=== PATIENT | female | born 1940 | race Caucasian/White ===

== ENCOUNTER 2020-02-26 12:44 | Outpatient (REF) | payer MEDICARE, SELFPAY ==
--- NOTE | 2020-02-26 12:56 | XR_ITS ---
EXAMINATION: XR KNEE, RIGHT CLINICAL INFORMATION: Right knee pain. COMPARISON: None TECHNIQUE: Four views of the right knee. FINDINGS: Mild patellofemoral degenerative joint changes are seen. Mild degenerative spurring is seen along the superior margin. There is no acute fracture or dislocation. The soft tissues are unremarkable. XR/XR knee RT 2V IMPRESSION: Mild patellofemoral degenerative joint changes. No acute fracture.
== END 2020-02-26 12:45 | disposition home or self-care (01) ==
LOC: HO.HMGCX 12:44
PROVIDERS: PCP Family Medicine; Visit Provider Family Medicine
DX: M25.561 Pain in right knee (principal)
CPT/HCPCS: 73560

== ENCOUNTER 2020-04-22 10:45 | Outpatient (REF) | payer MEDICARE, SELFPAY ==
[2020-04-22 11:52] LABS: MANUAL DIFF FLAG NO
[2020-04-22 12:06] LABS: Basophils Absolute Auto 0.1 X10*3/uL (0.0-0.2); Basophils Percent Auto 0.9 % (0-2); Eosinophils Absolute Auto 0.2 X10*3/uL (0.0-0.4); Eosinophils Percent Auto 2.2 % (0-4); Hematocrit 37.8 % (37-47); Hemoglobin 12.1 g/dl (12.0-16.0); Imm Gran Abs Auto 0.02 X10*3/uL (0.00-0.03); Imm Gran Pct Auto 0.3 % (0.0-0.4); Lymphocytes Absolute Auto 3.6 X10*3/uL (1.2-4.9); Lymphocytes Percent Auto 51.6 % (20-40); Mean Corpuscular Hemoglobin 31.6 pg (27.0-33.0); Mean Corpuscular Volume 98.7 fL (80-98); Mean Platelet Volume 11.4 fL (9.4-12.3); Monocytes Absolute Auto 0.6 X10*3/uL (0.1-1.2); Monocytes Percent Auto 7.9 % (2-11); Neutrophils Absolute Auto 2.6 X10*3/uL (2.0-8.3); Neutrophils Percent Auto 37.1 % (45-73); Platelet Count 285 X10*3/uL (160-400); Red Blood Count 3.83 X10*6/uL (4.20-5.50); Red Cell Distribution Width 14.5 % (11.0-16.0)
[2020-04-22 12:20] LABS: Glucose Urine UA NEG (NEG); Leukocyte Esterase Urine 1+ (NEG); Nitrite Urine NEG (NEG); PH 5.5 (5.0-8.0); Specific Gravity - Urine 1.025 (1.005-1.025); Urine Blood NEG (NEG); Urine Ketones NEG (NEG); Urine Protein NEG (NEG-TRACE)
[2020-04-22 12:23] LABS: Appearance Urine HAZY; Color Urine YELLOW
[2020-04-22 12:39] LABS: Mucus Urine 1+ /LPF; RBC Urine 0 /HPF (0); Squamous Epithelial Cell Urine 1+ /LPF
[2020-04-22 12:47] LABS: Creatinine Urine 127.85 mg/dL; Microalbum/Creatinine Ratio Ur 23.4 ug/mg cr
[2020-04-22 12:54] LABS: Alanine Aminotransferase 31 U/L (0-31); Alkaline Phosphatase 84 U/L (39-117); Anion Gap 15 (12-20); Aspartate Amino Transferase 30 U/L (5-31); Bilirubin Total 0.5 mg/dL (0.0-1.0); Blood Urea Nitrogen 32 mg/dL (9-16); Carbon Dioxide 27 mmol/L (22-29); Chloride 107 mmol/L (96-108); Cholesterol 172 mg/dL; Estimated Glomerular Filt Rate 52; Glucose Fasting 108 mg/dL (60-99); HDL Cholesterol 58 mg/dL; LDL Cholesterol Calculated 90 mg/dl; Potassium 4.3 mmol/L (3.3-5.1); Sodium 145 mmol/L (135-145); Total Protein 6.8 g/dL (6.5-8.0); Triglycerides 122 mg/dL
[2020-04-22 13:24] LABS: Estimated Average Glucose 108 mg/dL; Hemoglobin A1c % 5.4 %
[2020-04-22 15:06] LABS: Reflex LDLD? No
[2020-04-24 16:31] LABS: Vitamin B12 951 pg/mL (200-900)
== END 2020-04-22 10:46 | disposition home or self-care (01) ==
LOC: HO.LNP 10:45
PROVIDERS: Visit Provider Internal Medicine
DX: Z00.00 Encounter for general adult medical examination without abnormal findings (principal); E11.9 Type 2 diabetes mellitus without complications; I10 Essential (primary) hypertension; E78.00 Pure hypercholesterolemia, unspecified; D72.820 Lymphocytosis (symptomatic)
CPT/HCPCS: 80053; 80061; 81001; 81003; 82043; 82607; 83036; 85025

== ENCOUNTER 2020-05-01 15:11 | Outpatient (REF) | payer MEDICARE, SELFPAY | END 2020-05-01 15:12 | disposition home or self-care (01) | LOC: HO.LNP 15:11 | PROVIDERS: Visit Provider Internal Medicine | DX: N39.0 Urinary tract infection, site not specified (principal) | CPT/HCPCS: 87086 ==

== ENCOUNTER 2020-05-20 10:21 | Outpatient (REF) | payer MEDICARE, SELFPAY ==
[2020-05-20 12:19] LABS: Blood Urea Nitrogen 29 mg/dL (9-16); Estimated Glomerular Filt Rate 56
== END 2020-05-20 10:22 | disposition home or self-care (01) ==
LOC: HO.LNP 10:21
PROVIDERS: PCP Internal Medicine; Visit Provider Internal Medicine
DX: R79.9 Abnormal finding of blood chemistry, unspecified (principal)
CPT/HCPCS: 82565; 84520

== ENCOUNTER 2020-07-17 09:31 | Outpatient (REF) | payer MEDICARE, SELFPAY ==
[2020-07-17 11:20] LABS: Blood Urea Nitrogen 28 mg/dL (9-16)
== END 2020-07-17 09:32 | disposition home or self-care (01) ==
LOC: HO.LNP 09:31
PROVIDERS: PCP Internal Medicine; Visit Provider Internal Medicine
DX: R79.89 Other specified abnormal findings of blood chemistry (principal)
CPT/HCPCS: 84520

== ENCOUNTER 2020-09-18 10:40 | Outpatient (REF) | payer MEDICARE, SELFPAY ==
[2020-09-18 10:56] LABS: Blood Urea Nitrogen 32 mg/dL (9-16); Estimated Glomerular Filt Rate 47
== END 2020-09-18 10:41 | disposition home or self-care (01) ==
LOC: HO.LNP 10:40
PROVIDERS: Visit Provider Internal Medicine
DX: R79.9 Abnormal finding of blood chemistry, unspecified (principal)
CPT/HCPCS: 82565; 84520

== ENCOUNTER 2020-10-31 10:40 | Outpatient (REF) | payer MEDICARE, SELFPAY ==
[2020-10-31 12:01] LABS: Alanine Aminotransferase 20 U/L (0-31); Albumin Level 3.9 g/dL (3.5-5.0); Alkaline Phosphatase 90 U/L (39-117); Aspartate Amino Transferase 26 U/L (5-31); Bilirubin Direct 0.2 mg/dL (0.0-0.5); Bilirubin Total 0.4 mg/dL (0.0-1.0); Cholesterol 162 mg/dL; Glucose Fasting 96 mg/dL (60-99); HDL Cholesterol 61 mg/dL; LDL Cholesterol Calculated 70 mg/dl; Total Protein 6.6 g/dL (6.5-8.0); Triglycerides 159 mg/dL
[2020-10-31 12:03] LABS: Estimated Average Glucose 114 mg/dL; Hemoglobin A1c % 5.6 %
[2020-10-31 13:29] LABS: Reflex LDLD? No
== END 2020-10-31 10:41 | disposition home or self-care (01) ==
LOC: HO.LNP 10:40
PROVIDERS: Visit Provider Internal Medicine
DX: E11.9 Type 2 diabetes mellitus without complications (principal); E78.00 Pure hypercholesterolemia, unspecified
CPT/HCPCS: 80061; 80076; 82947; 83036

== ENCOUNTER 2021-02-10 07:32 | Outpatient (REF) | payer MEDICARE, SELFPAY ==
[2021-02-10 10:31] LABS: Hematocrit 36.7 % (37.0-47.0); Hemoglobin 11.7 g/dl (12.0-16.0); Mean Corpuscular HGB Conc 31.9 g/dl (31.0-35.0); Mean Corpuscular Hemoglobin 31.1 pg (27.0-33.0); Mean Corpuscular Volume 97.6 fL (80.0-98.0); Mean Platelet Volume 10.9 fL (9.4-12.3); Platelet Count 295 X10*3/uL (160-400); Red Blood Count 3.76 X10*6/uL (4.20-5.50); Red Cell Distribution Width 13.2 % (11.0-16.0); White Blood Count 6.8 X10*3/uL (4.8-10.8)
[2021-02-10 10:36] LABS: Anion Gap 15 (12-20); Blood Urea Nitrogen 43 mg/dL (9-16); Carbon Dioxide 26 mmol/L (22-29); Chloride 106 mmol/L (96-108); Estimated Glomerular Filt Rate 42; Iron 100 mcg/dL (30-160); Magnesium 1.9 mg/dL (1.6-2.6); Percent Iron Saturation 29 % (15-50); Potassium 4.6 mmol/L (3.3-5.1); Sodium 142 mmol/L (135-145); Total Iron Binding Capacity 339 mcg/dL (228-428); Unsaturated Iron Binding 239 ug/dL; Uric Acid 9.2 mg/dL (2.4-5.7)
[2021-02-10 10:58] LABS: Ferritin 240 ng/mL (10-250); Vitamin D 25-OH Total 39.2 ng/mL (>30)
[2021-02-10 11:06] LABS: Appearance Urine HAZY; Color Urine YELLOW; Glucose Urine UA NEG (NEG); Leukocyte Esterase Urine 2+ (NEG); Nitrite Urine NEG (NEG); PH 5.5 (5.0-8.0); Urine Blood NEG (NEG); Urine Ketones NEG (NEG); Urine Protein NEG (NEG-TRACE)
[2021-02-10 11:14] LABS: Creatinine Urine 40.72 mg/dL; Microalbumin Urine < 5.0 mg/L
[2021-02-10 11:17] LABS: Bacteria Urine 1+ /LPF; Squamous Epithelial Cell Urine 1+ /LPF
[2021-02-10 11:20] LABS: RBC Urine 0 /HPF (0)
[2021-02-11 20:51] LABS: Calcium (PTHI) 9.8 mg/dL (8.6-10.4); PTHI 42 pg/mL (14-64)
== END 2021-02-10 07:33 | disposition home or self-care (01) ==
LOC: HO.10HDL 07:32
PROVIDERS: Visit Provider Internal Medicine Nephrology
DX: I12.9 Hypertensive chronic kidney disease with stage 1 through stage 4 chronic kidney disease, or unspecified chronic kidney disease (principal); N18.1 Chronic kidney disease, stage 1
CPT/HCPCS: 36415; 80051; 81001; 82043; 82306; 82310; 82565; 82728; 83540; 83735; 83970; 84520; 84550; 85027

== ENCOUNTER 2021-04-27 10:11 | Outpatient (REF) | payer MEDICARE, SELFPAY ==
[2021-04-27 10:14] LABS: MANUAL DIFF FLAG NO
[2021-04-27 10:55] LABS: Basophils Percent Auto 0.5 % (0-2); Eosinophils Absolute Auto 0.1 X10*3/uL (0.0-0.4); Eosinophils Percent Auto 1.7 % (0-4); Hematocrit 39.6 % (37.0-47.0); Hemoglobin 12.4 g/dl (12.0-16.0); Imm Gran Abs Auto 0.02 X10*3/uL (0.00-0.03); Imm Gran Pct Auto 0.3 % (0.0-0.4); Lymphocytes Absolute Auto 3.4 X10*3/uL (1.2-4.9); Lymphocytes Percent Auto 44.4 % (20-40); Mean Corpuscular HGB Conc 31.3 g/dl (31.0-35.0); Mean Corpuscular Hemoglobin 31.1 pg (27.0-33.0); Mean Corpuscular Volume 99.2 fL (80.0-98.0); Mean Platelet Volume 11.9 fL (9.4-12.3); Monocytes Absolute Auto 0.5 X10*3/uL (0.1-1.2); Monocytes Percent Auto 6.9 % (2-11); Neutrophils Absolute Auto 3.6 x10*3/uL (2.0-8.3); Neutrophils Percent Auto 46.2 % (45-73); Platelet Count 255 X10*3/uL (160-400); Red Blood Count 3.99 X10*6/uL (4.20-5.50); White Blood Count 7.7 X10*3/uL (4.8-10.8)
[2021-04-27 10:59] LABS: Appearance Urine HAZY; Color Urine YELLOW; Glucose Urine UA NEG (NEG); Leukocyte Esterase Urine 1+ (NEG); Nitrite Urine NEG (NEG); PH 5.5 (5.0-8.0); Specific Gravity - Urine 1.025 (1.005-1.025); Urine Blood NEG (NEG); Urine Ketones NEG (NEG); Urine Protein NEG (NEG-TRACE)
[2021-04-27 11:11] LABS: Alanine Aminotransferase 25 U/L (0-31); Albumin Level 3.9 g/dL (3.5-5.0); Alkaline Phosphatase 90 U/L (39-117); Anion Gap 12 (12-20); Aspartate Amino Transferase 29 U/L (5-31); Bilirubin Total 0.5 mg/dL (0.0-1.0); Blood Urea Nitrogen 34 mg/dL (9-16); Calcium 9.7 mg/dL (8.4-10.2); Carbon Dioxide 29 mmol/L (22-29); Chloride 106 mmol/L (96-108); Cholesterol 163 mg/dL; Estimated Glomerular Filt Rate 45; Glucose Fasting 123 mg/dL (60-99); HDL Cholesterol 58 mg/dL; LDL Cholesterol Calculated 76 mg/dl; Potassium 4.4 mmol/L (3.3-5.1); Sodium 143 mmol/L (135-145); Total Protein 6.6 g/dL (6.5-8.0); Triglycerides 148 mg/dL
[2021-04-27 11:46] LABS: Bacteria Urine 2+ /LPF; RBC Urine 0-2 /HPF (0); Squamous Epithelial Cell Urine 2+ /LPF
== END 2021-04-27 10:12 | disposition home or self-care (01) ==
LOC: HO.LNP 10:11
PROVIDERS: Visit Provider Internal Medicine
DX: Z00.00 Encounter for general adult medical examination without abnormal findings (principal)
CPT/HCPCS: 80053; 80061; 81001; 81003; 85025

== ENCOUNTER 2021-08-27 15:53 | Outpatient (REF) | payer MEDICARE, SELFPAY ==
[2021-08-27 16:02] LABS: Appearance Urine CLEAR; Color Urine YELLOW; Glucose Urine UA NEG (NEG); Leukocyte Esterase Urine 1+ (NEG); Nitrite Urine NEG (NEG); PH 5.5 (5.0-8.0); Specific Gravity - Urine 1.025 (1.005-1.025); Urine Blood NEG (NEG); Urine Ketones NEG (NEG); Urine Protein NEG (NEG-TRACE)
[2021-08-27 16:08] LABS: Bacteria Urine 2+ /LPF; RBC Urine 0 /HPF (0); Squamous Epithelial Cell Urine 2+ /LPF
== END 2021-08-27 15:54 | disposition home or self-care (01) ==
LOC: HO.LNP 15:53
PROVIDERS: Visit Provider Internal Medicine
DX: N30.00 Acute cystitis without hematuria (principal)
CPT/HCPCS: 81001; 87086

== ENCOUNTER 2021-09-10 11:15 | Outpatient (REF) | payer MEDICARE, SELFPAY ==
[2021-09-10 11:51] LABS: Appearance Urine CLEAR; Color Urine YELLOW; Glucose Urine UA NEG (NEG); Leukocyte Esterase Urine 1+ (NEG); Nitrite Urine NEG (NEG); PH 5.5 (5.0-8.0); Specific Gravity - Urine 1.025 (1.005-1.025); Urine Blood 1+ (NEG); Urine Ketones NEG (NEG); Urine Protein NEG (NEG-TRACE)
[2021-09-10 12:58] LABS: Squamous Epithelial Cell Urine 2+ /LPF
[2021-09-10 12:59] LABS: Bacteria Urine TRACE /LPF
== END 2021-09-10 11:16 | disposition home or self-care (01) ==
LOC: HO.LNP 11:15
PROVIDERS: Visit Provider Internal Medicine
DX: N39.0 Urinary tract infection, site not specified (principal); Z51.89 Encounter for other specified aftercare
CPT/HCPCS: 81001; 87086

== ENCOUNTER 2021-10-30 11:21 | Outpatient (REF) | payer MEDICARE, SELFPAY ==
[2021-10-30 11:48] LABS: Estimated Average Glucose 111 mg/dL; Hemoglobin A1c % 5.5 %
[2021-10-30 11:49] LABS: Alanine Aminotransferase 21 U/L (0-31); Alkaline Phosphatase 89 U/L (39-117); Aspartate Amino Transferase 27 U/L (5-31); Bilirubin Direct < 0.2 mg/dL (0.0-0.5); Bilirubin Total 0.3 mg/dL (0.0-1.0); Cholesterol 159 mg/dL; Glucose Fasting 102 mg/dL (60-99); HDL Cholesterol 53 mg/dL; LDL Cholesterol Calculated 72 mg/dl; Total Protein 6.9 g/dL (6.5-8.0); Triglycerides 173 mg/dL
[2021-10-30 12:34] LABS: Reflex LDLD? No
== END 2021-10-30 11:22 | disposition home or self-care (01) ==
LOC: HO.LNP 11:21
PROVIDERS: Visit Provider Internal Medicine
DX: E11.9 Type 2 diabetes mellitus without complications (principal); E78.00 Pure hypercholesterolemia, unspecified
CPT/HCPCS: 80061; 80076; 82947; 83036

== ENCOUNTER 2022-02-15 11:22 | Outpatient (REF) | payer MEDICARE, SELFPAY ==
[2022-02-15 11:48] LABS: Appearance Urine Cloudy; Color Urine Yellow; Glucose Urine UA Negative (Negative); Leukocyte Esterase Urine Moderate (2+) (Negative); Nitrite Urine Negative (Negative); PH 5.5 (5.0-9.0); Specific Gravity - Urine 1.015 (1.005-1.025); UMIC TRIGGER UA YES; Urine Blood Trace (Negative); Urine Ketones Negative (Negative); Urine Protein Negative (Neg-Trace)
[2022-02-15 12:25] LABS: Bacteria Urine 1+ (None Seen); Hyaline Casts Urine 0-2 /LPF (0-2); WBC Urine 21-50 /HPF (0-5)
== END 2022-02-15 11:23 | disposition home or self-care (01) ==
LOC: HO.LNP 11:22
PROVIDERS: Visit Provider Internal Medicine
DX: R31.9 Hematuria, unspecified (principal)
CPT/HCPCS: 81001; 87086; 87088; 87186

== ENCOUNTER 2022-03-02 10:23 | Outpatient (REF) | payer MEDICARE, SELFPAY ==
--- NOTE | ~2022-03-02 | XR_ITS ---
EXAMINATION: XR SHOULDER, RIGHT CLINICAL INFORMATION: Right shoulder injury. COMPARISON: None TECHNIQUE: Three views of the right shoulder. FINDINGS: No acute fractures or subluxation. Equivocal widening of the acromioclavicular joint with mild bony productive changes suggesting a background of mild osteoarthritis. The visualized right-sided ribs and right lung are within normal limits. No abnormal soft tissue calcifications. XR/XR shoulder RT min 2V IMPRESSION: Equivocal widening of the right acromioclavicular joint that could be seen with a ligamentous injury. Recommend correlation with weightbearing bilateral views of the AC joints if clinically deemed appropriate.
== END 2022-03-02 10:24 | disposition home or self-care (01) ==
LOC: HO.XRAY 10:23
PROVIDERS: PCP Internal Medicine; Visit Provider Internal Medicine
DX: S49.91XA Unspecified injury of right shoulder and upper arm, initial encounter (principal); X58.XXXA Exposure to other specified factors, initial encounter; Y93.9 Activity, unspecified; Y92.9 Unspecified place or not applicable; Y99.9 Unspecified external cause status
CPT/HCPCS: 73030

== ENCOUNTER → 2022-04-28 07:47 | Outpatient (BNVA) | payer MEDICARE, SELFPAY | PROVIDERS: PCP Internal Medicine; Visit Provider Physician Assistant | DX: M75.80 Other shoulder lesions, unspecified shoulder (principal) | CPT/HCPCS: 99202 ==

== ENCOUNTER 2022-05-03 11:01 | Outpatient (REF) | payer MEDICARE, SELFPAY ==
[2022-05-03 11:11] LABS: MANUAL DIFF FLAG NO
[2022-05-03 11:21] LABS: Basophils Absolute Auto 0.1 X10*3/uL (0.0-0.2); Basophils Percent Auto 0.6 % (0-2); Eosinophils Absolute Auto 0.1 X10*3/uL (0.0-0.4); Eosinophils Percent Auto 1.2 % (0-4); Hematocrit 36.3 % (37.0-47.0); Hemoglobin 11.7 g/dl (12.0-16.0); Imm Gran Abs Auto 0.01 X10*3/uL (0.00-0.03); Imm Gran Pct Auto 0.1 % (0.0-0.4); Lymphocytes Absolute Auto 3.4 X10*3/uL (1.2-4.9); Lymphocytes Percent Auto 38.2 % (20-40); Mean Corpuscular HGB Conc 32.2 g/dl (31.0-35.0); Mean Corpuscular Hemoglobin 30.6 pg (27.0-33.0); Mean Platelet Volume 10.8 fL (9.4-12.3); Monocytes Absolute Auto 0.7 X10*3/uL (0.1-1.2); Monocytes Percent Auto 7.9 % (2-11); Neutrophils Absolute Auto 4.6 x10*3/uL (2.0-8.3); Platelet Count 323 X10*3/uL (160-400); Red Blood Count 3.82 X10*6/uL (4.20-5.50); Red Cell Distribution Width 13.6 % (11.0-16.0); White Blood Count 8.9 X10*3/uL (4.8-10.8)
[2022-05-03 11:22] LABS: Appearance Urine Cloudy; Color Urine Yellow; Glucose Urine UA Negative (Negative); Leukocyte Esterase Urine Large (3+) (Negative); Nitrite Urine Positive (Negative); UMIC TRIGGER UACC YES; Urine Blood Moderate (2+) (Negative); Urine Ketones Negative (Negative); Urine Protein Negative (Neg-Trace)
[2022-05-03 12:11] LABS: Estimated Average Glucose 120 mg/dL; Hemoglobin A1c % 5.8 %
[2022-05-03 12:19] LABS: Alanine Aminotransferase 16 U/L (0-31); Albumin Level 3.8 g/dL (3.5-5.0); Alkaline Phosphatase 91 U/L (39-117); Anion Gap 14 (12-20); Aspartate Amino Transferase 21 U/L (5-31); Bilirubin Total 0.5 mg/dL (0.0-1.0); Blood Urea Nitrogen 30 mg/dL (9-16); Calcium 9.4 mg/dL (8.4-10.2); Carbon Dioxide 29 mmol/L (22-29); Chloride 105 mmol/L (96-108); Cholesterol 143 mg/dL; Estimated Glomerular Filt Rate 47; Glucose Fasting 106 mg/dL (60-99); HDL Cholesterol 52 mg/dL; LDL Cholesterol Calculated 68 mg/dl; Potassium 4.5 mmol/L (3.3-5.1); Sodium 143 mmol/L (135-145); Total Protein 6.5 g/dL (6.5-8.0); Triglycerides 115 mg/dL
[2022-05-03 12:26] LABS: Bacteria Urine 4+ (None Seen); Hyaline Casts Urine 0-2 /LPF (0-2); UACC Culture Trigger YES; WBC Urine 21-50 /HPF (0-5)
[2022-05-03 12:36] LABS: Creatinine Urine 135.07 mg/dL
== END 2022-05-03 11:02 | disposition home or self-care (01) ==
LOC: HO.LNP 11:01
PROVIDERS: Visit Provider Internal Medicine
DX: Z00.00 Encounter for general adult medical examination without abnormal findings (principal); E11.9 Type 2 diabetes mellitus without complications; E78.00 Pure hypercholesterolemia, unspecified; I10 Essential (primary) hypertension; D72.820 Lymphocytosis (symptomatic); R82.90 Unspecified abnormal findings in urine
CPT/HCPCS: 80053; 80061; 81001; 82043; 83036; 85025; 87086

== ENCOUNTER 2022-06-03 12:42 | Outpatient (REF) | payer MEDICARE, SELFPAY ==
[2022-06-03 13:04] LABS: Appearance Urine Cloudy; Color Urine Yellow; Glucose Urine UA Negative (Negative); Leukocyte Esterase Urine Moderate (2+) (Negative); Nitrite Urine Positive (Negative); PH 5.5 (5.0-9.0); UMIC TRIGGER UACC YES; Urine Blood Moderate (2+) (Negative); Urine Ketones Negative (Negative); Urine Protein Negative (Neg-Trace)
[2022-06-03 13:26] LABS: Bacteria Urine 4+ (None Seen); RBC Urine 0-2 /HPF (0-2); UACC Culture Trigger YES; WBC Urine 21-50 /HPF (0-5)
== END 2022-06-03 12:43 | disposition home or self-care (01) ==
LOC: HO.LNP 12:42
PROVIDERS: Visit Provider Internal Medicine
DX: R31.9 Hematuria, unspecified (principal)
CPT/HCPCS: 81001; 87086; 87088; 87186

== ENCOUNTER 2022-06-24 11:37 | Outpatient (REF) | payer MEDICARE, SELFPAY ==
[2022-06-24 11:53] LABS: Appearance Urine Clear; Color Urine Yellow; Glucose Urine UA Negative (Negative); Leukocyte Esterase Urine Large (3+) (Negative); Nitrite Urine Negative (Negative); Specific Gravity - Urine 1.015 (1.005-1.025); UMIC TRIGGER UA YES; Urine Blood Negative (Negative); Urine Ketones Negative (Negative); Urine Protein Negative (Neg-Trace)
[2022-06-24 11:58] LABS: Bacteria Urine None Seen (None Seen); Hyaline Casts Urine 0-2 /LPF (0-2); RBC Urine 0-2 /HPF (0-2); WBC Urine 21-50 /HPF (0-5)
== END 2022-06-24 11:38 | disposition home or self-care (01) ==
LOC: HO.LNP 11:37
PROVIDERS: Visit Provider Internal Medicine
DX: R31.9 Hematuria, unspecified (principal)
CPT/HCPCS: 81001; 87086

== ENCOUNTER 2022-11-05 12:20 | Outpatient (REF) | payer MEDICARE, SELFPAY ==
[2022-11-05 12:47] LABS: Alanine Aminotransferase 20 U/L (0-31); Alkaline Phosphatase 83 U/L (39-117); Aspartate Amino Transferase 31 U/L (5-31); Bilirubin Direct 0.2 mg/dL (0.0-0.5); Bilirubin Total 0.5 mg/dL (0.0-1.0); Cholesterol 154 mg/dL (<200); Glucose Fasting 90 mg/dL (60-99); HDL Cholesterol 58 mg/dL (>40); LDL Cholesterol Calculated 78 mg/dL (<100); Total Protein 7.1 g/dL (6.5-8.0); Triglycerides 92 mg/dL (<150)
[2022-11-05 13:10] LABS: Reflex LDLD? No
[2022-11-05 13:16] LABS: Estimated Average Glucose 108 mg/dL; Hemoglobin A1c % 5.4 % (<6.0)
== END 2022-11-05 12:21 | disposition home or self-care (01) ==
LOC: HO.LNP 12:20
PROVIDERS: Visit Provider Internal Medicine
DX: E11.9 Type 2 diabetes mellitus without complications (principal); E78.00 Pure hypercholesterolemia, unspecified
CPT/HCPCS: 80061; 80076; 82947; 83036

== ENCOUNTER 2022-11-23 11:54 | Outpatient (REF) | payer MEDICARE, SELFPAY ==
[2022-11-23 12:23] LABS: Appearance Urine Cloudy; Color Urine Dark Yellow; Glucose Urine UA Negative (Negative); Leukocyte Esterase Urine Moderate (2+) (Negative); Nitrite Urine Negative (Negative); UMIC TRIGGER UACC YES; Urine Blood Large (3+) (Negative); Urine Ketones Negative (Negative); Urine Protein 100 (2+) mg/dL (Neg-Trace)
[2022-11-23 12:26] LABS: Bacteria Urine 4+ (None Seen); Hyaline Casts Urine 0-2 /LPF (0-2); RBC Urine >20 /HPF (0-2); UACC Culture Trigger YES; WBC Urine >50 /HPF (0-5)
== END 2022-11-23 11:55 | disposition home or self-care (01) ==
LOC: HO.LNP 11:54
PROVIDERS: Visit Provider Internal Medicine
DX: N39.0 Urinary tract infection, site not specified (principal)
CPT/HCPCS: 81001; 87086

== ENCOUNTER 2022-12-14 11:11 | Outpatient (REF) | payer MEDICARE, SELFPAY ==
[2022-12-14 12:36] LABS: Appearance Urine Cloudy; Color Urine Yellow; Glucose Urine UA Negative (Negative); Leukocyte Esterase Urine Large (3+) (Negative); Nitrite Urine Negative (Negative); PH 5.5 (5.0-9.0); UMIC TRIGGER UACC YES; Urine Blood Large (3+) (Negative); Urine Ketones Negative (Negative); Urine Protein Negative (Neg-Trace)
[2022-12-14 12:43] LABS: Bacteria Urine Trace (None Seen); RBC Urine >20 /HPF (0-2); UACC Culture Trigger YES; WBC Urine >50 /HPF (0-5)
== END 2022-12-14 11:12 | disposition home or self-care (01) ==
LOC: HO.LNP 11:11
PROVIDERS: Visit Provider Internal Medicine
DX: R31.9 Hematuria, unspecified (principal)
CPT/HCPCS: 81001; 87086

== ENCOUNTER 2023-02-15 12:41 | Outpatient (REF) | payer MEDICARE, SELFPAY | END 2023-02-15 12:42 | disposition home or self-care (01) | LOC: HO.LAB 12:41 | PROVIDERS: PCP Internal Medicine; Visit Provider Nurse Practitioner Family | DX: N39.0 Urinary tract infection, site not specified (principal); R31.9 Hematuria, unspecified; Z79.899 Other long term (current) drug therapy | CPT/HCPCS: 81003; 87086; 99202 ==

== ENCOUNTER 2023-02-15 12:41 | Outpatient (AMB) | payer MEDICARE, SELFPAY ==
--- NOTE | 2023-02-15 12:51 | A.OFFVIS_ITS ---
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 Orona. She has a past medical history of coronary artery disease, hypertension, hyperlipidemia, and chronic kidney disease following with Dr. Morrison. 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 She presents to the office today as a new patient for microscopic hematuria and recurrent urinary tract infections. In discussion with the patient today she reports having follow-up with her PCP a few months ago for UTI like symptoms at which time recommendations were made for Urology follow-up due to patient's recurrent urinary tract infections. She currently denies any UTI like symptoms. In office urinalysis with 2+ leukocytes otherwise negative nitrates and negative for microscopic hematuria today. When asked she does report episodes of urinary urgency, urinary frequency, and episodes of incontinence if not near a bathroom however these episodes are infrequent and she does not find them bothersome. Discussed at length potential causes for recurrent urinary tract infections as well as microscopic hematuria. She otherwise denies dysuria, foul smelling urine, changes to urinary stream, flank pain, fever, and or chills. She is happy with her current voiding parameters. She discusses how she continues to work and enjoys working. She also discusses her 29year old grandson who lives with her and how great of a cook he is. [facility] Surgical History (Updated 04/28/22 @ 07:59 by Susan Dunn CMA) History of heart bypass surgery Social History (Updated 02/15/23 @ 13:11 by KACIE Gomez) Alcohol intake: current Alcohol intake frequency: does not drink Patient Tobacco Use Status: Former Tobacco user Quit Date: 1983 Review of Systems Eyes Reports no additional complaints ENT Reports no additional complaints Card Reports as per HPI Resp Reports no additional complaints GI Reports no additional complaints Reports as per HPI Musc Reports no additional complaints Neuro Reports no additional complaints Psych Reports no additional complaints Endo Reports no additional complaints Eleno/Lymph Reports no additional complaints Aller/Immun Reports no additional complaints Physical Exam Const General: cooperative, healthy appearing, comfortable, no acute distress, well developed, alert and awake Nutritional Appearance: overweight Orientation/consciousness: patient oriented x3 Limitations: no limitations HEENT Head: Yes normal to inspection, Yes normocephalic and Yes atraumatic Ears: hearing grossly normal bilaterally Eyes General: appearance normal, both eyes and all related structures Neck Neck: Yes normal visual inspection and Yes trachea midline Chest Chest palpation & inspection: normal inspection of the chest Resp Effort & Inspection: normal respiratory effort and able to speak in complete sentences Cardio Rate: regular rate GI Inspection: Yes normal to inspection General: Yes no CVA tenderness Back/Spine/Pelvis Back: no CVA tenderness Skin General skin exam: no rashes or lesions noted Neuro General: patient oriented x3 Extrem General: Yes normal to inspection Psych Appearance: grossly normal and well kempt Mental Status: mental status grossly normal Speech and movement: Normal speech and movement present and Clear speech present Affect: normal affect Attitude: cooperative Thought process: Normal thought process present Thought content: Normal thought content present Insight: Fair insight present (Psych) Judgement: Fair judgement present (Psych) Results AMB Urinalysis, Automated UA Leukoctes 125 Martell/uL Last Edit by KACIE Gomez on 02/15/23 13:15 2+ Dionicio Espinal 02/15/23 13:15 UA Nitrite Negative Last Edit by KACIE Gomez on 02/15/23 13:15 UA Urobilinogen 0.2 mg/dL Last Edit by Dionicio Espinal A on 02/15/23 13:1 5 UA Protein 0 mg/dL Last Edit by Dionicio Espinal A on 02/15/23 13:15 UA pH 5.5 Last Edit by Dionicio Espinal, A on 02/15/23 13:15 UA Blood 0 Massimo/uL Last Edit by Dionicio Espinal A on 02/15/23 13:15 UA Specific [place] 1.025 Last Edit by Dionicio Espinal, A on 02/15/23 13: 15 UA Ketone Negative Last Edit by Dionicio Espinal, A on 02/15/23 13:15 UA Bilirubin 0 mg/dL Last Edit by Dionicio Espinal A on 02/15/23 13:15 UA Glucose 0 mg/dL Last Edit by Dionicio Espinal A on 02/15/23 13:15 Results Reviewed Results Reviewed: Laboratory Last Values Urine pH (Auto) 5.5 02/15/23 13:11 Specific [place] (Auto) 1.025 02/15/23 13:11 Urine Protein (Auto) 0 mg/dL 02/15/23 13:11 Glucose (UA)(Auto) 0 mg/dL 02/15/23 13:11 Urine Ketones (Auto) Negative 02/15/23 13:11 Urine Blood (Auto) 0 Massimo/uL 02/15/23 13:11 Urine Nitrite (Auto) Negative 02/15/23 13:11 Urine Bilirubin (Auto) 0 mg/dL 02/15/23 13:11 Urine Urobilinogen (Auto) 0.2 mg/dL 02/15/23 13:11 Leukocyte Esterase (Auto) 125 Martell/uL 02/15/23 13:11 Assessment & Plan Assessment & Plan (1) Recurrent urinary tract infection: Code(s): N39.0 - Urinary tract infection, site not specified Plan In office urinalysis results reviewed with the patient today; as noted above; will send for urine culture Discussed at length potential causes for recurrent urinary tract infections as well as microscopic hematuria No microscopic hematuria noted on urinalysis today Discussed UTI prevention with D mannose supplement, vitamin-C, increasing fluid intake, behavioral therapy with timed voiding, perineal hygiene and postcoital voiding, and management of constipation with stool softeners and increased fiber intake. Start Estrace cream as discussed and prescribed Discussed, educated, and stressed the importance of drinking plenty of water daily. Patient does report episodes of urinary urgency and frequency however does not f ind this bothersome at this time Discussed possible near future imaging and or in office cystoscopy if symptoms persist and/or worsen Follow-up in 3 months with PVR; or sooner with any issues, concerns, and or questions. Orders: Orders AMB Urinalysis Automated Today Z13.9 - Encounter for screening, unspecified Urine Culture Today N39.0 - Urinary tract infection, site not specified Medications: New estradiol 0.01%(0.1mg/gram) (Estrace) pea sized to the urethera 3 times per week 1 g vaginal 3XW 30 days 42.5 grams 0RF Patient Instructions: The patient had an opportunity to ask questions regarding the treatment plan. All questions were answered. Physical exam, labs, and imaging were discussed and reviewed in detail. As well as risks, benefits, and discussion of treatment choices. No major barriers to understanding were identified. The patient expressed understanding and agreement with the above treatment plan. The patient was made aware they should contact our office by phone for worsening of their current condition, the appearance of new symptoms, or with any questions or concerns. Compliance is encouraged with any medications and follow up testing that is ordered. It is a privilege to be allowed the opportunity to participate in? your urological care.? Again, if you have any questions or concerns If you have any questions or concerns please do not hesitate to contact me. The office is [phone]. This note is constructed using voice recognition software. While every effort has been made to ensure accuracy change advisor errors may have been included. Yours sincerely, NNEKA Plaza Coding Level of Care Code New Pt Level 4 (23375) Diagnoses Recurrent urinary tract infection N39.0
== END 2023-02-15 14:29 | disposition home or self-care (01) ==
PROVIDERS: PCP Internal Medicine; Visit Provider Nurse Practitioner Family
DX: N39.0 Urinary tract infection, site not specified (principal); Z13.9 Encounter for screening, unspecified
CPT/HCPCS: 99204

== ENCOUNTER 2023-04-20 07:30 | Outpatient (REF) | payer MEDICARE, SELFPAY ==
[2023-04-20 10:50] LABS: Appearance Urine Turbid; Color Urine Yellow; Glucose Urine UA Negative (Negative); Leukocyte Esterase Urine Moderate (2+) (Negative); Nitrite Urine Positive (Negative); UMIC TRIGGER UA YES; Urine Blood Moderate (2+) (Negative); Urine Ketones Negative (Negative); Urine Protein Trace mg/dL (Neg-Trace)
[2023-04-20 11:16] LABS: Bacteria Urine 4+ (None Seen); Renal Epithelial Cells Urine Present; Transitional Epi Cells Urine Present; WBC Urine >50 /HPF (0-5)
== END 2023-04-20 07:31 | disposition home or self-care (01) ==
LOC: HO.10HDLNP 07:30
PROVIDERS: Visit Provider Nurse Practitioner Family
DX: N39.0 Urinary tract infection, site not specified (principal)
CPT/HCPCS: 81001; 87086; 87088

== ENCOUNTER 2023-05-05 11:17 | Outpatient (REF) | payer MEDICARE, SELFPAY ==
[2023-05-05 12:14] LABS: Estimated Average Glucose 111 mg/dL; Hemoglobin A1c % 5.5 % (<6.0)
[2023-05-05 12:28] LABS: Alanine Aminotransferase 24 U/L (0-31); Albumin Level 3.8 g/dL (3.5-5.0); Alkaline Phosphatase 82 U/L (39-117); Aspartate Amino Transferase 27 U/L (5-31); Bilirubin Direct 0.2 mg/dL (0.0-0.5); Bilirubin Total 0.5 mg/dL (0.0-1.0); Cholesterol 144 mg/dL (<200); Glucose Fasting 92 mg/dL (60-99); HDL Cholesterol 52 mg/dL (>40); LDL Cholesterol Calculated 69 mg/dL (<100); Total Protein 6.8 g/dL (6.5-8.0); Triglycerides 119 mg/dL (<150)
[2023-05-05 13:36] LABS: Reflex LDLD? No
== END 2023-05-05 11:18 | disposition home or self-care (01) ==
LOC: HO.LNP 11:17
PROVIDERS: Visit Provider Internal Medicine
DX: E11.9 Type 2 diabetes mellitus without complications (principal); E78.00 Pure hypercholesterolemia, unspecified
CPT/HCPCS: 80061; 80076; 82947; 83036

== ENCOUNTER 2023-05-17 12:48 | Outpatient (REF) | payer MEDICARE, SELFPAY ==
[2023-05-17 17:46] LABS: Urine Cytology See Pathology rpt
== END 2023-05-17 12:49 | disposition home or self-care (01) ==
LOC: HO.LAB 12:48
PROVIDERS: PCP Internal Medicine; Visit Provider Nurse Practitioner Family
DX: R31.29 Other microscopic hematuria (principal); N39.0 Urinary tract infection, site not specified
CPT/HCPCS: 51798; 81003; 88112; 99212

== ENCOUNTER 2023-05-17 12:48 | Outpatient (AMB) | payer MEDICARE, SELFPAY ==
--- NOTE | 2023-05-17 12:51 | A.OFFVIS_ITS ---
Intake Intake Visit Reasons: 3m/PVR Intake Note: Patient presents today for a follow-up on PVR Meds- Estrace, Pyridium Allergies to Antibiotic- No Known Allergies Blood Thinner- Aspirin Post Void Residual: Webbing Seamer Pound Net Required: No Accompanied by: Self / Same As Patient Allergies No Known Allergies [No Known Allergies*] Allergy (Verified 05/17/23 20:36) Medication List - Last Reconciled 05/17/23 by TORSTEN Plaza- aspirin 81 mg PO DAILY estradiol 0.01%(0.1mg/gram) (Estrace) 1 g vaginal 3XW 30 days furosemide 20 mg PO DAILY metoprolol succinate ER 50 mg PO DAILY simvastatin 40 mg PO BEDTIME valsartan-hydrochlorothiazide 320-25 mg 1 tab PO DAILY HPI HPI Comments History of Present Illness Details Rekha is a very pleasant 83-year-old female patient of Dr. Orona. She has a past medical history of coronary artery disease, hypertension, hyperlipidemia, and chronic kidney disease following with Dr. Morrison. 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 She presents to the office today for a follow up of her microscopic hematuria and recurrent urinary tract infections. Of note, patient was recently treated for urinary tract infection 04/23 Aerococcus urinae with macrobid. In discussion with the patient today she reports having since completed antibiotic therapy. She currently denies any UTI like symptoms or bothersome urinary issues. She does report to be following up with infectious waste technician for her ongoing vaginits. She does report noting vaginal itching improves at times. She also reports puritis ani at times as well. In office urinalysis results reviewed with the patient today. Microscopic hematuria noted. PVR 0ml's. She does have a previous smoking history however quit approximately 40 years ago. Discussed at length potential causes of microscopic hematuria as well as recurrent urinary tract infections. When asked she does report compliance with Estrace cream as prescribed. When asked she does report episodes of urinary urgency, urinary frequency, and episodes of incontinence if not near a bathroom however these episodes are infrequent and she does not find them bothersome. She otherwise denies dysuria, foul smelling urine, changes to urinary stream, flank pain, fever, and or chills. She is happy with her current voiding parameters. She discusses how she continues to work and enjoys working. Discussed further microscopic hematuria workup versus surveillance monitoring. She otherwise offers no other issues or concerns at this time. [facility] Surgical History (Updated 04/28/22 @ 07:59 by Susan Dunn CMA) History of heart bypass surgery Social History (Updated 02/15/23 @ 13:11 by KACIE Gomez) Alcohol intake: current Alcohol intake frequency: does not drink Patient Tobacco Use Status: Former Tobacco user Quit Date: 1983 Review of Systems Eyes Reports no additional complaints ENT Reports no additional complaints Card Reports as per HPI Resp Reports no additional complaints GI Reports no additional complaints Reports as per HPI Musc Reports no additional complaints Neuro Reports no additional complaints Psych Reports no additional complaints Endo Reports no additional complaints Eleno/Lymph Reports no additional complaints Aller/Immun Reports no additional complaints Physical Exam Const General: cooperative, healthy appearing, comfortable, no acute distress, well developed, alert and awake Nutritional Appearance: overweight Orientation/consciousness: patient oriented x3 Limitations: no limitations HEENT Head: Yes normal to inspection, Yes normocephalic and Yes atraumatic Ears: hearing grossly normal bilaterally Eyes General: appearance normal, both eyes and all related structures Neck Neck: Yes normal visual inspection and Yes trachea midline Chest Chest palpation & inspection: normal inspection of the chest Resp Effort & Inspection: normal respiratory effort and able to speak in complete sentences Cardio Rate: regular rate GI Inspection: Yes normal to inspection General: Yes no CVA tenderness Back/Spine/Pelvis Back: no CVA tenderness Skin General skin exam: no rashes or lesions noted Neuro General: patient oriented x3 Extrem General: Yes normal to inspection Psych Appearance: grossly normal and well kempt Mental Status: mental status grossly normal Speech and movement: Normal speech and movement present and Clear speech present Affect: normal affect Attitude: cooperative Thought process: Normal thought process present Thought content: Normal thought content present Insight: Fair insight present (Psych) Judgement: Fair judgement present (Psych) Office Procedures Post Void Residual Post Residual Void Post Void Residual (PVR): 0 [id number]-Avhb Void Residual by ultrasound Results AMB Urinalysis, Automated UA Leukoctes 15 Martell/uL Last Edit by Katalina Gentile [facility] on 05/17/23 13:11 UA Nitrite Negative Last Edit by Katalina Gentilevikram Gentile [facility] on 05/17/23 13: 11 UA Urobilinogen 0.2 mg/dL Last Edit by Katalina Gentile [facility] on 4 13:11 UA Protein 0 mg/dL Last Edit by Katalina Gentilevikram Gentile [facility] on 05/17/23 13:11 UA pH 5.5 Last Edit by Katalina Gentilevikram Gentile, [facility] on 05/17/23 13:11 UA Blood 200 Massimo/uL Last Edit by Katalina Gentile [facility] on 05/17/23 13:1 1 UA Specific [place] 1.020 Last Edit by Katalina Gentlie [facility] on 13:11 UA Ketone Negative Last Edit by Katalina Gentile [facility] on 05/17/23 13:1 1 UA Bilirubin 0 mg/dL Last Edit by Katalina Gentile [facility] on 05/17/23 13: 11 UA Glucose 0 mg/dL Last Edit by Katalina Gentilevikram Gentile [facility] on 05/17/23 13:11 Results Reviewed Results Reviewed: Laboratory Last Values Urine pH (Auto) 5.5 05/17/23 12:52 Specific [place] (Auto) 1.020 05/17/23 12:52 Urine Protein (Auto) 0 mg/dL 05/17/23 12:52 Glucose (UA)(Auto) 0 mg/dL 05/17/23 12:52 Urine Ketones (Auto) Negative 05/17/23 12:52 Urine Blood (Auto) 200 Massimo/uL 05/17/23 12:52 Urine Nitrite (Auto) Negative 05/17/23 12:52 Urine Bilirubin (Auto) 0 mg/dL 05/17/23 12:52 Urine Urobilinogen (Auto) 0.2 mg/dL 05/17/23 12:52 Leukocyte Esterase (Auto) 15 Martell/uL 05/17/23 12:52 Assessment & Plan Assessment & Plan (1) Recurrent urinary tract infection: Code(s): N39.0 - Urinary tract infection, site not specified (2) Microscopic hematuria: Code(s): R31.29 - Other microscopic hematuria Plan In office urinalysis results reviewed with the patient today; as noted above; will send for urine cytology. PVR 0ml's. Discussed at length potential causes for microscopic hematuria as well as recurrent urinary tract infections. Discussed further microscopic hematuria workup with urine cytology, imaging, and in office cystoscopy versus surveillance monitoring; risks and benefits of these interventions were discussed at length. Discussed UTI prevention with D mannose supplement, vitamin-C, increasing fluid intake, behavioral therapy with timed voiding, perineal hygiene and postcoital voiding, and management of constipation with stool softeners and increased fiber intake. She currently denies any bothersome urinary issues or concerns. She is happy with her current voiding parameters. Continue Estrace cream as prescribed. Follow-up in 6 months; if not sooner with any issues, concerns, and or questions. Orders: Orders AMB Urinalysis Automated Today R33.9 - Retention of urine, unspecified Urine Cytology Today R31.29 - Other microscopic hematuria AMB Post Void Residual by ultrasound Today R33.9 - Retention of urine, unspecified Medications: Refilled estradiol 0.01%(0.1mg/gram) (Estrace) pea sized to the urethera 3 times per week 1 g vaginal 3XW 30 days 42.5 grams 0RF Discontinued phenazopyridine (Pyridium) Discontinued Reason: Patient Completed Course 100 mg PO TID 3 days PRN 15 tabs 0RF pain Patient Instructions: The patient had an opportunity to ask questions regarding the treatment plan. All questions were answered. Physical exam, labs, and imaging were discussed and reviewed in detail. As well as risks, benefits, and discussion of treatment choices. No major barriers to understanding were identified. The patient expressed understanding and agreement with the above treatment plan. The patient was made aware they should contact our office by phone for worsening of their current condition, the appearance of new symptoms, or with any questions or concerns. Compliance is encouraged with any medications and follow up testing that is ordered. It is a privilege to be allowed the opportunity to participate in? your urological care.? Again, if you have any questions or concerns If you have any questions or concerns please do not hesitate to contact me. The office is [phone]. This note is constructed using voice recognition software. While every effort has been made to ensure accuracy test tech errors may have been included. Yours sincerely, TORSTEN Plaza-BC Coding Level of Care Code Est Pt Level 3 (80286) Diagnoses Recurrent urinary tract infection N39.0 Microscopic hematuria R31.29 CPT Codes Post Residual Void - PVR CPT Code: 15309-Bjpx Void Residual by ultrasound ([id number])
== END 2023-05-17 13:40 | disposition home or self-care (01) ==
LOC: HO.HUSH 12:48
PROVIDERS: PCP Internal Medicine; Visit Provider Nurse Practitioner Family
DX: N39.0 Urinary tract infection, site not specified (principal); R31.29 Other microscopic hematuria; R33.9 Retention of urine, unspecified
CPT/HCPCS: 99213

== ENCOUNTER 2023-11-08 12:15 | Outpatient (REF) | payer MEDICARE, SELFPAY ==
[2023-11-08 12:20] LABS: MANUAL DIFF FLAG NO
[2023-11-08 12:25] LABS: Basophils Absolute Auto 0.1 X10*3/uL (0.0-0.2); Basophils Percent Auto 0.8 % (0-2); Eosinophils Absolute Auto 0.1 X10*3/uL (0.0-0.4); Eosinophils Percent Auto 1.5 % (0-4); Hematocrit 38.4 % (37.0-47.0); Hemoglobin 12.6 g/dl (12.0-16.0); Imm Gran Abs Auto 0.03 X10*3/uL (0.00-0.03); Imm Gran Pct Auto 0.3 % (0.0-0.4); Lymphocytes Absolute Auto 3.4 X10*3/uL (1.2-4.9); Lymphocytes Percent Auto 37.3 % (20-40); Mean Corpuscular HGB Conc 32.8 g/dl (31.0-35.0); Mean Corpuscular Hemoglobin 31.7 pg (27.0-33.0); Mean Corpuscular Volume 96.5 fL (80.0-98.0); Mean Platelet Volume 11.3 fL (9.4-12.3); Monocytes Absolute Auto 0.7 X10*3/uL (0.1-1.2); Monocytes Percent Auto 7.6 % (2-11); Neutrophils Absolute Auto 4.8 x10*3/uL (2.0-8.3); Neutrophils Percent Auto 52.5 % (45-73); Platelet Count 257 X10*3/uL (160-400); Red Blood Count 3.98 X10*6/uL (4.20-5.50); Red Cell Distribution Width 13.9 % (11.0-16.0); White Blood Count 9.1 X10*3/uL (4.8-10.8)
[2023-11-08 12:26] LABS: Appearance Urine Cloudy; Color Urine Yellow; Glucose Urine UA Negative (Negative); Leukocyte Esterase Urine Negative (Negative); Nitrite Urine Negative (Negative); Specific Gravity - Urine 1.015 (1.005-1.025); UMIC TRIGGER UACC YES; Urine Blood Trace (Negative); Urine Ketones Negative (Negative); Urine Protein Negative (Neg-Trace)
[2023-11-08 12:30] LABS: Bacteria Urine 4+ (None Seen); Hyaline Casts Urine 0-2 /LPF (0-2); Squamous Epithelial Cell Urine 0-2 /HPF (0-2); WBC Urine 0-5 /HPF (0-5)
[2023-11-08 12:38] LABS: Estimated Average Glucose 111 mg/dL; Hemoglobin A1c % 5.5 % (<6.0)
[2023-11-08 12:49] LABS: Alanine Aminotransferase 23 U/L (0-31); Albumin Level 4.3 g/dL (3.5-5.0); Alkaline Phosphatase 104 U/L (39-117); Anion Gap 14 (12-20); Aspartate Amino Transferase 32 U/L (5-31); Bilirubin Total 0.4 mg/dL (0.0-1.0); Blood Urea Nitrogen 32 mg/dL (9-16); Calcium 10.1 mg/dL (8.4-10.2); Carbon Dioxide 25 mmol/L (22-29); Chloride 109 mmol/L (96-108); Cholesterol 151 mg/dL (<200); Estimated Glomerular Filt Rate 54; Glucose Fasting 98 mg/dL (60-99); HDL Cholesterol 66 mg/dL (>40); LDL Cholesterol Calculated 67 mg/dL (<100); Potassium 3.9 mmol/L (3.3-5.1); Sodium 144 mmol/L (135-145); Total Protein 7.7 g/dL (6.5-8.0); Triglycerides 90 mg/dL (<150)
[2023-11-08 13:10] LABS: Creatinine Urine 57.47 mg/dL; Microalbum/Creatinine Ratio Ur 13.9 ug/mg cr (<30)
== END 2023-11-08 12:16 | disposition home or self-care (01) ==
LOC: HO.LNP 12:15
PROVIDERS: Visit Provider Internal Medicine
DX: Z00.00 Encounter for general adult medical examination without abnormal findings (principal); I10 Essential (primary) hypertension; E11.42 Type 2 diabetes mellitus with diabetic polyneuropathy; E03.9 Hypothyroidism, unspecified
CPT/HCPCS: 80053; 80061; 81001; 82043; 82570; 83036; 85025

== ENCOUNTER 2023-12-21 07:24 | Outpatient (AMB) | payer MEDICARE, SELFPAY ==
--- NOTE | 2023-12-21 07:33 | A.OFFVIS_ITS ---
Intake Visit Reasons: 6 mo f/u, UTI/Hematuria Intake Note: Patient presents today for a follow-up on: uti and micro hematuria Meds: Estrace Cream Allergies to Antibiotic: No Known Allergies Blood Thinner: Aspirin Post Void Residual: 0ml's Jig Inspector Required: No Accompanied by: Self / Same As Patient Allergies No Known Allergies [No Known Allergies*] Allergy (Verified 12/21/23 08:37) Medication List - Last Reconciled 12/21/23 by TORSTEN Plaza- aspirin 81 mg PO DAILY clotrimazole 1% 1 appl topical BID 4 weeks estradiol 0.01%(0.1mg/gram) (Estrace) 1 g vaginal 3XW 90 days furosemide 20 mg PO DAILY metoprolol succinate ER 50 mg PO DAILY simvastatin 40 mg PO BEDTIME valsartan-hydrochlorothiazide 320-25 mg 1 tab PO DAILY HPI Comments Details: Rekha is a very pleasant 83-year-old female patient of Dr. Orona. She has a past medical history of coronary artery disease, hypertension, hyper lipidemia, and chronic kidney disease following with Dr. Morrison. 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 She presents to the office today for a follow up of her microscopic hematuria and recurrent urinary tract infections. In discussion with the patient today she reports having had no UTIs and or UTI like symptoms since her last office visit here approximately 6 months ago. She reports compliance with Estrace cream as prescribed. In office urinalysis results reviewed with the patient today 2+ leukocytes negative nitrates 2+ microscopic blood. PVR 0 mL. She discusses her upcoming appointment with a weight management clinic and is looking forward to it as she knows she needs to lose weight to better her health. She does have a previous smoking history however quit approximately 40 years ago. Discussed at length potential causes of microscopic hematuria as well as recurrent urinary tract infections. When asked she does report episodes of urinary urgency, urinary frequency, and episodes of incontinence if not near a bathroom however these episodes are infrequent and she does not find them bothersome. She otherwise denies dysuria, foul smelling urine, changes to urinary stream, flank pain, fever, and or chills. She is happy with her current voiding parameters. She discusses how she continues to work and enjoys working. Discussed further microscopic hematuria workup versus surveillance monitoring. Discussed risks and benefits of these interventions. She otherwise offers no other issues or concerns at this time. Urine cytology 05/21 Negative for high-grade urothelial carcinoma. Urine culture 06/20 E coli and 04/23 aerococcus urinae. [facility] Surgical History History of heart bypass surgery Social History Alcohol intake: current Alcohol intake frequency: does not drink Patient Tobacco Use Status: Former Tobacco user Review of Systems Eyes Reports no additional complaints ENT Reports no additional complaints Card Reports as per HPI Resp Reports no additional complaints GI Reports no additional complaints Reports as per HPI Musc Reports no additional complaints Neuro Reports no additional complaints Psych Reports no additional complaints Endo Reports no additional complaints Eleno/Lymph Reports no additional complaints Aller/Immun Reports no additional complaints Physical Exam Const General: cooperative, healthy appearing, comfortable, no acute distress, well developed, alert and awake Nutritional Appearance: overweight Orientation/consciousness: patient oriented x3 Limitations: no limitations HEENT Head: Yes normal to inspection, Yes normocephalic and Yes atraumatic Ears: hearing grossly normal bilaterally Eyes General: appearance normal, both eyes and all related structures Neck Neck: Yes normal visual inspection and Yes trachea midline Chest Chest palpation & inspection: normal inspection of the chest Resp Effort & Inspection: normal respiratory effort and able to speak in complete sentences Cardio Rate: regular rate GI Inspection: Yes normal to inspection General: Yes no CVA tenderness Back/Spine/Pelvis Back: no CVA tenderness Skin General skin exam: no rashes or lesions noted Neuro General: patient oriented x3 Extrem General: Yes normal to inspection Psych Appearance: grossly normal and well kempt Mental Status: mental status grossly normal Speech and movement: Normal speech and movement present and Clear speech present Affect: normal affect Attitude: cooperative Thought process: Normal thought process present Thought content: Normal thought content present Insight: Fair insight present (Psych) Judgement: Fair judgement present (Psych) Office Procedures Post Void Residual Post Residual Void Post Void Residual (PVR): 0 [id number] Void Residual by ultrasound Results AMB Urinalysis, Automated UA Leukoctes 125 Martell/uL Last Edit by Chikis Quintero on 12/21/23 07:57 UA Nitrite Negative Last Edit by Chikis Quintero on 12/21/23 07:57 UA Urobilinogen 0.2 mg/dL Last Edit by Chikis Quintero on 12/21/23 07:57 UA Protein 15 mg/dL Last Edit by Waste Remediesjuan jose Quintero on 12/21/23 07:57 UA pH 5.5 Last Edit by Weroomviolette on 12/21/23 07:57 UA Blood 80 Massimo/uL Last Edit by Doximitymalik AMResortsviolette on 12/21/23 07:57 UA Specific Kenai 1.025 Last Edit by Waste Remediesjuan jose AMResortsviolette on 12/21/23 07:57 UA Ketone Last Edit by Doximitymalik Quintero on 12/21/23 07:57 UA Bilirubin 0 mg/dL Last Edit by Waste Remediesjuan jose Quintero on 12/21/23 07:57 UA Glucose 0 mg/dL Last Edit by Doximitymalik AMResortsviolette on 12/21/23 07:57 Results Reviewed Results Reviewed: Laboratory Last Values Urine pH (Auto) 5.5 12/21/23 07:37 Specific Ken[place] (Auto) 1.025 12/21/23 07:37 Urine Protein (Auto) 15 mg/dL 12/21/23 07:37 Glucose (UA)(Auto) 0 mg/dL 12/21/23 07:37 Urine Blood (Auto) 80 Massimo/uL 12/21/23 07:37 Urine Nitrite (Auto) Negative 12/21/23 07:37 Urine Bilirubin (Auto) 0 mg/dL 12/21/23 07:37 Urine Urobilinogen (Auto) 0.2 mg/dL 12/21/23 07:37 Leukocyte Esterase (Auto) 125 Martell/uL 12/21/23 07:37 Assessment & Plan Assessment & Plan (1) Microscopic hematuria: Code(s): R31.29 - Other microscopic hematuria Category: Medical (2) Recurrent urinary tract infection: Code(s): N39.0 - Urinary tract infection, site not specified Category: Medical Plan In office urinalysis results reviewed with the patient today; as noted above; will send for urine cytology. Reviewed urine cytology results from previous office visit. PVR 0ml's. Discussed at length potential causes for microscopic hematuria as well as recurrent urinary tract infections. Discussed further microscopic hematuria workup with urine cytology, imaging, and in office cystoscopy versus surveillance monitoring; risks and benefits of these interventions were discussed at length. Discussed UTI prevention with D mannose supplement, vitamin-C, increasing fluid intake, behavioral therapy with timed voiding, perineal hygiene and postcoital voiding, and management of constipation with stool softeners and increased fiber intake. She currently denies any bothersome urinary issues or concerns. She is happy with her current voiding parameters. Continue Estrace cream as prescribed; refill provided Follow-up in 6 months; if not sooner with any issues, concerns, and or questions. Orders: Orders AMB Post Void Residual by ultrasound Today N39.0 - Urinary tract infection, site not specified AMB Urinalysis Automated Today Z13.9 - Encounter for screening, unspecified Medications: New clotrimazole 1% 1 appl topical BID 4 weeks 28 grams 0RF N48.29 - Other inflammatory disorders of penis Changed From estradiol 0.01%(0.1mg/gram) (Estrace) pea sized to the urethera 3 times per week 1 g vaginal 3XW 30 days 42.5 grams 0RF To estradiol 0.01%(0.1mg/gram) (Estrace) pea sized to the urethera 3 times per week 1 g vaginal 3XW 90 days 42.5 grams 3RF Patient Instructions: The patient had an opportunity to ask questions regarding the treatment plan. All questions were answered. Physical exam, labs, and imaging were discussed and reviewed in detail. As well as risks, benefits, and discussion of treatment choices. No major barriers to understanding were identified. The patient expressed understanding and agreement with the above treatment plan. The patient was made aware they should contact our office by phone for worsening of their current condition, the appearance of new symptoms, or with any questions or concerns. Compliance is encouraged with any medications and follow up testing that is ordered. It is a privilege to be allowed the opportunity to participate in? your urological care.? Again, if you have any questions or concerns If you have any questions or concerns please do not hesitate to contact me. The office is [phone]. This note is constructed using voice recognition software. While every effort has been made to ensure accuracy claim clerk errors may have been included. Yours sincerely, TORSTEN Plaza-BC Coding Level of Care Code Est Pt Level 3 (20966) Complex EM visit Add On G2211 Diagnoses Microscopic hematuria R31.29 Recurrent urinary tract infection N39.0 CPT Codes Post Residual Void - PVR CPT Code: 90723-Qwnm Void Residual by ultrasound ([id number])
== END 2023-12-21 08:36 | disposition home or self-care (01) ==
PROVIDERS: PCP Internal Medicine; Visit Provider Nurse Practitioner Family
DX: R31.29 Other microscopic hematuria (principal); N39.0 Urinary tract infection, site not specified; Z13.9 Encounter for screening, unspecified
CPT/HCPCS: 99213; G2211

== ENCOUNTER 2023-12-21 07:24 | Outpatient (REF) | payer MEDICARE, SELFPAY ==
[2023-12-21 16:38] LABS: Urine Cytology See Pathology rpt
== END 2023-12-21 07:25 | disposition home or self-care (01) ==
LOC: HO.LNP 07:24
PROVIDERS: PCP Internal Medicine; Visit Provider Nurse Practitioner Family
DX: R31.29 Other microscopic hematuria (principal); N39.0 Urinary tract infection, site not specified
CPT/HCPCS: 51798; 81003; 88112; 99212

== ENCOUNTER 2024-01-16 10:44 | Outpatient (REF) | payer MEDICARE, SELFPAY ==
[2024-01-16 10:46] LABS: MANUAL DIFF FLAG NO
[2024-01-16 10:49] LABS: Basophils Percent Auto 0.5 % (0-2); Eosinophils Absolute Auto 0.2 X10*3/uL (0.0-0.4); Eosinophils Percent Auto 2.2 % (0-4); Hematocrit 37.8 % (37.0-47.0); Hemoglobin 12.2 g/dl (12.0-16.0); Imm Gran Abs Auto 0.01 X10*3/uL (0.00-0.03); Imm Gran Pct Auto 0.1 % (0.0-0.4); Lymphocytes Percent Auto 51.5 % (20-40); Mean Corpuscular HGB Conc 32.3 g/dl (31.0-35.0); Mean Corpuscular Hemoglobin 31.7 pg (27.0-33.0); Mean Corpuscular Volume 98.2 fL (80.0-98.0); Monocytes Absolute Auto 0.6 X10*3/uL (0.1-1.2); Monocytes Percent Auto 7.7 % (2-11); Neutrophils Absolute Auto 2.9 x10*3/uL (2.0-8.3); Platelet Count 254 X10*3/uL (160-400); Red Blood Count 3.85 X10*6/uL (4.20-5.50); Red Cell Distribution Width 13.5 % (11.0-16.0); White Blood Count 7.7 X10*3/uL (4.8-10.8)
[2024-01-16 11:02] LABS: Blood Urea Nitrogen 28 mg/dL (9-16)
== END 2024-01-16 10:45 | disposition home or self-care (01) ==
LOC: HO.LNP 10:44
PROVIDERS: Visit Provider Internal Medicine
DX: R79.9 Abnormal finding of blood chemistry, unspecified (principal)
CPT/HCPCS: 84520; 85025

== ENCOUNTER 2024-05-08 10:15 | Outpatient (REF) | payer MEDICARE, SELFPAY ==
[2024-05-08 11:05] LABS: Alanine Aminotransferase 29 U/L (0-31); Albumin Level 3.9 g/dL (3.5-5.0); Alkaline Phosphatase 89 U/L (39-117); Aspartate Amino Transferase 41 U/L (5-31); Bilirubin Direct 0.2 mg/dL (0.0-0.5); Bilirubin Total 0.5 mg/dL (0.0-1.0); Cholesterol 146 mg/dL (<200); Glucose Fasting 99 mg/dL (60-99); HDL Cholesterol 56 mg/dL (>40); LDL Cholesterol Calculated 63 mg/dL (<100); Total Protein 7.4 g/dL (6.5-8.0); Triglycerides 138 mg/dL (<150)
[2024-05-08 11:11] LABS: Estimated Average Glucose 120 mg/dL; Hemoglobin A1c % 5.8 % (<6.0)
[2024-05-08 11:18] LABS: Reflex LDLD? No
--- OUTSIDE RECORDS SUMMARY | 2024-05-08 12:05 | XMS_ITS | Clinical Summary ---
Author Organization [facility] Address [address] [place] [id number] Care Team Providers Care Steel Heater Name Role Phone Albaro Orona MD Primary Care Provider [phone] Allergies No known active allergies Medications metoprolol succinate XL (TOPROL XL) 50 MG 24 hr tablet 09/01/2020 Act lexie simvastatin (ZOCOR) 40 MG tablet 08/30/2020 Active clotrimazole-bet amethasone (LOTRISONE) cream 01/18/2021 Active dexamethasone (DECADRON) 4 MG tablet 12/29/2020 Active diclofenac (CATAFLAM) 50 MG tablet 02/03/2021 Active furosemide (LASIX) 20 MG tablet 01/29/2021 Active valsartan-hydroC HLOROthiazide (DIOVAN-HCT) 320-25 MG per tablet TAKE 1 TABLET DAILY 90 tablet 3 04/21/2022 Active Active Problems Problem Noted Date Diagnosed Date Hypertension 11/18/2020 Decreased renal function 11/18/2020 Stage 1 chronic kidney disease 11/18/2020 Social History Tobacco Use Types Packs/Day Years Used Date Smoking Tobacco: Never Smokeless Tobacco: Never Alcohol Use Standard Drinks/Week Comments Not Currently 0 (1 standard drink = 0.6 oz pur e alcohol) Comments Unknown Sex and Gender Information Value Date Recorded Sex Assigned at Not on file Legal Sex Female 4:43 PM EST Gender Identity Not on file Sexual Orientation Not on file Plan of Treatment Health Maintenance Due Date Last Done Comments Pneumococcal Vaccine: 65+ Ye ars (1 of 2 - PCV) 1946 Influenza Vaccine (#1) 2023 Hepatitis B Vaccine Aged Out No longe r eligible based on patient's age to complete this topic Insurance [employer] MEDICARE [facility] MEDICARE Care Teams Steel Heater Relationship Specialty Start Date End Date Albaro Orona MD [id number] [place] PCP - General 03/10/20
--- OUTSIDE RECORDS SUMMARY | 2024-05-08 12:05 | XMS_ITS | Encounter Summary ---
Author Organization [facility] Address [address] [place] [address] Phone Care Team Providers Care Cardiopulmonary Technologist Name Role Phone Albaro Orona MD Primary Care Provider [phone] Reason for Visit * Reason Comments Med Refill Encounter Details Date Type Department Care Team (Late st Contact Info) Description 04/14/2023 Refill [facility] [address] [place] [id number] Adis Morrison MD [address] [place] [address], [address] [id number] Social History Tobacco Use Types Packs/Day Years Used Date Smoking Tobacco: Never Smokeless Tobacco: Never Alcohol Use Standard Drinks/Week Comments Not Currently 0 (1 standard drink = 0.6 oz pur e alcohol) Comments Unknown Sex and Gender Information Value Date Recorded Sex Assigned at Not on file Legal Sex Female 4:43 PM EST Gender Identity Not on file Sexual Orientation Not on file documented as of this encounter Plan of Treatment Not on file documented as of this encounter Visit Diagnoses Not on filedocumented in this encounter Care Teams Cardiopulmonary Technologist Relationship Specialty Start Date End Date Albaro Orona MD [address] [place] PCP - General 03/10/20 documented as of this encounter
--- OUTSIDE RECORDS SUMMARY | 2024-05-08 12:05 | XMS_ITS ---
Author Organization Albaro Orona MD Address [address] [place] [id number] Care Team Providers Care Pension Adviser Name Role Phone Albaro Orona Primary Care Provider Allergies No Known Allergies REASON FOR VISIT annual visit, c/o sciatica, Will be getting flu vaccine at work Medications Medication SIG (Take, Route, Frequency, Duration) Notes Start Date End Date Status Symbicort 160-4.5 MCG/ACT 2 puffs Inhala tion Twice a day 07/04/2018 Not-Taking Furosemide 20 MG 1 tablet Orally Once a day for 10 days 01/29/2021 Not-Taking ProAir HFA 108 (90 Base) MCG/ACT 2 puffs as needed Inhalation every 4 hrs for 30 days 12/22/2012 Not-Taking Vitamin B12 1000 mg 1 tablet Orally Once a day Not-Taking Sulfamethoxazole-Trimethop rim 800-160 MG 1 tablet Orally Twice a day for 7 days 08/27/2021 Not-Taking Ventolin HFA 108 (90 Base) MCG/ACT 2 puffs as needed Inhalation every 4 hrs for 30 days 04/18/2018 Not-Taking Cephalexin 500 MG 1 capsule Orally 2 times a day for 5 days 02/19/2022 Not-Takin g Metoprolol Succinate ER 50 mg TAKE 1 TABLET DAILY Active Nitrofurantoin Monohyd Macro 100 MG 1 capsule with food Orally every 12 hrs for 5 day(s) Not-Taking Simvastatin 40 mg TAKE 1 TABLET DAILY Active Vitamin C 500 MG as directed Orally Active Valsartan-hydroCHLOROthiaz lc 320-25 MG 1 tablet Orally Once a day for 90 days 04/22/2020 Active Aspirin Adult Low Strength 81 MG 1 tablet Orally Once a day for 30 day(s) Active [place] 3 1000 MG 1 capsule Orally Onc e a day Active Social History Tobacco Use: Social History Observation Description Date Details (start date - stop date) Former Smoker NA - NA Tobacco Use/Smoking Question Answer Notes Patient is a former smoker How long has it been since y ou last smoked? > 10 years Additional Findings: Tobacco Non-User Fo rmer smoker, currently using no form of tobacco Alcohol Screen Question Answer Notes Did you have a drink contain ing alcohol in the past year? Yes How often did you have a dri nk containing alcohol in the past year? Monthly or less (1 point) How many drinks did you have on a typical day when you were drinking in the past year? 1 or 2 drinks (0 point) How often did you have 6 or more drinks on one occasion in the past year? Never (0 point) Points 1 Interpretation Negative Vital Signs Blood pressure systolic 162 mm Hg 11/15/19 24 Blood pressure diastolic 70 mm Hg 024 Height 60.5 in 11/15/2023 Weight 222 lbs 11/15/2023 BMI 42.64 kg/m2 11/15/2023 Encounters Encounter Location Date Provider Diagnosis Albaro Orona MD [address] [place] [address] Drive [address] [place], [place] [id number] 11/15/2023 Albaro Orona Type 2 diabetes mellitus without complication E11.9 ; Annual physical exam Z00.00 ; Coronary artery disease I25.10 ; Elevated BUN R79.9 ; Essential hypertension I10 ; Lymphocytosis D72.820 ; Pure hypercholesterolemia E78.00 ; Sciatica, unspecified laterality M54.30 and Depression screening Z13.31 Assessments Encounter Date Diagnosis (ICD Code) Assessment Notes Treatment Notes Treatment Clinical Notes Section Notes 11/15/2023 Type 2 diabetes mellitus without complication (ICD-10 - E11.9) has good a1c, at goal, will continue current regiment 11/15/2023 Annual physical exam (ICD-10 - Z00.00) labs reviewed and discussed with patient 11/15/2023 Coronary artery dise ase (ICD-10 - I25.10) not having any chest pain, will continue to monitor 11/15/2023 Elevated BUN (ICD-10 - R79.9) is probably from the [place], will continue to monitor 11/15/2023 Essential hypertensi on (ICD-10 - I10) stable, at goal, will continue current regiment 11/15/2023 Lymphocytosis (ICD-1 0 - D72.820) has resolved, will continue to monitor 11/15/2023 Pure hypercholesterolemia (ICD-10 - E78.00) stable, at goal, will continue current regiment 11/15/2023 Sciatica, unspecifie d laterality (ICD-10 - M54.30) seeing chiropractor with good relief, will continue to monitor 11/15/2023 Depression screening (ICD-10 - Z13.31) negative screen Plan Of Treatment Treatment Notes Assessment Notes Type 2 diabetes mellitus without complic ation has good a1c, at goal, will continue current regiment Annual physical exam labs reviewed and d iscussed with patient Coronary artery disease not having any c hest pain, will continue to monitor Elevated BUN is probably from the [place], will continue to monitor Essential hypertension stable, at goal, will continue current regiment Lymphocytosis has resolved, will c ontinue to monitor Pure hypercholesterolemia stable, at goa l, will continue current regiment Sciatica, unspecified laterality seeing chiropractor with good relief, will continue to monitor Depression screening negative screen Next Appt Details Follow Up: 6 Months, Reason: Provider Name:Albaro cedeño, 05/15/2024 01:30:00 PM, [address] [place] [address], [address], [place], [id number], Provider Name:Albaro cedeño, 11/09/2024 07:30:00 AM, [address] [place] [address], [address], [place], [phone], Provider Name:Albaro cedeño, 11/16/2024 01:00:00 PM, [address], [address], [place], [phone], Progress Notes * Rekha SHARMA PDOB:1940 (83 yo F)Acc No.[id number]:11/15/2023 Progress Notes Patient:?Rekha Sharma Provider:?Albrao Orona MD :1940???Age:83 Y???Sex:Female D ate:11/15/2023 Address:[id number] Subjective: * Chief Complaints: * ???Annual visitC/o sciaticaW ill be getting flu vaccine at work * HPI: ???Depression Screening:?PHQ-9?Little interest or pleasure in doing things?Not at all,?Feeling down, depressed, or hopeless?Not at all,?Trouble falling or staying asleep, or sleeping too much?Not at all,?Feeling tired or having little energy?Not at all,?Poor appetite or overeating?Not at all,?Feeling bad about yourself or that you are a failure, or have let yourself or your family down?Not at all,?Trouble concentrating on things, such as reading the newspaper or watching television?Not at all,?Moving or speaking so slowly that other people could have noticed; or the opposite, being so fidgety or restless that you have been moving around a lot more than usual?Not at all,?Thoughts that you would be better off or of hurting yourself in some way?Not at all,?Total Score?0.?Interpretation and Intervention?Depression Screening Findings?Negative,?Follow-Up for Depression?: review of PHQ-9 found negative result, no follow-up needed.?Communication Needs:?Communication Needs?Does the patient have a hearing impairment?No,?Does the patient have a vision impairment??Yes,?If yes, what is the vision impairment??Glasses,?Does the patient have a cognition impairment??No.?Fall Risk:?History?Have you had any falls with injury in the past year??No,?Have you had two or more falls in the past year??No.?SDOH Questions:?SDOH Questions?In the past year have you been worried about losing housing??No,?In the past year have you or any family members you live with been unable to get any of the following when it was really needed? Check all that apply:?None.?Symptom(s):? patient is a 83 yo female here or annual visit with review of recent labs and follow up of chronic issues, having pains in knees and hips and can.t walk without stopping. has sciatica and is going to chiropracter and is getting better. * ROS:?General/Constitutional:?Patient denies?fatigue , headache.?Change in appetite?denies.?Chills?denies.?Fever?denies.?Ophthalmologic:?Blurred vision?denies.?Discharge?denies.?Pain?denies.?ENT:?Patient denies?decreased sense of smell , any loss of taste , sore throat.?Decreased hearing?denies.?Sore throat?denies.?Swollen glands?denies.?Endocrine:?Cold intolerance?denies.?Excessive thirst?denies.?Heat intolerance?denies.?Weight loss?denies.?Respiratory:?Cough?denies.?Shortness of breath at rest?denies.?Shortness of breath with exertion?denies.?Wheezing?denies.?Cardiovascular:?Chest pain at rest?denies.?Chest pain with exertion?denies.?Irregular heartbeat?denies.?Shortness of breath?denies.?Gastrointestinal:?Abdominal pain?denies.?Change in bowel habits?denies.?Diarrhea?denies.?Nausea?denies.?Rectal bleeding?denies.?Vomiting?denies .?Genitourinary:?Blood in urine?denies.?Difficulty urinating?denies.?Frequent urination?denies.?Urinary incontinence?Denies.?Musculoskeletal:?Patient denies?muscle aches.?Painful joints?denies.?Weakness?denies.?Peripheral Vascular:?Patient denies?red and blue toes.?Skin:?Dry skin?denies.?Itching?denies.?Denies?Mole(s),? changes in moles, new moles or any lesions of concern.?Denies?Photosensitivity.?Rash?denies.?Neurologic:?Dizziness?denies.?Fainting?denies.?Headache?denies.? * Medical History:? * Surgical History:? * Hospitalization/Major Diagno stic Procedure:? * Family History:?Father: dece ased 51 yrs, diagnosed with Cancer.?Mother: 68 yrs.?1 son(s) , 2 daughter(s) - healthy. .? Mother-[place] 2 brothers - Katia had stroke and Victor M had lung cancer, Denies mental health/substance abuse family history, Denies mental health/substance abuse family history, Denies mental health/substance abuse family history, No pertinent family medical history. * Social History:?Tobacco Use:?Tobacco Use/Smoking?Patient is a?former smoker,?How long has it been since you last smoked??> 10 years,?Additional Findings: Tobacco Non-User?Former smoker, currently using no form of tobacco.?Drugs/Alcohol:?Alcohol Screen?Did you have a drink containing alcohol in the past year??Yes,?How often did you have a drink containing alcohol in the past year??Monthly or less (1 point),?How many drinks did you have on a typical day when you were drinking in the past year??1 or 2 drinks (0 point),?How often did you have 6 or more drinks on one occasion in the past year??Never (0 point),?Points?1,?Interpretation?Negative.?Miscellaneous:?no Caffeine. Children: yes. 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 Exercise: yes, rides at home 15 minutes. no Home smoke detector use. Housing: owning. Legal problems: none. Living with: grandson lives with patient but travels a lot and is in school. Marital status: . Occupation: works part-time. Pets: one dog. no Travel outside of the [place]. * Medications:?TakingVitamin C 500 MG Capsule as directed Orally Aspirin Adult Low Strength 81 MG Tablet Delayed Release 1 tablet Orally Once a dayOmega 3 1000 MG Capsule 1 capsule Orally Once a dayValsartan-hydroCHLOROthiazide 320-25 MG Tablet 1 tablet Orally Once a daySimvastatin 40 mg Tablet TAKE 1 TABLET DAILY Metoprolol Succinate ER 50 mg Tablet Extended Release 24 Hour TAKE 1 TABLET DAILY Taking Vitamin C 500 MG Capsule as directed Orally Taking Aspirin Adult Low Strength 81 MG Tablet Delayed Release 1 tablet Orally Once a dayTaking [place] 3 1000 MG Capsule 1 capsule Orally Once a dayTaking Valsartan-hydroCHLOROthiazide 320-25 MG Tablet 1 tablet Orally Once a dayTaking Simvastatin 40 mg Tablet TAKE 1 TABLET DAILY Taking Metoprolol Succinate ER 50 mg Tablet Extended Release 24 Hour TAKE 1 TABLET DAILY Not-Taking/PRNNitrofurantoin Monohyd Macro 100 MG Capsule 1 capsule with food Orally every 12 hrsVentolin HFA 108 (90 Base) MCG/ACT Aerosol Solution 2 puffs as needed Inhalation every 4 hrsCephalexin 500 MG Capsule 1 capsule Orally 2 times a dayVitamin B12 1000 mg Tablet 1 tablet Orally Once a daySulfamethoxazole-Trimethoprim 800- 160 MG Tablet 1 tablet Orally Twice a dayFurosemide 20 MG Tablet 1 tablet Orally Once a dayProAir HFA 108 (90 Base) MCG/ACT Aerosol Solution 2 puffs as needed Inhalation every 4 hrsSymbicort 160-4.5 MCG/ACT Aerosol 2 puffs Inhalation Twice a dayMedication List reviewed and reconciled with the patientNot-Taking/PRN Nitrofurantoin Monohyd Macro 100 MG Capsule 1 capsule with food Orally every 12 hrsNot-Taking/PRN Ventolin HFA 108 (90 Base) MCG/ACT Aerosol Solution 2 puffs as needed Inhalation every 4 hrsNot-Taking/PRN Cephalexin 500 MG Capsule 1 capsule Orally 2 times a dayNot-Taking/PRN Vitamin B12 1000 mg Tablet 1 tablet Orally Once a dayNot- Taking/PRN Sulfamethoxazole-Trimethoprim 800-160 MG Tablet 1 tablet Orally Twice a dayNot-Taking/PRN Furosemide 20 MG Tablet 1 tablet Orally Once a dayNot- Taking/PRN ProAir HFA 108 (90 Base) MCG/ACT Aerosol Solution 2 puffs as needed Inhalation every 4 hrsNot-Taking/PRN Symbicort 160-4.5 MCG/ACT Aerosol 2 puffs Inhalation Twice a dayMedication List reviewed and reconciled with the patient * Allergies:?N.K.D.A.yes[Aller gies Verified] Objective: * Vitals:?Ht: 60.5, Wt:222, BM I:42.64, BP:162/70, Repeat BP:142/70. * ???Past Orders: ???Lab:UA ClnCatch+Micro w/r flx Cult (Order Date - 11/08/2023) (Collection Date - 11/08/2023) ? Value Reference Range ?Color Urine Yellow - ?Appearance Urine Cloudy - ?PH 7.0 5.0-9.0 - ?Glucose Urine UA Negative Neg ative - mg/dL ?Urine Blood Trace A Negative - ?Specific [place] - Urine 1.015 1.005-1.025 - ?Urine Protein Negative Neg-Tr steven - mg/dL ?Urine Ketones Negative Negati ve - mg/dL ?Nitrite Urine Negative Negati ve - ?Leukocyte Esterase Urine Negative Negative - ?RBC Urine 6-10 A 0-2 - /HPF ?WBC Urine 0-5 0-5 - /HPF ?Squamous Epithelial Cell Urine 0-2 0-2 - /HPF ?Bacteria Urine 4+ None Seen - ?Hyaline Casts Urine 0-2 0-2 - /LPF ???Lab:Complete Blood Count Auto Diff (Order Date - 11/08/2023) (Collection Date - 11/08/2023) ? Value Reference Range ?White Blood Count 9.1 4. 8-10.8 - X10*3/uL ?Red Blood Count 3.98 L 4.20 -5.50 - X10*6/uL ?Hemoglobin 12.6 12.0-16.0 - g/dl ?Hematocrit 38.4 37.0-47.0 - % ?Mean Corpuscular Volume 96.5 80.0-98.0 - fL ?Mean Corpuscular Hemoglobin 31.7 27.0-33.0 - pg ?Mean Corpuscular HGB Conc 32.8 31.0-35.0 - g/dl ?Red Cell Distribution Width 13.9 11.0-16.0 - % ?Platelet Count 257 160-4 00 - X10*3/uL ?Mean Platelet Volume 11.3 9.4-12.3 - fL ?Neutrophils Percent Auto 52.5 45-73 - % ?Imm Gran Pct Auto 0.3 0. 0-0.4 - % ?Lymphocytes Percent Auto 37.3 20-40 - % ?Monocytes Percent Auto 7.6 2-11 - % ?Eosinophils Percent Auto 1.5 0-4 - % ?Basophils Percent Auto 0.8 0-2 - % ?NRBC Pct Auto 0.0 0.0-0. 2 - /100WBC ?Neutrophils Absolute Auto 4.8 2.0-8.3 - x10*3/uL ?Imm Gran Abs Auto 0.03 0. 00-0.03 - X10*3/uL ?Lymphocytes Absolute Auto 3.4 1.2-4.9 - X10*3/uL ?Monocytes Absolute Auto 0.7 0.1-1.2 - X10*3/uL ?Eosinophils Absolute Auto 0.1 0.0-0.4 - X10*3/uL ?Basophils Absolute Auto 0.1 0.0-0.2 - X10*3/uL ?NRBC Abs Auto 0.000 0.0-0. 012 - X10*3/uL ???Lab:Comprehensive [place]. P feliz Fast (Order Date - 11/08/2023) (Collection Date - 11/08/2023) ? Value Reference Range ?Sodium 144 135-145 - mmo l/L ?Bilirubin Total 0.4 0.0- 1.0 - mg/dL ?Aspartate Amino Transferase 32 H 5-31 - U/L ?Alanine Aminotransferase 23 0-31 - U/L ?Total Protein 7.7 6.5-8. 0 - g/dL ?Albumin Level 4.3 3.5-5. 0 - g/dL ?Alkaline Phosphatase 104 39-117 - U/L ?Potassium 3.9 3.3-5.1 - mmol/L ?Chloride 109 H 96-108 - mm ol/L ?Carbon Dioxide 25 22-29 - mmol/L ?Anion Gap 14 12-20 - ?Blood Urea Nitrogen 32 H 9-16 - mg/dL ?Creatinine 0.99 0.5-1.4 - mg/dL ?Estimated Glomerular Filt Rate 54 - ?Glucose Fasting 98 60-9 9 - mg/dL ?Calcium 10.1 8.4-10.2 - m g/dL ???Lab:Lipid Panel (Order Da te 11/08/2023) (Collection Date - 11/08/2023) ? Value Reference Range ?Triglycerides 90 <150 - mg/dL ?Cholesterol 151 <200 - m g/dL ?LDL Cholesterol Calculated 67 <100 - mg/dL ?HDL Cholesterol 66 >40 - mg/dL ???Lab:Microalbumin, Random (Order - 11/08/2023) (Collection Date - 11/08/2023) ? Value Reference Range ?Creatinine Urine 57.47 - m g/dL ?Microalbumin Urine 8.0 - mg/L ?Microalbum Creatinine Ratio Ur 13.9 <30 - ug/mg cr ???Lab:Hemoglobin A1c (Order - 11/08/2023) (Collection Date - 11/08/2023) ? Value Reference Range ?Hemoglobin A1c % 5.5 <6. 0 - % ?Estimated Average Glucose 111 - mg/dL * Examination: ???General Examination: ?GENERAL APPEARANCE:?well developed, well nourished, in no acute distress.?HEAD:?normocephalic, atraumatic.?EYES:?pupils equal, round, reactive to light and accommodation, sclera non-icteric.?EARS:?normal.?ORAL CAVITY:?mucosa moist.?THROAT:?clear.?NECK/THYROID:?neck supple, full range of motion, no cervical lymphadenopathy, no bruits.?SKIN:?warm and dry, no suspicious lesions.?HEART:?regular rate and rhythm, S1, S2 normal, no murmurs.?LUNGS:?clear to auscultation bilaterally.?BREASTS:?done by club car attendant.?ABDOMEN:?soft, nontender, nondistended, bowel sounds present, normal, no organomegaly , no masses palpable.?RECTAL EXAM:?done by club car attendant.?FEMALE GENITOURINARY:?done by club car attendant.?EXTREMITIES:?no clubbing, cyanosis, or edema.?NEUROLOGIC:?nonfocal, motor strength normal upper and lower extremities, sensory exam intact.? Assessment: * Assessment: 1.?Annual physical exam - Z0 0.00 (Primary)?2.?Type 2 diabetes mellitus without complication - E11.9?3.?Coronary artery disease - I25.10?4.?Elevated BUN - R79.9?5.?Essential hypertension - I10?6.?Lymphocytosis - D72.820?7.?Pure hypercholesterolemia - E78.00?8.?Sciatica, unspecified laterality - M54.30?9.?Depression screening - Z13.31? Plan: * Treatment: 2.?Type 2 diabetes mellitus without complication? Notes: has good a1c, at goal, will continue current regiment?? 3.?Coronary artery disease? Notes: not having any chest pain, will continue to monitor?? 4.?Elevated BUN?LAB: Complete Blood Count Auto Diff (Ordered for 02/14/2024) ?LAB: Blood Urea Nitrogen (Ordered for 02/14/2024) Notes: is probably from [facility], will continue to monitor?? 5.?Essential hypertension? Notes: stable, at goal, will continue current regiment?? 6.?Lymphocytosis? Notes: has resolved, will continue to monitor?? 7.?Pure hypercholesterolemia ? Notes: stable, at goal, will continue current regiment?? 8.?Sciatica, unspecified lat erality? Notes: seeing chiropractor with good relief, will continue to monitor?? 9.?Depression screening? Notes: negative screen?? * Procedure Codes:? * Preventive Medicine:? ??Counseling:?Care goal follow-up plan:?Counseling for abnormal BMI provided?Yes,?Above Normal BMI Follow-up?Giving encouragement to exercise.? ??Diabetes Care Plan:?Patient Lifestyle Goals?Needs to maintain diet control.?Treatment Goals?A1C< 7.?Barriers ?No specific barriers, doing well.?Self-Managment Plan?Work on weight loss, with a goal of losing 1 lb per week.? * Follow Up:?6 Months * * Sign off status: Completed true * Provider:?Albaro Orona MD Date:?0 11/15/2023 Generated for Adelina shane/Rylie/Olamideitting on:?05/08/2024 12:05 PM EDT History and Physical Notes * HPI (History of Present Illness) Category Sub-Category Detail Notes Category Not es Symptom(s) patient is a 83 yo female here or annual visit with review of recent labs and follow up of chronic issues, having pains in knees and hips and can.t walk without stopping. has sciatica and is going to chiropracter and is getting better Depression Screening PHQ-9 Little interest or pleasure in doing things: Not at all Feeling down, depressed, or hopeless: No t at all Trouble falling or staying asleep, or sl eeping too much: Not at all Feeling tired or having little energy: N ot at all Poor appetite or overeating: Not at all Feeling bad about yourself o r that you are a failure, or have let yourself or your family down: Not at all Trouble concentrating on thi ngs, such as reading the newspaper or watching television: Not at all Moving or speaking so slowly that other people could have noticed; or the opposite, being so fidgety or restless that you have been moving around a lot more than usual: Not at all Thoughts that you would be b justin off or of hurting yourself in some way: Not at all Total Score: 0 Interpretation and Intervention Depression Dalton pastrana Findings: Negative Follow-Up for Depression: : review of PH Q-9 found negative result, no follow-up needed SDOH Questions SDOH Questions In the past year have you been worried about losing housing?: No In the past year have you or any family members you live with been unable to get any of the following when it was really needed? Check all that apply:: None Fall Risk History Have you had any falls with injury i n the past year?: No Have you had two or more falls in the year?: No Communication Needs Communication Needs Does the patient have a hearing impairment: No Does the patient have a vision impairmen t?: Yes ?If yes, what is the vision impairment?: Glasses Does the patient have a cognition impair ment?: No Examination Category Sub-Category Detail Notes Category Not es General Examination GENERAL APPEARANCE: well dev eloped, well nourished, in no acute distress HEAD: normocephalic, atrau matic EYES: pupils equal, round, reactive to light and accommodation, sclera non- icteric EARS: normal THROAT: clear NECK/THYROID: neck supple, full ra nge of motion, no cervical lymphadenopathy, no bruits HEART: regular rate and rhy thm, S1, S2 normal, no murmurs LUNGS: clear to auscultatio n bilaterally ABDOMEN: soft, nontender, non distended, bowel sounds present, normal, no organomegaly , no masses palpable NEUROLOGIC: nonfocal, motor stre ngth normal upper and lower extremities, sensory exam intact SKIN: warm and dry, no hugh picious lesions EXTREMITIES: no clubbing, cyanosi s, or edema BREASTS: done by club car attendant RECTAL EXAM: done by club car attendant FEMALE GENITOURINARY: done by club car attendant ORAL CAVITY: mucosa moist
--- OUTSIDE RECORDS SUMMARY | 2024-05-08 12:05 | XMS_ITS ---
Author Organization Albaro Orona MD Address [address] [place], [place] [phone] Care Team Providers Care Management Trainee Marketing Name Role Phone UrvashiVandana mederosn Primary Care Provider Results Component Value Reference Range Notes Liver Panel (Not yet reviewe d by provider) Interpretation: Performing Lab:[facility], [address] [place] [phone] Notes/Report: Bilirubin Total 0.5 0.0-1.0 mg/dL Bilirubin Direct 0.2 0.0-0.5 mg/dL Aspartate Amino Transferase 41 5-31 U/L Alanine Aminotransferase 29 0-31 U/L Total Protein 7.4 6.5-8.0 g/dL Albumin Level 3.9 3.5-5.0 g/dL Alkaline Phosphatase 89 39-117 U/L Glucose Fasting (Not yet rev iewed by provider) Interpretation: Performing Lab:[facility], [address] [place] [phone] Notes/Report: Glucose Fasting 99 60-99 mg/dL Lipid Panel with Reflex (Not yet reviewed by provider) Interpretation: Performing Lab:[facility], [address] [place] [phone] Notes/Report: Triglycerides 138 <150 mg/dL Desirable Triglyceride: less than 150 mg/dL Borderline High Triglyceride 150-199 mg/dL High Triglyceride: 200-499 mg/dL Very High Triglyceride: greater than or equal to 5OO mg/dL Cholesterol 146 <200 mg/dL Desirable Cholesterol: less than 200 mg/dL Borderline High Cholesterol: 200-239 mg/dL High Cholesterol: greater than 239 mg/dL LDL Cholesterol Calculated 63 <100 mg/dL Desirable LDL: less than 100 mg/dL Near Optimal/Above Optimal LDL: 110-129 mg/dL Borderline High LDL: 130-159 mg/dL High LDL: 160-189 mg/dL Very High LDL: greater than or equal to 190 mg/dL HDL Cholesterol 56 >40 mg/dL Desirable HDL: greater than 40 mg/dL Note: This HDL assay may give artificially low results in patients with liver disease. Hemoglobin A1c (Not yet revi ewed by provider) Interpretation: Performing Lab:[facility], [address] [place] [phone] Notes/Report: Hemoglobin A1c % 5.8 <6.0 % Hemoglobin A1C Reference Range Adults: 4.8 - 6.0 % Non diabetic: < 6.0 % Goal: < 7.0 % Additional Action Suggested: > 8.0 % Note: Hemoglobin A1c results are invalid for patients with abnormal amounts of HbF. Blood transfusions may impact the HbA1c concentration in the patient sample. Estimated Average Glucose 120 eAG = Estimated average glucose which is %A1C expressed as average glucose, using the formula of the M2E-Phkatnm Average Glucose study (ADAG), Diabetes Care, Vol.31,#8, Sep. 2007 REASON FOR VISIT fasting lipids Encounters Encounter Location Date Provider Diagnosis Albaro Orona MD [address] [place] [address] Drive [address] [place], [place] [phone] 05/08/2024 Albaro Orona Type 2 diabetes azra itus without complication E11.9 and Pure hypercholesterolemia E78.00 Assessments Encounter Date Diagnosis (ICD Code) Assessment Notes Treatment Notes Treatment Clinical Notes Section Notes 05/08/2024 Type 2 diabetes azra itus without complication (ICD-10 - E11.9) 05/08/2024 Pure hypercholesterolemia (ICD-10 - E78.00) Plan Of Treatment Pending Test Test Name Order Date Liver Panel 05/08/2024 Glucose Fasting 05/08/2024 Lipid Panel with Reflex 05/08/2024 Hemoglobin A1c 05/08/2024 Next Appt Details Provider Name:Albaro Martin ier, 05/15/2024 01:30:00 PM, [address] [facility], [address], [place], [phone], Provider Name:Albaro Martin ier, 11/09/2024 07:30:00 AM, [address] [place] [address], Suite [facility], [place], [phone], Provider Name:Albaro Martin ier, 11/16/2024 01:00:00 PM, [address] [place] [address], Suite [facility], [place], [phone], Progress Notes * Rekha SHARMA PDOB:1940 (84 yo F)Acc No.[id number]:05/08/2024 Progress Note Patient:?Rekha SHARMA Dino Provider:?Albaro Orona MD :1940???Age:84 Y???Sex:Female D ate:05/08/2024 Address: [address] [place], [id number] Subjective: * Chief Complaints: * ???1. Fasting lipids. * Medical History:? Objective: * Vitals:? Assessment: * Assessment: 1.?Type 2 diabetes mellitus without complication - E11.9 (Primary)???2.?Pure hypercholesterolemia - E78.00??? Plan: * Treatment: 2.?Pure hypercholesterolemia ?LAB: Liver Panel (Collection Date & Time - 05/08/2024 07:30 AM) ?LAB: Glucose Fasting (Collection Date & Time - 05/08/2024 07:30 AM) ?LAB: Lipid Panel with Reflex (Collection Date & Time - 05/08/2024 07:30 AM) ?LAB: Hemoglobin A1c (Collection Date & Time - 05/08/2024 07:30 AM) * Procedure Codes:?92991 VENIP UNCT, ROUTINE* * * The named appointment provid er may or may not be the originator of this progress note, and it is not deemed complete until electronically signed by the appointment provider. Sign off status: Pending * Provider:?Albaro Orona MD Date:?0 05/08/2024 Generated for Adelina shane/Rylie/Olamideitting on:?05/08/2024 12:05 PM EDT
--- OUTSIDE RECORDS SUMMARY | 2024-05-08 12:05 | XMS_ITS | Encounter Summary ---
Author Organization [facility] Address [address] [place] [address] Care Team Providers Care Motor Vehicle Parts Interpreter Name Role Phone Albaro Orona MD Primary Care Provider [phone] Reason for Visit * Reason Onset Date Comments Med Refill 05/02/2024 Wegovy w/titrati on Encounter Details Date Type Department Care Team (Late st Contact Info) Description 05/02/2024 Telephone Bariatric Surgery - [place] [address] [facility] [address] [place] [phone] Lore Pascal PA [address] [facility] [address] [place], [place] [phone] Med Refill (Wegovy w/titration) Social History Tobacco Use Types Packs/Day Years Used Date Smoking Tobacco: Former Smokeless Tobacco: Never Alcohol Use Standard Drinks/Week Comments Yes 0 (1 standard drink = 0.6 oz pur e alcohol) Comments No Sex and Gender Information Value Date Recorded Sex Assigned at Not on file Legal Sex Female 1:21 AM EST Gender Identity Not on file Sexual Orientation Not on file documented as of this encounter Progress Notes * Jacqueline Elizondo - 05/02/2024 2:14 PM EST Patient did well on Wegovy 0.25 mgs and would like a refill with titration. If appropriate, please send script for Wegovy 0.5 mgs to [facility] pharmacy in [place]. The patient does have a follow up in 06/27/2024 documented in this encounter Plan of Treatment Upcoming Encounters Date Type Department Care Team (Late st Contact Info) Description 06/27/2024 8:30 AM EDT Office Visit Bariatric Surgery - [place] [address] [facility] [address] [place] [phone] Lore Pascal PA [address] [facility] [address] [place] [address] documented as of this encounter Visit Diagnoses Not on filedocumented in this encounter Care Teams Motor Vehicle Parts Interpreter Relationship Specialty Start Date End Date Albaro Orona MD PCP - General Internal Medicine 12/14/11 documented as of this encounter
--- OUTSIDE RECORDS SUMMARY | 2024-05-08 12:05 | XMS_ITS ---
Author Organization Albaro Orona MD Address [address] [place] [phone] Care Team Providers Care Rattlesnake Farmer Name Role Phone Albaro Orona Primary Care Provider Results Component Value Reference Range Notes Complete Blood Count Auto Di ff Reviewed date:01/16/2024 12:31:19 PM Interpretation: Performing Lab:[facility], [address] [place] [phone] Notes/Report: White Blood Count 7.7 4.8-10.8 X10*3/uL Red Blood Count 3.85 4.20-5.50 X10*6/uL Hemoglobin 12.2 12.0-16.0 g/dl Hematocrit 37.8 37.0-47.0 % Mean Corpuscular Volume 98.2 80.0-98.0 fL Mean Corpuscular Hemoglobin 31.7 27.0-33.0 pg Mean Corpuscular HGB Conc 32.3 31.0-35.0 g/dl Red Cell Distribution Width 13.5 11.0-16.0 % Platelet Count 254 160-400 X10*3/uL Mean Platelet Volume 11.0 9.4-12.3 fL Neutrophils Percent Auto 38.0 45-73 % Imm Gran Pct Auto 0.1 0.0-0.4 % Lymphocytes Percent Auto 51.5 20-40 % Monocytes Percent Auto 7.7 2-11 % Eosinophils Percent Auto 2.2 0-4 % Basophils Percent Auto 0.5 0-2 % NRBC Pct Auto 0.0 0.0-0.2 /100WBC Neutrophils Absolute Auto 2.9 2.0-8.3 x10*3/u L Imm Gran Abs Auto 0.01 0.00-0.03 X10*3/uL Lymphocytes Absolute Auto 4.0 1.2-4.9 X10*3/u L Monocytes Absolute Auto 0.6 0.1-1.2 X10*3/uL Eosinophils Absolute Auto 0.2 0.0-0.4 X10*3/u L Basophils Absolute Auto 0.0 0.0-0.2 X10*3/uL NRBC Abs Auto 0.000 0.0-0.012 X10*3/uL Blood Urea Nitrogen Reviewed date:01/16/2024 12:33:27 PM Interpretation: Performing Lab:[facility], [address] [place] [phone] Notes/Report: Blood Urea Nitrogen 28 9-16 mg/dL REASON FOR VISIT CBC with Diff, BUN Encounters Encounter Location Date Provider Diagnosis Albaro Orona MD [address] [place] [address] [place] [phone] 01/16/2024 Albaro Orona Elevated BUN R79.9 Assessments Encounter Date Diagnosis (ICD Code) Assessment Notes Treatment Notes Treatment Clinical Notes Section Notes 01/16/2024 Elevated BUN (ICD-10 - R79.9) Plan Of Treatment Next Appt Details Provider Name:Albaro cedeño, 05/15/2024 01:30:00 PM, [address] [place] [address], [address], [phone], Provider Name:Albaro cedeño, 11/09/2024 07:30:00 AM, [address] [place] [address], [address], [phone], Provider Name:Albaro cedeño, 11/16/2024 01:00:00 PM, [address] [facility], [address], [place], [phone], Progress Notes * Rekah SHARMA PDOB:1940 (84 yo F)Acc No.[id number]:01/16/2024 Progress Note Patient:Rekha CURRAN Provider:?Albaro Orona MD :1940???Age:83 Y???Sex:Female D ate:01/16/2024 Address:[address] [place] [address] [id number] Subjective: * Chief Complaints: * ???1. CBC with Diff, BUN. * Medical History:? Objective: * Vitals:? Assessment: * Assessment: 1.?Elevated BUN - R79.9 (Simi tariq)??? Plan: * Treatment: * Procedure Codes:?03816 VENIP UNCT, ROUTINE* * * The named appointment provid er may or may not be the originator of this progress note, and it is not deemed complete until electronically signed by the appointment provider. Sign off status: Pending * Provider:?Albaro Orona MD Date:?03/17/2023 Generated for Adelina shane/Rylie/eTиванsmitting on:?05/08/2024 12:05 PM EDT
--- OUTSIDE RECORDS SUMMARY | 2024-05-08 12:06 | XMS_ITS | Clinical Summary ---
Author Organization [facility] Address [address] [place] [address] Phone Care Team Providers Care Beverage Manager Name Role Phone Albaro Cano MD Primary Care Provider Allergies No known active allergies Medications Vitamin C tablet Take 100 mg by mouth daily. Active aspirin 81 mg EC tablet Take 81 mg by mouth daily. Active metoprolol succinate (TOPROL-XL) 50 mg 24 hr tablet Take 50 mg by mouth daily. Active omega-3 acid ethyl esters (LOVAZA) 1 gram capsule Take 1 capsule by mouth daily. Active valsartan-hydr oCHLOROthiazid e (DIOVAN-HCT) 320-25 mg per tablet TAKE 1 TABLET DAILY 3 Active multivitamin (MULTIPLE VITAMINS ORAL) Take 1 tablet by mouth daily. - Oral Active simvastatin (ZOCOR) 40 mg tablet Take 40 mg by mouth at bedtime. - Oral Active semaglutide (Wegovy) 0.5 mg/0.5 mL injection pen Inject 0.5 mg under the skin every 7 (seven) days. 2 mL 5 06/03/19 25 Active semaglutide (Wegovy) 0.25 mg/0.5 mL injection pen Inject 0.25 mg under the skin every 7 (seven) days. 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 Blood pressure is well-controlled on current antihypertensive regimen; we will reevaluate her cholesterol as above. Orders: Vascular US duplex carotid bilateral; Future Peripheral edema 03/22/2024 Assessment & Plan (03/22/2024 9:40 AM EST): As above. Status post coronary artery bypass graft 024 Assessment & Plan (03/22/2024 8:28 AM EST): Ischemic cardiomyopathy 03/08/2023 Assessment & Plan (03/22/2024 9:40 AM EST): The patient is a history of ischemic cardiomyopathy with an EF as low as 30 to 40% as well as grade 1-2 diastolic dysfunction in 2014; her most recent echocardiogram completed 04/26/2023 revealed that her EF had normalized at 60 to 65% and she had normal diastolic function. She presents today offering no concerns for overt heart failure and appears relatively euvolemic on exam; NYHA class I symptoms. She does have slight peripheral edema but also has varicose veins and slight venous stasis dermatitis lending suspicion to underlying venous insufficiency as causative. We discussed conservative measures to improve lower extremity edema including daily use of compression stockings, elevation of lower extremities as able, and low-sodium diet; if her swelling does not improve or continues to worsen despite these measures she will notify our office at which time we will investigate this further. We discussed risk reduction through lifestyle modifications including healthy diet, routine exercise and weight management. We reviewed heart failure management including low-sodium diet, symptom surveillance, daily weights and medication compliance. I've asked the patient to call if they develop worsening symptoms of heart failure such as increased shortness of breath, new or worsening cough, increased swelling in the legs or ankles, or weight gain of more than 2 pounds in one day or 4 pounds in one week. Orders: ECG 12 lead Left bundle branch block 03/08/2023 Coronary artery disease 01/01/2021 Overview (01/24/2024): Last Assessment & Plan: No ischemic symptoms, feeling well. Continue current regimen Assessment & Plan (03/22/2024 8:28 AM EST): The patient offers no symptoms concerning for underlying ischemia and remains active on a regular basis. We will not make any changes to her cardioprotective medical therapy; continue metoprolol, simvastatin, and daily ASA. The patient was advised to seek emergent medical attention by calling 911 if they were to develop severe dyspnea, chest pain that did not resolve with rest, or if they were to faint. Orders: Vascular US duplex carotid bilateral; Future Hyperlipidemia LDL goal <55 01/01/2021 Overview (01/24/2024): Last Assessment & Plan: Do not have access to recent labs, made her aware her goal LDL is less than 70. She tells me she has the results at home, her PCP follows this. Assessment & Plan (03/22/2024 9:40 AM EST): LDL goal for this patient was a history of coronary artery disease as well as diabetes is less than 55. The patient's most recent lipid panel on file is from 2022; we will attempt to obtain this from the PCPs office for review. Continue simvastatin. Orders: Vascular US duplex carotid bilateral; Future Hypertension 11/18/2020 Overview (01/24/2024): Last Assessment & Plan: Controlled, continue current regimen. Following with Dr. Bacon, she has an appointment within the next month she tells me. Assessment & Plan (03/22/2024 8:28 AM EST): Blood pressure is well-controlled on current medical therapy; continue metoprolol and valsartan-hydrochlorothiazide. We will attempt to obtain labs from the PCP office for our review. Orders: Vascular US duplex carotid bilateral; Future Encounters Date Type Department Care Team Description 05/02/2024 Telephone Bariatric Surgery - [address] [place] [address] Lore Pascal PA Med Refill (Wegovy w/titration) 03/30/2024 Telephone General Surgery - [place] [address] [place] [address] [place] 03/28/2024 1:30 PM EST Consult Bariatric Surgery [facility] [address] [place] [address] Lore Pascal PA Class 3 severe obesity due to excess calories with serious comorbidity and body mass index (BMI) of 40.0 to 44.9 in adult (CMS/HCC) (Primary Dx); Coronary artery disease involving [place] coronary artery of [place] heart without angina pectoris; Primary hypertension; Ischemic cardiomyopathy; Heart failure with improved ejection fraction (HFimpEF) ([facility]/HCC); Left bundle branch block; Hyperlipidemia LDL goal <55 03/26/2024 7:30 AM EST Ancillary Procedure [facility] - [address] [place] [phone] Coronary artery disease involving [place] coronary artery of [place] heart without angina pectoris; Primary hypertension; Hyperlipidemia LDL goal <55; Bilateral carotid bruits 03/22/2024 7:40 AM EST Office Visit [facility] - [address] [place] [phone] Aiyana Church NP Ischemic cardiomyopathy (Primary Dx); Heart failure with improved ejection fraction (HFimpEF) ([facility]); Coronary artery disease involving [place] coronary artery of [place] heart without angina pectoris; Status post coronary artery bypass graft; Primary hypertension; Hyperlipidemia LDL goal <55; Bilateral carotid bruits; Peripheral edema from Last 3 Months Social History Tobacco Use Types Packs/Day Years Used Date Smoking Tobacco: Former Smokeless Tobacco: Never Tobacco Cessation:Counseling Given: Not Answered Alcohol Use Standard Drinks/Week Comments Yes 0 (1 standard drink = 0.6 oz pur e alcohol) Comments No Sex and Gender Information Value Date Recorded Sex Assigned at Not on file Legal Sex Female 1:21 AM EST Gender Identity Not on file Sexual Orientation Not on file Obstetrics History Para Term AB IAB SAB Ectopic Multiple Livin g Live Births 3 Last Filed Vital Signs Vital Sign Reading Time Taken Comments Blood Pressure 145/76 03/28/2024 1:36 PM EST Pulse 89 03/28/2024 1:36 PM EST Temperature - - Respiratory Rate - - Oxygen Saturation 96% 03/22/2024 7:44 AM EST Inhaled Oxygen Concentration - - Weight 99.8 kg (220 lb) 03/28/2024 1:36 PM EST Height 152.4 cm (5') 03/28/2024 1:36 PM EST Body Mass Index 42.97 03/28/2024 1:36 PM EST Plan of Treatment Upcoming Encounters Date Type Department Care Team (Late st Contact Info) Description 06/27/2024 8:30 AM EDT Office Visit Bariatric Surgery - [place] [address] [place] [phone] Lore Pascal PA [address] [place] [address] Health Maintenance Due Date Last Done Comments Cholesterol Screening (Lipid Panel) 01/31/2022 Depression Screening 01/31/2022 Falls Risk Assessment 01/31/2022 Medicare Annual Wellness Visit 01/31/2022 Social Influencers of Health Screening 01/31/2022 Hypertension/CHF/CAD Annual BMP Blood Test 02/13/2022 DTaP,Tdap,and Td Vaccines (2 - Td or Tdap) 12/27/2026 12/27/2016 Osteoporosis Screening (Bone Density Screening) 01/01/2029 01/01/2019 Zoster Vaccines Completed 06/26/2018, 04/05/2018 RSV Immunization Patients 60+ Years Old Completed 11/13/2022 COVID-19 Vaccine Completed 11/18/2023, 06/2022, 12/13/2021, Additional history exists Influenza Vaccine Completed 12/01/2023, , 11/09/2020, Additional history exists Pneumococcal Vaccine: 50+ Years Completed 12/21/2023, 10/03/2017 HIB Vaccines Aged Out No longer eligi ble based on patient's age to complete this topic HPV Vaccines Aged Out No longer eligi ble based on patient's age to complete this topic Hepatitis A Vaccines Aged Out No long er eligible based on patient's age to complete this topic Hepatitis B Vaccines Aged Out No long er eligible based on patient's age to complete this topic IPV Vaccines Aged Out No longer eligi ble based on patient's age to complete this topic MMR Vaccines Aged Out No longer eligi ble based on patient's age to complete this topic Meningococcal ACWY Vaccine Aged Out N o longer eligible based on patient's age to complete this topic Meningococcal B Vacine Aged Out No lo nger eligible based on patient's age to complete this topic RSV Immunization Patients Under 20 months Aged Out No longer eligible based on patient's age to complete this topic Varicella Vaccines Aged Out No longer eligible based on patient's age to complete this topic Procedures Procedure Name Priority Date/Time Associated Diagnosis Comments VAS US DUPLEX CAROTID BILATERAL Routine 03/26/2024 7:40 AM EST Coronary artery disease involving [place] coronary artery of [place] heart without angina pectoris Primary hypertension Hyperlipidemia LDL goal <55 Bilateral carotid bruits ECG 12-LEAD Routine 03/22/2024 9:40 AM EST Ischemic cardiomyopathy PRINCESS DEXA AXIAL SKELETON Routine 01/01/2019 4:52 PM EST Asymptomatic menopausal state from Last 3 Months or Most Recently Relevant to Health Maintenance Results * Vascular US duplex carotid bilateral (03/26/2024 7:40 AM EST) Left CCA dist sys 76 cm/s CV VAS LAB Left CCA dist lazaro 19 cm/s CV VAS LAB LEFT COMMON CAROTID ARTERY MID S 88 cm/s CV VAS LAB LEFT COMMON CAROTID ARTERY MID D 23 cm/s CV VAS LAB Left CCA prox sys 85 cm/s CV VAS LAB Left CCA prox lazaro 18 cm/s CV VAS LAB Left ICA dist sys 85 cm/s CV VAS LAB Left ICA dist lazaro 30 cm/s CV VAS LAB Left ICA mid sys 82 cm/s CV VAS LAB Left ICA mid lazaro 28 cm/s CV VAS LAB Left ICA prox sys 47 cm/s CV VAS LAB Left ICA prox lazaro 21 cm/s CV VAS LAB Left ECA sys 105 cm/s CV VAS LAB LEFT EXTERNAL CAROTID ARTERY D 20 cm/s CV VAS LAB Left Prox Subclavian PSV 170 cm/s CV VAS LAB Left vertebral sys 49 cm/s CV VAS LAB Right cca dist sys 70 cm/s CV VAS LAB Right CCA dist lazaro 18 cm/s CV VAS LAB RIGHT COMMON CAROTID ARTERY MID S 86 cm/s CV VAS LAB RIGHT COMMON CAROTID ARTERY MID D 23 cm/s CV VAS LAB Right CCA prox sys 82 cm/s CV VAS LAB Right CCA prox lazaro 22 cm/s CV VAS LAB Right ICA dist sys 72 cm/s CV VAS LAB Right ICA dist lazaro 23 cm/s CV VAS LAB Right ICA mid sys 67 cm/s CV VAS LAB Right ICA mid lazaro 17 cm/s CV VAS LAB Right ICA prox sys 63 cm/s CV VAS LAB Right ICA prox lazaro 16 cm/s CV VAS LAB Right eca sys 166 cm/s CV VAS LAB RIGHT EXTERNAL CAROTID ARTERY D 30 cm/s CV VAS LAB Right Prox Subclavian PSV 146 cm/s CV VAS LAB Right vertebral sys 62 cm/s CV VAS LAB Anatomical Region Laterality Modality Vascular, Abdomen Ultrasound Narrative 03/27/2024 3:52 PM EST ?Right ICA: There is mild heterogeneous plaque. ?Left ICA: There is mild heterogeneous plaque. RIGHT. 1. ??There is atherosclerotic plaque in the carotid system as noted above. 2. ??There is less than 50% stenosis in the internal carotid artery based on Doppler velocity. 3. ??The subclavian artery has normal Doppler flow pattern. 4. ??Vertebral artery has normal antegrade flow. LEFT. 1. ??There is atherosclerotic plaque in the carotid system as noted above. 2. ??There is less than 50% stenosis in the internal carotid artery based on Doppler velocity. 3. ??The subclavian artery has normal Doppler flow pattern. 4. ??Vertebral artery has normal antegrade flow. Right Carotid The CCA has mild heterogeneous plaque. The ICA has mild heterogeneous plaque. The ECA has mild heterogeneous plaque. RT= 130/78 Lt= 132/80 Vertebral flow is antegrade. Left Carotid The CCA has mild heterogeneous plaque. The ICA has mild heterogeneous plaque. The ECA has mild heterogeneous plaque. Vertebral flow is antegrade. Slot Editor Details A cervantes scale, color and doppler analysis ultrasound was performed. During the study longitudinal and transverse views were obtained. Pulsed wave doppler was performed. Overall the study quality was adequate. Aiyana Church NP CV VASCULAR PROCEDURE S Final Result * ECG 12 lead (03/22/2024 9:40 AM EST) Ventricular Rate ECG 86 BPM GEMUSE Atrial Rate 86 BPM GEMUSE P-R Interval 158 ms GEMUSE QRS Duration 130 ms GEMUSE Q-T Interval 404 ms GEMUSE QTc 483 ms GEMUSE P Wave [place] 75 degrees GEMUSE R [place] -33 degrees GEMUSE T [place] 99 degrees GEMUSE ECG Interpretation Normal sinus rhythm Possible Left atrial enlargement Left axis deviation Non-specific intra-ventricul ar conduction block Cannot rule out Septal infarct , age undetermined Abnormal ECG no prior Confirmed by Leila AMAYA, DELIA ([id number]) on 03/22/2024 11:25:32 AM GEMUSE 03/22/2024 7:52 AM EST 03/22/2024 11:25 AM EST Aiyana Church NP ECG ORDERABLES Edite d Result - Final GEMUSE * PRINCESS DEXA AXIAL SKELETON (01/01/2019 4:52 PM EST) Anatomical Region Laterality Modality Mammography 01/01/2019 7:10 AM EST Narrative 01/01/2019 4:52 PM EST [facility] Diagnostic Imaging Department [address] [place], [place] [id number] Patient: ??ANJEL SHARMA ?/Age/Sex: 1940 - 78 - F Unit#: ??[id number] ? Location/Status: ??SPDIMAM/REG CLI ? Mnemonic/Ordering Site: ??MAMDEXAAX/SPMAM Ordering Physician: ??ALBARO CANO MD [facility] Dexa Axial Skeleton - 01/01/19 - 0754 History: Low estrogen state due to menopause. Comparison: 01/01/13 Findings: Bone densitometry is performed utilizing dual energy x-ray absorptiometry (DXA) in the AutoSpot unit. The lumbar spine and proximal femora are evaluated in the AP projection. The FRAX questionaire was completed. The results indicate low bone mass (osteopenia), with a right femoral neck T- score of -1.2. There has been a statistically significant decrease in bone mineral density in the bilateral total femurs since the previous exam. ??The detailed DEXA report will be mailed to the referring physician's office. DualFemur FRAX: 10-year Probability of Fracture: Major Osteoporotic 9.6% ??Hip 1.7%. IMPRESSION: Osteopenia. [id number] Dictating Physician: ??NELLIE TRIANA MD Electronically Signed by: ??NELLIE TRIANA MD Dic Date/Time: ??01/01/191649 Sign date/Time: ??01/01/191651 Procedure Note Nellie Triana - 02/16/2022 [facility] Diagnostic Imaging Department [address] [place] [address] Patient: ANJEL SHARMA D.O.B./Age/Sex: 1940 - - F Unit#: [id number] Location/Status: SPDIMAM/REG CLI Mnemonic/Ordering Site: MAMDEXAAX/SPMAM Ordering Physician: ALBARO CANO MD [facility] Dexa Axial Skeleton - 01/01/19 - 0754 History: Low estrogen state due to menopause. Comparison: 01/01/13 Findings: Bone densitometry is performed utilizing dual energy x-ray absorptiometry(DXA) in the AutoSpot unit. The lumbar spine and proximal femora areevaluated in the AP projection. The FRAX questionaire was completed. The results indicate low bone mass (osteopenia), with a right femoral neckT- score of -1.2. There has been a statistically significant decrease inbone mineral density in the bilateral total femurs since the previous exam.The detailed DEXA report will be mailed to the referring physician's office. DualFemur FRAX: 10-year Probability of Fracture: Major Osteoporotic 9.6%Hip 1.7%. IMPRESSION: Osteopenia. [id number] Dictating Physician: NELLIE TRIANA MD Electronically Signed by: NELLIE TRIANA MD Dic Date/Time: 01/01/191649 Sign date/Time: 01/01/191651 Albaro Cano MD IMG BI PROCEDURES Final Res ult from Last 3 Months or Most Recently Relevant to Health Maintenance Insurance [employer] MEDICARE Care Teams Beverage Manager Relationship Specialty Start Date End Date Albaro Cano MD PCP - General Internal Medicine 12/14/11
== END 2024-05-08 10:16 | disposition home or self-care (01) ==
LOC: HO.LNP 10:15
PROVIDERS: Visit Provider Internal Medicine
DX: E11.9 Type 2 diabetes mellitus without complications (principal); E78.00 Pure hypercholesterolemia, unspecified
CPT/HCPCS: 80061; 80076; 82947; 83036

== ENCOUNTER 2024-06-20 07:31 | Outpatient (REF) | payer MEDICARE, SELFPAY ==
--- OUTSIDE RECORDS SUMMARY | 2024-06-20 08:26 | XMS_ITS | Encounter Summary ---
Author Organization [facility] Address [address] [place] [address] Phone Care Team Providers Care Firer Kiln Name Role Phone Albaro Orona MD Primary Care Provider [phone]- [phone] Reason for Visit * Reason Comments Med Refill Encounter Details Date Type Department Care Team (Late st Contact Info) Description 04/14/2023 Refill [facility] [address] [place] [phone] Adis Morrison MD [address] [place] [address], [address] [phone] Social History Tobacco Use Types Packs/Day Years [...] on filedocumented in this encounter Care Teams Firer Kiln Relationship Specialty Start Date End Date Albaro Orona MD [address] [place] PCP - General 03/10/20 documented as of this encounter
--- OUTSIDE RECORDS SUMMARY | 2024-06-20 08:26 | XMS_ITS | Clinical Summary ---
Author Organization [facility] Facility Address [address] [place] [address] Care Team Providers Care Post Closer Name Role Phone Albaro Orona MD Primary Care Provider +1- [phone] Allergies No known active allergies Medications metoprolol [...] to complete this topic Insurance UHC Medicare [facility] Medicare Care Teams Post Closer Relationship Specialty Start Date End Date Albaro Orona MD [address] [place] PCP - General 03/10/20
--- OUTSIDE RECORDS SUMMARY | 2024-06-20 08:27 | XMS_ITS | Encounter Summary ---
Author Organization [facility] Address [address] [place] [address] Care Team Providers Care Information Technology Associate Name Role Phone Albaro Orona MD Primary Care Provider [phone] Reason for Visit * Reason Onset Date Comments Med Refill 06/07/2024 Wegovy w/titrati on Encounter Details Date Type Department Care Team (Late st Contact Info) Description 06/07/2024 Telephone Bariatric Surgery - [place] [address] [facility] [address] [place] [phone] Diana Moise MD [address] [facility] [address] [place] [address] Med Refill (Wegovy w/titration) Social History Tobacco [...] AM EDT Office Visit Bariatric Surgery - [place] [address] [facility] [address] [place] [address] Lore Pascal, BRIDGER [address] [facility] [address] [place] [address] documented as of this encounter Visit Diagnoses Not on filedocumented in this encounter Care Teams Information Technology Associate Relationship Specialty Start Date End Date Albaro Orona MD PCP - General Internal Medicine 12/14/11 documented as of this encounter
--- OUTSIDE RECORDS SUMMARY | 2024-06-20 08:27 | XMS_ITS | Clinical Summary ---
Author Organization [facility] Address [address] [place] [address] Phone Care Team Providers Care Group Leader Semiconductor Processing Name Role Phone Albaro Cano MD Primary [...] with improved ejection fraction (HFimpEF) (CMS/HCC V24, CMS/[facility] V28) 03/22/2024 Assessment & Plan (03/22/2024 9:40 [...] Team Description 06/07/2024 Telephone Bariatric Surgery - [address] [place] [address] Diana Moise MD Med Refill (Wegovy w/titration) 05/02/2024 Telephone Bariatric Surgery [facility] [address] [facility] [address] [place] [address] Lore Pascal PA Med Refill (Wegovy w/titration) 03/30/2024 Telephone General Surgery [address] [place] [address] [place] 03/28/2024 1:30 PM EST Consult Bariatric Surgery [address] [place] [address] Lore Pascal PA Class 3 severe obesity due to excess calories with serious comorbidity and body mass index (BMI) of 40.0 to 44.9 in adult (CMS/HCC V24, CMS/HCC V28) (Primary Dx); Coronary artery disease involving [place] coronary artery of [place] heart without angina pectoris; Primary hypertension; Ischemic cardiomyopathy; Heart failure with improved ejection fraction (HFimpEF) (CMS/HCC V24, CMS/HCC V28); Left bundle branch block; Hyperlipidemia LDL goal <55 03/26/2024 7:30 AM EST Ancillary Procedure [facility] Cardiology [facility] [address] [place] [phone] Coronary artery disease involving [place] coronary artery of [place] heart without angina pectoris; Primary hypertension; Hyperlipidemia LDL goal <55; Bilateral carotid bruits 03/22/2024 7:40 AM EST Office Visit [facility] Cardiology [facility] [address] [place] [phone] Aiyana Church NP Ischemic cardiomyopathy (Primary Dx); Heart failure with improved ejection fraction (HFimpEF) (CMS/HCC V24, CMS/HCC V28); Coronary artery disease involving [place] coronary artery of [place] heart without angina pectoris; Status post coronary [...] AM EDT Office Visit Bariatric Surgery - [place] [address] [facility] [address] [place] [phone] Lore Pascal PA [address] [facility] [address] [place] [address] Health Maintenance Due Date Last Done Comments [...] 7:40 AM EST Coronary artery disease involving [place] coronary artery of [place] heart without angina pectoris Primary hypertension Hyperlipidemia [...] mild heterogeneous plaque. Vertebral flow is antegrade. Air Crew Member Details A cervantes scale, color and doppler [...] GEMUSE QTc 483 ms GEMUSE P Wave [place] 75 degrees GEMUSE R [place] -33 degrees GEMUSE T [place] 99 degrees GEMUSE ECG Interpretation Normal sinus rhythm Possible Left atrial enlargement Left axis deviation Non-specific intra-ventricul ar conduction block Cannot rule out Septal infarct , age undetermined Abnormal ECG no prior Confirmed by Leila AMAYA, DELIA ([id number]) on 03/22/2024 11:25:32 AM GEMUSE 03/22/2024 7:52 AM EST 03/22/2024 11:25 AM EST Aiyana Church TALENT ADVISOR ECG ORDERABLES Edite d Result - Final GEMUSE * PRINCESS DEXA AXIAL SKELETON (01/01/2019 4:52 PM EST) Anatomical Region Laterality Modality Mammography 01/01/2019 7:10 AM EST Narrative 01/01/2019 4:52 PM EST [facility] Diagnostic Imaging Department [address] [place] [address] Patient: ??ANJEL SHARMA ?/Age/Sex: 1940 - 78 - F Unit#: ??[id number] ? Location/Status: ??SPDIMAM/REG CLI ? Mnemonic/Ordering Site: ??MAMDEXAAX/SPMAM Ordering Physician: ??ALBARO CANO MD Princess Dexa Axial Skeleton - 01/01/19 - 1077 History: Low estrogen state due to menopause. Comparison: 01/01/13 Findings: Bone densitometry is performed utilizing dual energy x-ray absorptiometry (DXA) in the [employer] unit. The lumbar spine and proximal femora [...] Major Osteoporotic 9.6% ??Hip 1.7%. IMPRESSION: Osteopenia. [address]193 Dictating Physician: ??NELLIE TRIANA MD Electronically Signed by: ??NELLIE TRIANA MD Dic Date/Time: ??01/01/191649 Sign date/Time: ??01/01/191651 Procedure Note Nellie Triana - 02/16/2022 [facility] Diagnostic Imaging Department [address] [place], [place] [phone] Patient: SAVANNAANJEL Sun /Age/Sex: 1940 78 - F Unit#: [id number] Location/Status: SPDIMAM/REG CLI Mnemonic/Ordering Site: MAMDEXAAX/SPMAM Ordering Physician: ALBARO CANO MD Princess Dexa Axial Skeleton - 01/01/19 491 History: Low estrogen state due to menopause. Comparison: 01/01/13 Findings: Bone densitometry is performed utilizing dual energy x-ray absorptiometry(DXA) in the [employer] unit. The lumbar spine and proximal femora [...] Fracture: Major Osteoporotic 9.6%Hip 1.7%. IMPRESSION: Osteopenia. 18998 Dictating Physician: NELLIE TRIANA MD Electronically Signed by: NELLIE TRIANA MD Dic Date/Time: 01/01/191649 Sign date/Time: 01/01/191651 Albaro Cano MD IMG BI PROCEDURES Final Res ult from Last 3 Months or Most Recently Relevant to Health Maintenance Insurance [employer] MEDICARE Care Teams Group Leader Semiconductor Processing Relationship Specialty Start Date End Date Albaro Cano MD PCP - General Internal Medicine 12/14/11
[2024-06-20 16:45] LABS: Urine Cytology See Pathology rpt
== END 2024-06-20 07:32 | disposition home or self-care (01) ==
LOC: HO.LNP 07:31
PROVIDERS: PCP Internal Medicine; Visit Provider Nurse Practitioner Family
DX: R31.29 Other microscopic hematuria (principal); N39.0 Urinary tract infection, site not specified
CPT/HCPCS: 51798; 81003; 87086; 87088; 87147; 87186; 88112; 99212

== ENCOUNTER 2024-06-20 07:31 | Outpatient (AMB) | payer MEDICARE, SELFPAY ==
--- OUTSIDE RECORDS SUMMARY | 2024-06-20 07:34 | XMS_ITS ---
Author Organization Albaro Orona MD Address [address] [place] [phone] Care Team Providers Care Road Repairer Name Role Phone Albaro Orona Primary Care Provider [phone] Results Component Value Reference Range Notes Complete Blood Count Auto Di ff Reviewed date:01/16/2024 12:31:19 PM Interpretation: Performing Lab:[facility], [address] [place] [phone] Notes/Report: White Blood Count 7.7 4.8-10.8 X10*3/uL [...] Nitrogen Reviewed date:01/16/2024 12:33:27 PM Interpretation: Performing Lab:[facility], [address] [place] [phone] Notes/Report: Blood Urea Nitrogen 28 9-16 mg/dL REASON FOR VISIT CBC with Diff, BUN Encounters Encounter Location Date Provider Diagnosis Albaro Orona MD [address] [place] [address] [place] [phone] 01/16/2024 Albaro Orona Elevated BUN R79.9 Assessments Encounter Date Diagnosis (ICD Code) Assessment Notes Treatment Notes Treatment Clinical Notes Section Notes 01/16/2024 Elevated BUN (ICD-10 - R79.9) Plan Of Treatment Next Appt Details Provider Name:Albaro cedeño, 11/09/2024 07:30:00 AM, [address] [place] [address], [address], [phone], Provider Name:Albaro cedeño, 11/16/2024 01:00:00 PM, [address] [place] [address], [address], [phone], Progress Notes * Rekha SHARMA PDOB:1940 (84 yo F)Acc No.[id number]:01/16/2024 Progress Note Patient:?Rekha SHARMA Provider:?Albaro Orona MD :1940???Age:83 Y???Sex:Female D ate:01/16/2024 Address:[address] [place], [place] [address] [id number] Subjective: * Chief Complaints: * ???1. CBC with Diff, BUN. * Medical History:? Objective: * Vitals:? Assessment: * Assessment: 1.?Elevated BUN - R79.9 (Simi tariq)??? Plan: * Treatment: * Procedure Codes:?47508 VENIP UNCT, ROUTINE* * * The named appointment provid er may or may not be the originator of this progress note, and it is not deemed complete until electronically signed by the appointment provider. Sign off status: Pending * Provider:?Albaro Orona MD Date:?1 03/17/2023 Generated for Adelina shane/Rylie/eTransmitting on:?06/20/2024 07:34 AM EDT
--- OUTSIDE RECORDS SUMMARY | 2024-06-20 07:34 | XMS_ITS | Encounter Summary ---
Author Organization [facility] Address [address] [place] [address] Phone Care Team Providers Care Residential Mortgage Underwriter Name Role Phone Albaro Orona MD Primary Care Provider [phone] Reason for Visit * Reason Comments Med Refill Encounter Details Date Type Department Care Team (Late st Contact Info) Description 04/14/2023 Refill [facility] [address] [place] [phone] Adis Morrison MD [address] [place] [address], [address] [phone] Social History Tobacco Use Types Packs/Day Years [...] on filedocumented in this encounter Care Teams Residential Mortgage Underwriter Relationship Specialty Start Date End Date Albaro Orona MD [id number] [place] PCP - General 03/10/20 documented as of this encounter
--- OUTSIDE RECORDS SUMMARY | 2024-06-20 07:34 | XMS_ITS ---
Author Organization Albaro Orona MD Address [address] [place], [place] [phone] Care Team Providers Care Mexican Food Cook Name Role Phone Yeyo Albaro Primary Care Provider Allergies No Known Allergies Reason For Referral Reason Sciatica please ev al and treat for physical therapy Diagnosis 1 Sciatica, unspecifie d laterality (M54.30) Referral Organization Albaro Orona MD Referring Provider First Name Albaro Referring Provider Last Name Yeyo Referring Provider Speciality Internal M edicine Ref[facility] Referred Provider Specialty Physical The rapist [...] 1 tablet Orally Once a day Not-Taking Aurora 3 1000 MG 1 capsule Orally Onc [...] kg/m2 05/15/2024 weight is down 7 pounds [facility] e 11-15-23 Encounters Encounter Location Date Provider Diagnosis Albaro Orona MD [address] [place] [address] [place] [phone] 05/15/2024 Albaro Orona Essential hypertension I10 ; [...] unspecified laterality referra l to physical therapy. [facility] Type 2 diabetes mellitus wit hout complication doing well Referrals Referral Date Details 05/15/2024 05/15/2024, Sciatica please eval and treat for physical therapy, [facility] Next Appt Details Provider Name:Albaro Martin iesusan, 11/09/2024 07:30:00 AM, [address] [place] [address], [address], [place], [phone], Provider Name:Albaro cedeño, 11/16/2024 01:00:00 PM, [address] [place] [address], [place] [address], [place], [phone], Progress Notes * Rekha SHARMA PDOB:1940 (84 yo F)Acc No.[id number]:05/15/2024 Progress Notes Patient:?Rekha SHARMA Provider:?Albaro Orona MD :1940???Age:84 Y???Sex:Female D ate:05/15/2024 Address:[address] [place], [place] [id number] Subjective: * Chief Complaints: * ???6 month * HPI: ???Symptom(s):?patient is a 84 yo female here for 6 month follow up visit./ doing well except for sciatica. /? doesn't want any injection. using ice and heat. and using advil cream. * ROS:?General/Constitutional:?Denies?Chills.?Denies?Fatigue.?Denies?Fever.?Denies?Headache.?ENT:?Denies?Sore throat.?Respiratory:?Denies?Cough.?Denies?Shortness of breath at rest.?Denies?Shortness of breath with exertion.?Cardiovascular:?Patient denies?chest pain with exertion, chest pain at rest.?Gastrointestinal:?Denies?Diarrhea.?Denies?Nausea.? * Medical History:? * Surgical History:? * Hospitalization/Major Diagno stic Procedure:? * Medications:?TakingWegovy 0. 5 MG/0.5ML Solution Auto-injector 0.5 mL Subcutaneous Vitamin C 500 MG Capsule as directed Orally Aspirin Adult Low Strength 81 MG Tablet Delayed Release 1 tablet Orally Once a day Aurora 3 1000 MG Capsule 1 capsule Orally Once a day Valsartan-hydroCHLOROthiazide 320-25 MG Tablet 1 tablet Orally Once a day Simvastatin 40 mg Tablet TAKE 1 TABLET DAILY Metoprolol Succinate ER 50 mg Tablet Extended Release 24 Hour TAKE 1 TABLET DAILY Taking Wegovy 0.5 MG/0.5ML Solution Auto-injector 0.5 mL Subcutaneous Taking Vitamin C 500 MG Capsule as directed Orally Taking Aspirin Adult Low Strength 81 MG Tablet Delayed Release 1 tablet Orally Once a day Taking Aurora 3 1000 MG Capsule 1 capsule Orally [...] Allergies:?N.K.D.A.yes[Aller gies Verified] Objective: * Vitals:?Ht: 60.5, Wt: 215, B MN:41.29, BP:128/78, Wt-k.52. weight is down 7 pounds since 11-15-23. * ???Past Orders: ???Lab:Glucose Fasting (Orde r Date - 05/08/2024) (Collection Date & Time - 05/08/2024 07:30 AM) ? Value Reference Range ?Glucose Fasting 99 60-9 9 - mg/dL ???Lab:Lipid Panel with Refl ex (Order Date - 05/08/2024) (Collection Date & Time - 05/08/2024 07:30 AM) ? Value Reference Range ?Triglycerides 138 <150 - mg/dL ?Cholesterol 146 <200 - m g/dL ?LDL Cholesterol Calculated 63 <100 - mg/dL ?HDL Cholesterol 56 >40 - mg/dL ???Lab:Hemoglobin A1c (Order Date - 05/08/2024) (Collection Date & Time - 05/08/2024 07:30 AM) ? Value Reference Range ?Hemoglobin A1c % 5.8 <6. 0 - % ?Estimated Average Glucose 120 - mg/dL ???Lab:Liver Panel (Order Da te - 05/08/2024) (Collection Date & Time - 05/08/2024 07:30 AM) ? Value Reference Range ?Bilirubin Total 0.5 0.0- 1.0 - mg/dL ?Bilirubin Direct 0.2 0.0 -0.5 - mg/dL ?Aspartate Amino Transferase 41 H 5-31 - U/L ?Alanine Aminotransferase 29 0-31 - U/L ?Total Protein 7.4 6.5-8. 0 - g/dL ?Albumin Level 3.9 3.5-5. 0 - g/dL ?Alkaline Phosphatase 89 39-117 - U/L * Examination: ???General Examination: ?GENERAL APPEARANCE:?alert, well hydrated, in no distress, female.?HEAD:?normocephalic.?SKIN:?good turgor.?HEART:?no murmurs, rubs, gallops, regular rate and rhythm.?LUNGS:?no wheezes, rales, rhonchi, good air movement, clear to auscultation bilaterally.? Assessment: * Assessment: 1.?Essential hypertension - I10 (Primary)???2.?Sciatica, unspecified laterality - M54.30???3.?Type 2 diabetes mellitus without complication - E11.9??? Plan: * Treatment: 2.?Sciatica, unspecified lat erality? Notes: referral to physical therapy. [facility]? [facility] ?Reason:Sciatica please eval and treat for physical therapy 3.?Type 2 diabetes mellitus without complication? Notes: doing well?? 4.?Others? Refill Simvastatin Tablet, 40 mg, TAKE 1 TABLET DAILY, orally, daily, 90 days, 90, Refills 3;?Refill Metoprolol Succinate ER Tablet Extended Release 24 Hour, 50 mg, TAKE 1 TABLET DAILY, y mouth, daily, 90 days, 90, Refills 3.?? * Procedure Codes:?G2211 Compl ex e/m visit add on * * Sign off status: Completed true * Provider:?Albaro Orona MD Date:?0 05/15/2024 Generated for JaronRiskclick acosta/Rylie/eTransmitting on:?06/20/2024 07:34 AM EDT History and Physical Notes * HPI [...] es 05/15/2024 Albaro Orona [facility], [facility] Sciatica please eval and treat for physical therapy
--- OUTSIDE RECORDS SUMMARY | 2024-06-20 07:34 | XMS_ITS ---
Author Organization Albaro Orona MD Address [address] [place], [place] [phone] Care Team Providers Care Reed Polisher Name Role Phone Albaro Orona Primary Care Provider Results Component Value Reference Range Notes Liver Panel Reviewed date:05/08/2024 12:12:25 PM Interpretation: Performing Lab:[facility], [address] [place] [phone] Notes/Report: Bilirubin Total 0.5 0.0-1.0 mg/dL Bilirubin Direct 0.2 0.0-0.5 mg/dL Aspartate Amino Transferase 41 5-31 U/L Alanine Aminotransferase 29 0-31 U/L Total Protein 7.4 6.5-8.0 g/dL Albumin Level 3.9 3.5-5.0 g/dL Alkaline Phosphatase 89 39-117 U/L Glucose Fasting Reviewed date:05/08/2024 12:27:13 PM Interpretation: Performing Lab:[facility], [address] [place] [phone] Notes/Report: Glucose Fasting 99 60-99 mg/dL Lipid Panel with Reflex Reviewed date:05/08/2024 12:14:36 PM Interpretation: Performing Lab:[facility], [address] [place] [phone] Notes/Report: Triglycerides 138 <150 mg/dL Desirable Triglyceride: [...] in patients with liver disease. Hemoglobin A1c Reviewed date:05/08/2024 12:10:43 PM Interpretation: Performing Lab:[facility], [address] [place] [phone] Notes/Report: Hemoglobin A1c % 5.8 <6.0 % [...] average glucose, using the formula of the M5T-Wlbacik Average Glucose study (ADAG), Diabetes Care, Vol.31,#8, 2007 REASON FOR VISIT fasting lipids Encounters Encounter Location Date Provider Diagnosis Albaro Orona MD [address] [place] [address] [address] [place], [place] [phone] 05/08/2024 Albaro Orona Type 2 diabetes azra itus without complication E11.9 and Pure hypercholesterolemia E78.00 Assessments Encounter Date Diagnosis (ICD Code) Assessment Notes Treatment Notes Treatment Clinical Notes Section Notes 05/08/2024 Type 2 diabetes azra itus without complication (ICD-10 - E11.9) 05/08/2024 Pure hypercholesterolemia (ICD-10 - E78.00) Plan Of Treatment Next Appt Details Provider Name:Albaro Dino Mario cedeño, 11/09/2024 07:30:00 AM, [address] [facility], [address] [facility], [place], [place], [phone], Provider Name:Albaro Martin gala, 11/16/2024 01:00:00 PM, [address] [facility], [address], [place], [place], [phone], Progress Notes * Rekha SHARMA PDOB:1940 (84 yo F)Acc No.[id number]:05/08/2024 Progress Note Patient:Rekha CURRAN Provider:?Albaro Orona MD :1940???Age:84 Y???Sex:Female D ate:05/08/2024 Address:[address] [place] [address] [place], [id number] Subjective: * Chief Complaints: * ???1. Fasting [...] Time - 05/08/2024 07:30 AM) * Procedure Codes:?30574 VENIP UNCT, ROUTINE* * * The named appointment provid er may or may not be the originator of this progress note, and it is not deemed complete until electronically signed by the appointment provider. Sign off status: Pending * Provider:?Albaro Orona MD Date:?0 05/08/2024 Generated for Adelina shane/Rylie/Olamideitting on:?06/20/2024 07:34 AM EDT
--- OUTSIDE RECORDS SUMMARY | 2024-06-20 07:34 | XMS_ITS | Clinical Summary ---
Author Organization [facility] Address [address] [place] [address] Care Team Providers Care Gambling Monitor Name Role Phone Albaro Orona MD Primary Care Provider [phone] Allergies No known active allergies Medications metoprolol [...] Due Date Last Done Comments Pneumococcal Vaccine: 50+ Ye ars (1 of 2 - PCV) 1960 Influenza Vaccine (Season Ended) 2024 Hepatitis B Vaccine Aged Out No longe r eligible based on patient's age to complete this topic Insurance [employer] Medicare [facility] Medicare Care Teams Gambling Monitor Relationship Specialty Start Date End Date Albaro Orona MD [address] [place] PCP - General 03/10/20
--- OUTSIDE RECORDS SUMMARY | 2024-06-20 07:34 | XMS_ITS | Clinical Summary ---
Author Organization [facility] Address [address] [place] [address] Phone Care Team Providers Care Patents Examiner Name Role Phone Albaro Cano MD Primary [...] at bedtime. - Oral Active semaglutide (Wegovy) 1 mg/0.5 mL injection pen Inject 1 mg under the skin every 7 (seven) days for 28 days. 2 mL 5 07/10/19 25 Active semaglutide (Wegovy) 0.5 mg/0.5 mL injection pen Inject 0.5 mg under the skin every 7 (seven) days for 28 days. 2 mL 5 06/08/19 25 Discontinued Active Problems Problem Noted Date Diagnosed Date Heart failure with improved ejection fraction (HFimpEF) (CMS/HCC V24, CMS/[facility] V28) 03/22/2024 Assessment & Plan (03/22/2024 9:40 AM [...] Encounters Date Type Department Care Team Description 06/07/2024 Telephone Bariatric Surgery - [address] [place] [address] Diana Moise MD Med Refill (Wegovy w/titration) 05/02/2024 Telephone Bariatric Surgery [facility] [address] [facility] [address] [place] [address] Lore Pascal PA Med Refill (Wegovy w/titration) 03/30/2024 Telephone General Surgery [address] [place] [address] JonatanSimpson, [place] 03/28/2024 1:30 PM EST Consult Bariatric Surgery [address] [place] [address] Lore Pascal PA Class 3 severe obesity due to excess calories with serious comorbidity and body mass index (BMI) of 40.0 to 44.9 in adult (CMS/HCC V24, CMS/HCC V28) (Primary Dx); Coronary artery disease involving saint regis coronary artery of [place] reg[place] heart without angina pectoris; Primary hypertension; Ischemic cardiomyopathy; Heart failure with improved ejection fraction (HFimpEF) (CMS/HCC V24, CMS/HCC V28); Left bundle branch block; Hyperlipidemia LDL goal <55 03/26/2024 7:30 AM EST Ancillary Procedure [facility] [address] [place] [phone] Coronary artery disease involving saint regis coronary artery of saint reg[place] heart without angina pectoris; Primary hypertension; Hyperlipidemia LDL goal <55; Bilateral carotid bruits 03/22/2024 7:40 AM EST Office Visit [facility] [address] [place] [phone] Aiyana Church NP Ischemic cardiomyopathy (Primary Dx); Heart failure with improved ejection fraction (HFimpEF) (CMS/HCC V24, CMS/HCC V28); Coronary artery disease involving saint regis coronary artery of [place] heart without angina pectoris; Status post coronary [...] AM EDT Office Visit Bariatric Surgery - [place] [address] [facility] [address] [place] [phone] Lore Pascal PA [address] [facility] [address] [place] [address] Health Maintenance Due Date Last Done Comments Cholesterol Screening (Lipid Panel) 01/31/2022 Depression Screening 01/31/2022 Falls Risk Assessment 01/31/2022 Medicare Annual Wellness Visit 01/31/2022 Social Influencers of Health Screening 01/31/2022 Hypertension/CHF/CAD Annual BMP Blood Test 02/13/2022 COVID-19 Vaccine ( season) 2024 11/18/2023, 12/02/2022, 12/13/2021, Additional history exists DTaP,Tdap,and Td Vaccines (2 - Td or Tdap) 12/27/2026 12/27/2016 Osteoporosis Screening (Bone Density Screening) 01/01/2029 01/01/2019 Zoster Vaccines Completed 06/26/2018, 04/05/2018 RSV Immunization Adult Patients Completed 11/13/2022 Influenza Vaccine Completed 12/01/2023, , 11/09/2020, Additional [...] age to complete this topic Meningococcal B Vaccine Aged Out No l onger eligible based on patient's age to complete [...] 7:40 AM EST Coronary artery disease involving saint [place] coronary artery of [place] heart without angina pectoris Primary hypertension Hyperlipidemia [...] mild heterogeneous plaque. Vertebral flow is antegrade. 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 Location/Status: ??SPDIMAM/REG CLI ? Mnemonic/Ordering Site: ??MAMDEXAAX/SPMAM Ordering Physician: ??ALBARO CANO MD Princess Dexa Axial Skeleton - 01/01/19 - 6554 History: Low estrogen state due to menopause. Comparison: 01/01/13 Findings: Bone densitometry is performed utilizing dual energy x-ray absorptiometry (DXA) in the docplannerigSafaricross unit. The lumbar spine and proximal femora [...] Major Osteoporotic 9.6% ??Hip 1.7%. IMPRESSION: Osteopenia. [id number] Dictating Physician: ??NELLIE TRIANA MD Electronically Signed by: ??NELLIE TRIANA MD Dic Date/Time: ??01/01/191649 Sign date/Time: ??01/01/191651 Procedure Note Nellie Triana - 02/16/2022 [facility] Diagnostic Imaging Department [address] [place], [place] [id number] Patient: SAVANNAANJEL Sun /Age/Sex: 1940 78 - F Unit#: [id number] Location/Status: SPDIMAM/REG CLI Mnemonic/Ordering Site: MAMDEXAAX/SPMAM Ordering Physician: ALBARO CANO MD Princess Dexa Axial Skeleton - 01/01/19 455 History: Low estrogen state due to menopause. Comparison: 01/01/13 Findings: Bone densitometry is performed utilizing dual energy x-ray absorptiometry(DXA) in the docplannerigSafaricross unit. The lumbar spine and proximal femora [...] Fracture: Major Osteoporotic 9.6%Hip 1.7%. IMPRESSION: Osteopenia. [id number] Dictating Physician: NELLIE TRIANA MD Electronically Signed by: NELLIE TRIANA MD Dic Date/Time: 01/01/191649 Sign date/Time: 01/01/191651 Albaro Cano MD IMG BI PROCEDURES Final Res ult from Last 3 Months or Most Recently Relevant to Health Maintenance Insurance [employer] MEDICARE Care Teams Patents Examiner Relationship Specialty Start Date End Date Albaro Cano MD PCP - General Internal Medicine 12/14/11
--- OUTSIDE RECORDS SUMMARY | 2024-06-20 07:35 | XMS_ITS | Patient Health Record ---
Author Organization Albaro Orona MD Address [address] [place], [place] [phone] Care Team Providers Care Behavioral Health Associate Name Role Phone Yeyo Albaro Primary Care Provider Allergies No Known Allergies Results Component Value Reference Range Notes Complete Blood Count Auto Di ff Reviewed date:11/08/2023 06:03:05 PM Interpretation: Performing Lab:[facility], [address] [place] [phone] Notes/Report: White Blood Count 9.1 4.8-10.8 X10*3/uL Red Blood Count 3.98 4.20-5.50 X10*6/uL Hemoglobin 12.6 12.0-16.0 g/dl Hematocrit 38.4 37.0-47.0 % Mean Corpuscular Volume 96.5 80.0-98.0 fL Mean Corpuscular Hemoglobin 31.7 27.0-33.0 pg Mean Corpuscular HGB Conc 32.8 31.0-35.0 g/dl Red Cell Distribution Width 13.9 11.0-16.0 % Platelet Count 257 160-400 X10*3/uL Mean Platelet Volume 11.3 9.4-12.3 fL Neutrophils Percent Auto 52.5 45-73 % Imm Gran Pct Auto 0.3 0.0-0.4 % Lymphocytes Percent Auto 37.3 20-40 % Monocytes Percent Auto 7.6 2-11 % Eosinophils Percent Auto 1.5 0-4 % Basophils Percent Auto 0.8 0-2 % NRBC Pct Auto 0.0 0.0-0.2 /100WBC Neutrophils Absolute Auto 4.8 2.0-8.3 x10*3/u L Imm Gran Abs Auto 0.03 0.00-0.03 X10*3/uL Lymphocytes Absolute Auto 3.4 1.2-4.9 X10*3/u L Monocytes Absolute Auto 0.7 0.1-1.2 X10*3/uL Eosinophils Absolute Auto 0.1 0.0-0.4 X10*3/u L Basophils Absolute Auto 0.1 0.0-0.2 X10*3/uL NRBC Abs Auto 0.000 0.0-0.012 X10*3/uL Comprehensive Long Bottom. Panel Fa st Reviewed date:11/08/2023 06:02:39 PM Interpretation: Performing Lab:[facility], [address] [place] [phone] Notes/Report: Sodium 144 135-145 mmol/L Potassium 3.9 3.3-5.1 mmol/L Chloride 109 96-108 mmol/L Carbon Dioxide 25 22-29 mmol/L Anion Gap 14 12-20 Blood Urea Nitrogen 32 9-16 mg/dL Creatinine 0.99 0.5-1.4 mg/dL Estimated Glomerular Filt Rate 54 NOTE: For -Cymro individuals, multiply the result by 1.210. Chronic Kidney Disease: Estimated GFR < 60 mL/min/1.73m2 Severe Kidney Disease: Estimated GFR < 15 mL/min/1.73m2 Glucose Fasting 98 60-99 mg/dL Calcium 10.1 8.4-10.2 mg/dL Bilirubin Total 0.4 0.0-1.0 mg/dL Aspartate Amino Transferase 32 5-31 U/L Alanine Aminotransferase 23 0-31 U/L Total Protein 7.7 6.5-8.0 g/dL Albumin Level 4.3 3.5-5.0 g/dL Alkaline Phosphatase 104 39-117 U/L Lipid Panel Reviewed date:11/08/2023 05:59:28 PM Interpretation: Performing Lab:[facility], [address] [place] [phone] Notes/Report: Triglycerides 90 <150 mg/dL Desirable Triglyceride: less than 150 mg/dL Borderline High Triglyceride 150-199 mg/dL High Triglyceride: 200-499 mg/dL Very High Triglyceride: greater than or equal to 5OO mg/dL Cholesterol 151 <200 mg/dL Desirable Cholesterol: less than 200 mg/dL Borderline High Cholesterol: 200-239 mg/dL High Cholesterol: greater than 239 mg/dL LDL Cholesterol Calculated 67 <100 mg/dL Desirable LDL: less than 100 mg/dL Near Optimal/Above Optimal LDL: 110-129 mg/dL Borderline High LDL: 130-159 mg/dL High LDL: 160-189 mg/dL Very High LDL: greater than or equal to 190 mg/dL HDL Cholesterol 66 >40 mg/dL Desirable HDL: greater than 40 mg/dL Note: This HDL assay may give artificially low results in patients with liver disease. Microalbumin, Random Reviewed date:11/08/2023 05:56:08 PM Interpretation: Performing Lab:[facility], [address] [place] [phone] Notes/Report: Creatinine Urine 57.47 Microalbumin Urine 8.0 Microalbum/Creatinine Ratio Ur 13.9 <30 ug/mg cr Albumin/Creatinine Ratio Reference Ranges: Normal: < 30 ug/mg creatinine Microalbuminuria: 30 - 300 ug/mg creatinine Clinical Albuminuria: > 300 ug/mg creatinine Hemoglobin A1c Reviewed date:11/08/2023 05:55:28 PM Interpretation: Performing Lab:[facility], [address] [place] [phone] Notes/Report: Hemoglobin A1c % 5.5 <6.0 % Hemoglobin A1C Reference Range Adults: 4.8 - 6.0 % Non diabetic: < 6.0 % Goal: < 7.0 % Additional Action Suggested: > 8.0 % Note: Hemoglobin A1c results are invalid for patients with abnormal amounts of HbF. Blood transfusions may impact the HbA1c concentration in the patient sample. Estimated Average Glucose 111 eAG = Estimated average glucose which is %A1C expressed as average glucose, using the formula of the D2S-Xvdqpua Average Glucose study (ADAG), Diabetes Care, Vol.31,#8, 2007 UA ClnCatch+Micro w/rflx Cul t Reviewed date:11/09/2023 08:43:44 AM Interpretation: Performing Lab:[facility], [address] [place] [phone] Notes/Report: Urine, Clean Catch Color Urine Yellow Appearance Urine Cloudy PH 7.0 5.0-9.0 Glucose Urine UA Negative Negative mg/dL Urine Blood Trace Negative Specific [place] - Urine 1.015 1.005-1.025 Urine Protein Negative Neg-Trace mg/dL Urine Ketones Negative Negative mg/dL Nitrite Urine Negative Negative Leukocyte Esterase Urine Negative Negative RBC Urine 6-10 0-2 /HPF WBC Urine 0-5 0-5 /HPF Squamous Epithelial Cell Urine 0-2 0-2 /HPF Bacteria Urine 4+ None Seen Hyaline Casts Urine 0-2 0-2 /LPF Complete Blood Count Auto Di ff Reviewed date:01/16/2024 12:31:19 PM Interpretation: Performing Lab:[facility], [address] [place] [phone] Notes/Report: White Blood Count 7.7 4.8-10.8 X10*3/uL [...] Nitrogen Reviewed date:01/16/2024 12:33:27 PM Interpretation: Performing Lab:[address] [phone] Notes/Report: Blood Urea Nitrogen 28 9-16 mg/dL Liver Panel Reviewed date:05/08/2024 12:12:25 PM Interpretation: Performing Lab:[address] [phone] Notes/Report: Bilirubin Total 0.5 0.0-1.0 mg/dL Bilirubin Direct 0.2 0.0-0.5 mg/dL Aspartate Amino Transferase 41 5-31 U/L Alanine Aminotransferase 29 0-31 U/L Total Protein 7.4 6.5-8.0 g/dL Albumin Level 3.9 3.5-5.0 g/dL Alkaline Phosphatase 89 39-117 U/L Glucose Fasting Reviewed date:05/08/2024 12:27:13 PM Interpretation: Performing Lab:[address] [phone] Notes/Report: Glucose Fasting 99 60-99 mg/dL Lipid Panel with Reflex Reviewed date:05/08/2024 12:14:36 PM Interpretation: Performing Lab:[address] [phone] Notes/Report: Triglycerides 138 <150 mg/dL Desirable Triglyceride: [...] A1c Reviewed date:05/08/2024 12:10:43 PM Interpretation: Performing Lab:[facility], [address] [place] [phone] Notes/Report: Hemoglobin A1c % 5.8 <6.0 % [...] average glucose, using the formula of the S3J-Eqiudvk Average Glucose study (ADAG), Diabetes Care, Vol.31,#8, Sep. 2007 Neha Larry Reviewed date:11/08/2023 05:55:59 PM Interpretation: Performing Lab:[facility], [address] [place] [phone] Notes/Report: Neha Larry See Note Specimen held untested for 24 hours; Call to request Chemistry testing. Pathology Reviewed date:12/26/2023 12:38:05 PM Interpretation: Performing Lab:[facility], [address] [place] [phone] Notes/Report: - -------- Name: Rekha Sharma Age/Sex: 83/F : 1940 Unit#: [id number] Attend Dr: Gloria Gonzalez [facility] Re12/21/23 Status : [facility] REF Location: HO.LNP Disch: - -------- SPEC : [id number] RECD : 12/22/23 STATUS: DASHA VALDOVINOSMariana NUM: [id number] ERIC: 12/21/[address] [facility] [address]: Gloria Gonzalez [facility] ENTERED: 12/22/23-141 SP TYPE: Cytology OTHR DR: Albaro Orona MD ORDERED: Cyto-enhanced Diagnosis Urine: Negative for high-grade urothelial carcinoma. See comment. COMMENT: Cellular specimen consisting of few single urothelial cells with degenerative changes, squamous cells, red blood cells and acute inflammatory cells. Clinical History Other microscopic hematuria Material Received Urine Gross Description Received is 28 cc of clear yellow fluid from which a ThinPrep slide is prepared. Copies To: Albaro Orona MD [facility] [address] [place] [address] [address] [place] [address] Gloria Gonzalez [facility] [address] [place] [address] Dr. Avril gan [address] [place], [place] [phone] [email or web address] - -------- Signed (signature on file) Ernie Devi MD 12/26/23 1130 - -------- END OF REPORT MAMMOGRAM DIGITAL BILATERAL SCREEN Reviewed date:01/17/2024 12:47:57 PM Interpretation:Negative Performing Lab: Notes/Report: Negative Hold Gold Reviewed date:05/08/2024 12:10:26 PM Interpretation: Performing Lab:[facility], [address] [place] [phone] Notes/Report: Hold Gold See Note Specimen held untested for 24 hours; Call to request Chemistry testing. Reason For Referral Reason Sciatica please ev al and treat for physical therapy Diagnosis 1 Sciatica, unspecifie d laterality (M54.30) Referral Organization Albaro Orona MD Referring Provider First Name Albaro Referring Provider Last Name Yeyo Referring Provider Speciality Internal M edicine Referred Provider Odilon Chiropratic Odilon Rodriguez Chiropratic Referred Provider Specialty Physical The rapist General Notes Deepthi Luna 0 05/15/2024 01:49:42 PM >patient will be making her own appt Referral Priority Routine Medications Medication SIG (Take, Route, Frequency, Duration) Notes Start Date End Date Status Sparks 3 1000 MG 1 capsule Orally Onc e a day Active Symbicort 160-4.5 MCG/ACT 2 puffs Inhala tion Twice a day 07/04/2018 Not-Taking ProAir HFA 108 (90 Base) MCG/ACT 2 puffs as needed Inhalation every 4 hrs for 30 days 12/22/2012 Not-Taking Wegovy 0.5 MG/0.5ML 0.5 mL Subcutaneous Active Sulfamethoxazole-Trimetho prim 800-160 MG 1 tablet Orally Twice a day for 7 days 08/27/2021 Not-Taking Vitamin C 500 MG as directed Orally Active Furosemide 20 MG 1 tablet Orally Once a day for 10 days 01/29/2021 Not-Taking Aspirin Adult Low Strength 81 MG 1 tablet Orally Once a day for 30 day(s) Active Valsartan-hydroCHLOROthia zide 320-25 MG 1 tablet Orally Once a day for 90 days 04/22/2020 Active Nitrofurantoin Monohyd Macro 100 MG 1 capsule with food Orally every 12 hrs for 5 day(s) Not-Taking Simvastatin 40 mg TAKE 1 TABLET DAILY orally daily for 90 days Active Ventolin HFA 108 (90 Base) MCG/ACT 2 puffs as needed Inhalation every 4 hrs for 30 days 04/18/2018 Not-Taking Metoprolol Succinate ER 50 mg TAKE 1 TABLET DAILY y mouth daily for 90 days Active Cephalexin 500 MG 1 capsule Orally 2 times a day for 5 days 02/19/2022 Not-Takin g Vitamin B12 1000 mg 1 tablet Orally Once a day Not-Taking Immunizations Vaccine Route Administration Date Status Comme nts PPSV23 (Pnemovax) Unknown 10/23/2005 Administered Flu Vaccine Unknown 12/02/2011 Administered Prevnar 13 IM Intramuscular 02/01/2012 Administered TDaP IM Intramuscular 08/28/2012 Administered Flu Vaccine Unknown 11/07/2012 Administered flu vac at work Shingles IM Intramuscular 02/08/2013 Administered Flu Vaccine Unknown 12/12/2013 Administered Work Flu Vaccine Unknown 11/25/2014 Administered pt got it a t work. Fluarix Quadrivalent IM Intramuscular 12/25/2015 Administered Fluarix Quadrivalent Unknown 12/22/2016 Administered At work PPSV23 (Pnemovax) IM Intramuscular 10/03/2017 Administered TDaP Unknown 12/27/2016 Administered Given [facility] Shingrix IM Intramuscular 04/05/2018 Administered pt was given the vaccine at [facility] Shingrix Unknown 06/26/2018 Administered [facility] Fluarix Quadrivalent Unknown 01/27/2019 Administered [employer] Influenza High Dose Unknown 12/10/2019 Administered at work Covid Vaccine Unknown 04/12/2020 Administered Pfizer Influenza High Dose Unknown 11/05/2020 Administered At work through [employer] SARS-COV-2 Pfizer Unknown 05/03/2020 Administered SARS-COV-2 Pfizer Unknown 11/30/2020 Administered SARS-COV-2 Pfizer Unknown 12/13/2021 Administered [facility] Influenza High Dose Unknown 11/29/2021 Administered SARS-COV-2 Pfizer Unknown 12/02/2022 Administered [facility] zzz Unknown 10/23/2005 Pending PPSV23 (Pnemovax) Unknown 02/01/2012 Pending Prevnar 13 Unknown 02/16/2016 Pending Social History Tobacco Use: Social History Observation [...] Never (0 point) Points 1 Interpretation Negative Problems Problem Type SNOMED Code ICD Code Onset Dates Problem Status W/U Status Risk Notes Problem 39878865 Lymphocytosis (D72.820) Active confirm ed Problem 099225677 Tubular adenoma (D36.9) Active confir med Problem 50577750 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) Active confirmed Problem 60993413 Coronary artery disease (I25.10) Active confirmed Problem 04341266 Essential hypert ension (I10) Active confirmed Problem 48233499 Type 2 diabetes mellitus without complication (E11.9) Active confirmed Problem 643342756 Morbid obesity d ue to excess calories (E66.01) Active confirmed Problem 36050060 Sciatica, unspec ified laterality (M54.30) Active confirmed Problem 70134022 Sciatica of left side (M54.32) Active confirmed Problem 861297923 Pure hypercholesterolemia (E78.00) Active confirmed Problem 779643180 PVD (peripheral vascular disease) (I73.9) Active confirmed Problem 234623076 Osteopenia deter mined by x-ray (M85.80) Active confirmed Problem 200609633 Mild intermitten t asthmatic bronchitis with acute exacerbation (J45.21) Active confirmed Vital Signs Blood pressure diastolic 78 mm Hg 05/15/2024 constantino ght is down 7 pounds since 11-15-23 Height 60.5 in 05/15/2024 weight is down 7 pounds since 11-15-23 Blood pressure systolic 128 mm Hg 05/15/2024 weig ht is down 7 pounds since 11-15-23 Weight 215 lbs 05/15/2024 weight is down 7 pounds since 11-15-23 BMI 41.29 kg/m2 05/15/2024 weight is down 7 pounds since 11-15-23 Encounters Encounter Location Date Provider Diagnosis Albaro Orona MD [address] [place] [id number] 11/08/2023 Albaro Orona Annual physical exam Z00.00 ; Essential hypertension I10 ; Type 2 diabetes mellitus without complication E11.9 ; Lymphocytosis D72.820 and Pure hypercholesterolemia E78.00 Albaro Orona MD [address] [id number] 01/16/2024 Albaro Orona Elevated BUN R79.9 Albaro Orona MD [address] [id number] 05/08/2024 Albaro Orona Type 2 diabetes azra itus without complication E11.9 and Pure hypercholesterolemia E78.00 Albaro Orona MD [address] [id number] 11/15/2023 Albaro Orona Type 2 diabetes azra itus without complication E11.9 ; Annual physical exam Z00.00 ; Coronary artery disease I25.10 ; Elevated BUN R79.9 ; Essential hypertension I10 ; Lymphocytosis D72.820 ; Pure hypercholesterolemia E78.00 ; Sciatica, unspecified laterality M54.30 and Depression screening Z13.31 Albaro Orona MD [address] [id number] 05/15/2024 Albaro Orona Essential hypertensi on I10 ; Sciatica, unspecified laterality M54.30 and Type 2 diabetes mellitus without complication E11.9 Albaro Orona MD [address] [id number] 08/30/2023 Albaro Orona Essential hypertensi on I10 Assessments Encounter Date Diagnosis (ICD Code) Assessment Notes Treatment Notes Treatment Clinical Notes Section Notes 11/08/2023 Annual physical exam (ICD-10 - Z00.00) 11/08/2023 Essential hypertensi on (ICD-10 - I10) 01/16/2024 Elevated BUN (ICD-10 - R79.9) 05/08/2024 Type 2 diabetes mellitus without complication (ICD-10 - E11.9) 11/15/2023 Type 2 diabetes mellitus without complication (ICD-10 - E11.9) has good a1c, at goal, will continue current regiment 11/15/2023 Annual physical exam (ICD-10 - Z00.00) labs reviewed and discussed with patient 05/15/2024 Essential hypertensi on (ICD-10 - I10) doing well 05/15/2024 Sciatica, unspecifie d laterality (ICD-10 - M54.30) referral to physical therapy. [facility] 08/30/2023 Essential hypertensi on (ICD-10 - I10) 11/08/2023 Type 2 diabetes mellitus without complication (ICD-10 - E11.9) 05/08/2024 Pure hypercholesterolemia (ICD-10 - E78.00) 11/15/2023 Coronary artery dise ase (ICD-10 - I25.10) not having any chest pain, will continue to monitor 05/15/2024 Type 2 diabetes mellitus without complication (ICD-10 - E11.9) doing well 11/08/2023 Lymphocytosis (ICD-1 0 - D72.820) 11/15/2023 Elevated BUN (ICD-10 - R79.9) is probably from the valsatan, will continue to monitor 11/08/2023 Pure hypercholesterolemia (ICD-10 - E78.00) 11/15/2023 Essential hypertensi on (ICD-10 - I10) [...] - Z13.31) negative screen Plan Of Treatment Pending Test Test Name Order Date Electrocardiogram (EKG) 04/26/2019 Electrocardiogram (EKG) 11/25/2011 Electrocardiogram (EKG) 12/22/2012 Electrocardiogram (EKG) 04/07/2017 Electrocardiogram (EKG) 04/13/2018 Next Appt Details Provider Name:Albaro Martin rishabhr, 11/09/2024 07:30:00 AM, [address] [place] [address], [address] [facility], [place], [place], [phone], Provider Name:Albaro Martin ier, 11/16/2024 01:00:00 PM, [address] [place] [address], [address], [place], [place], [phone], Insurance Providers Payer Name Payer Address Payer Phone Subscriber Number Group Number Insured Name Patient Relationship to Insured Coverage Start Date Coverage End Date [facility] are [employer] [address] [address] [place] [address] [id number] Zachary Rekha Self - patient is the insured MEDICARE NHIC Y[address] [place] [address] [id number] Rekha Sharma Self - patient is the insured Medical (General) History Medical History History ICD Code has not had colonoscopy - 20 12 discussed again 2012; refused 2013; colonoscopy - done 11/13/14 w/Dr. 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 Gary Moreno , 2013
--- OUTSIDE RECORDS SUMMARY | 2024-06-20 07:35 | XMS_ITS | Encounter Summary ---
Author Organization [facility] Address [address] [place] [address] Care Team Providers Care Cnc Manufacturing Engineer Name Role Phone Albaro Orona MD Primary Care Provider [phone] Reason for Visit * Reason Onset Date Comments Med Refill 06/07/2024 Wegovy w/titrati on Encounter Details Date Type Department Care Team (Late st Contact Info) Description 06/07/2024 Telephone Bariatric Surgery - [place] [address] [facility] [address] [place] [phone] Diana Moise MD [address] [facility] [address] [place] [address] Med Refill (Wegovy w/titration) Social History Tobacco [...] encounter Progress Notes * Jacqueline Elizondo - 06/07/2024 10:44 AM EDT Patient did well on Wegovy 0.5 mgs and would like a refill with titration. If appropriate, please send script for Wegovy 1 mgs to [facility]. The patient does have a follow up in 06/27/2024 documented in this encounter Plan of Treatment Upcoming Encounters Date Type Department Care Team (Late st Contact Info) Description 06/27/2024 8:30 AM EDT Office Visit Bariatric Surgery - [place] [address] [facility] [address] [place] [address] Lore Pascal, BRIDGER [address] [facility] [address] [place] [address] documented as of this encounter Visit Diagnoses Not on filedocumented in this encounter Care Teams Cnc Manufacturing Engineer Relationship Specialty Start Date End Date Albaro Orona MD PCP - General Internal Medicine 12/14/11 documented as of this encounter
--- NOTE | 2024-06-20 07:42 | MHC.OFFVIS ---
Intake Visit Reasons: 6m/PVR Intake Note: Patient presents today for a follow-up on: uti and micro hematuria Meds: Estrace Cream Allergies to Antibiotic: No Known Allergies Blood Thinner: Aspirin Post Void Residual: 12ml's Teacher Early Childhood Development Required: No Accompanied by: Self / Same As Patient Allergies No Known Allergies [No Known Allergies*] Allergy (Verified 06/20/24 07:56) HPI Comments Details: Rekha is a very pleasant 84-year-old female patient of Dr. Orona. She has a past medical history of coronary artery disease, hypertension, hyperlipidemia, and chronic kidney disease following with Dr. Morrison. She underwent a CABG in [address] 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 She presents to the office today for a follow up of her microscopic hematuria and recurrent urinary tract infections. In discussion with the patient today she reports noting dark-colored urine and abdominal cramping that started yesterday. In office urinalysis results reviewed with the patient today 3+ leukocytes. She reports typically UTI like symptoms are urinary frequency therefore she did not believes she had a urinary tract infection however has recently started Wegovy and has been experiencing unique/random symptoms and believed that this was related to her Wegovy. She does discuss having intentionally lost approximately 10-15 lb. She discusses her frustration in availability of the medication. We discussed sending urine for urine culture. She otherwise denies urinary urgency, urinary frequency, incontinence, nocturia, dysuria, foul smelling urine, changes to urinary stream, flank pain, fever, and or chills. She does report to be utilizing Estrace cream intermittently. We discussed importance of compliance and taking medications as prescribed. We also discussed correlation of bowel issues in relation to recurrent urinary tract infections. Previous workup has included urine cytology 05/21 & 12/21 Negative for high-grade urothelial carcinoma. Urine culture 06/20 E coli and 04/23 aerococcus urinae. She discusses being very active and continues to work daily. She does have a previous smoking history however quit approximately 40 years ago. Discussed at length potential causes of microscopic hematuria as well as recurrent urinary tract infections. We discussed further workup to include imaging and cystoscopy. However patient states she will think about this. All questions were answered. [facility] Surgical History History of heart bypass surgery Social History Alcohol intake: current Alcohol intake frequency: does not drink Patient Tobacco Use Status: Former Tobacco user Review of Systems Eyes Reports no additional complaints ENT Reports no additional complaints Card Reports as per HPI Resp Reports no additional complaints GI Reports no additional complaints Reports as per HPI Musc Reports no additional complaints Neuro Reports no additional complaints Psych Reports no additional complaints Endo Reports no additional complaints Eleno/Lymph Reports no additional complaints Aller/Immun Reports no additional complaints Physical Exam Const General: cooperative, healthy appearing, comfortable, no acute distress, well developed, alert and awake Nutritional Appearance: overweight Orientation/consciousness: patient oriented x3 Limitations: ambulation with cane HEENT Head: Yes normal to inspection, Yes normocephalic and Yes atraumatic Ears: hearing grossly normal bilaterally Eyes General: appearance normal, both eyes and all related structures Neck Neck: Yes normal visual inspection and Yes trachea midline Chest Chest palpation & inspection: normal inspection of the chest Resp Effort & Inspection: normal respiratory effort and able to speak in complete sentences Cardio Rate: regular rate GI Inspection: Yes normal to inspection General: Yes no CVA tenderness Back/Spine/Pelvis Back: no CVA tenderness Skin General skin exam: no rashes or lesions noted Neuro General: patient oriented x3 Extrem General: Yes normal to inspection Psych Appearance: grossly normal and well kempt Mental Status: mental status grossly normal Speech and movement: Normal speech and movement present and Clear speech present Affect: normal affect Attitude: cooperative Thought process: Normal thought process present Thought content: Normal thought content present Insight: Fair insight present (Psych) Judgement: Fair judgement present (Psych) Office Procedures Post Void Residual Post Residual Void Post Void Residual (PVR): 12 08595-Fash Void Residual by ultrasound Results AMB Urinalysis, Automated UA Leukoctes 500 Martell/uL Last Edit by Chikis Quintero on 06/20/24 07:58 UA Nitrite Last Edit by Chikis Quintero on 06/20/24 07:58 UA Urobilinogen 0.2 mg/dL Last Edit by Chikis Quintero on 06/20/24 07:58 UA Protein 30 mg/dL Last Edit by Chikis Quintero on 06/20/24 07:58 UA pH 6.0 Last Edit by Chikis Quintero on 06/20/24 07:58 UA Blood 200 Massimo/uL Last Edit by Abelardocarolemalik Keyesviolette on 06/20/24 07:58 UA Specific [place] 1.020 Last Edit by Abelardocarolemalik Keyesviolette on 06/20/24 07:58 UA Ketone Last Edit by Abelardocarolemalik Keyesviolette on 06/20/24 07:58 UA Bilirubin 0 mg/dL Last Edit by Abelardojuan jose Stephyviolette on 06/20/24 07:58 UA Glucose 0 mg/dL Last Edit by Abelardojuan jose Stephyviolette on 06/20/24 07:58 Results Reviewed Results Reviewed: Laboratory Last Values Urine pH (Auto) 6.0 06/20/24 07:57 Specific [place] (Auto) 1.020 06/20/24 07:57 Urine Protein (Auto) 30 mg/dL 06/20/24 07:57 Glucose (UA)(Auto) 0 mg/dL 06/20/24 07:57 Urine Blood (Auto) 200 Massimo/uL 06/20/24 07:57 Urine Bilirubin (Auto) 0 mg/dL 06/20/24 07:57 Urine Urobilinogen (Auto) 0.2 mg/dL 06/20/24 07:57 Leukocyte Esterase (Auto) 500 Martell/uL 06/20/24 07:57 Assessment & Plan Assessment & Plan (1) Microscopic hematuria: Code(s): R31.29 - Other microscopic hematuria Category: Medical (2) Recurrent urinary tract infection: Code(s): N39.0 - Urinary tract infection, site not specified Category: Medical Plan In office urinalysis results reviewed with the patient today; will send for urine culture as well as urine cytology. PVR 12 mL Start Macrobid as discussed and prescribed. We discussed obtaining imaging and performing cystoscopy given patient with persistent microscopic hematuria; patient will think about this. We discussed correlation of bowel issues in relation to urinary tract infections. Discussed, educated, and stressed the importance of adequate hydration Discussed importance of compliance with Estrace cream as prescribed. Follow-up in 1-3 months with PVR; or sooner with any issues, concerns, and or questions. Orders: Orders AMB Urinalysis Automated Today Z13.9 - Encounter for screening, unspecified Urine Cytology Today R31.29 - Other microscopic hematuria AMB Post Void Residual by ultrasound Today N39.0 - Urinary tract infection, site not specified Urine Culture Today N39.0 - Urinary tract infection, site not specified Medications: Refilled nitrofurantoin monohyd/m-cryst 100 mg (Macrobid) must administer with a meal/food 100 mg PO BID 10 days 20 caps 0RF UTI N39.0 - Urinary tract infection, site not specified Patient Instructions: The patient had an opportunity to ask questions regarding the treatment plan. All questions were answered. Physical exam, labs, and imaging were discussed and reviewed in detail. As well as risks, benefits, and discussion of treatment choices. No major barriers to understanding were identified. The patient expressed understanding and agreement with the above treatment plan. The patient was made aware they should contact our office by phone for worsening of their current condition, the appearance of new symptoms, or with any questions or concerns. Compliance is encouraged with any medications and follow up testing that is ordered. It is a privilege to be allowed the opportunity to participate in? your urological care.? Again, if you have any questions or concerns If you have any questions or concerns please do not hesitate to contact me. The office is [phone]. This note is constructed using voice recognition software. While every effort has been made to ensure accuracy service worker errors may have been included. Yours sincerely, TORSTEN Plaza-MICHA Coding Level of Care Code Est Pt Level 4 (26815) Complex EM visit Add On G2211 Diagnoses Microscopic hematuria R31.29 Recurrent urinary tract infection N39.0 CPT Codes Post Residual Void - PVR CPT Code: 06321-Yogo Void Residual by ultrasound ([id number])
== END 2024-06-20 08:17 | disposition home or self-care (01) ==
LOC: HO.HUSH 07:32
PROVIDERS: PCP Internal Medicine; Visit Provider Nurse Practitioner Family
DX: R31.29 Other microscopic hematuria (principal); N39.0 Urinary tract infection, site not specified; Z13.9 Encounter for screening, unspecified
CPT/HCPCS: 99214; G2211

== ENCOUNTER 2024-08-30 07:33 | Outpatient (AMB) | payer MEDICARE, SELFPAY ==
--- OUTSIDE RECORDS SUMMARY | 2024-06-28 04:33 | XMS_ITS ---
Author Organization Albaro Orona MD Address [address] [place] [phone] Care Team Providers Care Crossband Layer Name Role Phone UrvashiAlbaro mederos Primary Care Provider REASON FOR VISIT ER Visit rec'd Encounters Encounter Location Date Provider Diagnosis Albaro Orona MD [address] [facility] [address] [place] [phone] 06/28/2024 Albaro Orona Plan Of Treatment Next Appt Details Provider Name:Albaro cedeño, 09/11/2024 11:30:00 AM, [address] [place] [address], [address] [place] [address], [phone], Provider Name:Albaro cedeño, 11/09/2024 07:30:00 AM, [address] [place] [address], [address], [phone], Provider Name:Albaro cedeño, 11/16/2024 01:00:00 PM, [address] [place] [address], [address], [phone], Progress Notes * Rekha SHARMA PDOB:1940 (84 yo F)Acc No.[id number]:06/28/2024 Patient: Rekha MEAD :1940 A ge:84 Y S ex:Female Address:[address] [place] [phone] * true * Date: Generated for Adelina shane/Rylie/Galileosmitting on: 0 08/30/2024 07:35 AM EDT
--- OUTSIDE RECORDS SUMMARY | 2024-08-30 07:35 | XMS_ITS | Clinical Summary ---
Author Organization [facility] Facility Address [address] [place] [address] Care Team Providers Care Fitter Armament Name Role Phone Albaro Orona MD Primary Care Provider +1- [phone] Allergies No known active allergies Medications metoprolol [...] to complete this topic Insurance UHC Medicare [facility] Medicare Care Teams Fitter Armament Relationship Specialty Start Date End Date Albaro Orona MD [address] [place] PCP - General 03/10/20
--- OUTSIDE RECORDS SUMMARY | 2024-08-30 07:35 | XMS_ITS | Clinical Summary ---
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 Active aspirin 81 mg EC tablet Take 81 mg by mouth daily. Active metoprolol succinate (TOPROL-XL) 50 mg 24 hr tablet Take 50 mg by mouth daily. Active omega-3 acid ethyl esters (LOVAZA) 1 gram capsule Take 1 capsule by mouth daily. Active valsartan-hydro CHLOROthiazide (DIOVAN-HCT) 320-25 mg per tablet TAKE 1 TABLET DAILY 04/21/2022 Active multivitamin (MULTIPLE VITAMINS ORAL) Take 1 tablet by mouth daily. - Oral Active simvastatin (ZOCOR) 40 mg tablet Take 40 mg by mouth at bedtime. - Oral Active Active Problems Problem Noted Date Diagnosed Date Impaired glucose tolerance 07/12/2024 Severe obesity (CMS/HCC V24, CMS/HCC V28) 2024 Assessment & Plan (07/12/2024 8:39 PM EDT): The patient is obese but is losing weight with use of Wegovy; she will continue to follow with bariatric medicine regarding this and suspected recent side effects. She was congratulated on her current efforts. Approaches towards weight loss are discussed, including burning more calories than one takes in by portion control and regular exercise with an emphasis on duration rather than intensity. Chest pain 07/10/2024 Heart failure with improved ejection fraction (HFimpEF) ([facility] V24, [facility] V28) 03/22/2024 Assessment & Plan (07/12/2024 8:39 PM EDT): Assessment & Plan (03/22/2024 9:40 AM EST): Bilateral carotid bruits 03/22/2024 Assessment & Plan (07/12/2024 8:39 PM EDT): Bilateral carotid duplex completed in February 2024 shows less than 50% stenosis bilaterally; we will continue to work on adequate pressure and lipid control. Assessment & Plan (03/22/2024 8:28 AM EST): [...] artery bypass graft 024 Assessment & Plan (07/12/2024 8:39 PM EDT): Assessment & Plan (03/22/2024 8:28 AM EST): Ischemic cardiomyopathy 03/08/2023 Assessment & Plan (07/12/2024 8:39 PM EDT): CHARLY/AHA stage C heart failure with NYHA class I symptoms. The patient is a history of ischemic cardiomyopathy with an EF as low as 30 to 40% as well as grade 1-2 diastolic dysfunction in 2014; her most recent echocardiogram completed 04/26/2023 revealed that her EF had normalized at 60 to 65% and she had normal diastolic function. She presents today offering no concerns for overt heart failure and appears euvolemic on exam. She has very mild ankle edema but also has varicose veins and slight venous stasis dermatitis lending suspicion to underlying venous insufficiency as causative. We discussed conservative measures to improve lower extremity edema including daily use of compression stockings, elevation of lower extremities as able, and low- sodium diet. We discussed risk reduction through lifestyle modifications [...] day or 4 pounds in one week. Assessment & Plan (07/12/2024 8:25 PM EDT): CHARLY/AHA stage C heart failure with NYHA class I symptoms. The patient is a history of ischemic cardiomyopathy with an EF as low as 30 to 40% as well as grade 1-2 diastolic dysfunction in 2014; her most recent echocardiogram completed 04/26/2023 revealed that her EF had normalized at 60 to 65% and she had normal diastolic function. She presents today offering no concerns for overt heart failure and appears euvolemic on exam. She has very mild ankle edema but also has varicose veins and slight venous stasis dermatitis lending suspicion to underlying venous insufficiency as causative. We discussed conservative measures to improve lower extremity edema including daily use of compression stockings, elevation of lower extremities as able, and low- sodium diet. We discussed risk reduction through lifestyle modifications [...] day or 4 pounds in one week. Assessment & Plan (03/22/2024 9:40 AM EST): [...] branch block 03/08/2023 Coronary artery disease 01/01/2021 Assessment & Plan (07/12/2024 8:39 PM EDT): The patient feels as though the symptoms that brought her to the ER were related to underlying GI issues secondary to her Wegovy; she has since stopped her Wegovy and has not had any recurrence of symptoms. She remains active in her current functional capacity and denies any symptoms concerning for underlying ischemia which is reassuring; as such, we will not pursue any further testing. We will not make any changes to her cardioprotective medical therapy; continue metoprolol, simvastatin, and daily ASA. The patient was advised to seek emergent medical attention by calling 911 if they were to develop severe dyspnea, chest pain that did not resolve with rest, or if they were to faint. Assessment & Plan (03/22/2024 8:28 AM EST): [...] bilateral; Future Hyperlipidemia LDL goal <55 01/01/2021 Assessment & Plan (07/12/2024 8:39 PM EDT): LDL goal for this patient was a history of coronary artery disease as well as diabetes is less than 55. The patient's most recent lipid panel on file is from 11/08/2023 showing total cholesterol of 151, triglycerides 90, HDL 66, and LDL 67. She continues to work on diet and weight loss to meet this goal. Continue simvastatin. Assessment & Plan (03/22/2024 9:40 AM EST): [...] month she tells me. Assessment & Plan (07/12/2024 8:39 PM EDT): Blood pressure is well controlled on current antihypertensive regimen; continue metoprolol and valsartan-hydrochlorothiazide. Most recent metabolic panel improved from previous but not yet back to baseline. We will repeat a BMP in about 1 more week and continue to readdress this. Orders: Basic metabolic panel; Future Assessment & Plan (03/22/2024 8:28 AM EST): Blood pressure is well-controlled on current medical therapy; continue metoprolol and valsartan-hydrochlorothiazide. We will attempt to obtain labs from the PCP office for our review. Orders: Vascular US duplex carotid bilateral; Future Encounters Date Type Department Care Team Description 08/08/2024 Telephone Bariatric Surgery - [address] [place] [address] Lore Pascal PA Med Refill (Wegovy) 07/17/2024 Telephone [facility] [address] [facility] [address] [place] [address] Jane Emanuel MA 07/12/2024 1:40 PM EDT Office Visit [facility] - [facility] [address] [place] [phone] Aiyana Church NP Ischemic cardiomyopathy (Primary Dx); Heart failure with improved ejection fraction (HFimpEF) ([facility] V24, [facility] V28); Coronary artery disease involving [place] coronary artery of [place] heart without angina pectoris; Status post coronary artery bypass graft; Primary hypertension; Hyperlipidemia LDL goal <55; Bilateral carotid bruits; Palpitations; Severe obesity ([facility] V24, [facility] V28); Hospital discharge follow-up; Stage 3b chronic kidney disease ([facility] V24, [facility] V28) 06/26/2024 Telephone [facility] [address] [facility] [address] [place] [phone] Julius Ag MD Chest Pain 06/07/2024 Telephone Bariatric Surgery - [place] [address] [facility] [address] [place] [address] Diana Moise MD Med Refill (Wegovy w/titration) from Last 3 Months Medical History Medical History Date Comments Hypertension Hyperlipidemia Social History Tobacco Use Types Packs/Day Years [...] Sign Reading Time Taken Comments Blood Pressure 125/68 07/12/2024 1:39 PM EDT Pulse 84 07/12/2024 1:39 PM EDT Temperature - - Respiratory Rate - - Oxygen Saturation 98% 07/12/2024 1:39 PM EDT Inhaled Oxygen Concentration - - Weight 91.6 kg (202 lb) 07/12/2024 1:39 PM EDT Height 152.4 cm (5') 07/12/2024 1:39 PM EDT Body Mass Index 39.45 07/12/2024 1:39 PM EDT Plan of Treatment Upcoming Encounters Date Type Department Care Team (Late st Contact Info) Description 09/27/2024 8:45 AM EDT Office Visit Bariatric Surgery - [place] [address] [facility] [address] [place] [address] Lore Pascal PA [address] [place] [address] Health Maintenance Due Date Last Done Comments Cholesterol Screening (Lipid Panel) 01/31/2022 Depression Screening 01/31/2022 Falls Risk Assessment 01/31/2022 Medicare Annual Wellness Visit 01/31/2022 Social Influencers of Health Screening 01/31/2022 COVID-19 Vaccine (8 - Pfizer risk season) 2024 11/18/2023, 12/02/2022, 12/13/2021, Additional history exists Influenza Vaccine (#1) 2024 , 11/29/2021, 11/09/2020, Additional history exists Hypertension/CHF/CAD Annual BMP Blood Test 08/28/2025 08/28/2024, 07/17/2024, 07/04/2024 DTaP,Tdap,and Td Vaccines (2 - Td or Tdap) 12/27/2026 12/27/2016 Osteoporosis Screening (Bone Density Screening) 01/01/2029 01/01/2019 Zoster Vaccines Completed 06/26/2018, 04/05/2018 RSV Immunization Adult Patients Completed 11/13/2022 Pneumococcal Vaccine: 50+ Years Completed 12/21/2023, 10/03/2017 [...] Procedure Name Priority Date/Time Associated Diagnosis Comments BASIC METABOLIC PANEL Routine 08/28/2024 7:52 AM EDT Primary hypertension Stage 3b chronic kidney disease ([facility] V24, [facility] V28) BASIC METABOLIC PANEL Routine 07/17/2024 7:53 AM EDT Primary hypertension BASIC METABOLIC PANEL Routine 07/04/2024 7:54 AM EDT GARCIA (acute kidney injury) ([facility] V24) [facility] DEXA AXIAL SKELETON Routine 01/01/2019 4:52 PM EST Asymptomatic menopausal state from Last 3 Months or Most Recently Relevant to Health Maintenance Results * (ABNORMAL) Basic metabolic panel (08/28/2024 7:52 AM EDT) Only the most recent of3 resultswithin the time period is included. Sodium 139 133 - 145 mmol/L LAB CHEMISTRY METHOD 08/28/2024 10:13 AM [facility] Potassium 3.9 3.5 - 5.5 mmol/L LAB CHEMISTRY METHOD 08/28/2024 10:13 AM [facility] Chloride 109 96 - 110 mmol/L LAB CHEMISTRY METHOD 08/28/2024 10:13 AM [facility] CO2 24 21 - 32 mmol/L LAB CHEMISTRY METHOD 08/28/2024 10:13 AM [facility] Anion Gap 6 3 - 11 LAB CHEMISTRY METHOD 08/28/2024 10:13 AM T [facility] Glucose 92 70 - 100 mg/dL LAB CHEMISTRY METHOD 08/28/2024 10:13 AM [facility] BUN 35(H) 5 - 25 mg/dL LAB CHEMISTRY METHOD 08/28/2024 10:13 AM [facility] Creatinine 1.24(H) 0.50 - 1.10 mg/dL LAB CHEMISTRY METHOD 08/28/2024 10:13 AM [facility] eGFR 43(L) >=60 mL/min/1. 73m2 LAB CHEMISTRY METHOD 08/28/2024 10:13 AM [facility] Comment:Calculation based on the Chronic Kidney Disease Epidemiology Collaboration (CKD-EPI) equation refit without adjustment for race. BUN/Creatinine Ratio 28.2 LAB CHEMISTRY METHOD 08/28/2024 10:13 AM [facility] Calcium 9.3 8.5 - 10.5 mg/dL LAB CHEMISTRY METHOD 08/28/2024 10:13 AM [facility] Blood Venous blood specimen / Unknown Venipuncture / Unknown 08/28/2024 7:52 AM EDT 08/28/2024 9:18 AM EDT Aiyana Church INJECTION WAX MOLDER LAB BLOOD ORDERABLES Final Result [facility] [address] [place] [address], * PRINCESS DEXA AXIAL SKELETON (01/01/2019 4:52 PM EST) Anatomical Region Laterality Modality Mammography 01/01/2019 7:10 AM EST Narrative 01/01/2019 4:52 PM EST [facility] Diagnostic Imaging Department [address] [place] [address] Patient: REKHA SHARMA /Age/Sex: 1940 - 78 - F Unit#: [id number] Location/Status: SPDIMAM/REG CLI Mnemonic/Ordering Site: MAMDEXAAX/SPMAM Ordering Physician: CAROL CANO MD Princess Dexa Axial Skeleton - 01/01/19 - 4125 History: Low estrogen state due to menopause. Comparison: 01/01/13 Findings: Bone densitometry is performed utilizing dual energy x-ray absorptiometry (DXA) in the [employer] unit. The lumbar spine and proximal femora are evaluated in the AP projection. The FRAX questionaire was completed. The results indicate low bone mass (osteopenia), with a right femoral neck T- score of -1.2. There has been a statistically significant decrease in bone mineral density in the bilateral total femurs since the previous exam. The detailed DEXA report will be mailed to the referring physician's office. DualFemur FRAX: 10-year Probability of Fracture: Major Osteoporotic 9.6% Hip 1.7%. IMPRESSION: Osteopenia. [id number] Dictating Physician: NELLIE TRIANA MD Electronically Signed by: NELLIE TRIANA MD Dic Date/Time: 01/01/191649 Sign date/Time: 01/01/191651 Procedure Note Nellie Triana - 02/16/2022 [facility] Diagnostic Imaging Department [address] [place], [place] [id number] Patient: REKHA SHARMA /Age/Sex: 1940 - 78 - F Unit#: [id number] Location/Status: SPDIMAM/REG CLI Mnemonic/Ordering Site: MAMDEXAAX/SPMAM Ordering Physician: CAROL CANO MD Princess Dexa Axial Skeleton - 01/01/19 4146 History: Low estrogen state due to menopause. Comparison: 01/01/13 Findings: Bone densitometry is performed utilizing dual energy x-ray absorptiometry(DXA) in the [employer] unit. The lumbar spine and proximal femora [...] Fracture: Major Osteoporotic 9.6%Hip 1.7%. IMPRESSION: Osteopenia. [id number] Dictating Physician: NELLIE TRIANA MD Electronically Signed by: NELLIE TRIANA MD Dic Date/Time: 01/01/191649 Sign date/Time: 01/01/191651 us Carol Cano MD IMG BI PROCEDURES Final Res ult from Last 3 Months or Most Recently Relevant to Health Maintenance Insurance [employer] MEDICARE Care Teams Egg Processing Supervisor Relationship Specialty Start Date End Date Carol Cano MD [address] [place] [address] PCP - General Internal Medicine 06/27/24
--- OUTSIDE RECORDS SUMMARY | 2024-08-30 07:36 | XMS_ITS | Patient Health Record ---
Author Organization [facility] Address [address] [place] [address] Care Team Providers Care Pocket Marker Name Role Phone Albaro Orona MD Primary Care Provider Sloan Yarbrough Unavailable [phone] Reason For Referral No Information Medications Medication SIG (Take, Route, Frequency, Duration) Notes Start Date End Date Status Simvastatin 40 MG 1 tablet in the even ing Orally Once a day Active Colyte w Flavor Packs 240 GM as directed Orally as directed for 1 day(s) 08/07/2014 Active Irbesartan 150 MG 1 tablet Orally Once a day Active Aspir-81 81 MG 1 tablet Orally Once a day Active Multi Vitamin/Minerals 1 1 Orally QD Active Problems Problem Type SNOMED Code ICD Code Onset Dates Problem Status W/U Status Risk Notes Problem Colon cancer screening (443939581) Colon cancer screening (V76.51) Active confirmed Problem Long-term use of aspirin therapy (V58.66) Active confirmed Plan Of Treatment Future Test Test Name Order Date COLONOSCOPY 08/06/2014 Insurance Providers Payer Name Payer Address Payer Phone Subscriber Number Group Number Insured Name Patient Relationship to Insured Coverage Start Date Coverage End Date MEDICARE OF [place] [address] [place] [address] [id number] ANJEL CORRALES Self - patient is the insured [facility] [address] [place], [place] [id number] [phone] [id number] ANJEL CORRALES Self - patient is the insured Medical (General) History Medical History History ICD Code HTN Denies ND,CVA,Lung disease,renal disease Hyperlipidemia Surgical History Surgery Date(Month/Year) appendectomy tonsillectomy
--- NOTE | 2024-08-30 07:43 | A.OFFVIS_ITS ---
Intake Visit Reasons: 3m/PVR Intake Note: Patient presents today for a follow-up on: uti and micro hematuria Meds: Estrace Cream Allergies to Antibiotic: No Known Allergies Blood Thinner: Aspirin Post Void Residual: 44ml's Core Driller Helper Required: No Accompanied by: Self / Same As Patient Allergies No Known Allergies (No Known Allergies*) Allergy (Verified 08/30/24 08:27) Medication List - Last Reconciled 08/30/24 by TORSTEN Plaza- aspirin 81 mg PO DAILY clotrimazole 1% 1 appl topical BID 4 weeks estradiol 0.01%(0.1mg/gram) (Estrace) 1 g vaginal 3XW 90 days metoprolol succinate ER 50 mg PO DAILY semaglutide (weight loss) (Wegovy) mg subcut simvastatin 40 mg PO BEDTIME valsartan-hydrochlorothiazide 320-25 mg 1 tab PO DAILY HPI Comments Details: Rekha is a very pleasant 84-year-old female patient of Dr. Orona. She has a past medical history of coronary artery disease, hypertension, hyp erlipidemia, and chronic kidney disease following with Dr. Morrison. She underwent a CABG in [address] Ag as her box strapper. She presents to the office today for a follow up of her microscopic hematuria and recurrent urinary tract infections. In discussion with the patient today she reports new onset of gross hematuria over the last 2 weeks. During last office visit patient had been experiencing abdominal cramping and in office urinalysis had noted positive leukocytes and therefore patient was treated with 5 days of Bactrim for a urinary tract infection. Urine cultures are as follows: 06/22 Proteus mirabilis & Coag negative Staphylococcus, 06/20 E coli and 04/23 aerococcus urinae Urine cytology: 06/22 Atypical urothelial cells, 05/21 & 12/21 Negative for high- grade urothelial carcinoma. In office urinalysis results reviewed with the patient today 3+ leukocytes and positive nitrates.. We did discussed potential causes of gross hematuria as well as further workup in risks and benefits of these interventions. She denies urinary urgency, urinary frequency, incontinence, nocturia, dysuria, foul smelling urine, changes to urinary stream, flank pain, fever, and or chills. She does report compliance with Estrace cream as prescribed. She discusses being very active and continues to work daily. She does have a previous smoking history however quit approximately 40 years ago. We discussed further workup to include imaging and cystoscopy. However patient states she will think about this. All questions were answered. I discussed reasons for blood in the urine may include but are not limited to kidney stones, cancer in the urinary tract, kidney stone disease or inflammatory conditions of the urinary tract. [facility] Surgical History History of heart bypass surgery Social History Alcohol intake: current Alcohol intake frequency: does not drink Patient Tobacco Use Status: Former Tobacco user Review of Systems Eyes Reports no additional complaints ENT Reports no additional complaints Card Reports as per HPI Resp Reports no additional complaints GI Reports no additional complaints Reports as per HPI Musc Reports no additional complaints Neuro Reports no additional complaints Psych Reports no additional complaints Endo Reports no additional complaints Eleno/Lymph Reports no additional complaints Aller/Immun Reports no additional complaints Physical Exam Const General: cooperative, healthy appearing, comfortable, no acute distress, well developed, alert and awake Nutritional Appearance: overweight Orientation/consciousness: patient oriented x3 Limitations: ambulation with cane HEENT Head: Yes normal to inspection, Yes normocephalic and Yes atraumatic Ears: hearing grossly normal bilaterally Eyes General: appearance normal, both eyes and all related structures Neck Neck: Yes normal visual inspection and Yes trachea midline Chest Chest palpation & inspection: normal inspection of the chest Resp Effort & Inspection: normal respiratory effort and able to speak in complete sentences Cardio Rate: regular rate GI Inspection: Yes normal to inspection General: Yes no CVA tenderness Back/Spine/Pelvis Back: no CVA tenderness Skin General skin exam: no rashes or lesions noted Neuro General: patient oriented x3 Extrem General: Yes normal to inspection Psych Appearance: grossly normal and well kempt Mental Status: mental status grossly normal Speech and movement: Normal speech and movement present and Clear speech present Affect: normal affect Attitude: cooperative Thought process: Normal thought process present Thought content: Normal thought content present Insight: Fair insight present (Psych) Judgement: Fair judgement present (Psych) Office Procedures Post Void Residual Post Residual Void Post Void Residual (PVR): 44 [id number] Void Residual by ultrasound Results AMB Urinalysis, Automated UA Leukoctes 500 Martell/uL Last Edit by [facility], [facility] on 08/30/24 08:14 UA Nitrite Last Edit by [facility], [facility] on 08/30/24 08:14 UA Urobilinogen 1 mg/dL Last Edit by [facility], [facility] on 08/30/24 08:14 UA Protein 300 mg/dL Last Edit by [facility], [facility] on 08/30/24 08:14 UA pH 5.5 Last Edit by [facility], [facility] on 08/30/24 08:14 UA Blood 200 Massimo/uL Last Edit by [facility], [facility] on 08/30/24 08:14 UA Specific [place] 1.025 Last Edit by [facility], [facility] on 08/30/24 08: 14 UA Ketone Last Edit by [facility], [facility] on 08/30/24 08:14 UA Bilirubin 1 mg/dL Last Edit by [facility], [facility] on 08/30/24 08:14 UA Glucose 0 mg/dL Last Edit by [facility], [facility] on 08/30/24 08:14 Results Reviewed Results Reviewed: Laboratory Last Values Urine pH (Auto) 5.5 08/30/24 07:53 Specific [place] (Auto) 1.025 08/30/24 07:53 Urine Protein (Auto) 300 mg/dL 08/30/24 07:53 Glucose (UA)(Auto) 0 mg/dL 08/30/24 07:53 Urine Blood (Auto) 200 Massimo/uL 08/30/24 07:53 Urine Bilirubin (Auto) 1 mg/dL 08/30/24 07:53 Urine Urobilinogen (Auto) 1 mg/dL 08/30/24 07:53 Leukocyte Esterase (Auto) 500 Martell/uL 08/30/24 07:53 Assessment & Plan Assessment & Plan (1) Gross hematuria: Code(s): R31.0 - Gross hematuria Category: Medical (2) Recurrent urinary tract infection: Code(s): N39.0 - Urinary tract infection, site not specified Category: Medical (3) Abnormal cytology: Code(s): R89.6 - Abnormal cytological findings in specimens from other organs, systems and tissues Category: Medical Plan In office urinalysis results with the patient today; as noted above; will send for urine cytology as well as urine culture. PVR [address] urogram for further assessment evaluation. BUN and creatinine ordered for imaging. Start Bactrim as discussed and prescribed. We did discussed at length potential causes of gross hematuria as well as recurrent urinary tract infections; we discussed further treatment options and risks and benefits of these treatment options We did discuss cystoscopy All questions were answered Continue Estrace cream as discussed and prescribed. Follow-up in 4-8 weeks with imaging and PVR; or sooner with any issues, concerns, and or questions. Orders: Orders AMB Urinalysis Automated Today Z13.9 - Encounter for screening, unspecified Urine Culture Today N39.0 - Urinary tract infection, site not specified Urine Cytology Today R31.29 - Other microscopic hematuria AMB Post Void Residual by ultrasound Today N39.0 - Urinary tract infection, site not specified CT urogram Today R31.0 - Gross hematuria Blood Urea Nitrogen Today R31.0 - Gross hematuria Creatinine Today R31.0 - Gross hematuria Medications: New sulfamethoxazole-trimethoprim 800-160 mg (Bactrim DS) 1 tab PO BID 20 tabs 0RF 10 days N39.0 - Urinary tract infection, site not specified Patient Instructions: The patient had an opportunity to ask questions regarding the treatment plan. All questions were answered. Physical exam, labs, and imaging were discussed and reviewed in detail. As well as risks, benefits, and discussion of treatment choices. No major barriers to understanding were identified. The patient expressed understanding and agreement with the above treatment plan. The patient was made aware they should contact our office by phone for worsening of their current condition, the appearance of new symptoms, or with any questions or concerns. Compliance is encouraged with any medications and follow up testing that is ordered. It is a privilege to be allowed the opportunity to participate in? your urological care.? Again, if you have any questions or concerns If you have any questions or concerns please do not hesitate to contact me. The office is [phone]. This note is constructed using voice recognition software. While every effort has been made to ensure accuracy merchandising specialist errors may have been included. Yours sincerely, TORSTEN Plaza-MICHA Coding Level of Care Code Est Pt Level 4 (96593) Complex EM visit Add On G2211 Diagnoses Gross hematuria R31.0 Recurrent urinary tract infection N39.0 Abnormal cytology R89.6 CPT Codes Post Residual Void - PVR CPT Code: 80192-Phdf Void Residual by ultrasound ([id number])
== END 2024-08-30 08:38 | disposition home or self-care (01) ==
LOC: HO.HUSH 07:34
PROVIDERS: PCP Internal Medicine; Visit Provider Nurse Practitioner Family
DX: R31.0 Gross hematuria (principal); N39.0 Urinary tract infection, site not specified; R89.6 Abnormal cytological findings in specimens from other organs, systems and tissues; Z13.9 Encounter for screening, unspecified
CPT/HCPCS: 99214; G2211

== ENCOUNTER 2024-08-30 07:33 | Outpatient (REF) | payer MEDICARE, SELFPAY | END 2024-08-30 07:34 | disposition home or self-care (01) | LOC: HO.LNP 07:33 | PROVIDERS: PCP Internal Medicine; Visit Provider Nurse Practitioner Family | DX: N39.0 Urinary tract infection, site not specified (principal); R31.0 Gross hematuria; R89.6 Abnormal cytological findings in specimens from other organs, systems and tissues; Z79.899 Other long term (current) drug therapy; Z13.9 Encounter for screening, unspecified | CPT/HCPCS: 51798; 81003; 87086; 88112; 99212 ==

== ENCOUNTER → 2024-10-10 09:48 | Outpatient (BNVA) | payer MEDICARE, SELFPAY | PROVIDERS: PCP Internal Medicine; Visit Provider Nurse Practitioner Family | DX: Z46.6 Encounter for fitting and adjustment of urinary device (principal); R31.0 Gross hematuria | CPT/HCPCS: 51700; 51702 ==

== ENCOUNTER 2024-10-16 09:39 | Outpatient (AMB) | payer MEDICARE, SELFPAY ==
--- OUTSIDE RECORDS SUMMARY | 2024-10-04 05:30 | XMS_ITS ---
Author Organization Albaro Orona MD Address [address] [place] [address] [phone] Care Team Providers Care Senior Programmer Name Role Phone UrvashiVandana mederosn Primary Care Provider REASON FOR VISIT ER Visit from [facility] rec'd Encounters Encounter Location Date Provider Diagnosis Albaro Orona MD 10 [facility] [address] [place] [address] [phone] 10/04/2024 Albaro Orona Plan Of Treatment Next Appt Details Provider Name:Albaro cedeño, 10/18/2024 08:30:00 AM, [address] [place] [address], [address] [place] [address], [phone], Provider Name:Albaro cedeño, 11/09/2024 07:30:00 AM, [address] [place] [address], [address] [place] [address], [phone], Provider Name:Albaro cedeño, 11/20/2024 01:00:00 PM, [address] [place] [address], [address], [phone], Progress Notes * Rekha SHARMA PDOB:1940 (84 yo F)Acc No.[id number]:10/04/2024 Patient: Rekha MEAD :1940 A ge:84 Y S ex:Female Address:[address] [place] [address] [place] [address] * true * Date: Generated for Adelina shane/Rylie/eTransmitting on: 0 10/16/2024 10:43 AM EDT
--- NOTE | 2024-10-16 09:57 | A.OFFVIS_ITS ---
Intake Visit Reasons: cysto/VT Intake Note: Patient presents today for a Cystoscopy / Voiding trial Meds: Estrace Cream Allergies to Antibiotic: No Known Allergies Blood Thinner: [facility] Administrator Required: No Accompanied by: Self / Same As Patient Allergies No Known Allergies (No Known Allergies*) Allergy (Verified 10/16/24 09:59) HPI Comments Details: Rekha is a pleasant female. She is a patient of Dr. Orona. She is seen for the following urologic conditions - recurrent UTI - gross hematuria Has been followed for a number of years for recurrent UTI Recently reported gross hematuria Is a CT urogram was ordered but not complete Cystoscopy performed today Flat bladder lesion left side consistent with urothelial carcinoma Recurrent urinary tract infection Multiple prior infections Placed on Estrace cream Cytology - 12/21 NAD Recommend TURBT [facility], [facility] Surgical History History of heart bypass surgery Social History Alcohol intake: current Alcohol intake frequency: does not drink Patient Tobacco Use Status: Former Tobacco user Review of Systems Const Denies chills and Denies fever(s) Card Reports no additional complaints and Denies syncope Resp Denies cough GI Denies abdominal pain and Denies heartburn Reports as per HPI and Denies change in libido Neuro Denies syncope Psych Denies change in libido Endo Denies change in libido Physical Exam Const General: cooperative, healthy appearing, comfortable and no acute distress Orientation/consciousness: patient oriented x3 HEENT Face and sinus: Yes normal facial exam Mouth: moist mucous membranes Neck Neck: Yes normal visual inspection, Yes full ROM and Yes trachea midline Chest Chest palpation & inspection: normal inspection of the chest Resp Effort & Inspection: normal respiratory effort, able to speak in complete sentences and no respiratory distress GI Inspection: Yes normal to inspection Back/Spine/Pelvis Cervical Spine: normal cervical lordosis Thoracic/Lumbar Spine: thoracic and lumbar spine normal to inspection Skin General skin exam: no rashes or lesions noted Neuro General: patient oriented x3, gait normal, tone normal and moves all extremities Extrem General: Yes normal to inspection and Yes capillary refill normal Office Procedures Cystoscopy Consent Discussed risk and benefit or proposed procedure with the patient. Information consent for procedure given to the patient. Discussed technical aspects, risks, benefits and alternatives in full. Addressed all of the patient's questions and concerns regarding the procedure. The patient demonstrated knowledge and understanding. They wish to proceed with this procedure. Preparation The patient was prepped in the usual manner. A engineering assistant was present and in the room. Genitalia was prepped with betadine solution in a sterile manner. Lidocaine Jelly 2% was placed into the urethra and 16Fr flexible Olympus cystoscope was inserted into the meatus after adequate lubrication. Procedure Meatus caruncle Urethra normal Bladder examination with retroflexion of cystoscope Bladder Orifices normal shape and position Trigone metaplasia Bladder Capacity Normal Trabeculations Grade 0 Cellule Formation None Diverticulum Formation None Mucosal Erythema None Bladder Tumor left floor bladder flat [id number] DISPOSABLE SCOPE URO-G FLEXIBLE SCOPE Procedure code (CPT) selection complete Office Meds lidocaine HCl 2 % mucosal jelly in applicator Performing Provider: Alberto Silva MD Performing Location: [facility] Administered by: Vane Buenrostro RN on 10/16/24 10:23 Dose Route Admin Location Dispensed Lot Number Expiration Date NDC Park Guard 10 mL intra-urethral 10 mL nitrofurantoin monohydrate/macrocrystals 100 mg capsule Performing Provider: Alberto Silva MD Performing Location: [facility] Administered by: Vane Buenrostro RN on 10/16/24 10:23 Dose Route Admin Location Dispensed Lot Number Expiration Date NDC Park Guard 100 mg PO 1 cap Assessment & Plan Assessment & Plan (1) Bladder cancer: Code(s): C67.9 - Malignant neoplasm of bladder, unspecified Category: Medical (2) Recurrent urinary tract infection: Code(s): N39.0 - Urinary tract infection, site not specified Category: Medical Plan Risks, benefits and alternatives to therapy were discussed. These include but are not limited to infection, bleeding, damage to local organs and tissues, need for further interventions. Anesthetic risks regarding cardiac arrhythmia, blood clots, and potential mortality were discussed. The patient understands the typical recovery time and the outpatient nature of the procedure. After consideration of these risks the patient gives full informed consent and they wish to move ahead with the procedure. - TURBT Orders: Orders AMB Cystoscopy Today N39.0 - Urinary tract infection, site not specified, R31.0 - Gross hematuria, R31.29 - Other microscopic hematuria Medications: Discontinued sulfamethoxazole-trimethoprim 800-160 mg (Bactrim DS) Discontinued Reason: Patient Completed Course 1 tab PO BID 10 days 20 tabs 0RF N39.0 - Urinary tract infection, site not specified Patient Instructions: This note is constructed using voice recognition software. While every effort has been made to ensure accuracy manager money errors may have been included. Imaging studies, laboratory and physical exam results were discussed and reviewed in detail. No major barriers to patient understanding were identified. An opportunity to ask questions regarding the treatment plan was provided. All questions were answered. The patient expressed understanding and agreement with the above treatment plan. The patient is aware they should contact our office by phone for worsening of their current condition or the appearance of new urologic symptoms. Compliance is encouraged with any medications and followup testing that is ordered. It is a privilege to participate in the urologic care of your patient. If you have any questions or concerns regarding treatment for the above conditions, or other urologic issues, please do not hesitate to contact me. The office telephone contact is [phone]. Sincerely, Dr Alberto Silva MD, [facility] - Urology Compassionate Specialist Care for the Genitourinary System Coding Level of Care Code Est Pt Level 4 (89685) Complex EM visit Add On G2211 Diagnoses Bladder cancer C67.9 Recurrent urinary tract infection N39.0 CPT Codes Cystoscopy - CPT: 02894-[id number] ([id number])
--- OUTSIDE RECORDS SUMMARY | 2024-10-16 10:43 | XMS_ITS | Patient Health Record ---
Author Organization [facility] Address [address] [place] [address] Care Team Providers Care Email Production Specialist Name Role Phone Albaro Orona MD Primary Care Provider Sloan Yarbrough Unavailable [phone] Reason For Referral No Information Medications Medication [...] Status Risk Notes Problem Colon cancer screening (385879664) Colon cancer screening (V76.51) Active confirmed Problem Long-term use of aspirin therapy (V58.66) Active confirmed Plan Of Treatment Future Test Test Name Order Date COLONOSCOPY 08/06/2014 Insurance Providers Payer Name Payer Address Payer Phone Subscriber Number Group Number Insured Name Patient Relationship to Insured Coverage Start Date Coverage End Date MEDICARE OF [place] [address] [facility] [place] [address] [id number] ANJEL CORRALES Self - patient is the insured [facility] [address] [place], [place] [id number] ANJEL CORRALES Self - patient is the insured Medical (General) History Medical History History ICD Code HTN Denies AK,CVA,Lung disease,renal disease Hyperlipidemia Surgical History Surgery Date(Month/Year) appendectomy tonsillectomy
--- OUTSIDE RECORDS SUMMARY | 2024-10-16 10:44 | XMS_ITS | Clinical Summary ---
Author Organization [facility] Facility Address [address] [place] [id number] Care Team Providers Care Mill Roll Operator Name Role Phone Albaro Orona MD Primary Care Provider [phone] Allergies No known active allergies Medications metoprolol [...] of 2 - PCV) 1959 Influenza Vaccine (#1) 2024 Hepatitis B Vaccine Aged Out No longe r eligible based on patient's age to complete this topic Insurance UHC Medicare [facility] Medicare Care Teams Mill Roll Operator Relationship Specialty Start Date End Date Albaro Orona MD [address] [place] PCP - General 03/10/20
--- OUTSIDE RECORDS SUMMARY | 2024-10-16 10:44 | XMS_ITS | Clinical Summary ---
Author Organization [facility] Address [address] [place] [address] Phone Care Team Providers Care Data Recovery Planner Name Role Phone Albaro Cano MD Primary [...] Take 1 capsule by mouth daily. Active valsartan-hydroC HLOROthiazide (DIOVAN-HCT) 320-25 mg per tablet TAKE 1 TABLET DAILY 3 Active multivitamin (MULTIPLE VITAMINS ORAL) Take 1 tablet by mouth daily. - Oral Active simvastatin (ZOCOR) 40 mg tablet Take 40 mg by mouth at bedtime. - Oral Active Lactobacillus acidophilus 100 mg (1 billion cell) capsule Take 1 capsule by mouth 2 (two) times a day. 60 each 5 10/17/19 25 Active phenazopyridine (PYRIDIUM) 100 mg tablet Take 1 tablet (100 mg total) by mouth 3 (three) times a day if needed for bladder spasms for up to 3 days. 10 tablet 5 09/20/19 25 cephalexin (KEFLEX) 500 mg capsule Take 1 capsule (500 mg total) by mouth 4 (four) times a day for 10 days. 40 each 5 09/27/19 25 doxycycline (VIBRAMYCIN) 100 mg capsule Take 1 capsule (100 mg total) by mouth 2 (two) times a day for 7 days. Take with at least 8 ounces (large glass) of water, do not lie down for 30 minutes after. Administer 2 hours before or after multivitamins, antacids, or other products containing polyvalent cations (i.e., calcium, iron, magnesium, selenium, zinc). 14 each 10/06/19 25 Active Problems Problem Noted Date Diagnosed Date Impaired glucose tolerance 07/12/2024 Severe obesity ([facility] V24, [facility] V28) 2024 Assessment & Plan (07/12/2024 8:39 [...] Heart failure with improved ejection fraction (HFimpEF) ([facility] V24, [facility] V28) 03/22/2024 Assessment & Plan (07/12/2024 8:39 [...] Encounters Date Type Department Care Team Description 10/05/2024 Telephone [facility] Cardiology [facility] [address] [facility] [address] [place] [phone] Julius Ag MD Leg Swelling 09/28/2024 12:17 PM EDT - 09/28/2024 1:48 PM EDT Emergency [facility] Emergency [address] [place] [phone] Tae Arreola MD Complicated UTI (urinary tract infection) (Primary Dx) Discharge Disposition: Home or Self Care 09/16/2024 1:19 PM EDT - 09/16/2024 3:32 PM EDT Emergency [facility] Emergency [address] [place] [address] Vitor Babin MD Acute hemorrhagic cystitis (Primary Dx); Frequency of urination Discharge Disposition: Home or Self Care 08/08/2024 Telephone [facility] - [place] 175 [facility] [address] [place] [phone] Lore Pascal PA Med Refill ([place]) 07/17/2024 Telephone [facility] Cardiology [facility] [address] [facility] [address] [place] [phone] Jane Emanuel MA from Last 3 Months Medical History Medical [...] Sign Reading Time Taken Comments Blood Pressure 133/55 09/28/2024 11:39 AM EDT Pulse 80 09/28/2024 11:39 AM EDT Temperature 36.9 C (98.4 F) 09/28/2024 11:39 AM EDT Respiratory Rate 18 09/28/2024 11:3 9 AM EDT Oxygen Saturation 99% 09/28/2024 11: 39 AM EDT Inhaled Oxygen Concentration - - Weight 92.4 kg (203 lb 12.8 oz) 025 11:39 AM EDT Height 160 cm (5' 3 ) 09/28/2024 11:39 AM EDT Body Mass Index 36.1 09/28/2024 11:39 AM EDT Plan of Treatment Upcoming Encounters Date Type Department Care Team (Late st Contact Info) Description 01/18/2025 7:15 AM EST Appointment [facility] [address] [place] [phone] 02/07/2025 8:15 AM EST Office Visit Bariatric Surgery - [place] 175 [facility] [address] [place] [phone] Lore Pascal PA [address] [address] Health Maintenance Due Date Last Done Comments Cholesterol Screening (Lipid Panel) 01/31/2022 Falls Risk Assessment 01/31/2022 Medicare Annual Wellness Visit 01/31/2022 Social Influencers of Health Screening 01/31/2022 Depression Screening 02/29/2024 COVID-19 Vaccine (8 - Pfizer risk season) 2024 11/18/2023, 12/02/2022, 12/13/2021, Additional history exists Influenza Vaccine (#1) 2024 , 11/29/2021, 11/09/2020, Additional history exists Hypertension/CHF/CAD Annual BMP Blood Test 09/28/2025 09/28/2024, 09/16/2024, 08/28/2024, Additional history exists DTaP,Tdap,and Td Vaccines (2 [...] Procedure Name Priority Date/Time Associated Diagnosis Comments SANCHEZ URINE CULTURE TUBE STAT 09/28/2024 12:34 PM EDT URINALYSIS WITH REFLEX MICROSCOPIC AND CULTURE STAT 09/28/2024 12:34 PM EDT URINALYSIS WITH REFLEX MICROSCOPIC AND CULTURE STAT 09/28/2024 12:34 PM EDT CULTURE URINE STAT 09/28/2024 12:34 PM EDT CBC WITH AUTO DIFFERENTIAL STAT 09/28/2024 12:14 PM EDT BASIC METABOLIC PANEL STAT 09/28/2024 12:14 PM EDT CBC AND DIFFERENTIAL STAT 09/28/2024 12:14 PM EDT CULTURE BLOOD STAT 09/16/2024 3:08 PM EDT LACTATE, WITH REFLEX STAT 09/16/2024 2:19 PM EDT CULTURE BLOOD STAT 09/16/2024 2:19 PM EDT CBC WITH AUTO DIFFERENTIAL STAT 09/16/2024 1:16 PM EDT BASIC METABOLIC PANEL STAT 09/16/2024 1:16 PM EDT CBC AND DIFFERENTIAL STAT 09/16/2024 1:16 PM EDT SANCHEZ URINE CULTURE TUBE STAT 09/16/2024 1:11 PM EDT URINALYSIS WITH REFLEX MICROSCOPIC AND CULTURE STAT 09/16/2024 1:11 PM EDT URINALYSIS WITH REFLEX MICROSCOPIC AND CULTURE STAT 09/16/2024 1:11 PM EDT CULTURE URINE STAT 09/16/2024 1:11 PM EDT URINALYSIS WITH REFLEX MICROSCOPIC Routine 09/14/2024 7:39 AM EDT Microscopic hematuria URINALYSIS WITH REFLEX MICROSCOPIC Routine 09/14/2024 7:39 AM EDT Microscopic hematuria CULTURE URINE Routine 09/14/2024 7:39 AM EDT Microscopic hematuria BASIC METABOLIC PANEL Routine 08/28/2024 7:52 AM EDT Primary hypertension Stage 3b chronic kidney disease ([facility] V24, [facility] V28) BASIC METABOLIC PANEL Routine 07/17/2024 7:53 AM EDT Primary hypertension JULISSA DEXA AXIAL SKELETON Routine 01/01/2019 4:52 PM EST Asymptomatic menopausal state from Last 3 Months or Most Recently Relevant to Health Maintenance Results * (ABNORMAL) Urinalysis with reflex microscopic and culture (09/28/2024 12:34 PM EDT) Only the most recent of2 resultswithin the time period is included. Specific [place] Urine 09/28/2024 1:[address] [facility] Comment:Unable to interpret due to color interference. pH, Urine 09/28/2024 1:[address] [facility] Comment:Unable to interpret due to color interference. Leukocytes, Urine 09/28/2024 1:[address] [facility] Comment:Unable to interpret due to color interference. Nitrite, Urine 09/28/2024 1:[address] [facility] Comment:Unable to interpret due to color interference. Protein, Urine 09/28/2024 1:[address] [facility] Comment:Unable to interpret due to color interference. Glucose, Urine 09/28/2024 1:[address] [facility] Comment:Unable to interpret due to color interference. Ketones, Urine 09/28/2024 1:[address] [facility] Comment:Unable to interpret due to color interference. Urobilinogen , Urine 09/28/2024 1:[address] [facility] Comment:Unable to interpret due to color interference. Bilirubin, Urine 09/28/2024 1:[address] [facility] Comment:Unable to interpret due to color interference. Blood, Urine 09/28/2024 1:17 PM EDT [facility] Comment:Unable to interpret due to color interference. RBC, Urine >4,000(H) 0 - 4 /HPF LAB URINALYSIS - AUTOMATED METHOD 09/28/2024 1:17 PM EDT [facility] WBC, Urine 23.2(H) 0 - 4 /HPF LAB URINALYSIS - AUTOMATED METHOD 09/28/2024 1:17 PM EDT [facility] Squamous Epithelial, Urine 30 0 - 60 /LPF LAB URINALYSIS - AUTOMATED METHOD 09/28/2024 1:17 PM EDT [facility] Bacteria, Urine Negative Negative /HPF LAB URINALYSIS - AUTOMATED METHOD 09/28/2024 1:17 PM EDT [facility] Hyaline Casts, Urine 0.0 0 - 3 /LPF LAB URINALYSIS - AUTOMATED METHOD 09/28/2024 1:17 PM EDT [facility] Urine Urine specimen obtained by clean catch procedure / Unknown Non-blood Collection / Unknown 09/28/2024 12:34 PM EDT 09/28/2024 12:42 PM EDT us Tae Arreola MD LAB URINE ORDERABLES Final Resul t [facility] [address] [place] [address], * Sanchez urine culture tube (09/28/2024 12:34 PM EDT) Only the most recent of2 resultswithin the time period is included. Extra Tube Hold for add-ons. 09/28/2024 2:01 PM EDT [facility] Comment:Auto resulted. Urine Urine specimen obtained by clean catch procedure / Unknown Non-blood Collection / Unknown 09/28/2024 12:34 PM EDT 09/28/2024 12:42 PM EDT us Tae Arreola MD LAB URINE ORDERABLES Final Resul t Performing Organization Address City/[facility]/ZIP Co de Phone Number [facility] [address] [place] [address], [place] [phone] * Culture urine (09/28/2024 12:34 PM EDT) Only the most recent of3 resultswithin the time period is included. Culture, Urine <10,000 CFU/mL gram positive cocci, insignificant count, no further workup 09/29/2024 9:47 AM EDT [facility] Urine Urine specimen obtained by clean catch procedure / Unknown Non-blood Collection / Unknown 09/28/2024 12:34 PM EDT 09/28/2024 1:17 PM EDT us Tae Arreola MD LAB MICROBIOLOGY - GENERAL ORDER JUVENTINO Final Result Performing Organization Address City/[facility]/ZIP Co de Phone Number [facility] [address] [place] [address], [place] [phone] * (ABNORMAL) CBC auto differential (09/28/2024 12:14 PM EDT) Only the most recent of2 resultswithin the time period is included. WBC 7.5 4.8 - 10.8 K/mcL LAB HEMETOLOGY METHOD 09/28/2024 12:46 PM EDT [facility] RBC 2.80(L) 3.80 - 4.80 M/mcL LAB HEMETOLOGY METHOD 09/28/2024 12:46 PM EDT [facility] Hemoglobin 8.6(L) 11.5 - 16.0 g/dL LAB HEMETOLOGY METHOD 09/28/2024 12:46 PM EDT [facility] Hematocrit 27.7(L) 35.0 - 47.0 % LAB HEMETOLOGY METHOD 09/28/2024 12:46 PM EDT [facility] MCV 99.3(H) 79.0 - 98.0 FL LAB HEMETOLOGY METHOD 09/28/2024 12:[address] [facility] MCH 30.8 27.0 - 32.0 pcg LAB HEMETOLOGY METHOD 09/28/2024 12:[address] [facility] MCHC 31.0(L) 32.0 - 37.0 g/dL LAB HEMETOLOGY METHOD 09/28/2024 12:[address] [facility] RDW 13.7 11.0 - 15.0 % LAB HEMETOLOGY METHOD 09/28/2024 12:[address] [facility] Platelets 299 130 - 400 K/mcL LAB HEMETOLOGY METHOD 09/28/2024 12:[address] [facility] MPV 9.9 7.0 - 11.0 FL LAB HEMETOLOGY METHOD 09/28/2024 12:[address] [facility] NRBC 0.0 <1.0 % LAB HEMETOLOGY METHOD 09/28/2024 12:[address] [facility] NRBC Absolute 0.00 <0.10 K/mcL LAB HEMETOLOGY METHOD 09/28/2024 12:[address] [facility] Neutrophils Relative 63.5 % LAB HEMETOLOGY METHOD 09/28/2024 12:[address] [facility] Lymphocytes Relative 25.6 % LAB HEMETOLOGY METHOD 09/28/2024 12:[address] [facility] Monocytes Relative 7.7 % LAB HEMETOLOGY METHOD 09/28/2024 12:[address] [facility] Eosinophils Relative 2.3 % LAB HEMETOLOGY METHOD 09/28/2024 12:[address] [facility] Basophils Relative 0.5 % LAB HEMETOLOGY METHOD 09/28/2024 12:46 PM EDT [facility] Immature Granulocytes Relative 0.4 % LAB HEMETOLOGY METHOD 09/28/2024 12:46 PM EDT [facility] Neutrophils Absolute 4.79 1.50 - 7.00 K/mcL LAB HEMETOLOGY METHOD 09/28/2024 12:46 PM EDT [facility] Lymphocytes Absolute 1.93 1.00 - 5.00 K/mcL LAB HEMETOLOGY METHOD 09/28/2024 12:46 PM EDT [facility] Monocytes Absolute 0.58 0.20 - 1.00 K/mcL LAB HEMETOLOGY METHOD 09/28/2024 12:46 PM EDT [facility] Eosinophils Absolute 0.17 0.00 - 0.50 K/mcL LAB HEMETOLOGY METHOD 09/28/2024 12:46 PM EDT [facility] Basophils Absolute 0.04 0.00 - 0.20 K/mcL LAB HEMETOLOGY METHOD 09/28/2024 12:46 PM EDT [facility] Immature Granulocytes Absolute 0.03 0.00 - 0.03 K/mcL LAB HEMETOLOGY METHOD 09/28/2024 12:46 PM T [facility] Blood Venous blood specimen / Unknown Venipuncture / Unknown 09/28/2024 12:14 PM EDT 09/28/2024 12:36 PM EDT us Tae Arreola MD LAB BLOOD ORDERABLES Final Resul t [facility] [address] [place] [address], * (ABNORMAL) Basic metabolic panel (09/28/2024 12:14 PM EDT) Only the most recent of4 resultswithin the time period is included. Sodium 142 133 - 145 mmol/L LAB CHEMISTRY METHOD 09/28/2024 1:[address] [facility] Potassium 4.8 3.5 - 5.5 mmol/L LAB CHEMISTRY METHOD 09/28/2024 1:[address] [facility] Chloride 111(H) 96 - 110 mmol/L LAB CHEMISTRY METHOD 09/28/2024 1:[address] [facility] CO2 27 21 - 32 mmol/L LAB CHEMISTRY METHOD 09/28/2024 1:[address] [facility] Anion Gap 4 3 - 11 LAB CHEMISTRY METHOD 09/28/2024 1:[address] [facility] Glucose 98 70 - 100 mg/dL LAB CHEMISTRY METHOD 09/28/2024 1:[address] [facility] BUN 33(H) 5 - 25 mg/dL LAB CHEMISTRY METHOD 09/28/2024 1:[address] [facility] Creatinine 1.57(H) 0.50 - 1.10 mg/dL LAB CHEMISTRY METHOD 09/28/2024 1:[address] [facility] eGFR 33(L) >=60 mL/min/1. 73m2 LAB CHEMISTRY METHOD 09/28/2024 1:[address] [facility] Comment:Calculation based on the Chronic Kidney Disease Epidemiology Collaboration (CKD-EPI) equation refit without adjustment for race. BUN/Creatinine Ratio 21.0 LAB CHEMISTRY METHOD 09/28/2024 1:[address] [facility] Calcium 9.4 8.5 - 10.5 mg/dL LAB CHEMISTRY METHOD 09/28/2024 1:[address] [facility] Blood Venous blood specimen / Unknown Venipuncture / Unknown 09/28/2024 12:14 PM EDT 09/28/2024 12:36 PM EDT us Tae Arreola MD LAB BLOOD ORDERABLES Final Resul t [facility] [address] [place] [address], [place] [phone] * Blood Culture, Peripheral #1 (09/16/2024 3:08 PM EDT) Only the most recent of2 resultswithin the time period is included. [facility] Culture, Blood No growth at 5 days 09/21/2024 4:01 PM EDT [facility] Blood Venous blood specimen / Unknown Venipuncture / Unknown 09/16/2024 3:08 PM EDT 09/16/2024 3:08 PM EDT us Vitor Babin MD LAB MICROBIOLOGY - GENERAL ORDER JUVENTINO Final Result Performing Organization Address [facility]/ZIP Co de Phone Number [facility] [address] [place] [address], [place] [phone] * Lactate, with Reflex (09/16/2024 2:19 PM EDT) [facility] LACTIC ACID 0.9 0.4 - 2.0 mmol/L LAB CHEMISTRY METHOD 09/16/2024 3:00 PM EDT [facility] Blood Venous blood specimen / Unknown Venipuncture / Unknown 09/16/2024 2:19 PM EDT 09/16/2024 2:26 PM EDT us Vitor Babin MD LAB BLOOD ORDERABLES Final Resul t Performing Organization Address City/[facility]/ZIP Co de Phone Number [facility] [address] [place] [address], [place] [phone] * (ABNORMAL) Urinalysis with reflex microscopic (09/14/2024 7:39 AM EDT) [facility] Specific [place] Urine 1.025 1.003 - 1.030 LAB URINALYSIS - AUTOMATED METHOD 09/14/2024 8:18 AM EDT [facility] pH, Urine 5.5 5.0 - 8.0 pH LAB URINALYSIS - AUTOMATED METHOD 09/14/2024 8:[address] [facility] Leukocytes, Urine Negative Negative LAB URINALYSIS - AUTOMATED METHOD 09/14/2024 8:[address] [facility] Nitrite, Urine Negative Negative LAB URINALYSIS - AUTOMATED METHOD 09/14/2024 8:[address] [facility] Protein, Urine >=300(A) <=Trace mg/dL LAB URINALYSIS - AUTOMATED METHOD 09/14/2024 8:[address] [facility] Glucose, Urine 100(A) Negative mg/dL LAB URINALYSIS - AUTOMATED METHOD 09/14/2024 8:[address] [facility] Ketones, Urine Trace(A) Negative mg/dL LAB URINALYSIS - AUTOMATED METHOD 09/14/2024 8:[address] [facility] Urobilinogen, Urine 1.0 0.2 - 1.0 mg/dL LAB URINALYSIS - AUTOMATED METHOD 09/14/2024 8:[address] [facility] Bilirubin, Urine Small(A) Negative LAB URINALYSIS - AUTOMATED METHOD 09/14/2024 8:[address] [facility] Blood, Urine Large(A) Negative LAB URINALYSIS - AUTOMATED METHOD 09/14/2024 8:[address] [facility] RBC, Urine >100(H) 0 - 4 /HPF 09/14/2024 8:[address] [facility] WBC, Urine 4 0 - 4 /HPF 09/14/2024 8:[address] [facility] Squamous Epithelial, Urine 3 0 - 60 /LPF 09/14/2024 8:[address] [facility] Bacteria, Urine Many(A) Negative /HPF 09/14/2024 8:[address] [facility] Urine Urine specimen obtained by clean catch procedure / Unknown Non-blood Collection / Unknown 09/14/2024 7:39 AM EDT 09/14/2024 7:59 AM EDT Gloria Gonzalez LIBRARY MANAGER LAB URINE ORDERABLES Final Result [facility] [address] [place] [address], * JULISSA DEXA AXIAL SKELETON (01/01/2019 4:52 PM EST) Anatomical Region Laterality Modality Mammography 01/01/2019 7:10 AM EST Narrative 01/01/2019 4:52 PM EST [facility] Diagnostic Imaging Department [address] [place] [address] Patient: SHARMAANJEL Dino /Age/Sex: 1940 78 - F Unit#: [id number] [facility] Ordering Physician: ALBARO CANO MD [facility] Dexa Axial Skeleton - 01/01/19 2384 History: Low estrogen state due to menopause. Comparison: 01/01/13 Findings: Bone densitometry is performed utilizing dual energy x-ray absorptiometry (DXA) in the [employer] unit. The lumbar spine and proximal femora [...] Major Osteoporotic 9.6% Hip 1.7%. IMPRESSION: Osteopenia. [id number] Dictating Physician: NELLIE TRIANA MD Electronically Signed by: NELLIE TRIANA MD Dic Date/Time: 01/01/191649 Sign date/Time: 01/01/191651 Procedure Note Nellie Triana - 02/16/2022 [facility] Diagnostic Imaging Department [address] [place] [address] Patient: ANJEL SHARMA Dino MárquezB./Age/Sex: 1940 - 78 - F Unit#: [id number] Location/Status: [facility] Mnemonic/Ordering Site: [facility] Ordering Physician: ALBARO CANO MD [facility] Dexa Axial Skeleton - 01/01/19 - 9334 History: Low estrogen state due to menopause. Comparison: 01/01/13 Findings: Bone densitometry is performed utilizing dual energy x-ray absorptiometry(DXA) in the [employer] unit. The lumbar spine and proximal femora [...] Fracture: Major Osteoporotic 9.6%Hip 1.7%. IMPRESSION: Osteopenia. [id number] Dictating Physician: NELLIE TRIANA MD Electronically Signed by: NELLIE TRIANA MD Dic Date/Time: 01/01/19 1650 Sign date/Time: 01/01/19 165 us Albaro Cano MD IMG BI PROCEDURES Final Res ult from Last 3 Months or Most Recently Relevant to Health Maintenance Insurance [employer] MEDICARE Care Teams Data Recovery Planner Relationship Specialty Start Date End Date Albaro Cano MD [address] [place] [address] PCP - General Internal Medicine 06/27/24
== END 2024-10-16 11:16 | disposition home or self-care (01) ==
LOC: HO.HUSH 09:39
PROVIDERS: PCP Internal Medicine; Visit Provider Urology
DX: R31.29 Other microscopic hematuria (principal); R31.0 Gross hematuria; N39.0 Urinary tract infection, site not specified; C67.9 Malignant neoplasm of bladder, unspecified
CPT/HCPCS: 52000; 99214

== ENCOUNTER → 2024-10-16 09:39 | Outpatient (BNVA) | payer MEDICARE, SELFPAY | PROVIDERS: PCP Internal Medicine; Visit Provider Urology | DX: C67.0 Malignant neoplasm of trigone of bladder (principal); N39.0 Urinary tract infection, site not specified | CPT/HCPCS: 51798; 52000; 99212 ==

== ENCOUNTER 2024-11-08 12:33 | Outpatient (REF) | payer MEDICARE, SELFPAY ==
--- OUTSIDE RECORDS SUMMARY | 2024-09-11 07:30 | XMS_ITS ---
Author Organization Albaro Orona MD Address [address] [place] [phone] Care Team Providers Care Plunger Machine Operator Name Role Phone Albaro Orona Primary Care Provider Allergies No Known Allergies REASON FOR VISIT pre-op Dr Welch 09-18-24 right eye EKG needed Medications Medication SIG (Take, Route, Frequency, Duration) Notes Start Date End Date Status Newfolden 3 1000 MG 1 capsule Orally Onc e a day Active Aspirin Adult Low Strength 81 MG 1 tablet Orally Once a day for 30 day(s) Active Metoprolol Succinate ER 50 mg TAKE 1 TABLET DAILY y mouth daily Active Vitamin C 500 MG as directed Orally Active Valsartan-hydroCHLOROthiaz lc 320-25 MG 1 tablet Orally Once a day 04/22/2020 Active Furosemide 20 MG 1 tablet Orally Once a day for 10 days 01/29/2021 Not-Taking Sulfamethoxazole-Trimethop rim 800-160 MG 1 tablet Orally Twice a day for 7 days 08/27/2021 Not-Taking Symbicort 160-4.5 MCG/ACT 2 puffs Inhala tion Twice a day 07/04/2018 Not-Taking ProAir HFA 108 (90 Base) MCG/ACT 2 puffs as needed Inhalation every 4 hrs for 30 days 12/22/2012 Not-Taking Ventolin HFA 108 (90 Base) MCG/ACT 2 puffs as needed Inhalation every 4 hrs for 30 days 04/18/2018 Not-Taking Nitrofurantoin Monohyd Macro 100 MG 1 capsule with food Orally every 12 hrs for 5 day(s) Not-Taking Vitamin B12 1000 mg 1 tablet Orally Once a day Not-Taking Cephalexin 500 MG 1 capsule Orally 2 times a day for 5 days 02/19/2022 Not-Takin g Simvastatin 40 mg TAKE 1 TABLET DAILY orally daily Active Vital Signs Blood pressure systolic 142 mm Hg 09/12/19 25 Blood pressure diastolic 58 mm Hg 025 Height 60.5 in 09/11/2024 Weight 203 lbs 09/11/2024 BMI 38.99 kg/m2 09/11/2024 weight is down 12 pounds [facility] [place] 05-15-24 Encounters Encounter Location Date Provider Diagnosis Albaro Orona MD [address] [place] [address] [place] [phone] 09/11/2024 Albaro Orona Type 2 diabetes mellitus without complication E11.9 ; Coronary atherosclerosis due to lipid rich plaque I25.83 ; Essential hypertension I10 and Preop examination Z01.818 Assessments Encounter Date Diagnosis (ICD Code) Assessment Notes Treatment Notes Treatment Clinical Notes Section Notes 09/11/2024 Type 2 diabetes mellitus without complication (ICD-10 - E11.9) is well controlled on diet 09/11/2024 Coronary atherosclerosis due to lipid rich plaque (ICD-10 - I25.83) ecg unchanged no acute changes, will continue current regiment 09/11/2024 Essential hypertension (ICD-10 - I10) stable, will continue current regiment 09/11/2024 Preop examination (ICD-10 - Z01.818) patient stable and cleared for upcoming cataract surgery Plan Of Treatment Medication Medication Name Sig Start Date Stop Date Notes Metoprolol Succinate ER 50 mg TAKE 1 TAB LET DAILY y mouth daily Valsartan-hydroCHLOROthiazid e 320-25 MG 1 tablet Orally Once a day 04/22/2020 Simvastatin 40 mg TAKE 1 TABLET DAILY orally daily Treatment Notes Assessment Notes Type 2 diabetes mellitus without complic ation is well controlled on diet Coronary atherosclerosis due to lipid rich plaque ecg unchanged no acute changes, will continue current regiment Essential hypertension stable, will cont inue current regiment Preop examination patient stable and c leared for upcoming cataract surgery Next Appt Details Provider Name:Albaro Martin ier, 11/20/2024 01:00:00 PM, [address] [facility], [address], [place], [phone], Progress Notes * Rekha SHARMA PDOB:1940 (84 yo F)Acc No.[id number]:09/11/2024 Patient: Rekha MEAD Provider: Suri Orona MD :1940 A ge:84 Y S ex:Female Date:09/11/2024 Address: [place] , [id number] Subjective: * Chief Complaints: * p re-op Dr Welch 09-18-24 right eye EKG needed * HPI: S ymptom(s): patient is 84 yo female here for pre op clearance visit for upcoming cataract surgery scheduled 09/18/24 with Yuri/ schuyler for preop. * ROS: G eneral/Constitutional: Denies C hills. [...] Hospitalization/Major Diagno stic Procedure: * Medications: T akingValsartan-hydroCHLOROthiazide 320-25 MG Tablet 1 tablet Orally Once a day Simvastatin 40 mg Tablet TAKE 1 TABLET DAILY orally daily Metoprolol Succinate ER 50 mg Tablet Extended Release 24 Hour TAKE 1 TABLET DAILY y mouth daily Vitamin C 500 MG Capsule as directed Orally Aspirin Adult Low Strength 81 MG Tablet Delayed Release 1 tablet Orally Once a day Newfolden 3 1000 MG Capsule 1 capsule Orally Once a day Taking Valsartan-hydroCHLOROthiazide 320-25 MG Tablet 1 tablet Orally Once a day Taking Simvastatin 40 mg Tablet TAKE 1 TABLET DAILY orally daily Taking Metoprolol Succinate ER 50 mg Tablet Extended Release 24 Hour TAKE 1 TABLET DAILY y mouth daily Taking Vitamin C 500 MG Capsule as directed Orally Taking Aspirin Adult Low Strength 81 MG Tablet Delayed Release 1 tablet Orally Once a day Taking Newfolden 3 1000 MG Capsule 1 capsule Orally Once a day Not-Taking/PRNNitrofurantoin Monohyd Macro 100 MG Capsule 1 [...] Aerosol 2 puffs Inhalation Twice a day Not-Taking/PRN Nitrofurantoin Monohyd Macro 100 MG Capsule 1 capsule with food Orally every 12 hrs Not-Taking/PRN Ventolin HFA 108 (90 Base) MCG/ACT Aerosol Solution 2 puffs as needed Inhalation every 4 hrs Not-Taking/PRN Cephalexin 500 MG Capsule 1 capsule Orally 2 times a day Not-Taking/PRN Vitamin B12 1000 mg Tablet 1 tablet Orally Once a day Not- Taking/PRN Sulfamethoxazole-Trimethoprim 800-160 MG Tablet 1 tablet Orally Twice a day Not-Taking/PRN Furosemide 20 MG Tablet 1 tablet Orally Once a day Not-Taking/PRN ProAir HFA 108 (90 Base) MCG/ACT Aerosol Solution 2 puffs as needed Inhalation every 4 hrs Not-Taking/PRN Symbicort 160-4.5 MCG/ACT Aerosol 2 puffs Inhalation Twice a day DiscontinuedWegovy 0.5 MG/0.5ML Solution Auto-injector 0.5 mL Subcutaneous Valsartan 320 MG Tablet 1 tablet Orally Once a day hydroCHLOROthiazide 25 MG Tablet 1 tablet in the morning Orally Once a day Medication List reviewed and reconciled with the patientDiscontinued Wegovy 0.5 MG/0.5ML Solution Auto-injector 0.5 mL Subcutaneous Discontinued Valsartan 320 MG Tablet 1 tablet Orally Once a day Discontinued hydroCHLOROthiazide 25 MG Tablet 1 tablet in the morning Orally Once a day Medication List reviewed and reconciled with the patient * Allergies: N .K.D.A.yes[Allergies Verified] Objective: * Vitals: H t: 60.5, Wt: 203, BMI:38.99, BP:142/58, Repeat BP:100/50, Wt-k.08. weight is down 12 pounds since 05-15-24. * Examination: G eneral Examination: GENERAL APPEARANCE: a lert, well hydrated, in no distress.? HEAD: n ormocephalic. EYES: B OTH EYES, normal. THROAT: n o erythema. SKIN: g ood turgor. HEART: r egular rate and rhythm, no murmurs, rubs, gallops.? LUNGS: n o wheezes, rales, rhonchi, good air movement, clear to auscultation bilaterally. ABDOMEN: s oft, nontender, nondistended, no rebound tenderness, no organomegaly. EXTREMITIES: n o edema. Assessment: * Assessment: 1. T ype 2 diabetes mellitus without complication - E11.9 (Primary) 2 . C oronary atherosclerosis due to lipid rich plaque - I25.83 3 . E ssential hypertension - I10 4 . P reop examination - Z01.818 Plan: * Treatment: 2. C oronary atherosclerosis due to lipid rich plaque Continue Simvastatin Tablet, 40 mg, TAKE 1 TABLET DAILY, orally, daily. Notes: ecg unchanged no acute changes, will continue current regiment 3. E ssential hypertension Continue Valsartan-hydroCHLOROthiazide Tablet, 320-25 MG, 1 tablet, Orally, Once a day; C ontinue Metoprolol Succinate ER Tablet Extended Release 24 Hour, 50 mg, TAKE 1 TABLET DAILY, y mouth, daily. Notes: stable, will continue current regiment 4. P reop examination Notes: patient stable and cleared for upcoming cataract surgery * Procedure Codes: * * Sign off status: Completed true * Provider: Suri Orona MD Date: 0 09/11/2024 Generated for Adelina shane/Rylie/Olamideitting on: 0 11/08/2024 04:45 PM EDT History and Physical Notes * HPI (History of Present Illness) Category Sub-Category Detail Notes Category Not es Symptom(s) patient is 84 y o female here for pre op clearance visit for upcoming cataract surgery scheduled 09/18/24 with Yuri/ schuyler for preop. Examination Category Sub-Category Detail Notes Category Not es General Examination GENERAL APPEARANCE: alert, w ell hydrated, in no distress HEAD: normocephalic EYES: BOTH EYES, normal THROAT: no erythema HEART: regular rate and rhy thm, no murmurs, rubs, gallops LUNGS: no wheezes, rales, r honchi, good air movement, clear to auscultation bilaterally ABDOMEN: soft, nontender, non distended, no rebound tenderness, no organomegaly SKIN: good turgor EXTREMITIES: no edema
--- OUTSIDE RECORDS SUMMARY | 2024-10-01 04:06 | XMS_ITS ---
Author Organization Albaro Orona MD Address [address] [place] [phone] Care Team Providers Care Light Technician Name Role Phone Albaro Orona Primary Care Provider [phone] REASON FOR VISIT ER visit rec'd Encounters Encounter Location Date Provider Diagnosis Albaro Orona MD [address] [place] [address] [phone] 10/01/2024 Albaro Orona Plan Of Treatment Next Appt Details Provider Name:Albaro Martin ier, 11/20/2024 01:00:00 PM, [address], [address], [place], [place], [phone], Progress Notes * Rekha SHARMA PDOB:1940 (84 yo F)Acc No.[id number]:10/01/2024 Patient: Yannick SOTO Rekha Sun :1940 A ge:84 Y S ex:Female Address:[address] [place] [address] * true * Date: Generated for Adelina shane/Rylie/Valeria on: 0 11/08/2024 04:46 PM EDT
--- OUTSIDE RECORDS SUMMARY | 2024-10-04 05:30 | XMS_ITS ---
Author Organization Albaro Orona MD Address [address] [place] [phone] Care Team Providers Care Secondary English Teacher Name Role Phone TomiAlbaro alexandre Primary Care Provider [phone] REASON FOR VISIT ER Visit from [facility] rec'd Encounters Encounter Location Date Provider Diagnosis Albaro Orona MD [address] [place] [address] [phone] 10/04/2024 Albaro Orona Plan Of Treatment Next Appt Details Provider Name:Albaro Martin ier, 11/20/2024 01:00:00 PM, [address], [address], [place], [place], [phone], Progress Notes * Rekha SHARMA PDOB:1940 (84 yo F)Acc No.[id number]:10/04/2024 Patient: Yannick HENAORekha DANG :1940 A ge:84 Y S ex:Female Address:[address] [place] [address] * true * Date: Generated for Adelina shane/Rylie/Valeria on: 0 11/08/2024 04:45 PM EDT
--- OUTSIDE RECORDS SUMMARY | 2024-10-18 04:30 | XMS_ITS ---
Author Organization Albaro Orona MD Address [address] [place] [phone] Care Team Providers Care Lining Finisher Name Role Phone Albaro Orona Primary Care [...] Once a day for 30 day(s) Active [place] 3 1000 MG 1 capsule Orally Onc e a day Active Vitamin C 500 MG as directed Orally Active Nitrofurantoin Monohyd Macro 100 MG 1 capsule with food Orally every 12 hrs for 5 day(s) Not-Taking Encounters Encounter Location Date Provider Diagnosis Albaro Orona MD [address] [place], [place] [phone] 10/18/2024 Albaro Orona UTI (urinary tract infection) N39.0 Assessments Encounter Date Diagnosis (ICD Code) Assessment Notes Treatment Notes Treatment Clinical Notes Section Notes 10/18/2024 UTI (urinary tract infection) (ICD-10 - N39.0) Plan Of Treatment Pending Test Test Name Order Date UA ClnCatch+Micro w/rflx Cult 10/18/2024 Next Appt Details Provider Name:Albaro Martin ier, 11/20/2024 01:00:00 PM, [address] [facility], [address], [place], [place], [phone], Progress Notes * Rekha SHARMA PDOB:1940 (84 yo F)Acc No.[id number]:10/18/2024 Progress Note Patient: Rekha MEAD Provider: Suri Orona MD :1940 A ge:84 Y S ex:Female Date:10/18/2024 Address:[address] [place] [address] [id number] Subjective: * Chief Complaints: * 1 . after Care u/a. * Medical History: * Medications: T aking Vitamin C 500 MG Capsule as directed Orally , Taking Aspirin Adult Low Strength 81 MG Tablet Delayed Release 1 tablet Orally Once a day , Taking [place] 3 1000 MG Capsule 1 capsule Orally [...] Orona MD Date: 0 10/18/2024 Generated for Adelina shane/Rylie/Valeria on: 0 11/08/2024 04:46 PM EDT
--- OUTSIDE RECORDS SUMMARY | 2024-11-08 03:30 | XMS_ITS ---
Author Organization Albaro Orona MD Address [address] [place], [place] [phone] Care Team Providers Care Chief Telephone Operator Name Role Phone Albaro Orona Primary Care Provider [phone] Results Component Value Reference Range Notes Complete Blood Count Auto Di ff (Not yet reviewed by provider) Interpretation: Performing Lab:[facility], [address] [place] [phone] Notes/Report: White Blood Count 6.3 4.8-10.8 X10*3/uL [...] NRBC Abs Auto 0.000 0.0-0.012 X10*3/uL Comprehensive [place]. Panel Fa st Reviewed date:11/08/2024 04:43:19 PM Interpretation: Performing Lab:[facility], [address] [place] [phone] Notes/Report: Sodium 145 135-145 mmol/L Potassium 4.0 [...] Panel Reviewed date:11/08/2024 04:35:56 PM Interpretation: Performing Lab:[facility], [address] [place] [phone] Notes/Report: Triglycerides 91 <150 mg/dL Desirable Triglyceride: [...] A1c Reviewed date:11/08/2024 04:35:48 PM Interpretation: Performing Lab:[facility], [address] [place] [phone] Notes/Report: Hemoglobin A1c % 5.0 <6.0 % [...] average glucose, using the formula of the M9I-Tljrvkq Average Glucose study (ADAG), Diabetes Care, Vol.31,#8, Sep. 2007 REASON FOR VISIT yearly fasting labs, Getting flu vac at work Encounters Encounter Location Date Provider Diagnosis Albaro Orona MD [address] [place] [address] Drive [address] [place], [place] [phone] 11/08/2024 Albaro Orona Blood tests for rout [...] Treatment Pending Test Test Name Order Date Complete Blood Count Auto Diff Microalbumin, Random 11/08/2024 UA ClnCatch+Micro w/rflx Cult 11/08/2024 Next Appt Details Provider Name:Albaro Martin ier, 11/20/2024 01:00:00 PM, [address] [place] [address], [address], [place], [place], [phone], Progress Notes * Rekha SHARMA PDOB:1940 (84 yo F)Acc No.[id number]:11/08/2024 Progress Note Patient: Rekha MEAD Provider: Suri Orona MD :1940 A ge:84 Y S ex:Female Date:11/08/2024 Address:[address] [place], [place] [phone] Subjective: * Chief Complaints: * 1 . [...] 2 diabetes mellitus without complication L AB: Complete Blood Count Auto Diff (Collection Date & Time - 11/08/2024 07:30 AM) L AB: Microalbumin, Random L AB: UA ClnCatch+Micro w/rflx Cult L AB: Comprehensive [place]. Panel Fast (Collection Date & Time - 11/08/2024 07:30 AM) L AB: Lipid Panel (Collection Date & Time - 11/08/2024 07:30 AM) L AB: Hemoglobin A1c (Collection Date & Time - 11/08/2024 07:30 AM) 3. E ssential hypertension L AB: Complete Blood Count Auto Diff (Collection Date & Time - 11/08/2024 07:30 AM) L AB: Microalbumin, Random L AB: UA ClnCatch+Micro w/rflx Cult L AB: Comprehensive [place]. Panel Fast (Collection Date & Time - 11/08/2024 07:30 AM) L AB: Lipid Panel (Collection Date & Time - 11/08/2024 07:30 AM) L AB: Hemoglobin A1c (Collection Date & Time - 11/08/2024 07:30 AM) 4. P ure hypercholesterolemia L AB: Complete Blood Count Auto Diff (Collection Date & Time - 11/08/2024 07:30 AM) L AB: Microalbumin, Random L AB: UA ClnCatch+Micro w/rflx Cult L AB: Comprehensive [place]. Panel Fast (Collection Date & Time - 11/08/2024 07:30 AM) L AB: Lipid Panel (Collection Date & Time - 11/08/2024 07:30 AM) L AB: Hemoglobin A1c (Collection Date & Time - 11/08/2024 07:30 AM) 5. L ymphocytosis L AB: Complete Blood Count Auto Diff (Collection Date & Time - 11/08/2024 07:30 AM) L AB: Microalbumin, Random L AB: UA ClnCatch+Micro w/rflx Cult L AB: Comprehensive [place]. Panel Fast (Collection Date & Time - [...] 0 11/08/2024 Generated for Adelina shane/Rylie/Olamideitting on: 0 11/08/2024 04:45 PM EDT
[2024-11-08 12:37] LABS: MANUAL DIFF FLAG NO
[2024-11-08 12:55] LABS: Hematocrit 25.5 % (37.0-47.0); Hemoglobin 7.8 g/dl (12.0-16.0); Imm Gran Abs Auto 0.01 X10*3/uL (0.00-0.03); Imm Gran Pct Auto 0.2 % (0.0-0.4); Lymphocytes Absolute Auto 2.7 X10*3/uL (1.2-4.9); Mean Corpuscular HGB Conc 30.6 g/dl (31.0-35.0); Mean Corpuscular Hemoglobin 31.5 pg (27.0-33.0); Mean Corpuscular Volume 102.8 fL (80.0-98.0); NRBC Abs Auto 0.000 X10*3/uL (0.0-0.012); NRBC Pct Auto 0.0 /100WBC (0.0-0.2); Platelet Count 254 X10*3/uL (160-400); Red Blood Count 2.48 X10*6/uL (4.20-5.50); White Blood Count 6.3 X10*3/uL (4.8-10.8)
[2024-11-08 13:10] LABS: Alanine Aminotransferase 20 U/L (0-31); Albumin Level 3.9 g/dL (3.5-5.0); Alkaline Phosphatase 83 U/L (39-117); Anion Gap 12 (12-20); Aspartate Amino Transferase 34 U/L (5-31); Blood Urea Nitrogen 33 mg/dL (9-16); Calcium 9.1 mg/dL (8.4-10.2); Carbon Dioxide 27 mmol/L (22-29); Chloride 110 mmol/L (96-108); Cholesterol 135 mg/dL (<200); Estimated Glomerular Filt Rate 37; HDL Cholesterol 58 mg/dL (>40); Potassium 4.0 mmol/L (3.3-5.1); Sodium 145 mmol/L (135-145); Total Protein 6.7 g/dL (6.5-8.0); Triglycerides 91 mg/dL (<150)
[2024-11-08 13:12] LABS: Hemoglobin A1C 64.9129 umol/L; Total Hemoglobin (HGBA1C) 2063.1942 umol/L
--- OUTSIDE RECORDS SUMMARY | 2024-11-08 16:45 | XMS_ITS | Patient Health Record ---
Author Organization [facility] Address [address] [place] [address] Care Team Providers Care Hunting Sales Leader Name Role Phone Albaro Orona MD Primary Care Provider Sloan Yarbrough Unavailable [phone] Reason For Referral No Information Medications Medication [...] Status Risk Notes Problem Colon cancer screening (262777895) Colon cancer screening (V76.51) Active confirmed Problem Long-term use of aspirin therapy (V58.66) Active confirmed Plan Of Treatment Future Test Test Name Order Date COLONOSCOPY 08/06/2014 Insurance Providers Payer Name Payer Address Payer Phone Subscriber Number Group Number Insured Name Patient Relationship to Insured Coverage Start Date Coverage End Date MEDICARE OF [place] [address] [facility] [address] [phone] [id number] ANJEL CORRALES Self - patient is the insured [facility] [address] [place], [place] [id number] ANJEL CORRALES Self - patient is the insured Medical (General) History Medical History History ICD Code HTN Denies AL,CVA,Lung disease,renal disease Hyperlipidemia Surgical History Surgery Date(Month/Year) appendectomy tonsillectomy
--- OUTSIDE RECORDS SUMMARY | 2024-11-08 16:46 | XMS_ITS | Clinical Summary ---
Author Organization [facility] Address [address] [place] [id number] Care Team Providers Care Linotype Operator Name Role Phone Albaro Orona MD Primary Care Provider [phone] Allergies No known active allergies Medications metoprolol [...] to complete this topic Insurance UHC Medicare [facility] Medicare Care Teams Linotype Operator Relationship Specialty Start Date End Date Albaro Orona MD [address] [place] PCP - General 03/10/20
--- OUTSIDE RECORDS SUMMARY | 2024-11-08 16:46 | XMS_ITS | Encounter Summary ---
Author Organization [facility] Address [address] [place] [address] Phone Care Team Providers Care Garment Sorter Name Role Phone Albaro Orona MD Primary Care Provider [phone]- [phone] Reason for Visit * Reason Comments Med Refill Encounter Details Date Type Department Care Team (Late st Contact Info) Description 04/14/2023 Refill [facility] [address] [place] [phone] Adis Morrison MD [address] [place] [address], [address] [phone] Social History Tobacco Use Types Packs/Day Years [...] on filedocumented in this encounter Care Teams Garment Sorter Relationship Specialty Start Date End Date Albaro Orona MD [address] [place] PCP - General 03/10/20 documented as of this encounter
--- OUTSIDE RECORDS SUMMARY | 2024-11-08 16:46 | XMS_ITS | Clinical Summary ---
Author Organization [facility] Address [address] [place] [address] Phone Care Team Providers Care Slip Cover Sewer Name Role Phone Albaro Cano MD Primary [...] day. 60 each 5 10/17/19 25 Active Problems Problem Noted Date Diagnosed [...] Heart failure with improved ejection fraction (HFimpEF) (CMS/[facility] V24, CMS/[facility] V28) 03/22/2024 Assessment & Plan (07/12/2024 8:39 [...] Type Department Care Team Description 10/05/2024 Telephone [facility] [address] [place] [phone] Julius Ag MD 09/28/2024 12:17 PM EDT - 09/28/2024 1:48 PM EDT Emergency [facility] [address] [place] [phone] Tae Arreola MD Complicated UTI (urinary tract infection) (Primary Dx) Discharge Disposition: Home or Self Care 09/16/2024 1:19 PM EDT - 09/16/2024 3:32 PM EDT Emergency [facility] [address] [place] [phone] Vitor Babin MD Acute hemorrhagic cystitis (Primary Dx); Frequency of urination Discharge Disposition: Home or Self Care 08/08/2024 Telephone [facility] [place] [address] [facility] [address] [place] [phone] Lore Pascal PA from Last 3 Months Medical History Medical [...] Care Team (Late st Contact Info) Description 11/09/2024 8:00 AM EDT Appointment [facility] Scan [address] [place] [address] 01/18/2025 7:15 AM EST Appointment [facility] [address] [place] [address] 02/07/2025 8:15 AM EST Office Visit Bariat[facility] Surgery - [place] [address] [facility] [address] [place] [phone] Lore Pascal PA [facility] [place] [address] Health Maintenance Due Date Last Done Comments Cholesterol Screening (Lipid Panel) 01/31/2022 Falls Risk Assessment 01/31/2022 Medicare Annual Wellness Visit 01/31/2022 Social Influencers of Health Screening 01/31/2022 Depression Screening 02/29/2024 COVID-19 Vaccine (8 - Pfizer risk 2023- season) 2024 11/18/2023, 12/02/2022, 12/13/2021, Additional history [...] Primary hypertension Stage 3b chronic kidney disease (CMS/HCC V24, CMS/HCC V28) PRINCESS DEXA AXIAL SKELETON Routine 01/01/2019 4:52 PM EST Asymptomatic menopausal state from Last 3 Months or Most Recently Relevant to Health Maintenance Results * (ABNORMAL) Urinalysis with reflex microscopic and culture (09/28/2024 12:34 PM EDT) Only the most recent of2 resultswithin the time period is included. Specific [place] Urine 09/28/2024 1:17 PM EDT [facility] Comment:Unable to interpret due to color interference. pH, Urine 09/28/2024 1:17 PM EDT [facility] Comment:Unable to interpret due to color interference. Leukocytes, Urine 09/28/2024 1:17 PM EDT [facility] Comment:Unable to interpret due to color interference. Nitrite, Urine 09/28/2024 1:17 PM [facility] Comment:Unable to interpret due to color interference. Protein, Urine 09/28/2024 1:17 PM [facility] Comment:Unable to interpret due to color interference. Glucose, Urine 09/28/2024 1:17 PM [facility] Comment:Unable to interpret due to color interference. Ketones, Urine 09/28/2024 1:17 PM [facility] Comment:Unable to interpret due to color interference. Urobilinogen , Urine 09/28/2024 1:17 PM [facility] Comment:Unable to interpret due to color interference. Bilirubin, Urine 09/28/2024 1:17 PM [facility] Comment:Unable to interpret due to color interference. Blood, Urine 09/28/2024 1:17 PM [facility] Comment:Unable to interpret due to color interference. RBC, Urine >4,000(H) 0 - 4 /HPF LAB URINALYSIS - AUTOMATED METHOD 09/28/2024 1:17 PM [facility] WBC, Urine 23.2(H) 0 - 4 /HPF LAB URINALYSIS - AUTOMATED METHOD 09/28/2024 1:17 PM [facility] Squamous Epithelial, Urine 30 0 - 60 /LPF LAB URINALYSIS - AUTOMATED METHOD 09/28/2024 1:17 PM [facility] Bacteria, Urine Negative Negative /HPF LAB URINALYSIS - AUTOMATED METHOD 09/28/2024 1:17 PM [facility] Hyaline Casts, Urine 0.0 0 - 3 /LPF LAB URINALYSIS - AUTOMATED METHOD 09/28/2024 1:17 PM [facility] Urine Urine specimen obtained by clean catch procedure / Unknown Non-blood Collection / Unknown 09/28/2024 12:34 PM EDT 09/28/2024 12:42 PM EDT us Tae Arreola MD LAB URINE ORDERABLES Final Resul t Performing Organization Address City/[facility]/ZIP Co de Phone Number [facility] [address] [place] [address], [place] [phone] * Sanchez urine culture tube (09/28/2024 12:34 PM EDT) Only the most recent of2 resultswithin the time period is included. Extra Tube Hold for add-ons. 09/28/2024 2:01 PM EDT [facility] Comment:Auto resulted. Urine Urine specimen obtained by clean catch procedure / Unknown Non-blood Collection / Unknown 09/28/2024 12:34 PM EDT 09/28/2024 12:42 PM EDT us Tae Arreola MD LAB URINE ORDERABLES Final Resul t Performing Organization Address [facility] de Phone Number [facility] [address] [place] [address], [place] [phone] * Culture urine (09/28/2024 12:34 PM EDT) Only the most recent of3 resultswithin the time period is included. Culture, Urine <10,000 CFU/mL gram positive cocci, insignificant count, no further workup 09/29/2024 9:47 AM EDT [facility] Urine Urine specimen obtained by clean catch procedure / Unknown Non-blood Collection / Unknown 09/28/2024 12:34 PM EDT 09/28/2024 1:17 PM EDT us Tae Arreola MD LAB MICROBIOLOGY - GENERAL ORDER JUVENTINO Final Result Performing Organization Address City/[facility]/ZIP Co de Phone Number [facility] [address] [place] [address], [place] [phone] * (ABNORMAL) CBC auto differential (09/28/2024 12:14 PM EDT) Only the most recent of2 resultswithin the time period is included. [facility] WBC 7.5 4.8 - 10.8 K/mcL LAB HEMETOLOGY [facility] RBC 2.80(L) 3.80 - 4.80 M/mcL LAB HEMETOLOGY METHOD 09/28[facility]2024 12:[facility] Hemoglobin 8.6(L) 11.5 - 16.0 g/dL LAB HEMETOLOGY METHOD 09/28/2024 12:46 PM [facility] Hematocrit 27.7(L) 35.0 - 47.0 % LAB HEMETOLOGY METHOD 09/28/2024 12:46 PM [facility] MCV 99.3(H) 79.0 - 98.0 FL LAB HEMETOLOGY METHOD 09/28/2024 12:46 [facility] MCH 30.8 27.0 - 32.0 pcg LAB HEMETOLOGY METHOD 09/28/2024 12:46 PM [facility] MCHC 31.0(L) 32.0 - 37.0 g/dL LAB HEMETOLOGY METHOD 09/28/2024 12:46 PM [facility] RDW 13.7 11.0 - 15.0 % LAB HEMETOLOGY METHOD 09/28/2024 12:46 PM [facility] Platelets 299 130 - 400 K/mcL LAB HEMETOLOGY METHOD 09/28/2024 12:46 PM [facility] MPV 9.9 7.0 - 11.0 FL LAB HEMETOLOGY METHOD 09/28/2024 12:46 [facility] NRBC 0.0 <1.0 % LAB HEMETOLOGY METHOD 09/28/2024 12:46 PM [facility] NRBC Absolute 0.00 <0.10 K/mcL LAB HEMETOLOGY METHOD 09/28/2024 12:46 PM [facility] Neutrophils Relative 63.5 % LAB HEMETOLOGY METHOD 09/28/2024 12:46 PM [facility] Lymphocytes Relative 25.6 % LAB HEMETOLOGY METHOD 09/28/2024 12:46 PM [facility] Monocytes Relative 7.7 % LAB HEMETOLOGY METHOD 09/28/2024 12:46 PM [facility] Eosinophils Relative 2.3 % LAB HEMETOLOGY METHOD 09/28/2024 12:46 PM [facility] Basophils Relative 0.5 % LAB HEMETOLOGY METHOD 09/28/2024 12:46 PM [facility] Immature Granulocytes Relative 0.4 % LAB HEMETOLOGY METHOD 09/28/2024 12:46 PM [facility] Neutrophils Absolute 4.79 1.50 - 7.00 K/mcL LAB HEMETOLOGY METHOD 09/28/2024 12:46 PM [facility] Lymphocytes Absolute 1.93 1.00 - 5.00 K/mcL LAB HEMETOLOGY METHOD 09/28/2024 12:46 PM [facility] Monocytes Absolute 0.58 0.20 - 1.00 K/mcL LAB HEMETOLOGY METHOD 09/28/2024 12:46 PM [facility] Eosinophils Absolute 0.17 0.00 - 0.50 K/mcL LAB HEMETOLOGY METHOD 09/28/2024 12:46 PM [facility] Basophils Absolute 0.04 0.00 - 0.20 K/mcL LAB HEMETOLOGY METHOD 09/28/2024 12:46 PM [facility] Immature Granulocytes Absolute 0.03 0.00 - 0.03 K/mcL LAB HEMETOLOGY METHOD 09/28/2024 12:46 PM EDT [facility] Blood Venous blood specimen / Unknown Venipuncture / Unknown 09/28/2024 12:14 PM EDT 09/28/2024 12:36 PM EDT Tae Arreola MD LAB BLOOD ORDERABLES Final Resul t [facility] [address] [place] [address], [place] [phone] * (ABNORMAL) Basic metabolic panel (09/28/2024 12:14 PM EDT) Only the most recent of3 resultswithin the time period is included. Sodium 142 133 - 145 mmol/L LAB CHEMISTRY METHOD 09/28/2024 1:05 PM [facility] Potassium 4.8 3.5 - 5.5 mmol/L LAB CHEMISTRY METHOD 09/28/2024 1:05 PM [facility] Chloride 111(H) 96 - 110 mmol/L LAB CHEMISTRY METHOD 09/28/2024 1:05 PM [facility] CO2 27 21 - 32 mmol/L LAB CHEMISTRY METHOD 09/28/2024 1:05 PM [facility] Anion Gap 4 3 - 11 LAB CHEMISTRY METHOD 09/28/2024 1:05 PM [facility] Glucose 98 70 - 100 mg/dL LAB CHEMISTRY METHOD 09/28/2024 1:05 PM [facility] BUN 33(H) 5 - 25 mg/dL LAB CHEMISTRY METHOD 09/28/2024 1:05 PM [facility] Creatinine 1.57(H) 0.50 - 1.10 mg/dL LAB CHEMISTRY METHOD 09/28/2024 1:05 PM [facility] eGFR 33(L) >=60 mL/min/1. 73m2 LAB CHEMISTRY METHOD 09/28/2024 1:05 PM EDT [facility] Comment:Calculation based on the Chronic Kidney Disease Epidemiology Collaboration (CKD-EPI) equation refit without adjustment for race. BUN/Creatinine Ratio 21.0 LAB CHEMISTRY METHOD 09/28/2024 1:05 PM EDT [facility] Calcium 9.4 8.5 - 10.5 mg/dL LAB CHEMISTRY METHOD 09/28/2024 1:05 PM EDT [facility] Blood Venous blood specimen / Unknown Venipuncture / Unknown 09/28/2024 12:14 PM EDT 09/28/2024 12:36 PM EDT Tae Arreola MD LAB BLOOD ORDERABLES Final Resul t Performing Organization Address City/[facility]/ZIP Co de Phone Number [facility] [address] [place] [address], [place] [phone] * Blood Culture, Peripheral #1 (09/16/2024 3:08 PM EDT) Only the most recent of2 resultswithin the time period is included. Culture, Blood No growth at 5 days 09/21/2024 4:01 PM EDT [facility] Blood Venous blood specimen / Unknown Venipuncture / Unknown 09/16/2024 3:08 PM EDT 09/16/2024 3:08 PM EDT Vitor Babin MD LAB MICROBIOLOGY - GENERAL ORDER JUVENTINO Final Result [facility] [address] [place] [address], [place] [phone] * Lactate, with Reflex (09/16/2024 2:19 PM EDT) LACTIC ACID 0.9 0.4 - 2.0 mmol/L LAB CHEMISTRY METHOD 09/16/2024 3:00 PM [facility] Blood Venous blood specimen / Unknown Venipuncture / Unknown 09/16/2024 2:19 PM EDT 09/16/2024 2:26 PM EDT us Vitor Babin MD LAB BLOOD ORDERABLES Final Resul t [facility] [address] [place] [address], [place] [phone] * (ABNORMAL) Urinalysis with reflex microscopic (09/14/2024 7:39 AM EDT) Specific [place] Urine 1.025 1.003 - 1.030 LAB URINALYSIS - AUTOMATED METHOD 09/14/2024 8:18 AM [facility] pH, Urine 5.5 5.0 - 8.0 pH LAB URINALYSIS - AUTOMATED METHOD 09/14/2024 8:18 AM [facility] Leukocytes, Urine Negative Negative LAB URINALYSIS - AUTOMATED METHOD 09/14/2024 8:18 AM [facility] Nitrite, Urine Negative Negative LAB URINALYSIS - AUTOMATED METHOD 09/14/2024 8:18 AM [facility] Protein, Urine >=300(A) <=Trace mg/dL LAB URINALYSIS - AUTOMATED METHOD 09/14/2024 8:18 AM [facility] Glucose, Urine 100(A) Negative mg/dL LAB URINALYSIS - AUTOMATED METHOD 09/14/2024 8:18 AM [facility] Ketones, Urine Trace(A) Negative mg/dL LAB URINALYSIS - AUTOMATED METHOD 09/14/2024 8:18 AM [facility] Urobilinogen, Urine 1.0 0.2 - 1.0 mg/dL LAB URINALYSIS - AUTOMATED METHOD 09/14/2024 8:18 AM [facility] Bilirubin, Urine Small(A) Negative LAB URINALYSIS - AUTOMATED METHOD 09/14/2024 8:18 AM EDT [facility] Blood, Urine Large(A) Negative LAB URINALYSIS - AUTOMATED METHOD 09/14/2024 8:18 AM EDT [facility] RBC, Urine >100(H) 0 - 4 /HPF 09/14/2024 8:18 AM EDT [facility] WBC, Urine 4 0 - 4 /HPF 09/14/2024 8:18 AM EDT [facility] Squamous Epithelial, Urine 3 0 - 60 /LPF 09/14/2024 8:18 AM EDT [facility] Bacteria, Urine Many(A) Negative /HPF 09/14/2024 8:18 AM EDT [facility] Urine Urine specimen obtained by clean catch procedure / Unknown Non-blood Collection / Unknown 09/14/2024 7:39 AM EDT 09/14/2024 7:59 AM EDT us Gloria Gonzalez [facility] URINE ORDERABLES Final Result [facility] [address] [place] [address], * PRINCESS DEXA AXIAL SKELETON (01/01/2019 4:52 PM EST) Anatomical Region Laterality Modality Mammography 01/01/2019 7:10 AM EST Narrative 01/01/2019 4:52 PM EST [facility] Diagnostic Imaging Department [address] [place] [address] Patient: ANJEL SHARMA/Age/Sex: 1940 - 78 - F Unit#: [id number] Location/Status: SPDIMAM/REG CLI Mnemonic/Ordering Site: MAMDEXAAX/SPMAM Ordering Physician: ALBARO CANO MD Princess Dexa Axial Skeleton - [birth year]/19753 History: Low estrogen state due to menopause. Comparison: 01/01/13 Findings: Bone densitometry is performed utilizing dual energy x-ray absorptiometry (DXA) in the 12Return unit. The lumbar spine and proximal femora [...] Major Osteoporotic 9.6% Hip 1.7%. IMPRESSION: Osteopenia. [id number] Dictating Physician: NELLIE TRIANA MD Electronically Signed by: NELLIE TRIANA MD Dic Date/Time: 01/01/191649 Sign date/Time: 01/01/191651 Procedure Note Nellie Triana - 02/16/2022 [facility] Diagnostic Imaging Department [address] [place], [place] [id number] Patient: ANJEL SHARMA/Age/Sex: 1940 - 78 - F Unit#: [id number] Location/Status: SPDIMAM/REG CLI Mnemonic/Ordering Site: MAMDEXAAX/SPMAM Ordering Physician: ALBARO CANO MD Princess Dexa Axial Skeleton - 01/01/19 - 0754 History: Low estrogen state due to menopause. Comparison: 01/01/13 Findings: Bone densitometry is performed utilizing dual energy x-ray absorptiometry(DXA) in the 12Return unit. The lumbar spine and proximal femora [...] Fracture: Major Osteoporotic 9.6%Hip 1.7%. IMPRESSION: Osteopenia. [id number] Dictating Physician: NELLIE TRIANA MD Electronically Signed by: NELLIE TRIANA MD Dic Date/Time: 01/01/191649 Sign date/Time: 01/01/19 165 Albaro Cano MD IMG BI PROCEDURES Final Res ult from Last 3 Months or Most Recently Relevant to Health Maintenance Insurance [employer] [place] [address] Care Teams Slip Cover Sewer Relationship Specialty Start Date End Date Albaro Cano MD [address] [place] [address] Drive [address] [place] [address] PCP - General Internal Medicine 06/27/24
--- OUTSIDE RECORDS SUMMARY | 2024-11-08 16:47 | XMS_ITS | Patient Health Record ---
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 Role Phone Yeyo Albaro Primary Care Provider [phone] Allergies Allergen (clinical drug ingredient) Drug/Non Drug Allergy documented on EMR Reaction Allergy Type Onset Date Status Keflex rash Drug Allergy Active Results Component Value Reference Range Notes Complete Blood Count Auto Di ff Reviewed date:01/16/2024 12:31:19 PM Interpretation: Performing Lab:[facility], [address] [place] [phone] Notes/Report: White Blood Count 7.7 4.8-10.8 X10*3/uL [...] 0.0-0.2 /100WBC Neutrophils Absolute Auto 2.9 2.0-8.3 x10*3/uL Imm Gran Abs Auto 0.01 0.00-0.03 X10*3/uL Lymphocytes Absolute Auto 4.0 1.2-4.9 X10*3/uL Monocytes Absolute Auto 0.6 0.1-1.2 X10*3/uL Eosinophils Absolute Auto 0.2 0.0-0.4 X10*3/uL Basophils Absolute Auto 0.0 0.0-0.2 X10*3/uL NRBC Abs Auto 0.000 0.0-0.012 X10*3/uL Blood Urea Nitrogen Reviewed date:01/16/2024 12:33:27 PM Interpretation: Performing Lab:[address] [phone] Notes/Report: Blood Urea Nitrogen 28 9-16 mg/dL Liver Panel Reviewed date:05/08/2024 12:12:25 PM Interpretation: Performing Lab:[address] [phone] Notes/Report: Bilirubin Total 0.5 0.0-1.0 mg/dL Bilirubin Direct 0.2 0.0-0.5 mg/dL Aspartate Amino Transferase 41 5-31 U/L Alanine Aminotransferase 29 0-31 U/L Total Protein 7.4 6.5-8.0 g/dL Albumin Level 3.9 3.5-5.0 g/dL Alkaline Phosphatase 89 39-117 U/L Glucose Fasting Reviewed date:05/08/2024 12:27:13 PM Interpretation: Performing Lab:[address] [phone] Notes/Report: Glucose Fasting 99 60-99 mg/dL Lipid Panel with Reflex Reviewed date:05/08/2024 12:14:36 PM Interpretation: Performing Lab:[facility], [address] [place] [phone] Notes/Report: Triglycerides 138 <150 mg/dL Desirable Triglyceride: [...] A1c Reviewed date:05/08/2024 12:10:43 PM Interpretation: Performing Lab:[facility], [address] [place] [phone] Notes/Report: Hemoglobin A1c % 5.8 <6.0 % [...] average glucose, using the formula of the D6L-Pddramh Average Glucose study (ADAG), Diabetes Care, Vol.31,#8, 2007 Complete Blood Count Auto Di ff (Not yet reviewed by provider) Interpretation: Performing Lab:[facility], [address] [place] [phone] Notes/Report: White Blood Count 6.3 4.8-10.8 X10*3/uL [...] 0.0-0.2 /100WBC Neutrophils Absolute Auto 3.0 2.0-8.3 x10*3/uL Imm Gran Abs Auto 0.01 0.00-0.03 X10*3/uL Lymphocytes Absolute Auto 2.7 1.2-4.9 X10*3/uL Monocytes Absolute Auto 0.4 0.1-1.2 X10*3/uL Eosinophils Absolute Auto 0.2 0.0-0.4 X10*3/uL Basophils Absolute Auto 0.0 0.0-0.2 X10*3/uL NRBC Abs Auto 0.000 0.0-0.012 X10*3/uL Comprehensive [place]. Panel Fa st Reviewed date:11/08/2024 04:43:19 PM Interpretation: Performing Lab:[facility], [address] [place] [phone] Notes/Report: Sodium 145 135-145 mmol/L Potassium 4.0 [...] Panel Reviewed date:11/08/2024 04:35:56 PM Interpretation: Performing Lab:[facility], [address] [place] [phone] Notes/Report: Triglycerides 91 <150 mg/dL Desirable Triglyceride: [...] A1c Reviewed date:11/08/2024 04:35:48 PM Interpretation: Performing Lab:[facility], [address] [place] [phone] Notes/Report: Hemoglobin A1c % 5.0 <6.0 % [...] average glucose, using the formula of the Y4P-Ayajndo Average Glucose study (ADAG), Diabetes Care, Vol.31,#8, 2007 Pathology Reviewed date:12/26/2023 12:38:05 PM Interpretation: Performing Lab:[facility], [address] [place] [address], [place] [address] Notes/Report: ------ Name: Rekha Sharma e/Sex: 83/F : 1940 Unit#: [id number] Attend Dr[facility] : [facility] Location: [facility] Disch: ------ SPEC : [id number] RECD : 12/22/23 STATUS: DASHA [facility] NUM: [id number] ERIC: 12/21/[address] [facility] [address]: Gloria GonzalezP- ENTERED: 12/22/23-14 19 SP TYPE: Cytology OTHR DR: Albaro Orona MD ORDERED: Cyto-enhanced Diagnosis Urine: Negative for high-grade urothelial carcinoma. See comment. COMMENT: Cellular sp ecimen consisting of few single urothelial cells with degenerative changes, squamous ce lls, red blood cells and acute inflammatory cells. Clinical History Other microscopic hematuria Material Received Urine Gross Description Received is 28 cc of clear yellow fluid from which a ThinPrep slide is prepared. Copies To: Albrao Orona MD [facility] [address] [address] Gloria GonzalezP-[facility] [address] [place] [address] [address] [place] [address] [email or web address] ------ Signed (signature on file) Ernie Devi MD 12/26/23 1130 ------ END OF REPORT MAMMOGRAM DIGITAL BILATERAL SCREEN Reviewed date:01/17/2024 12:47:57 PM Interpretation:Negative Performing Lab: Notes/Report: Negative Hold Gold Reviewed date:05/08/2024 12:10:26 PM Interpretation: Performing Lab:[facility], [address] [place] [phone] Notes/Report: Neha Larry See Note Specimen held untested for 24 hours; Call to request Chemistry testing. Pathology Reviewed date:06/22/2024 03:50:26 PM Interpretation: Performing Lab:[facility], [address] [place] [phone] Notes/Report: ------ Name: Rekha Sharma Age/Sex: 84/F : 1940 Unit#: [id number] Attend Dr: Gloria Gonzalez [facility] Re06/20/24 Status : DEP REF Location: [facility] Disch: ------ SPEC : [id number] RECD : 06/21/24 STATUS: DASHA INGRAM NUM: [id number] ERIC: 06/20/24-[address]: Gloria Gonzalez [facility] ENTERED: 06/21/24- 13 SP TYPE: Cytology OTHR DR: Albaro Orona MD ORDERED: Cyto-enhanced Diagnosis Urine: Atypical urot helial cells. See comment. COMMENT: Cellular sp ecimen consisting of few small groups of atypical urothelial cells, which are small in s ize, have increased nuclear:cytoplasmic ratio and variable dark chromatin. The backg round has few single urothelial cells, abundant lymphocytes, squamous cells and r ed blood cells. Clinical History Other microscopic hematuria Material Received Urine Gross Description Received is 7 cc of clear yellow fluid from which a ThinPrep slide is prepared. Copies To: Albaro Orona MD [facility] [address] [place] [address] [address] [place] [address] Gloria [facility] [address] [place], [place] [address] [address] [place], [place] [phone] [email or web address] ------ Signed (signature on file) Ernie Devi MD 06/22/24 0810 ------ END OF REPORT Urine Culture Reviewed date:06/24/2024 01:59:04 PM Interpretation: Performing Lab:[facility], [address] [place] [phone] Notes/Report: O:PROMIR Proteus mirabilis Urine Culture Quant Urine Culture > 100,000 cfu/mL O:STANEG Coag negative Staphylococcus Urine Culture CBLD STANEG comment Urine Culture Unlikely pathogen; c all Micro if full workup indicated. Urine Culture Quant Urine Culture 50,000 to 100,000 cfu/mL Ampicillin <=2 Cefazolin (Urine) 2 Cefepime <=0.12 Ceftriaxone <=0.25 Ciprofloxacin <=0.06 Gentamicin <=1 Nitrofurantoin 64 Trimethoprim/Sulfametho xazole <=20 Pathology Reviewed date:09/04/2024 12:48:15 PM Interpretation: Performing Lab:[facility], [address] [place] [phone] Notes/Report: ------ Name: Rekha Sharma e/Sex: 84/F : 1940 Unit#: [id number] Attend Dr: Gloria Gonzalez [facility] Re08/30/24 Status : DEP REF Location: [facility] Disch: ------ SPEC : [id number] RECD : 09/03/24 STATUS: DASHA INGRAM NUM: [id number] ERIC: 08/30/[address] [facility] [address]: Gloria Gonzalez [facility] ENTERED: 09/03/24 32 SP TYPE: Cytology OTHR DR: Albaro Orona MD ORDERED: Cyto-enhanced Diagnosis Urine: Negative for high-grade urothelial carcinoma. See comment. COMMENT: Examination of a monolayer preparation slide shows abundant red blood cells with occasional lakshmi gn urothelial cells, benign squamous cells, and inflammatory cells. Clinical History Microscopic hematuria Material Received Urine Gross Description Received is 8 cc of blood tinged fluid from which a ThinPrep slide is prepared. IHC S/NG Disclaimer NOTE: Unless otherwi se stated, all tissue is formalin-fixed and paraffin-embedded. Some or all of the immunohistochemical tests reported herein may have been developed and their performance characteristics determined by [facility]. They have not been cleared or appr yeni by the U.S. Food and Drug Administration (FDA). However, the FDA has determined that such clearance or approval is not necessary. This laboratory is certified under the Clinical Laboratory Improvement Amendments of 1988 (CLIA) as qualified to perform high comp lexity clinical laboratory testing. Copies To: Albaro Orona MD [facility] [address] [place] [address] [address] [place] [address] Gloria [facility] [address] [place] [address] Dr. [address] [place] [id number] [email or web address] CONTINUED ON NEXT PAGE ------ Name: Rekha Sharma e/Sex: 84/F : 1940 Unit#: [id number] Attend Dr: Gloria Gonzalez [facility] Re08/30/24 Status : DEP REF Location: [facility] Disch: ------ SPEC : [id number] RECD : 09/03/24 STATUS: DASHA INGRAM NUM: [id number] ERIC: 08/30/[address] [facility] [address]: Gloria Gonzalez [facility] ENTERED: 09/03/24- 32 SP TYPE: Cytology OTHR DR: Albaro Orona MD ORDERED: Cyto-enhanced ------ Signed (signature on file) Maeganailyn Deluca 09/03/24 1453 ------ END OF REPORT Urine Culture Reviewed date:09/03/2024 12:50:13 PM Interpretation: Performing Lab:[facility], [address] [place] [phone] Notes/Report: Urine Culture Report Result Urine Culture > 100,000 cfu/ml Urine Culture Mixed bacterial kaleigh a characteristic of Urine Culture urogenital contamination. Reason For Referral Reason Sciatica please ev al and treat for physical therapy Diagnosis 1 Sciatica, unspecifie d laterality (M54.30) Referral Organization Albaro Orona MD Referring Provider First Name Albaro Referring Provider Last Name Yeyo Referring Provider Speciality Internal M edicine Referred Provider [facility], [facility] Referred Provider Specialty Physical The rapist General Notes Deepthi Luna 0 05/15/2024 01:49:42 PM >patient will be making her own appt Referral Priority Routine Medications Medication SIG (Take, Route, Frequency, Duration) Notes Start Date End Date Status Aspirin Adult Low Strength 81 MG 1 tablet Orally Once a day for 30 day(s) Active Valsartan-hydroCHLOROthiaz lc 320-25 MG 1 tablet Orally Once a day 04/22/2020 Active [place] 3 1000 MG 1 capsule Orally Onc e a day Active Metoprolol Succinate ER 50 mg TAKE 1 TABLET DAILY y mouth daily Active Symbicort 160-4.5 MCG/ACT 2 puffs Inhala tion Twice a day 07/04/2018 Not-Taking Vitamin C 500 MG as directed Orally Active Simvastatin 40 mg TAKE 1 TABLET DAILY orally daily Active Furosemide 20 MG 1 tablet Orally [...] day for 5 days 02/19/2022 Not-Takin g Nitrofurantoin Monohyd Macro 100 MG 1 capsule with food Orally every 12 hrs for 5 day(s) Not-Taking Immunizations Vaccine Route Administration Date Status [...] Administered TDaP Unknown 12/27/2016 [facility] Sh[facility]rix IM Intramuscular 04/05/2018 Administered pt was given the vaccine at [facility] Shingrix Unknown 06/26/2018 Administered [facility] Fluarix Quadrivalent Unknown 01/27/2019 Administered [employer] Influenza High Dose Unknown 12/10/2019 Administered at work Covid Vaccine Unknown 04/12/2020 Administered Pfizer Influenza High Dose Unknown 11/05/2020 Administered At work through [employer] SARS-COV-2 Pfizer Unknown 05/03/2020 Administered SARS-COV-2 Pfizer [...] Problem Status W/U Status Risk Notes Problem 08569248 Lymphocytosis (D72.820) Active confirm ed Problem 664010070 Tubular adenoma (D36.9) Active confir med Problem 85330089 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) Active confirmed Problem 65082956 Coronary artery disease (I25.10) Active confirmed Problem 08976619 Essential hypert ension (I10) Active confirmed Problem 38475142 Type 2 diabetes mellitus without complication (E11.9) Active confirmed Problem 162698430 Morbid obesity d ue to excess calories (E66.01) Active confirmed Problem 70352269 Sciatica, unspec ified laterality (M54.30) Active confirmed Problem 11297345 Sciatica of left side (M54.32) Active confirmed Problem 792959707 Pure hypercholesterolemia (E78.00) Active confirmed Problem 036037326 PVD (peripheral vascular disease) (I73.9) Active confirmed Problem 557253014 Osteopenia deter mined by x-ray (M85.80) Active confirmed Problem 369780374 Mild intermitten t asthmatic bronchitis with acute exacerbation (J45.21) Active confirmed Vital Signs Blood pressure diastolic 58 mm Hg 09/11/2024 constantino ght is down 12 pounds since 05-15-24 Height 60.5 in 09/11/2024 weight is down 12 pounds since 05-15-24 Blood pressure systolic 142 mm Hg 09/11/2024 weig ht is down 12 pounds since 05-15-24 Weight 203 lbs 09/11/2024 weight is down 12 pounds since 05-15-24 BMI 38.99 kg/m2 09/11/2024 weight is down 12 pounds since 05-15-24 Encounters Encounter Location Date Provider Diagnosis Albaro Orona MD [address] [place] [id number] 01/16/2024 Albaro Orona Elevated BUN R79.9 Albaro Orona MD [address] [place] [id number] 05/08/2024 Albaro Orona Type 2 diabetes azra itus without complication E11.9 and Pure hypercholesterolemia E78.00 Albaro Orona MD [address] [place] [id number] 11/08/2024 Albaro Orona Blood tests for rout ine general physical examination Z00.00 ; Type 2 diabetes mellitus without complication E11.9 ; Essential hypertension I10 ; Pure hypercholesterolemia E78.00 and Lymphocytosis D72.820 Albaro Orona MD [address] [place] [id number] 11/15/2023 Albaro Orona Type 2 diabetes azra itus without complication E11.9 ; Annual physical exam Z00.00 ; Coronary artery disease I25.10 ; Elevated BUN R79.9 ; Essential hypertension I10 ; Lymphocytosis D72.820 ; Pure hypercholesterolemia E78.00 ; Sciatica, unspecified laterality M54.30 and Depression screening Z13.31 Albaro Orona MD [address] [place] [id number] 05/15/2024 Albaro Orona Essential hypertensi on I10 ; Sciatica, unspecified laterality M54.30 and Type 2 diabetes mellitus without complication E11.9 Albaro Orona MD [address] [place] [id number] 09/11/2024 Albaro Orona Type 2 diabetes azra itus without complication E11.9 ; Coronary atherosclerosis due to lipid rich plaque I25.83 ; Essential hypertension I10 and Preop examination Z01.818 Albaro Orona MD [address] [place] [id number] 06/28/2024 Albaro Orona MD [address] [place] [id number] 08/06/2024 Albaro Orona MD [address] [place] [id number] 10/01/2024 Albaro Orona MD [address] [place] [id number] 10/04/2024 Albaro Orona Assessments Encounter Date Diagnosis (ICD Code) Assessment Notes Treatment Notes Treatment Clinical Notes Section Notes 01/16/2024 Elevated BUN (ICD-10 - R79.9) 05/08/2024 Type 2 diabetes mellitus without complication (ICD-10 - E11.9) 11/08/[address] ine general physical examination (ICD-10 - Z00.00) 11/15/2023 Type 2 diabetes mellitus without complication (ICD-10 - E11.9) has good a1c, at goal, will continue current regiment 11/15/2023 Annual physical exam (ICD-10 - Z00.00) labs reviewed and discussed with patient 05/15/2024 Essential hypertensi on (ICD-10 - I10) doing well 05/15/2024 Sciatica, unspecifie d laterality (ICD-10 - M54.30) referral to physical therapy. [facility] 09/11/2024 Type 2 diabetes mellitus without complication (ICD-10 - E11.9) is well controlled on diet 09/11/2024 Coronary atherosclerosis due to lipid rich plaque (ICD-10 - I25.83) ecg unchanged no acute changes, will continue current regiment 05/08/2024 Pure hypercholesterolemia (ICD-10 - E78.00) 11/08/2024 Type 2 diabetes mellitus without complication (ICD-10 - E11.9) 11/15/2023 Coronary artery dise ase (ICD-10 - I25.10) not having any chest pain, will continue to monitor 05/15/2024 Type 2 diabetes mellitus without complication (ICD-10 - E11.9) doing well 09/11/2024 Essential hypertensi on (ICD-10 - I10) stable, will continue current regiment 11/08/2024 Essential hypertensi on (ICD-10 - I10) 11/15/2023 Elevated BUN (ICD-10 - R79.9) is probably from the valsatan, will continue to monitor 09/11/2024 Preop examination (ICD-10 - Z01.818) patient stable and cleared for upcoming cataract surgery 11/08/2024 Pure hypercholesterolemia (ICD-10 - E78.00) 11/15/2023 Essential hypertensi on (ICD-10 - I10) stable, at goal, will continue current regiment 11/08/2024 Lymphocytosis (ICD-1 0 - D72.820) 11/15/2023 Lymphocytosis (ICD-1 0 - D72.820) has [...] 12/22/2012 Electrocardiogram (EKG) 04/07/2017 Electrocardiogram (EKG) 04/13/2018 Complete Blood Count Auto Diff Microalbumin, Random 11/08/2024 UA ClnCatch+Micro w/rflx Cult 11/08/2024 Next Appt Details Provider Name:Albaro Martin ier, 11/20/2024 01:00:00 PM, [address] [place] [address], [address], [place], [place], [id number], Insurance Providers Payer Name Payer Address Payer Phone Subscriber Number Group Number Insured Name Patient Relationship to Insured Coverage Start Date Coverage End Date [facility] are [employer] [address] [address] [place] [address] [id number] Rekha Sharma Self - patient is the insured MEDICARE [employer] [address] [place] [address] [id number] ZacharyRekha Self - patient is the insured Medical (General) History Medical History History ICD Code has not had colonoscopy - 20 12 discussed again 2012; refused 2013; colonoscopy - done 11/13/14 w/Dr. 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 Gary Moreno , 2013
== END 2024-11-08 12:34 | disposition home or self-care (01) ==
LOC: HO.LNP 12:33
PROVIDERS: Visit Provider Internal Medicine
DX: Z00.00 Encounter for general adult medical examination without abnormal findings (principal); E11.9 Type 2 diabetes mellitus without complications; I10 Essential (primary) hypertension; E78.00 Pure hypercholesterolemia, unspecified; D72.820 Lymphocytosis (symptomatic)
CPT/HCPCS: 80053; 80061; 83036; 85025

== ENCOUNTER 2024-11-26 10:27 | Outpatient (REF) | payer MEDICARE, SELFPAY ==
--- OUTSIDE RECORDS SUMMARY | 2024-10-04 05:30 | XMS_ITS ---
Author Organization Albaro Orona MD Address [address] [place] [phone] Care Team Providers Care Produce Laborer Name Role Phone UrvashiVandana mederosn Primary Care Provider [phone] REASON FOR VISIT ER Visit from [facility] rec'd Encounters Encounter Location Date Provider Diagnosis Albaro Orona MD 10 [facility] [address] [place] [address] [phone] 10/04/2024 Albaro Orona Plan Of Treatment Next Appt Details Provider Name:Albaro cedeño, 01/22/2025 01:30:00 PM, [address] [place] [address], [address] [place] [address], [phone], Provider Name:Albaro cedeño, 05/23/2025 07:30:00 AM, [address] [place] [address], [address] [place] [address], [phone], Provider Name:Albaro cedeño, 05/30/2025 01:30:00 PM, [address] [place] [address], [address], [phone], Provider Name:Albaro Martin ier, 11/14/2025 06:45:00 AM, [address], [address], [place], [phone], Provider Name:Albaro Martin ier, 11/21/2025 01:00:00 PM, [address] [facility] [address], [address], [place], [phone], Progress Notes * Rekha SHARMA PDOB:1940 (84 yo F)Acc No.[id number]:10/04/2024 Patient: Rekha MEAD Dino :1940 A ge:84 Y S ex:Female Address:[address] [place] [address] * true * Date: Generated for Adelina shane/Rylie/Galileosmitting on: 0 11/26/2024 11:42 AM EDT
--- OUTSIDE RECORDS SUMMARY | 2024-10-18 04:30 | XMS_ITS ---
Author Organization Albaro Orona MD Address [address] [place] [phone] Care Team Providers Care Production Controller Name Role Phone Albaro Orona Primary Care Provider [phone] REASON FOR VISIT after Care u/a Medications Medication SIG (Take, Route, Frequency, Duration) Notes Start Date End Date Status Valsartan-hydroCHLOROthiaz lc 320-25 MG 1 tablet Orally Once a day 04/22/2020 Active Metoprolol Succinate ER 50 mg TAKE 1 TABLET DAILY y mouth daily Active Symbicort 160-4.5 MCG/ACT 2 puffs Inhala tion Twice a day 07/04/2018 Not-Taking Simvastatin 40 mg TAKE 1 TABLET DAILY orally daily Active ProAir HFA 108 (90 Base) MCG/ACT 2 puffs as needed Inhalation every 4 hrs for 30 days 12/22/2012 Not-Taking Furosemide 20 MG 1 tablet Orally Once a day for 10 days 01/29/2021 Not-Taking Vitamin B12 1000 mg 1 tablet Orally Once a day Not-Taking Sulfamethoxazole-Trimethop rim 800-160 MG 1 tablet Orally Twice a day for 7 days 08/27/2021 Not-Taking Ventolin HFA 108 (90 Base) MCG/ACT 2 puffs as needed Inhalation every 4 hrs for 30 days 04/18/2018 Not-Taking Cephalexin 500 MG 1 capsule Orally 2 times a day for 5 days 02/19/2022 Not-Takin g Aspirin Adult Low Strength 81 MG 1 tablet Orally Once a day for 30 day(s) Active Chester 3 1000 MG 1 capsule Orally Onc e a day Active Vitamin C 500 MG as directed Orally Active Nitrofurantoin Monohyd Macro 100 MG 1 capsule with food Orally every 12 hrs for 5 day(s) Not-Taking Encounters Encounter Location Date Provider Diagnosis Albaro Orona MD [address] [place] [phone] 10/18/2024 Albaro Orona UTI (urinary tract infection) N39.0 Assessments Encounter Date Diagnosis (ICD Code) Assessment Notes Treatment Notes Treatment Clinical Notes Section Notes 10/18/2024 UTI (urinary tract infection) (ICD-10 - N39.0) Plan Of Treatment Pending Test Test Name Order Date UA ClnCatch+Micro w/rflx Cult 10/18/2024 Next Appt Details Provider Name:Albaro cedeño, 01/22/2025 01:30:00 PM, [address] [place] [address], [phone], Provider Name:Albaro cedeño, 05/23/2025 07:30:00 AM, [address] [place] [address], [phone], Provider Name:Albaro cedeño, 05/30/2025 01:30:00 PM, [address] [place] [address], [phone], Provider Name:Albaro cedeño, 11/14/2025 06:45:00 AM, [address] [place] [address], [phone], Provider Name:Albaro cedeño, 11/21/2025 01:00:00 PM, [address] [place] [address], [phone], Progress Notes * Rekha SHARMA PDOB:1940 (84 yo F)Acc No.[id number]:10/18/2024 Progress Note Patient: Rekha MEAD Provider: Suri Oroan MD :1940 A ge:84 Y S ex:Female Date:10/18/2024 Address: [place] , [phone] Subjective: * Chief Complaints: * 1 . after Care u/a. * Medical History: * Medications: T aking Vitamin C 500 MG Capsule as directed Orally , Taking Aspirin Adult Low Strength 81 MG Tablet Delayed Release 1 tablet Orally Once a day , Taking Chester 3 1000 MG Capsule 1 capsule Orally Once a day , Taking Simvastatin 40 mg Tablet TAKE 1 TABLET DAILY orally daily , Taking Valsartan-hydroCHLOROthiazide 320-25 MG Tablet 1 tablet Orally Once a day , Taking Metoprolol Succinate ER 50 mg Tablet Extended Release 24 Hour TAKE 1 TABLET DAILY y mouth daily , Not-Taking/PRN Nitrofurantoin Monohyd Macro 100 MG Capsule 1 capsule with food Orally every 12 hrs , Not-Taking/PRN Ventolin HFA 108 (90 Base) MCG/ACT Aerosol Solution 2 puffs as needed Inhalation every 4 hrs , Not-Taking/PRN Cephalexin 500 MG Capsule 1 capsule Orally 2 times a day , Not-Taking/PRN Vitamin B12 1000 mg Tablet 1 tablet Orally Once a day , Not- Taking/PRN Sulfamethoxazole-Trimethoprim 800-160 MG Tablet 1 tablet Orally Twice a day , Not-Taking/PRN Furosemide 20 MG Tablet 1 tablet Orally Once a day , Not- Taking/PRN ProAir HFA 108 (90 Base) MCG/ACT Aerosol Solution 2 puffs as needed Inhalation every 4 hrs , Not-Taking/PRN Symbicort 160-4.5 MCG/ACT Aerosol 2 puffs Inhalation Twice a day Objective: * Vitals: Assessment: * Assessment: 1. U TI (urinary tract infection) - N39.0 (Primary) Plan: * Treatment: * * The named appointment provid er may or may not be the originator of this progress note, and it is not deemed complete until electronically signed by the appointment provider. Sign off status: Pending * Provider: Suri Orona MD Date: 0 10/18/2024 Generated for Printi ng/Rylie/Olamideitting on: 0 11/26/2024 11:43 AM EDT
--- OUTSIDE RECORDS SUMMARY | 2024-11-08 03:30 | XMS_ITS ---
Author Organization Albaro Orona MD Address [address] [place], [place] [id number] Care Team Providers Care After School Program Director Name Role Phone TomiAlbaro alexandre Primary Care Provider [phone] Results Component Value Reference Range Notes Complete Blood Count Auto Di ff Reviewed date:11/22/2024 09:25:13 AM Interpretation:11-20-2024 Performing Lab:[facility], [address] [place] [phone] Notes/Report: White Blood Count 6.3 4.8-10.8 X10*3/uL [...] NRBC Abs Auto 0.000 0.0-0.012 X10*3/uL Comprehensive [place]. Panel Fa st Reviewed date:11/08/2024 04:43:19 PM Interpretation: Performing Lab:[facility], [address] [place] [phone] Notes/Report: Sodium 145 135-145 mmol/L Potassium 4.0 [...] Panel Reviewed date:11/08/2024 04:35:56 PM Interpretation: Performing Lab:[facility], [address] [place] [phone] Notes/Report: Triglycerides 91 <150 mg/dL Desirable Triglyceride: [...] A1c Reviewed date:11/08/2024 04:35:48 PM Interpretation: Performing Lab:[facility], [address] [place] [phone] Notes/Report: Hemoglobin A1c % 5.0 <6.0 % [...] average glucose, using the formula of the Y8Y-Afvwuud Average Glucose study (ADAG), Diabetes Care, Vol.31,#8, Sep. 2007 REASON FOR VISIT yearly fasting labs, Getting flu vac at work Encounters Encounter Location Date Provider Diagnosis Albaro Orona MD [address] [place] [address] Drive [address] [place], [place] [phone] 11/08/2024 Albaro Orona Blood tests for rout [...] Details Provider Name:Albaro cedeño, 01/22/2025 01:30:00 PM, [address] [place] [address], [address], [id number], Provider Name:Albaro cedeño, 05/23/2025 07:30:00 AM, [address] [place] [address], [address], [phone], Provider Name:Albaro cedeño, 05/30/2025 01:30:00 PM, [address] [place] [address], [address], [id number], Provider Name:Albaro cedeño, 11/14/2025 06:45:00 AM, [address] [place] [address], [address], [phone], Provider Name:Albaro cedeño, 11/21/2025 01:00:00 PM, [address] [place] [address], [phone], Progress Notes * SAVANNARekha PDOB:1940 (84 yo F)Acc No.[id number]:11/08/2024 Progress Note Patient: Rekha MEAD Provider: Suri Orona MD :1940 A ge:84 Y S ex:Female Date:11/08/2024 Address:[id number] Subjective: * Chief Complaints: * 1 . [...] - 11/08/2024 07:30 AM) L AB: Comprehensive [place]. Panel Fast (Collection Date & Time - [...] - 11/08/2024 07:30 AM) L AB: Comprehensive [place]. Panel Fast (Collection Date & Time - [...] - 11/08/2024 07:30 AM) L AB: Comprehensive [place]. Panel Fast (Collection Date & Time - [...] - 11/08/2024 07:30 AM) L AB: Comprehensive [place]. Panel Fast (Collection Date & Time - [...] 11/08/2024 Generated for Adelina shane/Rylie/Olamideitting on: 0 11/26/2024 11:42 AM EDT
--- OUTSIDE RECORDS SUMMARY | 2024-11-20 09:00 | XMS_ITS ---
Author Organization Albaro Orona MD Address [address] [place] [phone] Care Team Providers Care Tank Insulator Rubber Name Role Phone Albaro Orona Primary Care [...] Location Date Provider Diagnosis Albaro Orona MD [address] [place] [address] Drive [address] [place], [place] [phone] 11/20/2024 Albaro Orona Annual physical exam Z00.00 [...] Reason: Provider Name:Albaro cedeño, 01/22/2025 01:30:00 PM, [address] [place] [address], [address], [place], [place], [phone], Provider Name:Albaro cedeño, 05/23/2025 07:30:00 AM, [address] [place] [address], [address], [place], [place], [phone], Provider Name:Albaro Martin ier, 05/30/2025 01:30:00 PM, [address], [address], [place], [phone], Provider Name:Albaro Martin ier, 11/14/2025 06:45:00 AM, [address], [address], [place], [phone], Provider Name:Albaro Martin ier, 11/21/2025 01:00:00 PM, [address], [address], [place], [phone], Progress Notes * Rekha SHARMA PDOB:1940 (84 yo F)Acc No.[id number]:11/20/2024 Progress Notes Patient: Rekha MEAD Provider: Suri Orona MD :1940 A ge:84 Y S ex:Female Date:11/20/2024 Address: [address] [place], [id number] Subjective: * Chief Complaints: * a nnual visit / must see CBCFlu vaccine was given at work * HPI: D epression Screening: PHQ-9 L [...] d enies. H eadache?denies. * Medical History: * Surgical History: * Hospitalization/Major Diagno stic Procedure: * Family History: F ather: 51 yrs, diagnosed with Cancer. M other: 68 yrs. 1 son(s) , 2 daughter(s) - healthy. . Mother-[place] 2 brothers - Kaita had stroke and Victor M had lung [...] part-time. Pets: one dog. * Medications: T akingAspirin Adult Low Strength 81 MG Tablet Delayed Release 1 tablet Orally Once a day Simvastatin 40 mg Tablet TAKE 1 TABLET DAILY orally daily Valsartan-hydroCHLOROthiazide 320-25 MG Tablet 1 tablet Orally Once a day Metoprolol Succinate ER 50 mg Tablet Extended Release 24 Hour TAKE 1 TABLET DAILY y mouth daily Taking Aspirin Adult Low Strength 81 MG Tablet Delayed Release 1 tablet Orally Once a day Taking Simvastatin 40 mg Tablet TAKE 1 TABLET DAILY orally daily Taking Valsartan-hydroCHLOROthiazide 320-25 MG Tablet 1 tablet Orally Once a day Taking Metoprolol Succinate ER 50 mg Tablet Extended Release 24 Hour TAKE 1 TABLET DAILY y mouth daily Not-Taking/PRNVitamin C 500 MG Capsule as directed Orally Nitrofurantoin Monohyd Macro 100 MG Capsule 1 [...] List reviewed and reconciled with the patientNot-Taking/PRN Vitamin C 500 MG Capsule as directed Orally Not-Taking/PRN Nitrofurantoin Monohyd Macro 100 MG Capsule [...] with the patient * Allergies: K eflex: estelita[Allergies Verified] Objective: * Vitals: H t: 60.5, Wt: 205, BMI:39.37, BP:132/60, Wt-k.99. weight is up 2 pounds since 09-11-24. * P ast Orders: L ab:Comprehensive [place]. Panel Fast (Order Date - 11/08/2024) (Collection [...] masses palpable. RECTAL EXAM: d one by director oracle. FEMALE GENITOURINARY: d one by director oracle. EXTREMITIES: n o clubbing, cyanosis, or edema. [...] Notes: waiting for her surgery 3. A nemia Notes: may need a transfusion before her [...] D epression screening Notes: negative screen * Procedure Codes: * Follow Up: 2 Months * * Sign off status: Completed true * Provider: Suri Orona MD Date: 11/20/2024 Generated for Adelina shane/Rylie/Galileosmitting on: 11/26/2024 11:42 AM EDT History and Physical Notes * [...] edema BREASTS: declined RECTAL EXAM: done by director oracle FEMALE GENITOURINARY: done by director oracle ORAL CAVITY: mucosa moist
--- OUTSIDE RECORDS SUMMARY | 2024-11-26 03:00 | XMS_ITS ---
Author Organization Albaro Orona MD Address [address] [place], [place] [phone] Care Team Providers Care Mail Clerks Supervisor Name Role Phone Albaro Orona Primary Care Provider Results Component Value Reference Range Notes Complete Blood Count Auto Di ff (Not yet reviewed by provider) Interpretation: Performing Lab:[facility], [address] [place] [phone] Notes/Report: White Blood Count 7.1 4.8-10.8 X10*3/uL [...] Location Date Provider Diagnosis Albaro Orona MD [address] [place] [phone] 11/26/2024 Albaro Orona Lymphocytosis D72.82 0 Assessments Encounter Date Diagnosis (ICD Code) Assessment Notes Treatment Notes Treatment Clinical Notes Section Notes 11/26/2024 Lymphocytosis (ICD-10 - D72.820) Plan Of Treatment Pending Test Test Name Order Date Complete Blood Count Auto Diff Next Appt Details Provider Name:Albaro cedeño, 01/22/2025 01:30:00 PM, [address] [place] [address], [phone], Provider Name:Albaro cedeño, 05/23/2025 07:30:00 AM, [address] [place] [address], [phone], Provider Name:Albaro cedeño, 05/30/2025 01:30:00 PM, [address] [place] [address], [phone], Provider Name:Albaro keatingr, 11/14/2025 06:45:00 AM, [address], [address], [place], [phone], Provider Name:Albaro Martin ier, 11/21/2025 01:00:00 PM, [address], [address], [place], [phone], Progress Notes * Rekha SHARMA PDOB:1940 (84 yo F)Acc No.[id number]:11/26/2024 Progress Note Patient: Rekha MEAD Provider: Suri Orona MD :1940 A ge:84 Y S ex:Female Date:11/26/2024 Address:[id number] Subjective: * Chief Complaints: * 1 . [...] MD Date: 0 11/26/2024 Generated for Adelina shane/Rylie/Olamideitting on: 0 11/26/2024 11:43 AM EDT
[2024-11-26 10:33] LABS: MANUAL DIFF FLAG NO
[2024-11-26 11:10] LABS: Hematocrit 29.6 % (37.0-47.0); Hemoglobin 9.0 g/dl (12.0-16.0); Imm Gran Abs Auto 0.01 X10*3/uL (0.00-0.03); Imm Gran Pct Auto 0.1 % (0.0-0.4); Lymphocytes Absolute Auto 3.6 X10*3/uL (1.2-4.9); Mean Corpuscular HGB Conc 30.4 g/dl (31.0-35.0); Mean Corpuscular Hemoglobin 30.6 pg (27.0-33.0); Mean Corpuscular Volume 100.7 fL (80.0-98.0); NRBC Abs Auto 0.000 X10*3/uL (0.0-0.012); NRBC Pct Auto 0.0 /100WBC (0.0-0.2); Platelet Count 279 X10*3/uL (160-400); Red Blood Count 2.94 X10*6/uL (4.20-5.50); White Blood Count 7.1 X10*3/uL (4.8-10.8)
--- OUTSIDE RECORDS SUMMARY | 2024-11-26 11:43 | XMS_ITS | Encounter Summary ---
Author Organization [facility] Address [address] [place] [address] Care Team Providers Care Marble Polisher Hand Name Role Phone Albaro Orona MD Primary Care Provider [phone] Reason for Visit * Reason Onset Date Comments Procedure 11/13/2024 Encounter Details Date Type Department Care Team (Late st Contact Info) Description 11/13/2024 Telephone [facility] - [facility] [address] [facility] [address] [place] [phone] Julius Ag MD [address] [place] [address] [place] [phone] Social History Tobacco Use Types Packs/Day Years [...] fax number below provided by Yovana from [facility] Urology. [facility] and made Yovana aware. * Dian Whiteside - 11/22/2024 11:43 AM EDT Spoke with yovana again, best fax number is [phone] * Bob Silva RN - 11/22/2024 11:14 [...] 10 days. Best call back number is [phone] opt 3. * Bob Silva RN - 11/13/2024 10:46 AM EDT MAY with Michael Church on 07/12/24. LVM with Yovana from Urology office to call back with the name of the procedure she is having. * Samantha Abebe - 11/13/2024 9:09 AM EDT Yovana from [facility] called and stated that the patient [...] visit note faxed over. Fax number is [phone]. She would also like a call back at [phone], option 3. documented in this encounter Plan of Treatment Upcoming Encounters Date Type Department Care Team (Late st Contact Info) Description 01/18/2025 7:15 AM EST Appointment [facility] [address] [place] [address] 02/07/2025 8:15 AM EST Office Visit Bariatric Surgery - [place] [address] [facility] [address] [place] [address] Lore Pascal PA [address] [place] [phone] documented as of this encounter Visit Diagnoses Not on filedocumented in this encounter Care Teams Marble Polisher Hand Relationship Specialty Start Date End Date Albaro Orona MD [address] [place] [address] [address] [place] [address] PCP - General Internal Medicine 06/27/24 documented as of this encounter
--- OUTSIDE RECORDS SUMMARY | 2024-11-26 11:43 | XMS_ITS | Clinical Summary ---
Author Organization [facility] Address [address] [place] [address] Care Team Providers Care Color Repairer Name Role Phone Albaro Orona MD Primary Care Provider [phone] Allergies No known active allergies Medications metoprolol [...] to complete this topic Insurance UHC Medicare [facility] Medicare Care Teams Color Repairer Relationship Specialty Start Date End Date Albaro Orona MD [address] [place] PCP - General 03/10/20
--- OUTSIDE RECORDS SUMMARY | 2024-11-26 11:43 | XMS_ITS | Patient Health Record ---
Author Organization [facility] Address [address] [place] [address] Care Team Providers Care Casting Wheel Operator Name Role Phone Albaro Orona MD Primary Care Provider Sloan Yarbrough Unavailable [phone] Reason For Referral No Information Medications Medication [...] Status Risk Notes Problem Colon cancer screening (674662321) Colon cancer screening (V76.51) Active confirmed Problem Long-term use of aspirin therapy (V58.66) Active confirmed Plan Of Treatment Future Test Test Name Order Date COLONOSCOPY 08/06/2014 Insurance Providers Payer Name Payer Address Payer Phone Subscriber Number Group Number Insured Name Patient Relationship to Insured Coverage Start Date Coverage End Date MEDICARE OF [place] [address] [place] [facility] [address] [phone] [id number] ANJEL CORRALES Self - patient is the insured [facility] [address] [place], [place] [id number] [phone] [id number] ANJEL CORRALES Self - patient is the insured Medical (General) History Medical History History ICD Code HTN Denies [place],CVA,Lung disease,renal disease Hyperlipidemia Surgical History Surgery Date(Month/Year) appendectomy tonsillectomy
--- OUTSIDE RECORDS SUMMARY | 2024-11-26 11:43 | XMS_ITS | Encounter Summary ---
Author Organization [facility] Address [address] [place] [address] Phone Care Team Providers Care Unit Assembler Name Role Phone Albaro Orona MD Primary Care Provider [phone] Reason for Visit * Reason Comments Med Refill Encounter Details Date Type Department Care Team (Late st Contact Info) Description 04/14/2023 Refill [facility] [address] [place] [phone] Adis Morrison MD [address] [place] [address], [address] [phone] Social History Tobacco Use Types Packs/Day Years [...] on filedocumented in this encounter Care Teams Unit Assembler Relationship Specialty Start Date End Date Albaro Orona MD [address] [place] PCP - General 03/10/20 documented as of this encounter
--- OUTSIDE RECORDS SUMMARY | 2024-11-26 11:44 | XMS_ITS | Clinical Summary ---
Author Organization [facility] Address [address] [place] [address] Phone Care Team Providers Care Deputy Probation Officer Name Role Phone Carol Cano MD Primary [...] Date Impaired glucose tolerance 07/12/2024 Severe obesity (CMS/[facility] V24, CMS/[facility] V28) 2024 Assessment & Plan (07/12/2024 8:39 [...] Heart failure with improved ejection fraction (HFimpEF) ([facility] V24, CMS/[facility] V28) 03/22/2024 Assessment & Plan (07/12/2024 8:39 [...] Type Department Care Team Description 11/13/2024 Telephone [facility] - [address] [place] [address] Julius Ag MD 11/09/2024 7:18 AM EDT - 11/09/2024 11:59 PM EDT Hospital Encounter [facility] CT Scan [address] [place] [phone] Gross hematuria Discharge Disposition: Home or Self Care 10/05/2024 Telephone [facility] - [address] [place] [phone] Julius Ag MD 09/28/2024 12:17 PM EDT - 09/28/2024 1:48 PM EDT Emergency [facility] Emergency [address] [place] [phone] Tae Arreola MD Complicated UTI (urinary tract infection) (Primary Dx) Discharge Disposition: Home or Self Care 09/16/2024 1:19 PM EDT - 09/16/2024 3:32 PM EDT Emergency [facility] Emergency [address] [place] [phone] Vitor Babin MD Acute hemorrhagic cystitis (Primary [...] AM EST Appointment [facility] [address] [place] [address] 02/07/2025 8:15 AM EST Office Visit Bariatric Surgery - [place] [address] [facility] [address] [place] [address] Lore Pascal PA [address] [place] [phone] Health Maintenance Due Date Last Done [...] Routine 11/09/2024 7:51 AM EDT Gross hematuria SANCHEZ URINE CULTURE TUBE STAT 09/28/2024 12:34 [...] Signed Date: 11/15/2024 16:00 ET Workstation ID: [id number] Transcribed By: Self Edit Transcribed Date: 11/15/2024 [...] Signed Date: 11/15/2024 16:00 ET Workstation ID: [id number] Transcribed By: Self Edit Transcribed Date: 11/15/2024 15:42 ET Gloria Gonzalez LEGISLATIVE AIDE IMG CT PROCEDURES Final Res ult * (ABNORMAL) Urinalysis with reflex microscopic and culture (09/28/2024 12:34 PM EDT) Only the most recent of2 resultswithin the time period is included. Specific [place] Urine 09/28/2024 1:17 PM EDT [facility] Comment:Unable to interpret due to color interference. pH, Urine 09/28/2024 1:17 PM EDT [facility] Comment:Unable to interpret due to color interference. Leukocytes, Urine 09/28/2024 1:17 PM [facility] Comment:Unable to interpret due to color interference. Nitrite, Urine 09/28/2024 1:17 PM [facility] Comment:Unable to interpret due to color interference. Protein, Urine 09/28/2024 1:17 PM [facility] Comment:Unable to interpret due to color interference. Glucose, Urine 09/28/2024 1:17 PM [facility] Comment:Unable to interpret due to color interference. Ketones, Urine 09/28/2024 1:17 PM [facility] Comment:Unable to interpret due to color interference. Urobilinogen , Urine 09/28/2024 1:17 PM [facility] Comment:Unable to interpret due to color interference. Bilirubin, Urine 09/28/2024 1:17 PM [facility] Comment:Unable to interpret due to color interference. Blood, Urine 09/28/2024 1:17 PM [facility] Comment:Unable to interpret due to color interference. RBC, Urine >4,000(H) 0 - 4 /HPF LAB URINALYSIS - AUTOMATED METHOD 09/28/2024 1:17 PM [facility] WBC, Urine 23.2(H) 0 - 4 /HPF LAB URINALYSIS - AUTOMATED METHOD 09/28/2024 1:17 PM [facility] Squamous Epithelial, Urine 30 0 - 60 /LPF LAB URINALYSIS - AUTOMATED METHOD 09/28/2024 1:17 PM [facility] Bacteria, Urine Negative Negative /HPF LAB URINALYSIS - AUTOMATED METHOD 09/28/2024 1:17 PM [facility] Hyaline Casts, Urine 0.0 0 - 3 /LPF LAB URINALYSIS - AUTOMATED METHOD 09/28/2024 1:17 PM EDT [facility] Urine Urine specimen obtained by clean catch procedure / Unknown Non-blood Collection / Unknown 09/28/2024 12:34 PM EDT 09/28/2024 12:42 PM EDT us Tae Arreola MD LAB URINE ORDERABLES Final Resul t Performing Organization Address City/[facility]/ZIP Co de Phone Number [facility] [address] [place] [address], [place] [phone] * Sanchez urine culture tube (09/28/2024 12:34 PM EDT) Only the most recent of2 resultswithin the time period is included. Extra Tube Hold for add-ons. 09/28/2024 2:01 PM EDT [facility] Comment:Auto resulted. Urine Urine specimen obtained by clean catch procedure / Unknown Non-blood Collection / Unknown 09/28/2024 12:34 PM EDT 09/28/2024 12:42 PM EDT us Tae Arreola MD LAB URINE ORDERABLES Final Resul t Performing Organization Address [facility] Co de Phone Number [facility] [address] [place] [address], [place] [phone] * Culture urine (09/28/2024 12:34 PM EDT) Only the most recent of3 resultswithin the time period is included. Culture, Urine <10,000 CFU/mL gram positive cocci, insignificant count, no further workup 09/29/2024 9:47 AM EDT [facility] Urine Urine specimen obtained by clean catch procedure / Unknown Non-blood Collection / Unknown 09/28/2024 12:34 PM EDT 09/28/2024 1:17 PM EDT us Tae Arreola MD LAB MICROBIOLOGY - GENERAL ORDER JUVENTINO Final Result Performing Organization Address City/State/[facility] Co de Phone Number [facility] [address] [place] [address], * (ABNORMAL) CBC auto differential (09/28/2024 12:14 PM EDT) Only the most recent of2 resultswithin the time period is included. WBC 7.5 4.8 - 10.8 K/mcL LAB HEMETOLOGY METHOD 09/28/2024 12:46 PM EDT [facility] RBC 2.80(L) 3.80 - 4.80 M/mcL LAB HEMETOLOGY METHOD 09/28/2024 12:46 PM EDT [facility] Hemoglobin 8.6(L) 11.5 - 16.0 g/dL LAB HEMETOLOGY METHOD 09/28/2024 12:46 PM EDT [facility] Hematocrit 27.7(L) 35.0 - 47.0 % LAB HEMETOLOGY METHOD 09/28/2024 12:46 PM EDT [facility] MCV 99.3(H) 79.0 - 98.0 FL LAB HEMETOLOGY METHOD 09/28/2024 12:46 PM EDT [facility] MCH 30.8 27.0 - 32.0 pcg LAB HEMETOLOGY METHOD 09/28/2024 12:46 PM EDT [facility] MCHC 31.0(L) 32.0 - 37.0 g/dL LAB HEMETOLOGY METHOD 09/28/2024 12:46 PM EDT [facility] RDW 13.7 11.0 - 15.0 % LAB HEMETOLOGY METHOD 09/28/2024 12:46 PM EDT [facility] Platelets 299 130 - 400 K/mcL LAB HEMETOLOGY METHOD 09/28/2024 12:46 PM EDT [facility] MPV 9.9 7.0 - 11.0 FL LAB [facility]ETOLOGY [facility] NRBC 0.0 <1.0 % LAB HEMETOLOGY METHOD 09/28/2024 12:46 PM [facility] NRBC Absolute 0.00 <0.10 K/mcL LAB HEMETOLOGY METHOD 09/28/2024 12:46 PM [facility] Neutrophils Relative 63.5 % LAB HEMETOLOGY METHOD 09/28/2024 12:46 PM [facility] Lymphocytes Relative 25.6 % LAB HEMETOLOGY METHOD 09/28/2024 12:46 PM [facility] Monocytes Relative 7.7 % LAB HEMETOLOGY METHOD 09/28/2024 12:46 PM [facility] Eosinophils Relative 2.3 % LAB HEMETOLOGY METHOD 09/28/2024 12:46 PM [facility] Basophils Relative 0.5 % LAB HEMETOLOGY METHOD 09/28/2024 12:46 PM [facility] Immature Granulocytes Relative 0.4 % LAB HEMETOLOGY METHOD 09/28/2024 12:46 PM [facility] Neutrophils Absolute 4.79 1.50 - 7.00 K/mcL LAB HEMETOLOGY METHOD 09/28/2024 12:46 PM [facility] Lymphocytes Absolute 1.93 1.00 - 5.00 K/mcL LAB HEMETOLOGY METHOD 09/28/2024 12:46 PM [facility] Monocytes Absolute 0.58 0.20 - 1.00 K/mcL LAB HEMETOLOGY METHOD 09/28/2024 12:46 PM [facility] Eosinophils Absolute 0.17 0.00 - 0.50 K/mcL LAB HEMETOLOGY METHOD 09/28/2024 12:46 PM [facility] Basophils Absolute 0.04 0.00 - 0.20 K/mcL LAB HEMETOLOGY METHOD 09/28/2024 12:46 PM EDT [facility] Immature Granulocytes Absolute 0.03 0.00 - 0.03 K/[facility] LAB HEMETOLOGY METHOD 09/28/2024 12:46 PM EDT [facility] Blood Venous blood specimen / Unknown Venipuncture / Unknown 09/28/2024 12:14 PM EDT 09/28/2024 12:36 PM EDT us Tae Arreola MD LAB BLOOD ORDERABLES Final Resul t [facility] [address] [place] [address], [place] [phone] * (ABNORMAL) Basic metabolic panel (09/28/2024 12:14 PM EDT) Only the most recent of3 resultswithin the time period is included. Sodium 142 133 - 145 mmol/L LAB CHEMISTRY METHOD 09/28/2024 1:05 PM [facility] Potassium 4.8 3.5 - 5.5 mmol/L LAB CHEMISTRY METHOD 09/28/2024 1:05 PM [facility] Chloride 111(H) 96 - 110 mmol/L LAB CHEMISTRY METHOD 09/28/2024 1:05 PM [facility] CO2 27 21 - 32 mmol/L LAB CHEMISTRY METHOD 09/28/2024 1:05 PM [facility] Anion Gap 4 3 - 11 LAB CHEMISTRY METHOD 09/28/2024 1:05 PM [facility] Glucose 98 70 - 100 mg/dL LAB CHEMISTRY METHOD 09/28/2024 1:05 PM [facility] BUN 33(H) 5 - 25 mg/dL LAB CHEMISTRY METHOD 09/28/2024 1:05 PM [facility] Creatinine 1.57(H) 0.50 - 1.10 mg/dL LAB CHEMISTRY METHOD 09/28/2024 1:05 PM EDT [facility] eGFR 33(L) >=60 mL/min/1. 73m2 LAB CHEMISTRY METHOD 09/28/2024 1:05 PM EDT [facility] Comment:Calculation based on the Chronic Kidney Disease Epidemiology Collaboration (CKD-EPI) equation refit without adjustment for race. BUN/Creatinine Ratio 21.0 LAB CHEMISTRY METHOD 09/28/2024 1:05 PM EDT [facility] Calcium 9.4 8.5 - 10.5 mg/dL LAB CHEMISTRY METHOD 09/28/2024 1:05 PM EDT [facility] Blood Venous blood specimen / Unknown Venipuncture / Unknown 09/28/2024 12:14 PM EDT 09/28/2024 12:36 PM EDT Tae Arreola MD LAB BLOOD ORDERABLES Final Resul t [facility] [address] [place] [address], [place] [phone] * Blood Culture, Peripheral #1 (09/16/2024 3:08 PM EDT) Only the most recent of2 resultswithin the time period is included. Culture, Blood No growth at 5 days 09/21/2024 4:01 PM EDT [facility] Blood Venous blood specimen / Unknown Venipuncture / Unknown 09/16/2024 3:08 PM EDT 09/16/2024 3:08 PM EDT Vitor Babin MD LAB MICROBIOLOGY - GENERAL ORDER JUVENTINO Final Result [facility] [address] [place] [address], [place] [phone] * Lactate, with Reflex (09/16/2024 2:19 PM EDT) [facility] LACTIC ACID 0.9 0.4 - 2.0 mmol/L LAB CHEMISTRY METHOD 09/16/2024 3:00 PM EDT [facility] Blood Venous blood specimen / Unknown Venipuncture / Unknown 09/16/2024 2:19 PM EDT 09/16/2024 2:26 PM EDT us Vitor Babin MD LAB BLOOD ORDERABLES Final Resul t [facility] [address] [place] [address], [place] [phone] * (ABNORMAL) Urinalysis with reflex microscopic (09/14/2024 7:39 AM EDT) [facility] Specific [place] Urine 1.025 1.003 - 1.030 LAB URINALYSIS - AUTOMATED METHOD 09/14/2024 8:18 AM [facility] pH, Urine 5.5 5.0 - 8.0 pH LAB URINALYSIS - AUTOMATED METHOD 09/14/2024 8:18 AM [facility] Leukocytes, Urine Negative Negative LAB URINALYSIS - AUTOMATED METHOD 09/14/2024 8:18 AM [facility] Nitrite, Urine Negative Negative LAB URINALYSIS - AUTOMATED METHOD 09/14/2024 8:18 AM [facility] Protein, Urine >=300(A) <=Trace mg/dL LAB URINALYSIS - AUTOMATED METHOD 09/14/2024 8:18 AM [facility] Glucose, Urine 100(A) Negative mg/dL LAB URINALYSIS - AUTOMATED METHOD 09/14/2024 8:18 AM [facility] Ketones, Urine Trace(A) Negative mg/dL LAB URINALYSIS - AUTOMATED METHOD 09/14/2024 8:18 AM [facility] Urobilinogen, Urine 1.0 0.2 - 1.0 mg/dL LAB URINALYSIS - AUTOMATED METHOD 09/14/2024 8:18 AM EDT [facility] Bilirubin, Urine Small(A) Negative LAB URINALYSIS - AUTOMATED METHOD 09/14/2024 8:18 AM EDT [facility] Blood, Urine Large(A) Negative LAB URINALYSIS - AUTOMATED METHOD 09/14/2024 8:18 AM T [facility] RBC, Urine >100(H) 0 - 4 /HPF 09/14/2024 8:18 AM EDT [facility] WBC, Urine 4 0 - 4 /HPF 09/14/2024 8:18 AM EDT [facility] Squamous Epithelial, Urine 3 0 - 60 /LPF 09/14/2024 8:18 AM [facility] Bacteria, Urine Many(A) Negative /HPF 09/14/2024 8:18 AM EDT [facility] Urine Urine specimen obtained by clean catch procedure / Unknown Non-blood Collection / Unknown 09/14/2024 7:39 AM EDT 09/14/2024 7:59 AM EDT Gloria Gonzalez LEGISLATIVE AIDE LAB URINE ORDERABLES Final Result [facility] [address] [place] [address], * JULISSA DEXA AXIAL SKELETON (01/01/2019 4:52 PM EST) Anatomical Region Laterality Modality Mammography 01/01/2019 7:10 AM EST Narrative 01/01/2019 4:52 PM EST [facility] Diagnostic Imaging Department [address] [place] [address] Patient: REKHA SHARMA Dino /Age/Sex: 1940 78 - F Unit#: [id number] Location/Status: SPDIMAM/REG CLI Mnemonic[facility] Ordering Physician: CAROL CANO MD [facility] Dexa Axial Skeleton - 01/01/19 - 0386 History: Low estrogen state due to menopause. Comparison: 01/01/13 Findings: Bone densitometry is performed utilizing dual energy x-ray absorptiometry (DXA) in the [employer] unit. The lumbar spine and proximal femora [...] Major Osteoporotic 9.6% Hip 1.7%. IMPRESSION: Osteopenia. [id number] Dictating Physician: NELLIE TRIANA MD Electronically Signed by: NELLIE TRIANA MD Dic Date/Time: 01/01/191649 Sign date/Time: 01/01/191651 Procedure Note Nellie Triana - 02/16/2022 [facility] Diagnostic Imaging Department [address] [place] [address] Patient: REKHA SHARMA Dino /Age/Sex: 1940 - 78 - F Unit#: [id number] Location/Status: SPDIMAM/REG CLI Mnemonic/[facility] Ordering Physician: CAROL CANO MD [facility] Dexa Axial Skeleton - 01/01/19 9620 History: Low estrogen state due to menopause. Comparison: 01/01/13 Findings: Bone densitometry is performed utilizing dual energy x-ray absorptiometry(DXA) in the [employer] unit. The lumbar spine and proximal femora [...] Fracture: Major Osteoporotic 9.6%Hip 1.7%. IMPRESSION: Osteopenia. [id number] Dictating Physician: NELLIE TRIANA MD Electronically Signed by: NELLIE TRIANA MD Dic Date/Time: 01/01/191649 Sign date/Time: 01/01/19 165 us Carol Cano MD IMG BI PROCEDURES Final Res ult from Last 3 Months or Most Recently Relevant to Health Maintenance Insurance [employer] MEDICARE Care Teams Deputy Probation Officer Relationship Specialty Start Date End Date Carol Cano MD [address] [place] [address] [address] [place] [address] PCP - General Internal Medicine 06/27/24
--- OUTSIDE RECORDS SUMMARY | 2024-11-26 11:44 | XMS_ITS | Patient Health Record ---
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 Name Role Phone Yeyo Albaro Primary Care Provider Allergies Allergen (clinical drug ingredient) Drug/Non Drug Allergy documented on EMR Reaction Allergy Type Onset Date Status Keflex rash Drug Allergy Active Results Component Value Reference Range Notes Complete Blood Count Auto Di ff Reviewed date:01/16/2024 12:31:19 PM Interpretation: Performing Lab:[facility], [address] [place] [phone] Notes/Report: White Blood Count 7.7 4.8-10.8 X10*3/uL [...] Nitrogen Reviewed date:01/16/2024 12:33:27 PM Interpretation: Performing Lab:[address] [address] Notes/Report: Blood Urea Nitrogen 28 9-16 mg/dL Liver Panel Reviewed date:05/08/2024 12:12:25 PM Interpretation: Performing Lab:[address] [phone] Notes/Report: Bilirubin Total 0.5 0.0-1.0 mg/dL Bilirubin Direct 0.2 0.0-0.5 mg/dL Aspartate Amino Transferase 41 5-31 U/L Alanine Aminotransferase 29 0-31 U/L Total Protein 7.4 6.5-8.0 g/dL Albumin Level 3.9 3.5-5.0 g/dL Alkaline Phosphatase 89 39-117 U/L Glucose Fasting Reviewed date:05/08/2024 12:27:13 PM Interpretation: Performing Lab:[address] [phone] Notes/Report: Glucose Fasting 99 60-99 mg/dL Lipid Panel with Reflex Reviewed date:05/08/2024 12:14:36 PM Interpretation: Performing Lab:[facility], [address] [place] [phone] Notes/Report: Triglycerides 138 <150 mg/dL Desirable Triglyceride: [...] A1c Reviewed date:05/08/2024 12:10:43 PM Interpretation: Performing Lab:[facility], [address] [place] [phone] Notes/Report: Hemoglobin A1c % 5.8 <6.0 % [...] average glucose, using the formula of the O8P-Sbdmshx Average Glucose study (ADAG), Diabetes Care, Vol.31,#8, 2007 Complete Blood Count Auto Di ff Reviewed date:11/22/2024 09:25:13 AM Interpretation:11-20-2024 Performing Lab:[facility], [address] [place] [phone] Notes/Report: White Blood Count 6.3 4.8-10.8 X10*3/uL [...] NRBC Abs Auto 0.000 0.0-0.012 X10*3/uL Comprehensive [place]. Panel Fa st Reviewed date:11/08/2024 04:43:19 PM Interpretation: Performing Lab:[facility], [address] [place] [phone] Notes/Report: Sodium 145 135-145 mmol/L Potassium 4.0 [...] Panel Reviewed date:11/08/2024 04:35:56 PM Interpretation: Performing Lab:[facility], [address] [place] [phone] Notes/Report: Triglycerides 91 <150 mg/dL Desirable Triglyceride: [...] A1c Reviewed date:11/08/2024 04:35:48 PM Interpretation: Performing Lab:[facility], [address] [place] [phone] Notes/Report: Hemoglobin A1c % 5.0 <6.0 % [...] average glucose, using the formula of the R6U-Ovaaiwp Average Glucose study (ADAG), Diabetes Care, Vol.31,#8, 2007 Complete Blood Count Auto Di ff (Not yet reviewed by provider) Interpretation: Performing Lab:[facility], [address] [place] [phone] Notes/Report: White Blood Count 7.1 4.8-10.8 X10*3/uL [...] 0.0-0.2 /100WBC Neutrophils Absolute Auto 2.8 2.0-8.3 x10*3/uL Imm Gran Abs Auto 0.01 0.00-0.03 X10*3/uL Lymphocytes Absolute Auto 3.6 1.2-4.9 X10*3/uL Monocytes Absolute Auto 0.5 0.1-1.2 X10*3/uL Eosinophils Absolute Auto 0.2 0.0-0.4 X10*3/uL Basophils Absolute Auto 0.1 0.0-0.2 X10*3/uL NRBC Abs Auto 0.000 0.0-0.012 X10*3/uL Pathology Reviewed date:12/26/2023 12:38:05 PM Interpretation: Performing Lab:[facility], [address] [place] [phone] Notes/Report: ------ Name: Rekha Sharma Age/Sex: 83/F : 1940 Unit#: [id number] Attend Dr: Gloria Gonzalez [facility] Re12/21/23 Status : DEP REF Location: [facility] Disch: ------ SPEC : [id number] RECD : 12/22/23 STATUS: DASHA INGRAM NUM: [id number] ERIC: 12/21/[address] [facility] [address]: Gloria Gonzalez [facility] ENTERED: 12/22/23- 19 SP TYPE: Cytology OTHR DR: Albaro [...] To: Albaro Orona MD [facility] [address] [place] [address] [address] [place] [address] Gloria Gonzalez [facility] [address] [place] [address] Dr. [address] [place] [address] [email or web address] ------ Signed (signature on file) Ernie Devi MD 12/26/23 1130 ------ END OF REPORT MAMMOGRAM DIGITAL BILATERAL SCREEN Reviewed date:01/17/2024 12:47:57 PM Interpretation:Negative Performing Lab: Notes/Report: Negative Hold Gold Reviewed date:05/08/2024 12:10:26 PM Interpretation: Performing Lab:[facility], [address] [place] [phone] Notes/Report: Hold Gold See Note Specimen held untested for 24 hours; Call to request Chemistry testing. Pathology Reviewed date:06/22/2024 03:50:26 PM Interpretation: Performing Lab:[facility], [address] [place] [phone] Notes/Report: ------ Name: Rekha Sharma e/Sex: 84/F : 1940 Unit#: [id number] Attend Dr: Gloria Gonzalez [facility] Re06/20/24 Status : DEP REF Location: [facility] Disch: ------ SPEC : [id number] REC STATUS: DASHA INGRAM NUM: [id number] ERIC: 06/20/24-[address] [facility] [address]: Gloria Gonzalez [facility] ENTERED: 06/21/24- 13 SP TYPE: Cytology [...] To: Albaro Orona MD [facility] [address] [place] [address] [address] [place] [address] Gloria Gonzalez [facility] [address] [place] [address]. [address] [place] [address] [email or web address] ------ Signed (signature on file) Ernie Devi MD 06/22/24 0810 ------ END OF REPORT Urine Culture Reviewed date:06/24/2024 01:59:04 PM Interpretation: Performing Lab:[facility], [address] [place] [phone] Notes/Report: O:PROMIR Proteus mirabilis Urine Culture Quant [...] Pathology Reviewed date:09/04/2024 12:48:15 PM Interpretation: Performing Lab:[facility], [address] [place] [phone] Notes/Report: ------ Name: Rekha Sharma e/Sex: 84/F : 1940 Unit#: [id number] Attend Dr: Gloria Gonzalez [facility]- Re08/30/24 Status : DEP REF Location: [facility] Disch: ------ SPEC : [id number] RECD : 09/03/24 STATUS: DASHA INGRAM NUM: [id number] ERIC: 08/30/[address] [facility] [address]: Gloria Gonzalez [facility] ENTERED: 09/03/24 32 SP TYPE: Cytology [...] developed and their performance characteristics determined by [facility]. They have not been cleared or appr yeni by the U.S. Food and Drug Administration (FDA). However, the FDA has determined that such clearance or approval is not necessary. This laboratory is certified under the Clinical Laboratory Improvement Amendments of 1988 (CLIA) as qualified to perform high comp lexity clinical laboratory testing. Copies To: Albaro Orona MD [facility] [address] [place] [address] [address] [place], [place] [phone] Gloria Gonzalez [facility] [address] [place] [address] [address] [place] [address] [email or web address] CONTINUED ON NEXT PAGE ------ Name: Rekha Sharma e/Sex: 84/F : 1940 Unit#: [id number] Attend Dr: Gloria Gonzalez [facility] Re08/30/24 Status : DEP REF Location: [facility] Disch: ------ SPEC : [id number] RECD : 09/03/24 STATUS: DASHA INGRAM NUM: [id number] ERIC: 08/30/[address] [facility] [address]: Gloria Gonzalez [facility] ENTERED: 09/03/24- 32 SP TYPE: Cytology OTHR DR: Albaro Orona MD ORDERED: Cyto-enhanced ------ Signed (signature on file) Maegan Sandrine 09/03/24 1453 ------ END OF REPORT Urine Culture Reviewed date:09/03/2024 12:50:13 PM Interpretation: Performing Lab:[facility], [address] [place] [address], [place] [address] Notes/Report: Urine Culture Report Result Urine Culture [...] Provider Speciality Internal M edicine Referred Provider [facility], [facility] Referred Provider Specialty Physical The rapist [...] Administered TDaP Unknown 12/27/2016 Administered Given at [facility]ingrix IM Intramuscular 04/05/2018 Administered pt was given the vaccine at [facility] [place] Shingrix Unknown 06/26/2018 Administered [facility] Fluarix Quadrivalent Unknown 01/27/2019 Administered [employer] Influenza High Dose Unknown 12/10/2019 Administered at work Covid Vaccine Unknown 04/12/2020 Administered Pfizer Influenza High Dose Unknown 11/05/2020 Administered At work through [employer] SARS-COV-2 Pfizer Unknown 05/03/2020 Administered SARS-COV-2 Pfizer [...] Problem Status W/U Status Risk Notes Problem 66944501 Lymphocytosis (D72.820) Active confirm ed Problem 688093984 Tubular adenoma (D36.9) Active confir med Problem 92700610 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) Active confirmed Problem 84650369 Coronary artery disease (I25.10) Active confirmed Problem 24855182 Essential hypert ension (I10) Active confirmed Problem 77695431 Type 2 diabetes mellitus without complication (E11.9) Active confirmed Problem 672566761 Morbid obesity d ue to excess calories (E66.01) Active confirmed Problem 76786804 Sciatica, unspec ified laterality (M54.30) Active confirmed Problem 65299924 Sciatica of left side (M54.32) Active confirmed Problem 327201409 Pure hypercholesterolemia (E78.00) Active confirmed Problem 162102787 PVD (peripheral vascular disease) (I73.9) Active confirmed Problem 337232677 Osteopenia deter mined by x-ray (M85.80) Active confirmed Problem 517665014 Mild intermitten t asthmatic bronchitis with acute [...] Albaro Orona MD [address] [place] [id number] 01/16/2024 Albaro Orona Elevated BUN R79.9 Albaro Orona MD [address] [place] [id number] 05/08/2024 Albaro Orona Type 2 diabetes azra itus without complication E11.9 and Pure hypercholesterolemia E78.00 Albaro Orona MD [address] [place] [id number] 11/08/2024 Albaro Orona Blood tests for rout ine general physical examination Z00.00 ; Type 2 diabetes mellitus without complication E11.9 ; Essential hypertension I10 ; Pure hypercholesterolemia E78.00 and Lymphocytosis D72.820 Albaro Orona MD [address] [place] [address] [id number] 11/26/2024 Albaro Orona Lymphocytosis D72.82 0 Albaro Orona MD [address] [place] [id number] 05/15/2024 Albaro Orona Essential hypertensi on I10 ; Sciatica, unspecified laterality M54.30 and Type 2 diabetes mellitus without complication E11.9 Albaro Orona MD [address] [place] [address] [id number] 09/11/2024 Albaro Orona Type 2 diabetes azra itus without complication E11.9 ; Coronary atherosclerosis due to lipid rich plaque I25.83 ; Essential hypertension I10 and Preop examination Z01.818 Albaro Orona MD [address] [place] [id number] 11/20/2024 Albaro Orona Annual physical exam Z00.00 ; 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 ; Anemia D64.9 ; Murmur, cardiac R01.1 ; Type 2 diabetes mellitus without complication E11.9 ; Essential hypertension I10 ; Pure hypercholesterolemia E78.00 and Depression screening Z13.31 Albaro Orona MD [address] [place] [address] [id number] 06/28/2024 Albaro Orona MD [address] [place] [id number] 08/06/2024 Albaro Orona MD [address] [place] [address] [id number] 10/01/2024 Albaro Orona MD [address] [id number] 10/04/2024 Albaro Orona Assessments Encounter Date Diagnosis (ICD Code) Assessment Notes Treatment Notes Treatment Clinical Notes Section Notes 01/16/2024 Elevated BUN (ICD-10 - R79.9) 05/08/2024 Type 2 diabetes mellitus without complication (ICD-10 - E11.9) 11/08/[address] ine general physical examination (ICD-10 - Z00.00) 11/26/2024 Lymphocytosis (ICD-1 0 - D72.820) 05/15/2024 Essential hypertensi on (ICD-10 - I10) doing well 05/15/2024 Sciatica, unspecifie d laterality (ICD-10 - M54.30) referral to physical therapy. [facility] 09/11/2024 Type 2 diabetes mellitus without [...] (EKG) 04/13/2018 Complete Blood Count Auto Diff 5 Microalbumin, Random 11/08/2024 UA ClnCatch+Micro w/rflx Cult 11/08/2024 Next Appt Details Provider Name:Albaro cedeño, 01/22/2025 01:30:00 PM, [address] [place] [address], [address], [id number], Provider Name:Albaro cedeño, 05/23/2025 07:30:00 AM, [address] [place] [address], [address], [id number], Provider Name:Albaro keatingr, 05/30/2025 01:30:00 PM, [address] [place] [address], [address], [id number], Provider Name:Albaro keatingr, 11/14/2025 06:45:00 AM, [address] [place] [address], [id number], Provider Name:Albaro keatingr, 11/21/2025 01:00:00 PM, [address] [place] [address], [address], [id number], Insurance Providers Payer Name Payer Address Payer Phone Subscriber Number Group Number Insured Name Patient Relationship to Insured Coverage Start Date Coverage End Date [facility] are [employer] [address] [address] [place] [address] [id number] Rekha Sharma Self - patient is the insured MEDICARE [employer] [address] [place] [id number] Zachary Rekha Self - patient is the insured Medical (General) History Medical History History ICD Code has not had colonoscopy - 20 12 discussed again 2012; refused 2013; colonoscopy - done 11/13/14 w/Dr. 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 Gary Moreno , 2013
== END 2024-11-26 10:28 | disposition home or self-care (01) ==
LOC: HO.LNP 10:27
PROVIDERS: Visit Provider Internal Medicine
DX: D72.820 Lymphocytosis (symptomatic) (principal)
CPT/HCPCS: 85025

== ENCOUNTER 2024-11-29 15:12 | Outpatient (AMB) | payer MEDICARE, SELFPAY ==
--- OUTSIDE RECORDS SUMMARY | 2024-10-04 05:30 | XMS_ITS ---
Author Organization Albaro Orona MD Address [address] [place] [address] [phone] Care Team Providers Care Tire Spotter Name Role Phone YeyoVandanan Primary Care Provider REASON FOR VISIT ER Visit from [facility] rec'd Encounters Encounter Location Date Provider Diagnosis Albaro Orona MD 10 [facility] [address] [place] [address] [phone] 10/04/2024 Albaro Orona Plan Of Treatment Next Appt Details Provider Name:Albaro cedeño, 01/22/2025 01:30:00 PM, [address] [place] [address], [address] [place] [address], [phone], Provider Name:Albaro cedeño, 05/23/2025 07:30:00 AM, [address] [place] [address], [address] [place] [address], [phone], Provider Name:Albaro cedeño, 05/30/2025 01:30:00 PM, [address] [place] [address], [address], [phone], Provider Name:Albaro Martin ier, 11/14/2025 06:45:00 AM, [address], [address], [place], [phone], Provider Name:Albaro Martin ier, 11/21/2025 01:00:00 PM, [address], [address], [place], [phone], Progress Notes * Rekha SHARMA PDOB:1940 (84 yo F)Acc No.[id number]:10/04/2024 Patient: Rekha MEAD Dino :1940 A ge:84 Y S ex:Female Address:[address] [place] [address] * true * Date: Generated for Adelina shane/Rylie/Galileosmitting on: 04:33 PM EDT
--- OUTSIDE RECORDS SUMMARY | 2024-10-18 04:30 | XMS_ITS ---
Author Organization Albaro Orona MD Address [address] [place] [phone] Care Team Providers Care Lathe Machine Operator Name Role Phone Albaro Orona Primary Care Provider [phone] REASON FOR VISIT after Care u/a Medications [...] Once a day for 30 day(s) Active [place] 3 1000 MG 1 capsule Orally Onc e a day Active Vitamin C 500 MG as directed Orally Active Nitrofurantoin Monohyd Macro 100 MG 1 capsule with food Orally every 12 hrs for 5 day(s) Not-Taking Encounters Encounter Location Date Provider Diagnosis Albaro Orona MD [address] [place] [address] [phone] 10/18/2024 Albaro Orona UTI (urinary tract infection) N39.0 Assessments Encounter Date Diagnosis (ICD Code) Assessment Notes Treatment Notes Treatment Clinical Notes Section Notes 10/18/2024 UTI (urinary tract infection) (ICD-10 - N39.0) Plan Of Treatment Pending Test Test Name Order Date UA ClnCatch+Micro w/rflx Cult 10/18/2024 Next Appt Details Provider Name:Albaro cedeño, 01/22/2025 01:30:00 PM, [address] [place] [address], [phone], Provider Name:Albaro cedeño, 05/23/2025 07:30:00 AM, [address] [place] [address], [phone], Provider Name:Albaro cedeño, 05/30/2025 01:30:00 PM, [address] [place] [address], [phone], Provider Name:Albaro cedeño, 11/14/2025 06:45:00 AM, [address] [place] [address], [phone], Provider Name:Albaro cedeño, 11/21/2025 01:00:00 PM, [address] [place] [address], [phone], Progress Notes * Rekha SHARMA PDOB:1940 (84 yo F)Acc No.[id number]:10/18/2024 Progress Note Patient: Rekha MEAD Provider: Suri Orona MD :1940 A ge:84 Y S ex:Female Date:10/18/2024 Address: [place] , [id number] Subjective: * Chief Complaints: * 1 . after Care u/a. * Medical History: * Medications: T aking Vitamin C 500 MG Capsule as directed Orally , Taking Aspirin Adult Low Strength 81 MG Tablet Delayed Release 1 tablet Orally Once a day , Taking [place] 3 1000 MG Capsule 1 capsule Orally [...] MD Date: 0 10/18/2024 Generated for Printi ng/Rylie/Valeria on: 1 04:34 PM EDT
--- OUTSIDE RECORDS SUMMARY | 2024-11-08 03:30 | XMS_ITS ---
Author Organization Albaro Orona MD Address [address] [place], [place] [phone] Care Team Providers Care Water Plant Pump Operator Supervisor Name Role Phone TomiAlbaro alexandre Primary Care Provider [phone] Results Component Value Reference Range Notes Complete Blood Count Auto Di ff Reviewed date:11/22/2024 09:25:13 AM Interpretation:11-20-2024 Performing Lab:[facility], [address] [place] [phone] Notes/Report: White Blood Count 6.3 4.8-10.8 X10*3/uL [...] NRBC Abs Auto 0.000 0.0-0.012 X10*3/uL Comprehensive [place]. Panel Fa st Reviewed date:11/08/2024 04:43:19 PM Interpretation: Performing Lab:[facility], [address] [place] [phone] Notes/Report: Sodium 145 135-145 mmol/L Potassium 4.0 [...] Panel Reviewed date:11/08/2024 04:35:56 PM Interpretation: Performing Lab:[facility], [address] [place] [phone] Notes/Report: Triglycerides 91 <150 mg/dL Desirable Triglyceride: [...] A1c Reviewed date:11/08/2024 04:35:48 PM Interpretation: Performing Lab:[facility], [address] [place] [phone] Notes/Report: Hemoglobin A1c % 5.0 <6.0 % [...] average glucose, using the formula of the V8X-Lrnsltm Average Glucose study (ADAG), Diabetes Care, Vol.31,#8, Sep. 2007 REASON FOR VISIT yearly fasting labs, Getting flu vac at work Encounters Encounter Location Date Provider Diagnosis Albaro Orona MD [address] [place] [address] Drive [address] [place], [place] [phone] 11/08/2024 Albaro Orona Blood tests for rout [...] Provider Name:Albaro cedeño, 01/22/2025 01:30:00 PM, [address] [place] [address], [address], [phone], Provider Name:Albaro cedeño, 05/23/2025 07:30:00 AM, [address] [place] [address], [address], [id number], Provider Name:Albaro cedeño, 05/30/2025 01:30:00 PM, [address] [place] [address], [address], [phone], Provider Name:Albaro cedeño, 11/14/2025 06:45:00 AM, [address] [place] [address], [address], [phone], Provider Name:Albaro cedeño, 11/21/2025 01:00:00 PM, [address] [place] [address], [phone], Progress Notes * SAVANNARekha PDOB:1940 (84 yo F)Acc No.[id number]:11/08/2024 Progress Note Patient: Rekha MEAD Provider: Suri Orona MD :1940 A ge:84 Y S ex:Female Date:11/08/2024 Address:[id number] Subjective: * Chief Complaints: * 1 . [...] - 11/08/2024 07:30 AM) L AB: Comprehensive [place]. Panel Fast (Collection Date & Time - [...] - 11/08/2024 07:30 AM) L AB: Comprehensive [place]. Panel Fast (Collection Date & Time - [...] - 11/08/2024 07:30 AM) L AB: [facility] [place]. Panel Fast (Collection Date & Time - [...] - 11/08/2024 07:30 AM) L AB: Comprehensive [place]. Panel Fast (Collection Date & Time - [...] 11/08/2024 Generated for Adelina shane/Rylie/Olamideitting on: 1 04:33 PM EDT
--- OUTSIDE RECORDS SUMMARY | 2024-11-20 09:00 | XMS_ITS ---
Author Organization Albaro Orona MD Address [address] [place] [phone] Care Team Providers Care Silver Brazer Name Role Phone Albaro Orona Primary Care [...] Location Date Provider Diagnosis Albaro Orona MD [address] [place] [address] Drive [address] [place], [place] [phone] 11/20/2024 Albaro Orona Annual physical exam Z00.00 [...] Reason: Provider Name:Albaro cedeño, 01/22/2025 01:30:00 PM, [address] [place] [address], [address], [place], [place], [phone], Provider Name:Albaro cedeño, 05/23/2025 07:30:00 AM, [address] [place] [address], [address], [place], [place], [id number], Provider Name:Albaro Martin ier, 05/30/2025 01:30:00 PM, [address], [address], [place], [id number], Provider Name:Albaro Martin ier, 11/14/2025 06:45:00 AM, [address], [address], [place], [id number], Provider Name:Albaro Martin ier, 11/21/2025 01:00:00 PM, [address], [address], [place], [id number], Progress Notes * Rekha SHARMA PDOB:1940 (84 yo F)Acc No.[id number]:11/20/2024 Progress Notes Patient: Rekha MEAD Provider: Suri Orona MD :1940 A ge:84 Y S ex:Female Date:11/20/2024 Address: [address] [place], [id number] Subjective: * Chief Complaints: * a nnual [...] son(s) , 2 daughter(s) - healthy. . Mother-[place] 2 brothers - Katia had stroke and [...] 09-11-24. * P ast Orders: L ab:Comprehensive [place]. Panel Fast (Order Date - 11/08/2024) (Collection [...] masses palpable. RECTAL EXAM: d one by retirement assistant. FEMALE GENITOURINARY: d one by retirement assistant. EXTREMITIES: n o clubbing, cyanosis, or edema. [...] 11/20/2024 Generated for Adelina shane/Rylie/Olamideitting on: 1 04:33 PM EDT History and Physical Notes * [...] edema BREASTS: declined RECTAL EXAM: done by retirement assistant FEMALE GENITOURINARY: done by retirement assistant ORAL CAVITY: mucosa moist
--- OUTSIDE RECORDS SUMMARY | 2024-11-26 03:00 | XMS_ITS ---
Author Organization Albaro Orona MD Address [address] [place], [place] [phone] Care Team Providers Care Mold Bunch Trimmer Name Role Phone Albaro Orona Primary Care Provider Results Component Value Reference Range Notes Complete Blood Count Auto Di ff Reviewed date:11/26/2024 12:43:45 PM Interpretation: Performing Lab:[facility], [address] [place] [phone] Notes/Report: White Blood Count 7.1 4.8-10.8 X10*3/uL Red Blood Count 2.94 4.20-5.50 X10*6/uL Hemoglobin 9.0 12.0-16.0 g/dl Hematocrit 29.6 37.0-47.0 % Mean Corpuscular Volume 100.7 80.0-98.0 fL Mean Corpuscular Hemoglobin 30.6 27.0-33.0 pg Mean Corpuscular HGB Conc 30.4 31.0-35.0 g/dl Red Cell Distribution Width 13.7 11.0-16.0 % Platelet Count 279 160-400 X10*3/uL Mean Platelet Volume 10.7 9.4-12.3 fL Neutrophils Percent Auto 39.4 45-73 % Imm Gran Pct Auto 0.1 0.0-0.4 % Lymphocytes Percent Auto 49.9 20-40 % Monocytes Percent Auto 7.2 2-11 % Eosinophils Percent Auto 2.4 0-4 % Basophils Percent Auto 1.0 0-2 % NRBC Pct Auto 0.0 0.0-0.2 /100WBC Neutrophils Absolute Auto 2.8 2.0-8.3 x10*3/u L Imm Gran Abs Auto 0.01 0.00-0.03 X10*3/uL Lymphocytes Absolute Auto 3.6 1.2-4.9 X10*3/u L Monocytes Absolute Auto 0.5 0.1-1.2 X10*3/uL Eosinophils Absolute Auto 0.2 0.0-0.4 X10*3/u L Basophils Absolute Auto 0.1 0.0-0.2 X10*3/uL NRBC Abs Auto 0.000 0.0-0.012 X10*3/uL REASON FOR VISIT CBC W/AUTO DIFF Encounters Encounter Location Date Provider Diagnosis Albaro Orona MD [address] [place] [address] [place] [phone] 11/26/2024 Albaro Orona Lymphocytosis D72.82 0 Assessments Encounter Date Diagnosis (ICD Code) Assessment Notes Treatment Notes Treatment Clinical Notes Section Notes 11/26/2024 Lymphocytosis (ICD-10 - D72.820) Plan Of Treatment Next Appt Details Provider Name:Albaro cedeño, 01/22/2025 01:30:00 PM, [address] [place] [address], [address], [phone], Provider Name:Albaro cedeño, 05/23/2025 07:30:00 AM, [address] [place] [address], [address], [phone], Provider Name:Albaro cedeño, 05/30/2025 01:30:00 PM, [address] [place] [address], [address], [phone], Provider Name:Albaro cedeño, 11/14/2025 06:45:00 AM, [address], [address], [place], [place], [phone], Provider Name:Albaro Martin ier, 11/21/2025 01:00:00 PM, [address] [facility], [address], [place], [phone], Progress Notes * Rekha SHARMA PDOB:1940 (84 yo F)Acc No.[id number]:11/26/2024 Progress Note Patient: Rekha MEAD Provider: Suri Orona MD :1940 A ge:84 Y S ex:Female Date:11/26/2024 Address:[address] [place], [id number] Subjective: * Chief Complaints: * 1 . CBC W/AUTO DIFF. * Medical History: Objective: * Vitals: Assessment: * Assessment: 1. L ymphocytosis - D72.820 (Primary) Plan: * Treatment: * Procedure Codes: 3 6415 VENIPUNCT, ROUTINE* * * The named appointment provid er may or may not be the originator of this progress note, and it is not deemed complete until electronically signed by the appointment provider. Sign off status: Pending * Provider: Suri Orona MD Date: 0 11/26/2024 Generated for Adelina shane/Rylie/eTиванsmitting on: 1 04:34 PM EDT
--- NOTE | 2024-11-29 15:13 | A.OFFVIS_ITS ---
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 She is a patient of Dr. Orona. She is seen for the following urologic conditions - recurrent UTI - gross hematuria Telemedicine Evaluation 15 min Consultation Bottlenose Sae Video Has been followed for a number of years for recurrent UTI Recently reported gross hematuria Cystoscopy performed Flat bladder lesion left side consistent with urothelial carcinoma Recurrent urinary tract infection Multiple prior infections Placed on Estrace cream Cytology - 12/21 NAD Recommend TURBT [facility] Surgical History History of heart bypass surgery Social History Alcohol intake: current Alcohol intake frequency: does not drink Patient Tobacco Use Status: Former Tobacco user Review of Systems Const All systems reviewed & are unremarkable except as noted in HPI and below Reports no additional complaints Resp Reports no additional complaints GI Reports no additional complaints Reports as per HPI Musc Reports no additional complaints Physical Exam Telemedicine evaluation Appropriate responses Regular breathing rate and rhythm HEENT Head: Yes normal to inspection Ears: hearing grossly normal bilaterally Eyes General: appearance normal, both eyes and all related structures Neck Neck: Yes normal visual inspection Chest Chest palpation & inspection: normal inspection of the chest Resp Effort & Inspection: normal respiratory effort and able to speak in complete sentences Telehealth Telehealth Telehealth Platform: Bottlenose Location of provider rendering services: practice address Location of patient: address on file Patient Identification confirmed using: Name, : Yes Telehealth method: video Patient verbally consented to treatment: Yes Patient verbally consented to billing insurance company: Yes Patient informed of any privacy concerns related to visit: Yes Assessment & Plan Assessment & Plan (1) Recurrent urinary tract infection: Code(s): N39.0 - Urinary tract infection, site not specified Category: Medical (2) Bladder cancer: Code(s): C67.9 - Malignant neoplasm of bladder, unspecified Category: Medical Plan Planned TURBT Patient Instructions: This note is constructed using voice recognition software. While every effort has been made to ensure accuracy e learning manager errors may have been included. Imaging studies, laboratory and physical exam results were discussed and reviewed in detail. No major barriers to patient understanding were identified. An opportunity to ask questions regarding the treatment plan was provided. All questions were answered. The patient expressed understanding and agreement with the above treatment plan. The patient is aware they should contact our office by phone for worsening of their current condition or the appearance of new urologic symptoms. Compliance is encouraged with any medications and followup testing that is ordered. It is a privilege to participate in the urologic care of your patient. If you have any questions or concerns regarding treatment for the above conditions, or other urologic issues, please do not hesitate to contact me. The office telephone contact is [phone]. Sincerely, Dr Alberto Silva MD, [facility] - Urology Compassionate Specialist Care for the Genitourinary System Coding Level of Care Code Tele Est Pt Level 3 (33843) Diagnoses Recurrent urinary tract infection N39.0 Bladder cancer C67.9
--- OUTSIDE RECORDS SUMMARY | 2024-11-29 16:34 | XMS_ITS | Patient Health Record ---
Author Organization [facility] Address [address] [place] [address] Care Team Providers Care Rn Radiology Name Role Phone Albaro Orona MD Primary Care Provider Sloan Yarbrough Unavailable [phone] Reason For Referral No Information Medications Medication [...] Status Risk Notes Problem Colon cancer screening ([id number]) Colon cancer screening (V76.51) Active confirmed Problem Long-term use of aspirin therapy (V58.66) Active confirmed Plan Of Treatment Future Test Test Name Order Date COLONOSCOPY 08/06/2014 Insurance Providers Payer Name Payer Address Payer Phone Subscriber Number Group Number Insured Name Patient Relationship to Insured Coverage Start Date Coverage End Date MEDICARE OF [place] [address] [place] [address] [id number] ANJEL CORRALES Self - patient is the insured [facility] [address] [place], [place] [id number] ANJEL CORRALES Self - patient is the insured Medical (General) History Medical History History ICD Code HTN Denies PR,CVA,Lung disease,renal disease Hyperlipidemia Surgical History Surgery Date(Month/Year) appendectomy tonsillectomy
--- OUTSIDE RECORDS SUMMARY | 2024-11-29 16:34 | XMS_ITS | Clinical Summary ---
Author Organization [facility] Address [address] [place] [address] Care Team Providers Care Auto Body Repairman Name Role Phone Albaro Orona MD Primary Care Provider [phone] Allergies No known active allergies Medications metoprolol [...] to complete this topic Insurance UHC Medicare [facility] Medicare Care Teams Auto Body Repairman Relationship Specialty Start Date End Date Albaro Orona MD [address] [place] PCP - General 03/10/20
--- OUTSIDE RECORDS SUMMARY | 2024-11-29 16:34 | XMS_ITS | Encounter Summary ---
Author Organization [facility] Address [address] [place] [address] Phone Care Team Providers Care Hospital Receptionist Name Role Phone Albaro Orona MD Primary Care Provider [phone] Reason for Visit * Reason Comments Med Refill Encounter Details Date Type Department Care Team (Late st Contact Info) Description 04/14/2023 Refill [facility] [address] [place] [phone] Adis Morrison MD [address] [place] [address], [address] [address] Social History Tobacco Use Types Packs/Day Years [...] on filedocumented in this encounter Care Teams Hospital Receptionist Relationship Specialty Start Date End Date Albaro Orona MD [address] [place] PCP - General 03/10/20 documented as of this encounter
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
--- OUTSIDE RECORDS SUMMARY | 2024-11-29 16:35 | XMS_ITS | Clinical Summary ---
Author Organization [facility] Address [address] [place] [address] Phone Care Team Providers Care Chip Bin Operator Name Role Phone Carol Cano MD Primary Care Provider [phone] Allergies No known active allergies Medications Vitamin [...] Date Impaired glucose tolerance 07/12/2024 Severe obesity (CMS/[facility] V24, CMS/[facility] V28) 2024 Assessment & Plan (07/12/2024 [...] Heart failure with improved ejection fraction (HFimpEF) ([facility] V24, CMS/[facility] V28) 03/22/2024 Assessment & Plan (07/12/2024 [...] Type Department Care Team Description 11/13/2024 Telephone [facility] [address] [place] [address] Julius Ag MD 11/09/2024 7:18 AM EDT - 11/09/2024 11:59 PM EDT Hospital Encounter [facility] CT Scan [address] [place] [phone] Gross hematuria Discharge Disposition: Home or Self Care 10/05/2024 Telephone [facility] - [address] [place] [phone] Julius Ag MD 09/28/2024 12:17 PM EDT - 09/28/2024 1:48 PM EDT Emergency [facility] Emergency [address] [place] [phone] Tae Arreola MD Complicated UTI (urinary tract infection) (Primary Dx) Discharge Disposition: Home or Self Care 09/16/2024 1:19 PM EDT - 09/16/2024 3:32 PM EDT Emergency [facility] Emergency [address] [place] [phone] Vitor Babin MD Acute hemorrhagic cystitis (Primary [...] AM EST Appointment [facility] [address] [place] [address] 02/07/2025 8:15 AM EST Office Visit Bariatric Surgery - [place] [address] [place] [address] Lore Pascal PA [address] [place] [phone] Health Maintenance Due Date Last Done [...] Routine 09/14/2024 7:39 AM EDT Microscopic hematuria PRINCESS DEXA AXIAL SKELETON Routine 01/01/2019 4:52 [...] Signed Date: 11/15/2024 16:00 ET Workstation ID: [id number] Transcribed By: Self Edit Transcribed Date: 11/15/2024 [...] Signed Date: 11/15/2024 16:00 ET Workstation ID: [id number] Transcribed By: Self Edit Transcribed Date: 11/15/2024 15:42 ET Gloria Gonzalez AGRICULTURE MECHANIC IMG CT PROCEDURES Final Res ult * (ABNORMAL) Urinalysis with reflex microscopic and culture (09/28/2024 12:34 PM EDT) Only the most recent of2 resultswithin the time period is included. Specific [place] Urine 09/28/2024 1:17 PM EDT [facility] Comment:Unable to interpret due to color interference. pH, Urine 09/28/2024 1:17 PM EDT [facility] Comment:Unable to interpret due to color interference. Leukocytes, Urine 09/28/2024 1:17 PM EDT [facility] Comment:Unable to interpret due to color interference. Nitrite, Urine 09/28/2024 1:17 PM [facility] Comment:Unable to interpret due to color interference. Protein, Urine 09/28/2024 1:17 PM [facility] Comment:Unable to interpret due to color interference. Glucose, Urine 09/28/2024 1:17 PM [facility] Comment:Unable to interpret due to color interference. Ketones, Urine 09/28/2024 1:17 PM [facility] Comment:Unable to interpret due to color interference. Urobilinogen , Urine 09/28/2024 1:17 PM [facility] Comment:Unable to interpret due to color interference. Bilirubin, Urine 09/28/2024 1:17 PM [facility] Comment:Unable to interpret due to color interference. Blood, Urine 09/28/2024 1:17 PM [facility] Comment:Unable to interpret due to color interference. RBC, Urine >4,000(H) 0 - 4 /HPF LAB URINALYSIS - AUTOMATED METHOD 09/28/2024 1:17 PM [facility] WBC, Urine 23.2(H) 0 - 4 /HPF LAB URINALYSIS - AUTOMATED METHOD 09/28/2024 1:17 PM [facility] Squamous Epithelial, Urine 30 0 - 60 /LPF LAB URINALYSIS - AUTOMATED METHOD 09/28/2024 1:17 PM [facility] Bacteria, Urine Negative Negative /HPF LAB URINALYSIS - AUTOMATED METHOD 09/28/2024 1:17 PM [facility] Hyaline Casts, Urine 0.0 0 - 3 /LPF LAB URINALYSIS - AUTOMATED METHOD 09/28/2024 1:17 PM [facility] Urine Urine specimen obtained by clean catch procedure / Unknown Non-blood Collection / Unknown 09/28/2024 12:34 PM EDT 09/28/2024 12:42 PM EDT us Tae Arreola MD LAB URINE ORDERABLES Final Resul t Performing Organization Address City/[facility]/ZIP Co de Phone Number [facility] [address] [place] [address], [place] [phone] * Sanchez urine culture tube (09/28/2024 12:34 PM EDT) Only the most recent of2 resultswithin the time period is included. Extra Tube Hold for add-ons. 09/28/2024 2:01 PM EDT [facility] Comment:Auto resulted. Urine Urine specimen obtained by clean catch procedure / Unknown Non-blood Collection / Unknown 09/28/2024 12:34 PM EDT 09/28/2024 12:42 PM EDT us Tae Arreola MD LAB URINE ORDERABLES Final Resul t Performing Organization Address [facility] Co de Phone Number [facility] [address] [place] [address], [place] [phone] * Culture urine (09/28/2024 12:34 PM EDT) Only the most recent of3 resultswithin the time period is included. Culture, Urine <10,000 CFU/mL gram positive cocci, insignificant count, no further workup 09/29/2024 9:47 AM EDT [facility] Urine Urine specimen obtained by clean catch procedure / Unknown Non-blood Collection / Unknown 09/28/2024 12:34 PM EDT 09/28/2024 1:17 PM EDT us Tae Arreola MD LAB MICROBIOLOGY - GENERAL ORDER JUVENTINO Final Result Performing Organization Address City/[facility]/ZIP Co de Phone Number [facility] [address] [place] [address], [place] [phone] * (ABNORMAL) CBC auto differential (09/28/2024 12:14 PM EDT) Only the most recent of2 resultswithin the time period is included. [facility] Signature WBC 7.5 4.8 - 10.8 K/mcL LAB HEMETOLOGY METHOD 09/28/2024 12:46 [facility] RBC 2.80(L) 3.80 - 4.80 M/mcL LAB HEMETOLOGY METHOD 09/28/2024 12:46 PM [facility] Hemoglobin 8.6(L) 11.5 - 16.0 g/dL LAB HEMETOLOGY METHOD 09/28/2024 12:46 PM [facility] Hematocrit 27.7(L) 35.0 - 47.0 % LAB HEMETOLOGY METHOD 09/28/2024 12:46 PM [facility] MCV 99.3(H) 79.0 - 98.0 FL LAB HEMETOLOGY METHOD 09/28/2024 12:46 PM [facility] MCH 30.8 27.0 - 32.0 pcg LAB HEMETOLOGY METHOD 09/28/2024 12:46 PM [facility] MCHC 31.0(L) 32.0 - 37.0 g/dL LAB HEMETOLOGY METHOD 09/28/2024 12:46 PM [facility] RDW 13.7 11.0 - 15.0 % LAB HEMETOLOGY METHOD 09/28/2024 12:46 PM [facility] Platelets 299 130 - 400 K/mcL LAB HEMETOLOGY METHOD 09/28/2024 12:46 PM [facility] MPV 9.9 7.0 - 11.0 FL LAB HEMETOLOGY METHOD 09/28/2024 12:46 PM [facility] NRBC 0.0 <1.0 % LAB HEMETOLOGY METHOD 09/28/2024 12:46 PM [facility] NRBC Absolute 0.00 <0.10 K/mcL LAB HEMETOLOGY METHOD 09/28/2024 12:46 PM [facility] Neutrophils Relative 63.5 % LAB HEMETOLOGY METHOD 09/28/2024 12:46 PM [facility] Lymphocytes Relative 25.6 % LAB HEMETOLOGY METHOD 09/28/2024 12:46 PM [facility] Monocytes Relative 7.7 % LAB HEMETOLOGY METHOD 09/28/2024 12:46 PM [facility] Eosinophils Relative 2.3 % LAB HEMETOLOGY METHOD 09/28/2024 12:46 PM [facility] Basophils Relative 0.5 % LAB HEMETOLOGY METHOD 09/28/2024 12:46 PM [facility] Immature Granulocytes Relative 0.4 % LAB HEMETOLOGY METHOD 09/28/2024 12:46 PM [facility] Neutrophils Absolute 4.79 1.50 - 7.00 K/mcL LAB HEMETOLOGY METHOD 09/28/2024 12:46 PM [facility] Lymphocytes Absolute 1.93 1.00 - 5.00 K/mcL LAB HEMETOLOGY METHOD 09/28/2024 12:46 PM [facility] Monocytes Absolute 0.58 0.20 - 1.00 K/mcL LAB HEMETOLOGY METHOD 09/28/2024 12:46 PM [facility] Eosinophils Absolute 0.17 0.00 - 0.50 K/mcL LAB HEMETOLOGY METHOD 09/28/2024 12:46 PM [facility] Basophils Absolute 0.04 0.00 - 0.20 K/mcL LAB HEMETOLOGY METHOD 09/28/2024 12:46 PM [facility] Immature Granulocytes Absolute 0.03 0.00 - 0.03 K/mcL LAB HEMETOLOGY METHOD 09/28/2024 12:46 PM EDT [facility] Blood Venous blood specimen / Unknown Venipuncture / Unknown 09/28/2024 12:14 PM EDT 09/28/2024 12:36 PM EDT us Tae Arreola MD LAB BLOOD ORDERABLES Final Resul t [facility] [address] [place] [address], [place] [phone] * (ABNORMAL) Basic metabolic panel (09/28/2024 12:14 PM EDT) Only the most recent of2 resultswithin the time period is included. Sodium 142 133 - 145 mmol/L LAB CHEMISTRY METHOD 09/28/2024 1:05 PM [facility] Potassium 4.8 3.5 - 5.5 mmol/L LAB CHEMISTRY METHOD 09/28/2024 1:05 PM [facility] Chloride 111(H) 96 - 110 mmol/L LAB CHEMISTRY METHOD 09/28/2024 1:05 PM [facility] CO2 27 21 - 32 mmol/L LAB CHEMISTRY METHOD 09/28/2024 1:05 PM [facility] Anion Gap 4 3 - 11 LAB CHEMISTRY METHOD 09/28/2024 1:05 PM [facility] Glucose 98 70 - 100 mg/dL LAB CHEMISTRY METHOD 09/28/2024 1:05 PM [facility] BUN 33(H) 5 - 25 mg/dL LAB CHEMISTRY METHOD 09/28/2024 1:05 PM [facility] Creatinine 1.57(H) 0.50 - 1.10 mg/dL LAB CHEMISTRY METHOD 09/28/2024 1:05 PM [facility] eGFR 33(L) >=60 mL/min/1. 73m2 LAB CHEMISTRY METHOD 09/28/2024 1:05 PM EDT [facility] Comment:Calculation based on the Chronic Kidney Disease Epidemiology Collaboration (CKD-EPI) equation refit without adjustment for race. BUN/Creatinine Ratio 21.0 LAB CHEMISTRY METHOD 09/28/2024 1:05 PM EDT [facility] Calcium 9.4 8.5 - 10.5 mg/dL LAB CHEMISTRY METHOD 09/28/2024 1:05 PM EDT [facility] Blood Venous blood specimen / Unknown Venipuncture / Unknown 09/28/2024 12:14 PM EDT 09/28/2024 12:36 PM EDT Tae Arreola MD LAB BLOOD ORDERABLES Final Resul t Performing Organization Address [facility]/ZIP Co de Phone Number [facility] [address] [place] [address], [place] [phone] * Blood Culture, Peripheral #1 (09/16/2024 3:08 PM EDT) Only the most recent of2 resultswithin the time period is included. Culture, Blood No growth at 5 days 09/21/2024 4:01 PM EDT [facility] Blood Venous blood specimen / Unknown Venipuncture / Unknown 09/16/2024 3:08 PM EDT 09/16/2024 3:08 PM EDT Vitor Babin MD LAB MICROBIOLOGY - GENERAL ORDER JUVENTINO Final Result Performing Organization Address [facility]/ZIP Co de Phone Number [facility] [address] [place] [address], [place] [phone] * Lactate, with Reflex (09/16/2024 2:19 PM EDT) LACTIC ACID 0.9 0.4 - 2.0 mmol/L LAB CHEMISTRY METHOD 09/16/2024 3:00 PM EDT [facility] Blood Venous blood specimen / Unknown Venipuncture / Unknown 09/16/2024 2:19 PM EDT 09/16/2024 2:26 PM EDT us Vitor Babin MD LAB BLOOD ORDERABLES Final Resul t [facility] [address] [place] [address], [place] [phone] * (ABNORMAL) Urinalysis with reflex microscopic (09/14/2024 7:39 AM EDT) Specific [place] Urine 1.025 1.003 - 1.030 LAB URINALYSIS - AUTOMATED METHOD 09/14/2024 8:18 AM [facility] pH, Urine 5.5 5.0 - 8.0 pH LAB URINALYSIS - AUTOMATED METHOD 09/14/2024 8:18 AM [facility] Leukocytes, Urine Negative Negative LAB URINALYSIS - AUTOMATED METHOD 09/14/2024 8:18 AM [facility] Nitrite, Urine Negative Negative LAB URINALYSIS - AUTOMATED METHOD 09/14/2024 8:18 AM [facility] Protein, Urine >=300(A) <=Trace mg/dL LAB URINALYSIS - AUTOMATED METHOD 09/14/2024 8:18 AM [facility] Glucose, Urine 100(A) Negative mg/dL LAB URINALYSIS - AUTOMATED METHOD 09/14/2024 8:18 AM [facility] Ketones, Urine Trace(A) Negative mg/dL LAB URINALYSIS - AUTOMATED METHOD 09/14/2024 8:18 AM [facility] Urobilinogen, Urine 1.0 0.2 - 1.0 mg/dL LAB URINALYSIS - AUTOMATED METHOD 09/14/2024 8:18 AM [facility] Bilirubin, Urine Small(A) Negative LAB URINALYSIS - AUTOMATED METHOD 09/14/2024 8:18 AM EDT [facility] Blood, Urine Large(A) Negative LAB URINALYSIS - AUTOMATED METHOD 09/14/2024 8:18 AM EDT [facility] RBC, Urine >100(H) 0 - 4 /HPF 09/14/2024 8:18 AM EDT [facility] WBC, Urine 4 0 - 4 /HPF 09/14/2024 8:18 AM EDT [facility] Squamous Epithelial, Urine 3 0 - 60 /LPF 09/14/2024 8:18 AM EDT [facility] Bacteria, Urine Many(A) Negative /HPF 09/14/2024 8:18 AM EDT [facility] Urine Urine specimen obtained by clean catch procedure / Unknown Non-blood Collection / Unknown 09/14/2024 7:39 AM EDT 09/14/2024 7:59 AM EDT Gloria Gonzalez AGRICULTURE MECHANIC LAB URINE ORDERABLES Final Result [facility] [address] [place] [address], * PRINCESS DEXA AXIAL SKELETON (01/01/2019 4:52 PM EST) Anatomical Region Laterality Modality Mammography 01/01/2019 7:10 AM EST Narrative 01/01/2019 4:52 PM EST [facility] Diagnostic Imaging Department [address] [place] [address] Patient: REKHA SHARMA D.O.B./Age/Sex: [birth year] - F Unit#: [id number] Location/Status: SPDIMAM/REG CLI Mnemonic[facility] Ordering Physician: CAROL CANO MD [facility] Dexa Axial Skeleton - 01/01/194 History: Low estrogen state due to menopause. Comparison: 01/01/13 Findings: Bone densitometry is performed utilizing dual energy x-ray absorptiometry (DXA) in the LMN-1 unit. The lumbar spine and proximal femora [...] Major Osteoporotic 9.6% Hip 1.7%. IMPRESSION: Osteopenia. [id number] Dictating Physician: NELLIE TRIANA MD Electronically Signed by: NELLIE TRIANA MD Dic Date/Time: 01/01/191649 Sign date/Time: 01/01/191651 Procedure Note Nellie Triana - 02/16/2022 [facility] Diagnostic Imaging Department [address] [place] [address] Patient: REKHA SHARMA D.O.B./Age/Sex: 1940 Unit#: [id number] Location/Status: SPDIMAM/REG CLI Mnemonic/Ordering Site: [facility] Ordering Physician: CAROL CANO MD [facility] Dexa Axial Skeleton - 01/01/19753 History: Low estrogen state due to menopause. Comparison: 01/01/13 Findings: Bone densitometry is performed utilizing dual energy x-ray absorptiometry(DXA) in the LMN-1 unit. The lumbar spine and proximal femora [...] Fracture: Major Osteoporotic 9.6%Hip 1.7%. IMPRESSION: Osteopenia. [id number] Dictating Physician: NELLIE TRIANA MD Electronically Signed by: NELLIE TRIANA MD Dic Date/Time: 01/01/191649 Sign date/Time: 01/01/191651 Carol Cano MD IMG BI PROCEDURES Final Res ult from Last 3 Months or Most Recently Relevant to Health Maintenance Insurance [employer] Care Teams Chip Bin Operator Relationship Specialty Start Date End Date Carol Cano MD [address] [place] [address] Drive [address] [place] [address] PCP - General Internal Medicine 06/27/24
== END 2024-11-29 16:35 | disposition home or self-care (01) ==
LOC: HO.HUSH 15:12
PROVIDERS: PCP Internal Medicine; Visit Provider Urology
DX: N39.0 Urinary tract infection, site not specified (principal); C67.9 Malignant neoplasm of bladder, unspecified
CPT/HCPCS: 99213

== ENCOUNTER 2024-12-17 07:51 | Day surgery (SDC) | payer MEDICARE, SELFPAY ==
--- OUTSIDE RECORDS SUMMARY | 2024-10-01 04:06 | XMS_ITS ---
Author Organization Albaro Orona MD Address [address] [place] [phone] Care Team Providers Care Imaging Assistant Name Role Phone UrvashiVandana mederosn Primary Care Provider [phone] REASON FOR VISIT ER visit rec'd Encounters Encounter Location Date Provider Diagnosis Albaro Orona MD [address] [facility] [address] [place] [phone] 10/01/2024 Albaro Orona Plan Of Treatment Next Appt Details Provider Name:Albaro cedeño, 11/26/2024 07:00:00 AM, [address] [place] [address], [address] [place] [address], [phone], Provider Name:Albaro cedeño, 01/22/2025 01:30:00 PM, [address] [place] [address], [address], [phone], Provider Name:Albaro cedeño, 05/23/2025 07:30:00 AM, [address] [place] [address], [address], [phone], Provider Name:Albaro Martin ier, 05/30/2025 01:30:00 PM, [address] [facility] [address], [address], [place], [phone], Provider Name:Albaro Martin ier, 11/14/2025 06:45:00 AM, [address] [facility], [address], [place], [phone], Provider Name:Albaro Martin ier, 11/21/2025 01:00:00 PM, [address] [place] [address], [address], [place], [phone], Progress Notes * Rekha SHARMA PDOB:1940 (84 yo F)Acc No.[id number]:10/01/2024 Patient: Rekha MEAD Dino :1940 A ge:84 Y S ex:Female Address:[place] [address] * true * Date: Generated for Adelina shane/Rylie/eTransmitting on: 0 11/23/2024 03:26 PM EDT
--- OUTSIDE RECORDS SUMMARY | 2024-10-04 05:30 | XMS_ITS ---
Author Organization Albaro Orona MD Address [address] [place] [phone] Care Team Providers Care Ship Carpenter Name Role Phone UrvashiVandana mederosn Primary Care Provider REASON FOR VISIT ER Visit from [facility] rec'd Encounters Encounter Location Date Provider Diagnosis Albaro Orona MD 10 [facility] [address] [place] [phone] 10/04/2024 Albaro Orona Plan Of Treatment Next Appt Details Provider Name:Albaro cedeño, 11/26/2024 07:00:00 AM, [address] [place] [address], [address] [place] [address], [phone], Provider Name:Albaro cedeño, 01/22/2025 01:30:00 PM, [address] [place] [address], [address] [place] [address], [phone], Provider Name:Albaro cedeño, 05/23/2025 07:30:00 AM, [address] [place] [address], [address], [phone], Provider Name:Albaro Martin ier, 05/30/2025 01:30:00 PM, [address], [address], [place], [phone], Provider Name:Albaro Martin ier, 11/14/2025 06:45:00 AM, [facility], [address], [place], [phone], Provider Name:Albaro Martin ier, 11/21/2025 01:00:00 PM, [address] [place] [address], [address], [place], [phone], Progress Notes * Rekha SHARMA PDOB:1940 (84 yo F)Acc No.[id number]:10/04/2024 Patient: Rekha MEAD Dino :1940 A ge:84 Y S ex:Female Address:[place] [address] * true * Date: Generated for Adelina shane/Rylie/eTransmitting on: 0 11/23/2024 03:25 PM EDT
--- OUTSIDE RECORDS SUMMARY | 2024-10-18 04:30 | XMS_ITS ---
Author Organization Albaro Orona MD Address [address] [place] [phone] Care Team Providers Care It Generalist Name Role Phone Albaro Orona Primary Care Provider [phone] REASON FOR VISIT after Care u/a Medications [...] Once a day for 30 day(s) Active [place] 3 1000 MG 1 capsule Orally Onc e a day Active Vitamin C 500 MG as directed Orally Active Nitrofurantoin Monohyd Macro 100 MG 1 capsule with food Orally every 12 hrs for 5 day(s) Not-Taking Encounters Encounter Location Date Provider Diagnosis Albaro Orona MD [address] [place] [phone] 10/18/2024 Albaro Orona UTI (urinary tract infection) N39.0 Assessments Encounter Date Diagnosis (ICD Code) Assessment Notes Treatment Notes Treatment Clinical Notes Section Notes 10/18/2024 UTI (urinary tract infection) (ICD-10 - N39.0) Plan Of Treatment Pending Test Test Name Order Date UA ClnCatch+Micro w/rflx Cult 10/18/2024 Next Appt Details Provider Name:Albaro cedeño, 11/26/2024 07:00:00 AM, [address] [place] [address], [phone], Provider Name:Albaro cedeño, 01/22/2025 01:30:00 PM, [address] [place] [address], [phone], Provider Name:Albaro cedeño, 05/23/2025 07:30:00 AM, [address] [place] [address], [phone], Provider Name:Albaro cedeño, 05/30/2025 01:30:00 PM, [address] [place] [address], [phone], Provider Name:Albaro cedeño, 11/14/2025 06:45:00 AM, [address] [place] [address], [phone], Provider Name:Albaro cedeño, 11/21/2025 01:00:00 PM, [address], [address], [place], [place], [phone], Progress Notes * Rekha SHARMA PDOB:1940 (84 yo F)Acc No.[id number]:10/18/2024 Progress Note Patient: Rekha MEAD Provider: Suri Orona MD :1940 A ge:84 Y S ex:Female Date:10/18/2024 Address: [place] , [id number] Subjective: * Chief Complaints: * 1 . after Care u/a. * Medical History: * Medications: T aking Vitamin C 500 MG Capsule as directed Orally , Taking Aspirin Adult Low Strength 81 MG Tablet Delayed Release 1 tablet Orally Once a day , Taking [place] 3 1000 MG Capsule 1 capsule Orally [...] 10/18/2024 Generated for Adelina shane/Rylie/Valeria on: 0 11/23/2024 03:26 PM EDT
--- OUTSIDE RECORDS SUMMARY | 2024-11-08 03:30 | XMS_ITS ---
Author Organization Albaro Orona MD Address [address] [place], [place] [phone] Care Team Providers Care Electrical Maintenance Worker Name Role Phone TomiAlbaro alexandre Primary Care Provider Results Component Value Reference Range Notes Complete Blood Count Auto Di ff Reviewed date:11/22/2024 09:25:13 AM Interpretation:11-20-2024 Performing Lab:[facility], [address] [place] [phone] Notes/Report: White Blood Count 6.3 4.8-10.8 X10*3/uL [...] NRBC Abs Auto 0.000 0.0-0.012 X10*3/uL Comprehensive [place]. Panel Fa st Reviewed date:11/08/2024 04:43:19 PM Interpretation: Performing Lab:[facility], [address] [place] [phone] Notes/Report: Sodium 145 135-145 mmol/L Potassium 4.0 [...] Panel Reviewed date:11/08/2024 04:35:56 PM Interpretation: Performing Lab:[facility], [address] [place] [phone] Notes/Report: Triglycerides 91 <150 mg/dL Desirable Triglyceride: [...] A1c Reviewed date:11/08/2024 04:35:48 PM Interpretation: Performing Lab:[facility], [address] [place] [phone] Notes/Report: Hemoglobin A1c % 5.0 <6.0 % [...] average glucose, using the formula of the I2P-Ofhrrhw Average Glucose study (ADAG), Diabetes Care, Vol.31,#8, Sep. 2007 REASON FOR VISIT yearly fasting labs, Getting flu vac at work Encounters Encounter Location Date Provider Diagnosis Albaro Orona MD [address] [place] [address] Drive [address] [place], [place] [phone] 11/08/2024 Albaro Orona Blood tests for rout [...] 11/08/2024 Next Appt Details Provider Name:Albaro cedeño, 11/26/2024 07:00:00 AM, [address] [place] [address], [address], [phone], Provider Name:Albaro cedeño, 01/22/2025 01:30:00 PM, [address] [place] [address], [address] [place] [address], [phone], Provider Name:Albaro cedeño, 05/23/2025 07:30:00 AM, [address] [place] [address], [address], [phone], Provider Name:Albaro cedeño, 05/30/2025 01:30:00 PM, [address] [place] [address], [address], [phone], Provider Name:Albaro cedeño, 11/14/2025 06:45:00 AM, [address] [place] [address], [address], [phone], Provider Name:Albaro cedeño, 11/21/2025 01:00:00 PM, [address] [place] [address], [address], [phone], Progress Notes * Rekha SHARMA PDOB:1940 (84 yo F)Acc No.[id number]:11/08/2024 Progress Note Patient: Rekha MEAD Provider: Suri Orona MD :1940 A ge:84 Y S ex:Female Date:11/08/2024 Address:[place] , [id number] Subjective: * Chief Complaints: * 1 . [...] - 11/08/2024 07:30 AM) L AB: Comprehensive [place]. Panel Fast (Collection Date & Time - [...] - 11/08/2024 07:30 AM) L AB: Comprehensive [place]. Panel Fast (Collection Date & Time - [...] - 11/08/2024 07:30 AM) L AB: Comprehensive [place]. Panel Fast (Collection Date & Time - [...] - 11/08/2024 07:30 AM) L AB: Comprehensive [place]. Panel Fast (Collection Date & Time - [...] 0 11/08/2024 Generated for Adelina shane/Rylie/Olamideitting on: 11/23/2024 03:26 PM EDT
--- OUTSIDE RECORDS SUMMARY | 2024-11-20 09:00 | XMS_ITS ---
Author Organization Albaro Orona MD Address [address] [place] [phone] Care Team Providers Care Dot Compliance Manager Name Role Phone Albaro Orona Primary Care [...] Location Date Provider Diagnosis Albaro Orona MD [address] [place] [address] Drive [address] [place], [place] [phone] 11/20/2024 Albaro Orona Annual physical exam Z00.00 [...] Up: 2 Months, Reason: Provider Name:Albaro cedeño, 11/26/2024 07:00:00 AM, [address] [place] [address], [address], [place], [place], [phone], Provider Name:Albaro cedeño, 01/22/2025 01:30:00 PM, [address] [place] [address], [address], [place], [place], [phone], Provider Name:Albaro Martin ier, 05/23/2025 07:30:00 AM, [address] [facility], [address], [place], [phone], Provider Name:Albaro Martin ier, 05/30/2025 01:30:00 PM, [address] [facility], [address], [place], [phone], Provider Name:Albaro Martin ier, 11/14/2025 06:45:00 AM, [address] [place] [address] Drive, [address], [place], [phone], Provider Name:Albaro Martin ier, 11/21/2025 01:00:00 PM, [address] [place] [address], [address] [facility], [place], [phone], Progress Notes * Rekha SHARMA PDOB:1940 (84 yo F)Acc No.[id number]:11/20/2024 Progress Notes Patient: Rekha MEAD Provider: Suri Orona MD :1940 A ge:84 Y S ex:Female Date:11/20/2024 Address:[id number] Subjective: * Chief Complaints: * a nnual [...] son(s) , 2 daughter(s) - healthy. . Mother-[place] 2 brothers - Katia had stroke [...] 09-11-24. * P ast Orders: L ab:Comprehensive [place]. Panel Fast (Order Date - 11/08/2024) (Collection [...] rate and rhythm, S1, S2 normal, 2/6 vni at apex. LUNGS: c lear to auscultation bilaterally. BREASTS: d eclined. ABDOMEN: s oft, nontender, nondistended, bowel sounds present, normal, no organomegaly , no masses palpable. RECTAL EXAM: d one by immigration services officer. FEMALE GENITOURINARY: d one by immigration services officer. EXTREMITIES: n o clubbing, cyanosis, or edema. [...] MD Date: 0 11/20/2024 Generated for Adelina shane/Rylie/eTransmitting on: 0 11/23/2024 03:25 PM EDT History and Physical Notes * [...] edema BREASTS: declined RECTAL EXAM: done by immigration services officer FEMALE GENITOURINARY: done by immigration services officer ORAL CAVITY: mucosa moist
--- OUTSIDE RECORDS SUMMARY | 2024-11-23 15:26 | XMS_ITS | Encounter Summary ---
Author Organization [facility] Address [address] [place] [address] Care Team Providers Care Livestock Haulier Name Role Phone Albaro Orona MD Primary Care Provider [phone] Reason for Visit * Reason Onset Date Comments Procedure 11/13/2024 Encounter Details Date Type Department Care Team (Late st Contact Info) Description 11/13/2024 Telephone [facility] [address] [facility] [address] [place] [phone] Julius Ag MD [address] [place] [address] [place] [phone] Social History Tobacco Use Types Packs/Day Years [...] as of this encounter Progress Notes * Bob Silva RN - 11/22/2024 11:58 AM EDT Faxed this TE to fax number below provided by Yovana from [facility]. [facility] and made Yovana aware. * Dian Whiteside - 11/22/2024 11:43 AM EDT Spoke with yovana again, best fax number is [phone] * Bob Silva RN - 11/22/2024 11:[address] Ag response below. Yovana also waned to make sure that since the patient will be under general anesthesia for the procedure, that she doesn't need a clearance letter prior to the procedure. * Bob Silva RN - 11/22/2024 10:53 AM EDT LVM for Yovana to call back. Please see below. I have asked her to clarify holding ASA for 7 or 10 days prior as both are listed below. * Dian Whiteside - 11/22/2024 10:34 AM EDT Spoke with Yovana from Urology office. States patient is having TURBT with clot removal. She will liketo know if patient can withhold her Asprin for 10 days. Best call back number is [phone] opt 3. * Bob Silva RN - 11/13/2024 10:46 AM EDT MAY with Michael Church on 07/12/24. LVM with Yovana from Urology office to call back with the name of the procedure she is having. * Samantha Abebe - 11/13/2024 9:09 AM EDT Yovana from [facility] called and stated that the patient is getting a procedure done witha urologist on October 6. She wants to know if it Is okay for the patient to hold her aspirin prescription for 7 days prior to the procedure. Yovana also waned to make sure that since the patient will be under general anesthesia for the procedure, that she doesn't need a clearance letter prior to the procedure. Yovana also said she would like the last office visit note faxed over. Fax number is [phone]. She would also like a call back at [phone], option 3. documented in this encounter Plan of Treatment Upcoming Encounters Date Type Department Care Team (Late st Contact Info) Description 01/18/2025 7:15 AM EST Appointment [facility] [address] [place] [address] 02/07/2025 8:15 AM EST Office Visit Bariatric Surgery - [place] [address] [facility] [address] [place] [address] Lore Pascal PA [address] [place] [phone] documented as of this encounter Visit Diagnoses Not on filedocumented in this encounter Care Teams Livestock Haulier Relationship Specialty Start Date End Date Albaro Orona MD [address] [place] [address] [address] [place] [address] PCP - General Internal Medicine 06/27/24 documented as of this encounter
--- OUTSIDE RECORDS SUMMARY | 2024-11-23 15:26 | XMS_ITS | Patient Health Record ---
Author Organization [facility] Address [address] [place] [address] Care Team Providers Care E Commerce Strategist Name Role Phone Albaro Orona MD Primary Care Provider Sloan Yarbrough Unavailable [phone] Reason For Referral No Information Medications Medication [...] Status Risk Notes Problem Colon cancer screening (731067633) Colon cancer screening (V76.51) Active confirmed Problem Long-term use of aspirin therapy (V58.66) Active confirmed Plan Of Treatment Future Test Test Name Order Date COLONOSCOPY 08/06/2014 Insurance Providers Payer Name Payer Address Payer Phone Subscriber Number Group Number Insured Name Patient Relationship to Insured Coverage Start Date Coverage End Date MEDICARE OF [place] [address] [place] [address] [id number] ANJEL CORRALES Self - patient is the insured [facility] [address] [place], [place] [id number] ANJEL CORRALES Self - patient is the insured Medical (General) History Medical History History ICD Code HTN Denies [place],CVA,Lung disease,renal disease Hyperlipidemia Surgical History Surgery Date(Month/Year) appendectomy tonsillectomy
--- OUTSIDE RECORDS SUMMARY | 2024-11-23 15:26 | XMS_ITS | Clinical Summary ---
Author Organization [facility] Address [address] [place] [address] Care Team Providers Care Towel Inspector Name Role Phone Albaro Orona MD Primary Care Provider [phone] Allergies No known active allergies Medications metoprolol [...] to complete this topic Insurance UHC Medicare [facility] Medicare Care Teams Towel Inspector Relationship Specialty Start Date End Date Albaro Orona MD [id number] [place] PCP - General 03/10/20
--- OUTSIDE RECORDS SUMMARY | 2024-11-23 15:26 | XMS_ITS | Encounter Summary ---
Author Organization [facility] Address [address] [place] [address] Phone Care Team Providers Care Bilingual Executive Assistant Name Role Phone Albaro Orona MD Primary Care Provider [phone] Reason for Visit * Reason Comments Med Refill Encounter Details Date Type Department Care Team (Late st Contact Info) Description 04/14/2023 Refill [facility] [address] [place] [phone] Adis Morrison MD [address] [place] [address], [address] [phone] Social History Tobacco Use Types Packs/Day Years [...] on filedocumented in this encounter Care Teams Bilingual Executive Assistant Relationship Specialty Start Date End Date Albaro Orona MD [id number] [place] PCP - General 03/10/20 documented as of this encounter
--- OUTSIDE RECORDS SUMMARY | 2024-11-23 15:27 | XMS_ITS | Clinical Summary ---
Author Organization [facility] Address [address] [place] [address] Phone Care Team Providers Care Rn Otolaryngology Name Role Phone Carol Cano MD Primary [...] Date Impaired glucose tolerance 07/12/2024 Severe obesity (CMS/[facility] V24, CMS/[facility] V28) 2024 Assessment & Plan (07/12/2024 8:39 [...] Heart failure with improved ejection fraction (HFimpEF) ([facility] V24, CMS/[facility] V28) 03/22/2024 Assessment & Plan (07/12/2024 [...] Encounters Date Type Department Care Team Description 11/13/2024 Telephone [facility] [address] [place] [address] Julius Ag MD 11/09/2024 7:18 AM EDT - 11/09/2024 11:59 PM EDT Hospital Encounter [facility] CT Scan [address] [place] [phone] Gross hematuria Discharge Disposition: Home or Self Care 10/05/2024 Telephone [facility] - [address] [place] [phone] Julius Ag MD 09/28/2024 12:17 PM EDT - 09/28/2024 1:48 PM EDT Emergency [facility] Emergency [address] [place] [phone] Tae Arreola MD Complicated UTI (urinary tract infection) (Primary Dx) Discharge Disposition: Home or Self Care 09/16/2024 1:19 PM EDT - 09/16/2024 3:32 PM EDT Emergency [facility] Emergency [address] [place] [phone] Vitor Babin MD Acute hemorrhagic cystitis (Primary Dx); Frequency of urination Discharge Disposition: Home or Self Care from Last 3 Months Medical History Medical [...] AM EST Appointment [facility] [address] [place] [address] 02/07/2025 8:15 AM EST Office Visit Bariatric Surgery - [place] [address] [facility] [address] [place] [address] Lore Pascal PA [address] [place] [phone] Health Maintenance Due Date Last Done [...] Procedure Name Priority Date/Time Associated Diagnosis Comments CT UROGRAM (IVP) Routine 11/09/2024 7:51 AM EDT Gross hematuria SANHCEZ URINE CULTURE TUBE STAT 09/28/2024 12:34 PM [...] chronic kidney disease (CMS/HCC V24, CMS/HCC V28) JULISSA DEXA AXIAL SKELETON Routine 01/01/2019 4:52 PM EST Asymptomatic menopausal state from Last 3 Months or Most Recently Relevant to Health Maintenance Results * CT Urogram (IVP) (11/09/2024 7:51 AM EDT) Anatomical Region Laterality Modality Body Computed Tomogra phy 11/15/2024 3:42 PM EDT Impressions 11/15/2024 4:00 PM EDT 1. Irregular papillary mass involving the posterior bladder trigone. Findings suspicious for bladder cancer. 2. No suspicious renal mass. 3. No urothelial mass or focal area of thickening. 4. No evidence of metastatic disease. -------- FINAL REPORT -------- Dictated By: Mohan Lynne Dictated Date: 11/15/2024 15:42 ET Assigned Physician: Mohan Lynne Reviewed and Electronically Signed By: Mohan Lynne Signed Date: 11/15/2024 16:00 ET Workstation ID: [id number] Transcribed By: Self Edit Transcribed Date: 11/15/2024 15:42 ET Narrative 11/15/2024 4:00 PM EDT EXAMINATION: CT ABDOMEN AND PELVIS WITHOUT AND WITH CONTRAST CLINICAL INFORMATION: Gross hematuria. COMPARISON: None TECHNIQUE: Multidetector CT. Helical examination of the abdomen and pelvis. CONTRAST: The exam was performed before and after the IV administration of contrast DLP: 3542 mGy-cm Imaging before and after the IV administration of contrast. Dose optimization was performed including the use of low-dose iterative reconstruction technique with automatic exposure control based on patient size. Amount of contrast: 120 mL Type of contrast: Isovue-370 Volume of contrast discarded: 0 mL FINDINGS: KIDNEYS: RENAL SIZE: The right renal length: At least 9.2 cm in greatest length The left renal length: At least 10.1 cm in greatest length RENAL CONTOUR: The renal contours are smooth. CALCULI: There is a 0.6 cm calcification in the central left kidney. I cannot distinguish an arterial calcification from a calculus. There is no other opaque urinary calculus demonstrated. NEPHROGRAM: The nephrograms are symmetric. COLLECTING SYSTEM CALIBER: There is no dilation of the urinary collecting system on either side. MASSES: There are no suspicious renal masses. UROTHELIUM: There is no urothelial mass or focal area of thickening. VASCULATURE: There is calcified plaque near the origin of the renal artery on each side. The central aspect of the renal vein opacifies bilaterally URINARY BLADDER: There is an irregular papillary mass involving the posterior bladder trigone which measures approximately 3.5 x 1.6 x 1.5 cm. This could be more extensive. No obvious extension beyond the wall of the bladder. No bladder calculus. ADRENAL GLANDS: Normal PELVIC VISCERA: Within normal limits LIVER: Liver contour is smooth. No focal lesion. BILIARY TRACT: I suspect a small gallstone. There is no biliary dilation. SPLEEN: Normal size. No focal lesion. PANCREAS: Normal; no mass or surrounding fluid. GASTROINTESTINAL TRACT: There are multiple colonic diverticula. No definite localized colonic wall thickening. There is fatty prominence of the ileocecal valve. No localized fat stranding. No significant small bowel dilation. There is a diverticulum of the duodenum. No suspicious abnormality of stomach. ABDOMINAL WALL: No significant hernia is appreciated. LYMPHOVASCULAR STRUCTURES AND FLUID: There are some top normal right internal iliac lymph nodes which do not meet size criteria for pathology. There is no abdominal aortic aneurysm. There is extensive arterial calcification. The portal vein enhances. There is no free intraperitoneal fluid. VISUALIZED LOWER CHEST: There are extensive coronary calcifications. MUSCULOSKELETAL: No acute or suspicious osseous abnormality. Previous sternotomy. Marked degenerative changes in the spine Procedure Note Mohan Lynne MD - 11/15/2024 EXAMINATION: CT ABDOMEN AND PELVIS WITHOUT AND WITH CONTRAST CLINICAL INFORMATION: Gross hematuria. COMPARISON: None TECHNIQUE: Multidetector CT. Helical examination of the abdomen and pelvis. CONTRAST: The exam was performed before and after the IV administrationof contrast DLP: 3542 mGy-cm Imaging before and after the IV administration of contrast. Dose optimization was performed including the use of low-dose iterativereconstruction technique with automatic exposure control based on patientsize. Amount of contrast: 120 mL Type of contrast: Isovue-370 Volume of contrast discarded: 0 mL FINDINGS: KIDNEYS: RENAL SIZE: The right renal length: At least 9.2 cm in greatest length The left renal length: At least 10.1 cm in greatest length RENAL CONTOUR: The renal contours are smooth. CALCULI: There is a 0.6 cm calcification in the central left kidney. I cannotdistinguish an arterial calcification from a calculus. There is no otheropaque urinary calculus demonstrated. NEPHROGRAM: The nephrograms are symmetric. COLLECTING SYSTEM CALIBER: There is no dilation of the urinary collecting system on either side. MASSES: There are no suspicious renal masses. UROTHELIUM: There is no urothelial mass or focal area of thickening. VASCULATURE: There is calcified plaque near the origin of the renal artery on eachside. The central aspect of the renal vein opacifies bilaterally URINARY BLADDER: There is an irregular papillary mass involving the posterior bladdertrigone which measures approximately 3.5 x 1.6 x 1.5 cm. This could bemore extensive. No obvious extension beyond the wall of the bladder. No bladder calculus. ADRENAL GLANDS: Normal PELVIC VISCERA: Within normal limits LIVER: Liver contour is smooth. No focal lesion. BILIARY TRACT: I suspect a small gallstone. There is no biliarydilation. SPLEEN: Normal size. No focal lesion. PANCREAS: Normal; no mass or surrounding fluid. GASTROINTESTINAL TRACT: There are multiple colonic diverticula. Nodefinite localized colonic wall thickening. There is fatty prominence ofthe ileocecal valve. No localized fat stranding. No significant smallbowel dilation. There is a diverticulum of the duodenum. No suspiciousabnormality of stomach. ABDOMINAL WALL: No significant hernia is appreciated. LYMPHOVASCULAR STRUCTURES AND FLUID: There are some top normal rightinternal iliac lymph nodes which do not meet size criteria for pathology.There is no abdominal aortic aneurysm. There is extensive arterialcalcification. The portal vein enhances. There is no free intraperitoneal fluid. VISUALIZED LOWER CHEST: There are extensive coronary calcifications. MUSCULOSKELETAL: No acute or suspicious osseous abnormality. Previoussternotomy. Marked degenerative changes in the spine IMPRESSION: 1. Irregular papillary mass involving the posterior bladder trigone.Findings suspicious for bladder cancer. 2. No suspicious renal mass. 3. No urothelial mass or focal area of thickening. 4. No evidence of metastatic disease. -------- FINAL REPORT -------- Dictated By: Mohan Lynne Dictated Date: 11/15/2024 15:42 ET Assigned Physician: Mohan Lynne Reviewed and Electronically Signed By: Mohan Lynne Signed Date: 11/15/2024 16:00 ET Workstation ID: [id number] Transcribed By: Self Edit Transcribed Date: 11/15/2024 15:42 ET Gloria Gonzalez CHIEF LOAD DISPATCHER IMG CT PROCEDURES Final Res ult * (ABNORMAL) Urinalysis with reflex microscopic and culture (09/28/2024 12:34 PM EDT) Only the most recent of2 resultswithin the time period is included. Specific Honeydew Urine 09/28/2024 1:17 PM EDT [facility] Comment:Unable to interpret due to color interference. pH, Urine 09/28/2024 1:17 PM EDT [facility] Comment:Unable to interpret due to color interference. Leukocytes, Urine 09/28/2024 1:17 PM [facility] Comment:Unable to interpret due to color interference. Nitrite, Urine 09/28/2024 1:17 PM [facility] Comment:Unable to interpret due to color interference. Protein, Urine 09/28/2024 1:17 PM [facility] Comment:Unable to interpret due to color interference. Glucose, Urine 09/28/2024 1:17 PM [facility] Comment:Unable to interpret due to color interference. Ketones, Urine 09/28/2024 1:17 PM [facility] Comment:Unable to interpret due to color interference. Urobilinogen , Urine 09/28/2024 1:17 PM [facility] Comment:Unable to interpret due to color interference. Bilirubin, Urine 09/28/2024 1:17 PM [facility] Comment:Unable to interpret due to color interference. Blood, Urine 09/28/2024 1:17 PM [facility] Comment:Unable to interpret due to color interference. RBC, Urine >4,000(H) 0 - 4 /HPF LAB URINALYSIS - AUTOMATED METHOD 09/28/2024 1:17 PM [facility] WBC, Urine 23.2(H) 0 - 4 /HPF LAB URINALYSIS - AUTOMATED METHOD 09/28/2024 1:17 PM [facility] Squamous Epithelial, Urine 30 0 - 60 /LPF LAB URINALYSIS - AUTOMATED METHOD 09/28/2024 1:17 PM [facility] Bacteria, Urine Negative Negative /HPF LAB URINALYSIS - AUTOMATED METHOD 09/28/2024 1:17 PM [facility] Hyaline Casts, Urine 0.0 0 - 3 /LPF LAB URINALYSIS - AUTOMATED METHOD 09/28/2024 1:17 PM EDT [facility] Urine Urine specimen obtained by clean catch procedure / Unknown Non-blood Collection / Unknown 09/28/2024 12:34 PM EDT 09/28/2024 12:42 PM EDT us Tae Arreola MD LAB URINE ORDERABLES Final Resul t Performing Organization Address City/[facility]/ZIP Co de Phone Number [facility] [address] [place] [address], [place] [phone] * Sanchez urine culture tube (09/28/2024 12:34 PM EDT) Only the most recent of2 resultswithin the time period is included. Extra Tube Hold for add-ons. 09/28/2024 2:01 PM EDT [facility] Comment:Auto resulted. Urine Urine specimen obtained by clean catch procedure / Unknown Non-blood Collection / Unknown 09/28/2024 12:34 PM EDT 09/28/2024 12:42 PM EDT us Tae Arreola MD LAB URINE ORDERABLES Final Resul t Performing Organization Address [facility] Co de Phone Number [facility] [address] [place] [address], [place] [phone] * Culture urine (09/28/2024 12:34 PM EDT) Only the most recent of3 resultswithin the time period is included. Culture, Urine <10,000 CFU/mL gram positive cocci, insignificant count, no further workup 09/29/2024 9:47 AM EDT [facility] Urine Urine specimen obtained by clean catch procedure / Unknown Non-blood Collection / Unknown 09/28/2024 12:34 PM EDT 09/28/2024 1:17 PM EDT us Tae Arreola MD LAB MICROBIOLOGY - GENERAL ORDER JUVENTINO Final Result Performing Organization Address City/State/[facility] Co de Phone Number [facility] [address] [place] [address], * (ABNORMAL) CBC auto differential (09/28/2024 12:14 PM EDT) Only the most recent of2 resultswithin the time period is included. WBC 7.5 4.8 - 10.8 K/mcL LAB HEMETOLOGY METHOD 09/28/2024 12:46 PM EDT [facility] RBC 2.80(L) 3.80 - 4.80 M/mcL LAB HEMETOLOGY METHOD 09/28/2024 12:46 PM EDT [facility] Hemoglobin 8.6(L) 11.5 - 16.0 g/dL LAB HEMETOLOGY METHOD 09/28/2024 12:46 PM EDT [facility] Hematocrit 27.7(L) 35.0 - 47.0 % LAB HEMETOLOGY METHOD 09/28/2024 12:46 PM EDT [facility] MCV 99.3(H) 79.0 - 98.0 FL LAB HEMETOLOGY METHOD 09/28/2024 12:46 PM EDT [facility] MCH 30.8 27.0 - 32.0 pcg LAB HEMETOLOGY METHOD 09/28/2024 12:46 PM EDT [facility] MCHC 31.0(L) 32.0 - 37.0 g/dL LAB HEMETOLOGY METHOD 09/28/2024 12:46 PM EDT [facility] RDW 13.7 11.0 - 15.0 % LAB HEMETOLOGY METHOD 09/28/2024 12:46 PM EDT [facility] Platelets 299 130 - 400 K/mcL LAB HEMETOLOGY METHOD 09/28/2024 12:46 PM EDT [facility] MPV 9.9 7.0 - 11.0 FL LAB HEMETOLOGY METHOD [facility] NRBC 0.0 <1.0 % LAB HEMETOLOGY METHOD 09/28/2024 12:46 PM [facility] NRBC Absolute 0.00 <0.10 K/mcL LAB HEMETOLOGY METHOD 09/28/2024 12:46 PM [facility] Neutrophils Relative 63.5 % LAB HEMETOLOGY METHOD 09/28/2024 12:46 PM [facility] Lymphocytes Relative 25.6 % LAB HEMETOLOGY METHOD 09/28/2024 12:46 PM [facility] Monocytes Relative 7.7 % LAB HEMETOLOGY METHOD 09/28/2024 12:46 PM [facility] Eosinophils Relative 2.3 % LAB HEMETOLOGY METHOD 09/28/2024 12:46 PM [facility] Basophils Relative 0.5 % LAB HEMETOLOGY METHOD 09/28/2024 12:46 PM [facility] Immature Granulocytes Relative 0.4 % LAB HEMETOLOGY METHOD 09/28/2024 12:46 PM [facility] Neutrophils Absolute 4.79 1.50 - 7.00 K/mcL LAB HEMETOLOGY METHOD 09/28/2024 12:46 PM [facility] Lymphocytes Absolute 1.93 1.00 - 5.00 K/mcL LAB HEMETOLOGY METHOD 09/28/2024 12:46 PM [facility] Monocytes Absolute 0.58 0.20 - 1.00 K/mcL LAB HEMETOLOGY METHOD 09/28/2024 12:46 PM [facility] Eosinophils Absolute 0.17 0.00 - 0.50 K/mcL LAB HEMETOLOGY METHOD 09/28/2024 12:46 PM [facility] Basophils Absolute 0.04 0.00 - 0.20 K/mcL LAB HEMETOLOGY METHOD 09/28/2024 12:46 PM EDT [facility] Immature Granulocytes Absolute 0.03 0.00 - 0.03 K/[facility] LAB HEMETOLOGY METHOD 09/28/2024 12:46 PM EDT [facility] Blood Venous blood specimen / Unknown Venipuncture / Unknown 09/28/2024 12:14 PM EDT 09/28/2024 12:36 PM EDT us Tae Arreola MD LAB BLOOD ORDERABLES Final Resul t [facility] [address] [place] [address], [place] [phone] * (ABNORMAL) Basic metabolic panel (09/28/2024 12:14 PM EDT) Only the most recent of3 resultswithin the time period is included. Sodium 142 133 - 145 mmol/L LAB CHEMISTRY METHOD 09/28/2024 1:05 PM [facility] Potassium 4.8 3.5 - 5.5 mmol/L LAB CHEMISTRY METHOD 09/28/2024 1:05 PM [facility] Chloride 111(H) 96 - 110 mmol/L LAB CHEMISTRY METHOD 09/28/2024 1:05 PM [facility] CO2 27 21 - 32 mmol/L LAB CHEMISTRY METHOD 09/28/2024 1:05 PM [facility] Anion Gap 4 3 - 11 LAB CHEMISTRY METHOD 09/28/2024 1:05 PM [facility] Glucose 98 70 - 100 mg/dL LAB CHEMISTRY METHOD 09/28/2024 1:05 PM [facility] BUN 33(H) 5 - 25 mg/dL LAB CHEMISTRY METHOD 09/28/2024 1:05 PM [facility] Creatinine 1.57(H) 0.50 - 1.10 mg/dL LAB CHEMISTRY METHOD 09/28/2024 1:05 PM EDT [facility] eGFR 33(L) >=60 mL/min/1. 73m2 LAB CHEMISTRY METHOD 09/28/2024 1:05 PM EDT [facility] Comment:Calculation based on the Chronic Kidney Disease Epidemiology Collaboration (CKD-EPI) equation refit without adjustment for race. BUN/Creatinine Ratio 21.0 LAB CHEMISTRY METHOD 09/28/2024 1:05 PM EDT [facility] Calcium 9.4 8.5 - 10.5 mg/dL LAB CHEMISTRY METHOD 09/28/2024 1:05 PM EDT [facility] Blood Venous blood specimen / Unknown Venipuncture / Unknown 09/28/2024 12:14 PM EDT 09/28/2024 12:36 PM EDT Tae Arreola MD LAB BLOOD ORDERABLES Final Resul t [facility] [address] [place] [address], [place] [phone] * Blood Culture, Peripheral #1 (09/16/2024 3:08 PM EDT) Only the most recent of2 resultswithin the time period is included. Culture, Blood No growth at 5 days 09/21/2024 4:01 PM EDT [facility] Blood Venous blood specimen / Unknown Venipuncture / Unknown 09/16/2024 3:08 PM EDT 09/16/2024 3:08 PM EDT Vitor Babin MD LAB MICROBIOLOGY - GENERAL ORDER JUVENTINO Final Result [facility] [address] [place] [address], [place] [phone] * Lactate, with Reflex (09/16/2024 2:19 PM EDT) [facility] LACTIC ACID 0.9 0.4 - 2.0 mmol/L LAB CHEMISTRY METHOD 09/16/2024 3:00 PM EDT [facility] Blood Venous blood specimen / Unknown Venipuncture / Unknown 09/16/2024 2:19 PM EDT 09/16/2024 2:26 PM EDT us Vitor Babin MD LAB BLOOD ORDERABLES Final Resul t [facility] [address] [place] [address], [place] [phone] * (ABNORMAL) Urinalysis with reflex microscopic (09/14/2024 7:39 AM EDT) [facility] Specific Honeydew Urine 1.025 1.003 - 1.030 LAB URINALYSIS - AUTOMATED METHOD 09/14/2024 8:18 AM [facility] pH, Urine 5.5 5.0 - 8.0 pH LAB URINALYSIS - AUTOMATED METHOD 09/14/2024 8:18 AM [facility] Leukocytes, Urine Negative Negative LAB URINALYSIS - AUTOMATED METHOD 09/14/2024 8:18 AM [facility] Nitrite, Urine Negative Negative LAB URINALYSIS - AUTOMATED METHOD 09/14/2024 8:18 AM [facility] Protein, Urine >=300(A) <=Trace mg/dL LAB URINALYSIS - AUTOMATED METHOD 09/14/2024 8:18 AM [facility] Glucose, Urine 100(A) Negative mg/dL LAB URINALYSIS - AUTOMATED METHOD 09/14/2024 8:18 AM [facility] Ketones, Urine Trace(A) Negative mg/dL LAB URINALYSIS - AUTOMATED METHOD 09/14/2024 8:18 AM [facility] Urobilinogen, Urine 1.0 0.2 - 1.0 mg/dL LAB URINALYSIS - AUTOMATED METHOD 09/14/2024 8:18 AM EDT [facility] Bilirubin, Urine Small(A) Negative LAB URINALYSIS - AUTOMATED METHOD 09/14/2024 8:18 AM EDT [facility] Blood, Urine Large(A) Negative LAB URINALYSIS - AUTOMATED METHOD 09/14/2024 8:18 AM T [facility] RBC, Urine >100(H) 0 - 4 /HPF 09/14/2024 8:18 AM EDT [facility] WBC, Urine 4 0 - 4 /HPF 09/14/2024 8:18 AM EDT [facility] Squamous Epithelial, Urine 3 0 - 60 /LPF 09/14/2024 8:18 AM [facility] Bacteria, Urine Many(A) Negative /HPF 09/14/2024 8:18 AM EDT [facility] Urine Urine specimen obtained by clean catch procedure / Unknown Non-blood Collection / Unknown 09/14/2024 7:39 AM EDT 09/14/2024 7:59 AM EDT Gloria Gonzalez CHIEF LOAD DISPATCHER LAB URINE ORDERABLES Final Result [facility] [address] [place] [address], * JULISSA DEXA AXIAL SKELETON (01/01/2019 4:52 PM EST) Anatomical Region Laterality Modality Mammography 01/01/2019 7:10 AM EST Narrative 01/01/2019 4:52 PM EST [facility] Diagnostic Imaging Department [address] [place] [address] Patient: REKHA SHARMA Dino /Age/Sex: 1940 78 - F Unit#: [id number] Location/Status: SPDIMAM/REG CLI Mnem[facility] Ordering Physician: CAROL CANO MD [facility] Dexa Axial Skeleton - 01/01/19 - [id number] History: Low estrogen state due to menopause. Comparison: 01/01/13 Findings: Bone densitometry is performed utilizing dual energy x-ray absorptiometry (DXA) in the DeviceFidelity unit. The lumbar spine and proximal femora [...] Major Osteoporotic 9.6% Hip 1.7%. IMPRESSION: Osteopenia. [id number] Dictating Physician: NELLIE TRIANA MD Electronically Signed by: NELLIE TRIANA MD Dic Date/Time: 01/01/191649 Sign date/Time: 01/01/191651 Procedure Note Nellie Triana - 02/16/2022 [facility] Diagnostic Imaging Department [address] [place] [address] Patient: REKHA SHARMA Dino /Age/Sex: 1940 - 78 - F Unit#: [id number] Location/Status: SPDIMAM/REG CLI Mnemonic[facility] Ordering Physician: CAROL CANO MD [facility] Dexa Axial Skeleton - 01/01/19 [id number] History: Low estrogen state due to menopause. Comparison: 01/01/13 Findings: Bone densitometry is performed utilizing dual energy x-ray absorptiometry(DXA) in the [employer] unit. The lumbar spine and proximal femora [...] Fracture: Major Osteoporotic 9.6%Hip 1.7%. IMPRESSION: Osteopenia. [id number] Dictating Physician: NELLIE TRIANA MD Electronically Signed by: NELLIE TRIANA MD Dic Date/Time: 01/01/191649 Sign date/Time: 01/01/19 165 us Carol Cano MD IMG BI PROCEDURES Final Res ult from Last 3 Months or Most Recently Relevant to Health Maintenance Insurance [employer] MEDICARE Care Teams Rn Otolaryngology Relationship Specialty Start Date End Date Carol Cano MD [address] [place] [address] [address] [place] [id number] PCP - General Internal Medicine 06/27/24
--- OUTSIDE RECORDS SUMMARY | 2024-11-23 15:27 | XMS_ITS | Patient Health Record ---
Author Organization Albaro Orona MD Address [address] [place], [place] [id number] Care Team Providers Care Pocket Machine Operator Name Role Phone Yeyo Albaro Primary Care Provider [phone] Allergies Allergen (clinical drug ingredient) Drug/Non Drug Allergy documented on EMR Reaction Allergy Type Onset Date Status Keflex rash Drug Allergy Active Results Component Value Reference Range Notes Complete Blood Count Auto Di ff Reviewed date:01/16/2024 12:31:19 PM Interpretation: Performing Lab:[facility], [address] [place] [phone] Notes/Report: White Blood Count 7.7 4.8-10.8 X10*3/uL [...] Nitrogen Reviewed date:01/16/2024 12:33:27 PM Interpretation: Performing Lab:[address] [phone] Notes/Report: Blood Urea Nitrogen 28 9-16 mg/dL Liver Panel Reviewed date:05/08/2024 12:12:25 PM Interpretation: Performing Lab:[address] [phone] Notes/Report: Bilirubin Total 0.5 0.0-1.0 mg/dL Bilirubin Direct 0.2 0.0-0.5 mg/dL Aspartate Amino Transferase 41 5-31 U/L Alanine Aminotransferase 29 0-31 U/L Total Protein 7.4 6.5-8.0 g/dL Albumin Level 3.9 3.5-5.0 g/dL Alkaline Phosphatase 89 39-117 U/L Glucose Fasting Reviewed date:05/08/2024 12:27:13 PM Interpretation: Performing Lab:[address] [phone] Notes/Report: Glucose Fasting 99 60-99 mg/dL Lipid Panel with Reflex Reviewed date:05/08/2024 12:14:36 PM Interpretation: Performing Lab:[facility], [address] [place] [phone] Notes/Report: Triglycerides 138 <150 mg/dL Desirable Triglyceride: [...] A1c Reviewed date:05/08/2024 12:10:43 PM Interpretation: Performing Lab:[facility], [address] [place] [phone] Notes/Report: Hemoglobin A1c % 5.8 <6.0 % [...] average glucose, using the formula of the V2H-Bqulgih Average Glucose study (ADAG), Diabetes Care, Vol.31,#8, 2007 Complete Blood Count Auto Di ff Reviewed date:11/22/2024 09:25:13 AM Interpretation:11-20-2024 Performing Lab:[facility], [address] [place] [phone] Notes/Report: White Blood Count 6.3 4.8-10.8 X10*3/uL [...] NRBC Abs Auto 0.000 0.0-0.012 X10*3/uL Comprehensive [place]. Panel Fa st Reviewed date:11/08/2024 04:43:19 PM Interpretation: Performing Lab:[facility], [address] [place] [phone] Notes/Report: Sodium 145 135-145 mmol/L Potassium 4.0 [...] Panel Reviewed date:11/08/2024 04:35:56 PM Interpretation: Performing Lab:[facility], [address] [place] [phone] Notes/Report: Triglycerides 91 <150 mg/dL Desirable Triglyceride: [...] A1c Reviewed date:11/08/2024 04:35:48 PM Interpretation: Performing Lab:[facility], [address] [place] [phone] Notes/Report: Hemoglobin A1c % 5.0 <6.0 % [...] average glucose, using the formula of the X8R-Bgghhzl Average Glucose study (ADAG), Diabetes Care, Vol.31,#8, 2007 Pathology Reviewed date:12/26/2023 12:38:05 PM Interpretation: Performing Lab:[facility], [address] [place] [address], [place] [address] Notes/Report: ------ Name: Rekha Sharma e/Sex: 83/F : 1940 Unit#: [id number] Attend Dr: Gloria Gonzalez [facility] Re12/21/23 Status : [facility] REF Location: [facility] Disch: ------ SPEC : [id number] RECD : 12/22/23 STATUS: DASHA INGRAM NUM: [id number] ERIC: 12/21/[address] [facility] [address]: Gloria Gonzalez [facility]- ENTERED: 12/22/23-14 19 SP TYPE: Cytology OTHR [...] To: Albaro Orona MD [facility] [address] [place] [address] [phone] Gloria Gonzalez ASSISTANT BASKETBALL COACH-[employer] [facility] [address] [place] [address] Dr. Castillo [address] [place] [address] [email or web address] ------ Signed (signature on file) Ernie Devi MD 12/26/23 1130 ------ END OF REPORT MAMMOGRAM DIGITAL BILATERAL SCREEN Reviewed date:01/17/2024 12:47:57 PM Interpretation:Negative Performing Lab: Notes/Report: Negative Hold Gold Reviewed date:05/08/2024 12:10:26 PM Interpretation: Performing Lab:[facility], [address] [place] [phone] Notes/Report: Neha Gold See Note Specimen held untested for 24 hours; Call to request Chemistry testing. Pathology Reviewed date:06/22/2024 03:50:26 PM Interpretation: Performing Lab:[facility], [address] [place] [phone] Notes/Report: ------ Name: Rekha Sharma e/Sex: 84/F : 1940 Unit#: [id number] Attend Dr: Gloria Gonzalez [facility] Re06/20/24 Status : DEP REF Location: [facility] Disch: ------ SPEC : [id number] RECD : 06/21/24 STATUS: [facility] NUM: [id number] ERIC: 06/20/[address] [facility] [address]: Gloria Gonzalez [facility] ENTERED: 06/21/24- 13 SP TYPE: Cytology OTHR [...] To: Albaro Orona MD [facility] [address] [place] [address] [address] [place], [place] [phone] Gloria Gonzalez [facility] [address] [place], [place] [address] [place], [place] [phone] [email or web address] ------ Signed (signature on file) Ernie Devi MD 06/22/24 0810 ------ END OF REPORT Urine Culture Reviewed date:06/24/2024 01:59:04 PM Interpretation: Performing Lab:[facility], [address] [place] [phone] Notes/Report: O:PROMIR Proteus mirabilis Urine Culture Quant [...] Pathology Reviewed date:09/04/2024 12:48:15 PM Interpretation: Performing Lab:[facility], [address] [place] [phone] Notes/Report: ------ Name: Rekha Sharma e/Sex: 84/F : 1940 Unit#: [id number] Attend Dr: Gloria Gonzalez [facility] Re08/30/24 Status : [facility] REF Location: [facility] Disch: ------ SPEC : [id number] RECD : 09/03/24 STATUS: DASHA INGRAM NUM: [id number] ERIC: 08/30/24-16[address] [facility] [address]: Gloria Gonzalez [facility] ENTERED: 09/03/24- 32 SP TYPE: Cytology OTHR [...] developed and their performance characteristics determined by [facility]. They have not been cleared or appr yeni by the U.S. Food and Drug Administration (FDA). However, the FDA has determined that such clearance or approval is not necessary. This laboratory is certified under the Clinical Laboratory Improvement Amendments of 1988 (CLIA) as qualified to perform high comp lexity clinical laboratory testing. Copies To: Albaro Orona MD [facility] [address] [place] [address] [address] [place], [place] [phone] [facility] [address] [place] [address] Dr. Castillo [address] [place] [phone] [email or web address] CONTINUED ON NEXT PAGE ------ Name: Rekha Sharma Age/Sex: 84/F : 1940 Unit#: [id number] Attend Dr: Gloria Gonzalez [facility] Re08/30/24 Status : DEP [facility] Disch: ------ SPEC : [id number] RECD : 09/03/24 STATUS: DASHA INGRAM NUM: [id number] ERIC: 08/30/[address] [facility] [address]: Gloria Gonzalez [facility] ENTERED: 09/03/24- 32 SP TYPE: Cytology OTHR DR: Albaro Orona MD ORDERED: Cyto-enhanced ------ Signed (signature on file) Maeganailyn Deluca 09/03/24 1453 ------ END OF REPORT Urine Culture Reviewed date:09/03/2024 12:50:13 PM Interpretation: Performing Lab:[facility], [address] [place] [phone] Notes/Report: Urine Culture Report Result Urine Culture [...] Internal M edicine Referred Provider Odilon Chiropratic Diane ab [place] [facility] Referred Provider Specialty Physical The rapist General Notes Deepthi Luna 0 05/15/2024 01:49:42 PM >patient will be making her own appt Referral Priority Routine Medications Medication SIG (Take, Route, Frequency, Duration) Notes Start Date End Date Status Cephalexin 500 MG 1 capsule Orally 2 times a day for 5 days 02/19/2022 Not-Takin g Vitamin B12 1000 mg 1 tablet Orally Once a day Not-Taking Nitrofurantoin Monohyd Macro 100 MG 1 capsule with food Orally every 12 hrs for 5 day(s) Not-Taking Ventolin HFA 108 (90 Base) MCG/ACT 2 puffs as needed Inhalation every 4 hrs for 30 days 04/18/2018 Not-Taking Simvastatin 40 mg TAKE 1 TABLET DAILY orally daily Active Valsartan-hydroCHLOROthiaz lc 320-25 MG 1 tablet Orally Once a day 04/22/2020 Active Metoprolol Succinate ER 50 mg TAKE 1 TABLET DAILY y mouth daily Active Vitamin C 500 MG as directed Orally Not-Taking ProAir HFA 108 (90 Base) MCG/ACT 2 puffs as needed Inhalation every 4 hrs for 30 days 12/22/2012 Not-Taking Aspirin Adult Low Strength 81 MG 1 tablet Orally Once a day for 30 day(s) Active Symbicort 160-4.5 MCG/ACT 2 puffs Inhala tion Twice a day 07/04/2018 Not-Taking Sulfamethoxazole-Trimethop rim 800-160 MG 1 tablet Orally Twice a day for 7 days 08/27/2021 Not-Taking Furosemide 20 MG 1 tablet Orally Once a day for 10 days 01/29/2021 Not-Taking Immunizations Vaccine Route Administration Date Status [...] Administered TDaP Unknown 12/27/2016 [facility]rix IM Intramuscular 04/05/2018 Administered pt was given the vaccine at [facility] Shingrix Unknown 06/26/2018 Administered [facility] Fluarix Quadrivalent Unknown 01/27/2019 Administered Kopis Influenza High Dose Unknown 12/10/2019 Administered at work Covid Vaccine Unknown 04/12/2020 Administered Pfizer Influenza High Dose Unknown 11/05/2020 Administered At work through 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) Active confirmed Problem 68956058 Coronary artery disease (I25.10) Active confirmed Problem 80962246 Essential hypert ension (I10) Active confirmed Problem 52191659 Type 2 diabetes mellitus without complication (E11.9) Active confirmed Problem 321469086 Morbid obesity d ue to excess calories (E66.01) Active confirmed Problem 28504742 Sciatica, unspec ified laterality (M54.30) Active confirmed Problem 11173312 Sciatica of left side (M54.32) Active confirmed Problem 391295785 Pure hypercholesterolemia (E78.00) Active confirmed Problem 225094772 PVD (peripheral vascular disease) (I73.9) Active confirmed Problem 393480038 Osteopenia deter mined by x-ray (M85.80) Active confirmed Problem 094764165 Mild intermitten t asthmatic bronchitis with acute exacerbation (J45.21) Active confirmed Vital Signs Blood pressure diastolic 60 mm Hg 11/20/2024 constantino ght is up 2 pounds since 09-11-24 Height 60.5 in 11/20/2024 weight is up 2 pounds since 09-11-24 Blood pressure systolic 132 mm Hg 11/20/2024 weig ht is up 2 pounds since 09-11-24 Weight 205 lbs 11/20/2024 weight is up 2 pounds since 09-11-24 BMI 39.37 kg/m2 11/20/2024 weight is up 2 pounds since 09-11-24 Encounters Encounter Location Date Provider Diagnosis Albaro Orona MD [address] [place] [id number] 01/16/2024 Albaro Orona Elevated BUN R79.9 Albaro Orona MD [address] [place] [id number] 05/08/2024 Albaro Orona Type 2 diabetes azra itus without complication E11.9 and Pure hypercholesterolemia E78.00 Albaro Orona MD [address] [place] [address] [id number] 11/08/2024 Albaro Orona Blood tests for rout ine general physical examination Z00.00 ; Type 2 diabetes mellitus without complication E11.9 ; Essential hypertension I10 ; Pure hypercholesterolemia E78.00 and Lymphocytosis D72.820 Albaro Orona MD [address] [place] [id number] 05/15/2024 Albaro Orona Essential hypertensi on I10 ; Sciatica, unspecified laterality M54.30 and Type 2 diabetes mellitus without complication E11.9 Albaro Orona MD [address] [place] [id number] 09/11/2024 Albaro Orona Type 2 diabetes azra itus without complication E11.9 ; Coronary atherosclerosis due to lipid rich plaque I25.83 ; Essential hypertension I10 and Preop examination Z01.818 Albaro Orona MD [address] [place] [address] [id number] 11/20/2024 Albaro Orona Annual physical exam Z00.00 ; 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 ; Anemia D64.9 ; Murmur, cardiac R01.1 ; Type 2 diabetes mellitus without complication E11.9 ; Essential hypertension I10 ; Pure hypercholesterolemia E78.00 and Depression screening Z13.31 Albaro Orona MD [address] [place] [address] [id number] 06/28/2024 Albaro Orona MD [address] [place] [address] [id number] 08/06/2024 Albaro Orona MD [address] [place] [address] [id number] 10/01/2024 Albaro Orona MD [address] [place] [address] [id number] 10/04/2024 Albaro Bombardier Assessments Encounter Date Diagnosis (ICD Code) Assessment Notes Treatment Notes Treatment Clinical Notes Section Notes 01/16/2024 Elevated BUN (ICD-10 - R79.9) 05/08/2024 Type 2 diabetes mellitus without complication (ICD-10 - E11.9) 11/08/[address] ine general physical examination (ICD-10 - Z00.00) 05/15/2024 Essential hypertensi on (ICD-10 - I10) doing well 05/15/2024 Sciatica, unspecifie d laterality (ICD-10 - M54.30) referral to physical therapy. [place] [facility] 09/11/2024 Type 2 diabetes mellitus without complication (ICD-10 - E11.9) is well controlled on diet 09/11/2024 Coronary atherosclerosis due to lipid rich plaque (ICD-10 - I25.83) ecg unchanged no acute changes, will continue current regiment 11/20/2024 Annual physical exam (ICD-10 - Z00.00) labs reviewed and discussed with patient 11/20/2024 Bladder tumor (ICD-1 0 - D49.4) waiting for her surgery 05/08/2024 Pure hypercholesterolemia (ICD-10 - E78.00) 11/08/2024 Type 2 diabetes mellitus without complication (ICD-10 - E11.9) 05/15/2024 Type 2 diabetes mellitus without complication (ICD-10 - E11.9) doing well 09/11/2024 Essential hypertensi on (ICD-10 - I10) stable, will continue current regiment 11/20/2024 Anemia (ICD-10 - D64.9) may need a transfusion before her surgery/ as soon as she finds out of the date of the surgery will do a cbc before 11/08/2024 Essential hypertensi on (ICD-10 - I10) 09/11/2024 Preop examination (ICD-10 - Z01.818) patient stable and cleared for upcoming cataract surgery 11/20/2024 Murmur, cardiac (ICD -10 - R01.1) had a recent echo and no significant valvular disease 11/08/2024 Pure hypercholesterolemia (ICD-10 - E78.00) 11/20/2024 Type 2 diabetes mellitus without complication (ICD-10 - E11.9) stable, will continue current regiment 11/08/2024 Lymphocytosis (ICD-1 0 - D72.820) 11/20/2024 Essential hypertensi on (ICD-10 - I10) stable, will continue current regiment 11/20/2024 Pure hypercholesterolemia (ICD-10 - E78.00) doing well, will continue current regiment 11/20/2024 Depression screening (ICD-10 - Z13.31) negative screen Plan Of Treatment Pending Test Test Name Order Date Electrocardiogram (EKG) 04/26/2019 Electrocardiogram (EKG) 11/25/2011 Electrocardiogram (EKG) 12/22/2012 Electrocardiogram (EKG) 04/07/2017 Electrocardiogram (EKG) 04/13/2018 Microalbumin, Random 11/08/2024 UA ClnCatch+Micro w/rflx Cult 11/08/2024 Next Appt Details Provider Name:Albaro cedeño, 11/26/2024 07:00:00 AM, [address] [place] [address], [address], [phone], Provider Name:Albaro cedeño, 01/22/2025 01:30:00 PM, [address] [place] [address], [address], [phone], Provider Name:Albaro cedeño, 05/23/2025 07:30:00 AM, [address] [place] [address], [address], [phone], Provider Name:Albaro cedeño, 05/30/2025 01:30:00 PM, [address] [place] [address], [address], [phone], Provider Name:Albaro cedeño, 11/14/2025 06:45:00 AM, [address] [place] [address], [phone], Provider Name:Albaro cedeño, 11/21/2025 01:00:00 PM, [address] [place] [address], [address], [phone], Insurance Providers Payer Name Payer Address Payer Phone Subscriber Number Group Number Insured Name Patient Relationship to Insured Coverage Start Date Coverage End Date [facility] are [employer] [address] [address] [place] [address] [id number] Rekha Sharma Self - patient is the insured [employer] [address] [place] [address] [id number] Rekha Sharma Self - patient is the insured Medical (General) History Medical History History ICD Code has not had colonoscopy - 20 12 discussed again 2012; refused 2013; colonoscopy - done 11/13/14 w/Dr. Poon (no more needed) [facility] appt 1 week ago, DR. Gary Baldwin , 2013
--- NOTE | 2024-12-13 11:58 | HO.ANESPROP2 ---
Documented by User: Mckenna Suazo NP 12/13/24 14:03 HPI - Anesthesia Eval Consult details Narrative: 84yo F for TUR Bladder Tumor with Clot Removal Follows [facility] for CAD s/p [id number], ischemic cmp (EF resolved), LBBB. Optimized to proceed and ok'd to hold asa. Stable at 06/2024 office visit [facility] Active Problems Active Problems: All Active Problems Bladder cancer (Acute) Abnormal cytology (Acute) Gross hematuria (Acute) Microscopic hematuria (Acute) Recurrent urinary tract infection (Acute) Rotator cuff tendonitis (Acute) Wound of right leg (Acute) Knee pain (Acute) Quadriceps strain (Acute) Past Medical History Medical History (Updated 12/13/24 @ 12:03 by Maegan Clark RN) Severe obesity Impaired glucose tolerance Chest pain Peripheral edema Bilateral carotid bruits Heart failure with improved ejection fraction (HFimpEF) LBBB (left bundle branch block) Ischemic cardiomyopathy HTN (hypertension) HLD (hyperlipidemia) CAD (coronary artery disease) Surgical History Surgical History (Updated 12/13/24 @ 12:39 by Maegan Clark RN) Hx of appendectomy Hx of tonsillectomy Hx of colonoscopy History of heart bypass surgery (2016) Social History Social History (Updated 12/13/24 @ 12:43 by Maegan Clark RN) Household Members: Other Housing: House Are you a primary memory care program director to a significant other at home: No Do you presently have visiting nurse or other home services: No Alcohol intake: current Alcohol intake frequency: does not drink Patient Tobacco Use Status: Former Tobacco user Smoked in Last 30 Days: No Second Hand Smoke Exposure: No Use of substances other than those prescribed or required for medical reasons: No Have you been hit, kicked, punched, or otherwise hurt by someone within the past year? If so, by whom?: No Are you DNR?: No Advance Directives: No (will bring DOS) Advance Directives Information Provided: No Advance Directives on File: No Patient : No : No Poor oral hygiene: No Meds Allergies Allergy/AdvReac Type Severity Reaction Status Date / Time No Known Allergies (No Known Allergy Verified 11/29/24 15:14 Allergies*) Home Medications ?Medication ?Instructions ?Recorded ?Confirmed ?Last Taken ?Type metoprolol succinate 50 mg 50 mg PO DAILY 02/12/1912/13/24 12/17/24 History tablet,extended release 24 hr simvastatin 40 mg tablet 40 mg PO BEDTIME 04/09/21 12/13/24 Unknown History valsartan 320 1 tab PO DAILY 04/09/21 12/13/24 Unknown History mg-hydrochlorothiazide 25 mg tablet aspirin 81 mg tablet,delayed 81 mg PO DAILY 02/15/23 12/13/24 Unknown History release tamsulosin 0.4 mg capsule 0.4 mg PO DAILY 10/16/24 12/13/24 Unknown History ascorbic acid (vitamin C) 100 mg 100 mg PO DAILY 12/13/24 12/13/24 Unknown History tablet (Vitamin C) multivitamin 1 tab PO DAILY 12/13/24 12/13/24 Unknown History omega-3 acid ethyl esters 1 gram 1 cap PO DAILY 12/13/24 Unknown History capsule (Lovaza) Exam Pertinent Lab Results Pertinent Lab Results: Laboratory Tests 11/08/24 11/26/24 07:30 07:00 WBC 7.1 Hgb 9.0 L Hct 29.6 L Plt Count 279 Sodium 145 Potassium 4.0 Chloride 110 H Carbon Dioxide 27 BUN 33 H Creatinine 1.38 Narrative Narrative: ECHO 04/2023 EKG 02/2024 Normal sinus rhythm Possible Left atrial enlargement Left axis deviation Non-specific intra-ventricular conduction block Cannot rule out Septal infarct , age undetermined Abnormal ECG no prior Confirmed by Leila AMAYA, DELIA ([id number]) on 03/22/2024 11:25:32 AM Carotid US 02/2024 RIGHT. 1. There is atherosclerotic plaque in the carotid system as noted above. 2. There is less than 50% stenosis in the internal carotid artery based on Doppler velocity. 3. The subclavian artery has normal Doppler flow pattern. 4. Vertebral artery has normal antegrade flow. ? LEFT. 1. There is atherosclerotic plaque in the carotid system as noted above. 2. There is less than 50% stenosis in the internal carotid artery based on Doppler velocity. 3. The subclavian artery has normal Doppler flow pattern. 4. Vertebral artery has normal antegrade flow. Assessment and Plan Assessment Anesthesia Assessment: Chart Reviewed Documented by User: Brittnee Mcclure MD 12/17/24 11:06 [facility] Past Medical History Medical History (Updated 12/13/24 @ 12:03 by Maegan Clark RN) Severe obesity Impaired glucose tolerance Chest pain Peripheral edema Bilateral carotid bruits Heart failure with improved ejection fraction (HFimpEF) LBBB (left bundle branch block) Ischemic cardiomyopathy HTN (hypertension) HLD (hyperlipidemia) CAD (coronary artery disease) Family History Family history of problems with anesthesia: No Surgical History Surgical History (Updated 12/13/24 @ 12:39 by Maegan Clark, RN) Hx of appendectomy Hx of tonsillectomy Hx of colonoscopy History of heart bypass surgery (2016) History of Problems with Anesthesia: No Social History Social History (Updated 12/13/24 @ 12:43 by Maegan Clark, BERNICE) Household Members: Other Housing: House Are you a primary memory care program director to a significant other at home: No Do you presently have visiting nurse or other home services: No Alcohol intake: current Alcohol intake frequency: does not drink Patient Tobacco Use Status: Former Tobacco user Smoked in Last 30 Days: No Second Hand Smoke Exposure: No Use of substances other than those prescribed or required for medical reasons: No Have you been hit, kicked, punched, or otherwise hurt by someone within the past year? If so, by whom?: No Are you DNR?: No Advance Directives: No (will bring DOS) Advance Directives Information Provided: No Advance Directives on File: No Patient : No : No Poor oral hygiene: No Meds Allergies Allergy/AdvReac Type Severity Reaction Status Date / Time No Known Allergies (No Known Allergy Verified 11/29/24 15:14 Allergies*) Home Medications ?Medication ?Instructions ?Recorded ?Confirmed ?Last Taken ?Type metoprolol succinate 50 mg 50 mg PO DAILY 04/09/21 12/13/24 12/17/24 History tablet,extended release 24 hr simvastatin 40 mg tablet 40 mg PO BEDTIME 04/09/21 12/13/24 Unknown History valsartan 320 1 tab PO DAILY 04/09/21 12/13/24 Unknown History mg-hydrochlorothiazide 25 mg tablet aspirin 81 mg tablet,delayed 81 mg PO DAILY 02/15/23 12/13/24 Unknown History release tamsulosin 0.4 mg capsule 0.4 mg PO DAILY 10/16/24 12/13/24 Unknown History ascorbic acid (vitamin C) 100 mg 100 mg PO DAILY 12/13/24 12/13/24 Unknown History tablet (Vitamin C) multivitamin 1 tab PO DAILY 12/13/24 12/13/24 Unknown History omega-3 acid ethyl esters 1 gram 1 cap PO DAILY 12/13/24 Unknown History capsule (Lovaza) Exam Airway Mallampati Class: II TM Dist: >3cm Neck ROM: Limited Denture: Upper and Lower Heart: rrr Lungs: cta Assessment and Plan Assessment Anesthesia Assessment: Anesthesia Plan Discussed Final Anesthetic Review Family History of Problems with Anesthesia: No History of Problems with Anesthesia: No NPO: Yes ASA Class: III Final Preanesthetic Review: No Changes in Pt Med Stat, Meds/Allgs Chart Reviewed, Consent Obtained/Reviewed and Anes Risks/Benef Reviewed Patient Risk: Intermediate Procedure Risk: Low Anesthetic Plan Anesthetic Plan: GA Disposition: Standard PACU
[2024-12-13 12:39] VITALS: BMI 39.3
[2024-12-17 09:25] VITALS: BP 139/54; PULSE 73; RESP 16; TEMP 36.9; O2SAT 100
[2024-12-17] MEDS: Lactated Ringers 1,000 ML 50 ML IVCONT (09:45)
--- NOTE | 2024-12-17 12:15 | MHC.SHP ---
Pre-Procedural Eval Section A - 24 Hr Update-Section A only Date of Service: 12/17/24 The patient is an INPATIENT: No Changes since office visit: No Cold of Flu in the past 2 weeks, No New Medical Problems, No Changes in Medication and No Patient answered all questions The patient has been examined within 24 hours of the surgical procedure. The History & Physical has been completed within 30 days and I have reviewed it.: Yes Section B - Complete if H&P > 30 days Chief Complaint: Malignant neoplasm of bladder, unspecified Details of Present Illness: Plan TURBT Allergies: Allergies Allergy/AdvReac Type Severity Reaction Status Date / Time No Known Allergies (No Known Allergy Verified 11/29/24 15:14 Allergies*) Plan Diagnosis/Plan: Unchanged I have reviewed the history and physical and performed a pertinent physical examination on my patient. No changes have occurred unless specified. Time Spent With Patient Time: Total time managing care of this patient today ____ minutes.
--- NOTE | 2024-12-17 13:08 | W.PM.OPN ---
Operative Note Operative Note Date of Service: 12/17/24 Narrative: PreOperative Diagnosis: bladder cancer Post Operative Diagnosis: bladder cancer - multifocal - Location #1 - right sidewall Tumor size 4 cm Location #2 - right ureteric orifice adjacent - 2cm Multiple suspicious small areas under narrow band imaging Procedure: TURBT Surgeon: Dr Alberto Silva Anesthesia: general Indications for procedure: Presentation with hematuria. Found to have flat lesion on cystoscopy within the office. Procedure: After informed consent was verified the patient was brought to the operating room and placed in a supine position. Anesthesia was administered per protocol. The patient was placed in a modified dorsal lithotomy position and prepped and draped in a sterile fashion. Safety pause time-out was performed. Antibiotics were confirmed. A 26 Frisian continuous flow resectoscope was inserted per urethra. The visual obturator was used in order to minimize potential for urethral damage. Monopolar with settings of 170 cut and 70 coag. Glycine irrigation. The lesion as previously seen with cystoscopy in the office covered approximately 4 cm in diameter on the right sidewall. There was a 2nd lesion adjacent to the right ureteric orifice medially proximally 2 cm. The primary lesion was targeted and biopsies were performed using a regular cystoscope. The resectoscope was then replaced and the area fulgurated in full. The area medial to the right ureteric orifice was also fulgurated. Narrow band imaging was used. There were multiple small areas seen within the dome of the bladder. She had injected mucosa globally. A number of small other areas were fulgurated. The patient tolerated the procedure well. They were extubated in the operating room and transferred in stable condition to the recovery area. Distinct possibility she will require induction bladder immunotherapy. Pending pathology. Pathology: Bladder biopsy Drains: None
[2024-12-17 13:18] VITALS: BP 125/50; PULSE 85; RESP 12; TEMP 36.3; O2SAT 99
[2024-12-17 13:20] VITALS: BP 113/44; PULSE 80; RESP 12; O2SAT 99
[2024-12-17 13:25] VITALS: BP 124/58; PULSE 82; RESP 12; O2SAT 99
[2024-12-17 13:30] VITALS: BP 122/48; PULSE 80; RESP 12; TEMP 36.1; O2SAT 98
[2024-12-17 13:37] VITALS: BP 120/57; PULSE 82; RESP 12; TEMP 36.1; O2SAT 98
== END 2024-12-17 14:01 | disposition home or self-care (01) ==
PROVIDERS: PCP Internal Medicine; Visit Provider Urology
PROC: 0TBB8ZZ Excision of Bladder, Via Natural or Artificial Opening Endoscopic (ICD-10-PCS; CPT 52235; principal; 2024-12-17 12:00)
DX: C67.9 Malignant neoplasm of bladder, unspecified (principal); N30.20 Other chronic cystitis without hematuria; R31.0 Gross hematuria; I25.10 Atherosclerotic heart disease of native coronary artery without angina pectoris; Z95.1 Presence of aortocoronary bypass graft; I25.5 Ischemic cardiomyopathy; I44.7 Left bundle-branch block, unspecified; I10 Essential (primary) hypertension; E78.5 Hyperlipidemia, unspecified; R73.02 Impaired glucose tolerance (oral); E66.01 Morbid (severe) obesity due to excess calories; Z68.39 Body mass index [BMI] 39.0-39.9, adult; Z79.82 Long term (current) use of aspirin; Z79.899 Other long term (current) drug therapy; Z87.891 Personal history of nicotine dependence
CPT/HCPCS: 52235; 88305; 88307; J1100; J1956; J2003; J2371; J2405; J2704; J3010

== ENCOUNTER → 2024-12-17 07:51 | Outpatient (BNV) | payer MEDICARE, SELFPAY | PROVIDERS: PCP Internal Medicine; Visit Provider Urology | DX: C67.9 Malignant neoplasm of bladder, unspecified (principal) | CPT/HCPCS: 52235 ==

== ENCOUNTER 2024-12-28 13:07 | Outpatient (AMB) | payer MEDICARE, SELFPAY ==
--- OUTSIDE RECORDS SUMMARY | 2024-05-15 09:30 | XMS_ITS ---
Author Organization Albaro Orona MD Address [address] [place], [place] [address] Care Team Providers Care Psychiatric Tech Name Role Phone Yeyo Albaro Primary Care Provider Allergies No Known Allergies Reason For Referral Reason Sciatica please ev al and treat for physical therapy Diagnosis 1 Sciatica, unspecifie d laterality (M54.30) Referral Organization Albaro Orona MD Referring Provider First Name Albaro Referring Provider Last Name Yeyo Referring Provider Speciality Internal M edicine [facility]erred Provider Specialty Physical The rapist General Notes Deepthi Luna 0 05/15/2024 01:49:42 PM >patient will be making her own appt Referral Priority Routine REASON FOR VISIT 6 month Medications Medication SIG (Take, Route, Frequency, Duration) Notes Start Date End Date Status Symbicort 160-4.5 MCG/ACT 2 puffs Inhala tion Twice a day 07/04/2018 Not-Taking ProAir HFA 108 (90 Base) MCG/ACT 2 puffs as needed Inhalation every 4 hrs for 30 days 12/22/2012 Not-Taking Valsartan-hydroCHLOROthia zide 320-25 MG 1 tablet Orally Once a day for 90 days 04/22/2020 Active Simvastatin 40 mg TAKE 1 TABLET DAILY orally daily for 90 days Active Metoprolol Succinate ER 50 mg TAKE 1 TABLET DAILY y mouth daily for 90 days Active Sulfamethoxazole-Trimetho prim 800-160 MG 1 tablet Orally Twice a day for 7 days 08/27/2021 Not-Taking Furosemide 20 MG 1 tablet Orally Once a day for 10 days 01/29/2021 Not-Taking Ventolin HFA 108 (90 Base) MCG/ACT 2 puffs as needed Inhalation every 4 hrs for 30 days 04/18/2018 Not-Taking Cephalexin 500 MG 1 capsule Orally 2 times a day for 5 days 02/19/2022 Not-Takin g Vitamin B12 1000 mg 1 tablet Orally Once a day Not-Taking Gary 3 1000 MG 1 capsule Orally Onc e a day Active Wegovy 0.5 MG/0.5ML 0.5 mL Subcutaneous Active Vitamin C 500 MG as directed Orally Active Aspirin Adult Low Strength 81 MG 1 tablet Orally Once a day for 30 day(s) Active Nitrofurantoin Monohyd Macro 100 MG 1 capsule with food Orally every 12 hrs for 5 day(s) Not-Taking Vital Signs Blood pressure systolic 128 mm Hg 05/16/19 25 Blood pressure diastolic 78 mm Hg 025 Height 60.5 in 05/15/2024 Weight 215 lbs 05/15/2024 BMI 41.29 kg/m2 05/15/2024 weight is down 7 pounds [facility] e 11-15-23 Encounters Encounter Location Date Provider Diagnosis Albaro Orona MD [address] [place] [address] [place] [phone] 05/15/2024 Albaro Orona Essential hypertension I10 ; Sciatica, unspecified laterality M54.30 and Type 2 diabetes mellitus without complication E11.9 Assessments Encounter Date Diagnosis (ICD Code) Assessment Notes Treatment Notes Treatment Clinical Notes Section Notes 05/15/2024 Essential hypertension (ICD-10 - I10) doing well 05/15/2024 Sciatica, unspecified laterality (ICD-10 - M54.30) referral to physical therapy. [facility] 05/15/2024 Type 2 diabetes mellitus without complication (ICD-10 - E11.9) doing well Plan Of Treatment Medication Medication Name Sig Start Date Stop Date Notes Valsartan-hydroCHLOROthiazid e 320-25 MG 1 tablet Orally Once a day for 90 days 04/22/2020 Simvastatin 40 mg TAKE 1 TABLET DAILY orally daily for 90 days Metoprolol Succinate ER 50 mg TAKE 1 TAB LET DAILY y mouth daily for 90 days Treatment Notes Assessment Notes Essential hypertension doing well Sciatica, unspecified laterality referra l to physical therapy. [facility] Type 2 diabetes mellitus wit hout complication doing well Referrals Referral Date Details 05/15/2024 05/15/2024, Sciatica please eval and treat for physical therapy, [facility] Next Appt Details Provider Name:Albaro cedeño, 01/22/2025 01:30:00 PM, [address] [place] [address], [address], [phone], Provider Name:Albaro cedeño, 05/23/2025 07:30:00 AM, [address] [place] [address], [address], [phone], Provider Name:Albaro cedeño, 05/30/2025 01:30:00 PM, [address] [place] [address], [address], [phone], Provider Name:Albaro cedeño, 11/14/2025 06:45:00 AM, [address] [place] [address], [address], [phone], Provider Name:Albaro cedeño, 11/21/2025 01:00:00 PM, [address] [place] [address], [address], [phone], Progress Notes * Rekha SHARMA PDOB:1940 (84 yo F)Acc No.[id number]:05/15/2024 Progress Notes Patient: Rekha MEAD Provider: Suri Orona MD :1940 A ge:84 Y S ex:Female Date:05/15/2024 Address: [id number] Subjective: * Chief Complaints: * 6 month * HPI: S ymptom(s): patient is a 84 yo female here for 6 month follow up visit./ doing well except for sciatica. / doesn't want any injection. using ice and heat. and using advil cream. * ROS: G eneral/Constitutional: Denies C hills. D enies F atigue. D enies F ever. D enies H eadache. E NT: Denies S ore throat. R espiratory: Denies C ough. D enies S hortness of breath at rest. D enies S hortness of breath with exertion. C ardiovascular: Patient denies c hest pain with exertion, chest pain at rest. G astrointestinal: Denies D iarrhea. D enies N ausea. * Medical History: * Surgical History: * Hospitalization/Major Diagno stic Procedure: * Medications: T akingWegovy 0.5 MG/0.5ML Solution Auto-injector 0.5 mL Subcutaneous Vitamin C 500 MG Capsule as directed Orally Aspirin Adult Low Strength 81 MG Tablet Delayed Release 1 tablet Orally Once a day Gary 3 1000 MG Capsule 1 capsule Orally Once a day Valsartan-hydroCHLOROthiazide 320-25 MG Tablet 1 tablet Orally Once a day Simvastatin 40 mg Tablet TAKE 1 TABLET DAILY Metoprolol Succinate ER 50 mg Tablet Extended Release 24 Hour TAKE 1 TABLET DAILY Taking Wegovy 0.5 MG/0.5ML Solution Auto- injector 0.5 mL Subcutaneous Taking Vitamin C 500 MG Capsule as directed Orally Taking Aspirin Adult Low Strength 81 MG Tablet Delayed Release 1 tablet Orally Once a day Taking Gary 3 1000 MG Capsule 1 capsule Orally Once a day Taking Valsartan-hydroCHLOROthiazide 320-25 MG Tablet 1 tablet Orally Once a day Taking Simvastatin 40 mg Tablet TAKE 1 TABLET DAILY Taking Metoprolol Succinate ER 50 mg Tablet Extended Release 24 Hour TAKE 1 TABLET DAILY Not-Taking/PRNNitrofurantoin Monohyd Macro 100 MG Capsule 1 capsule with food Orally every 12 hrs Ventolin HFA 108 (90 Base) MCG/ACT Aerosol Solution 2 puffs as needed Inhalation every 4 hrs Cephalexin 500 MG Capsule 1 capsule Orally 2 times a day Vitamin B12 1000 mg Tablet 1 tablet Orally Once a day Sulfamethoxazole-Trimethoprim 800-160 MG Tablet 1 tablet Orally Twice a day Furosemide 20 MG Tablet 1 tablet Orally Once a day ProAir HFA 108 (90 Base) MCG/ACT Aerosol Solution 2 puffs as needed Inhalation every 4 hrs Symbicort 160-4.5 MCG/ACT Aerosol 2 puffs Inhalation Twice a day Medication List reviewed and reconciled with the patientNot-Taking/PRN Nitrofurantoin Monohyd Macro 100 MG Capsule 1 capsule with food Orally every 12 hrs Not-Taking/PRN Ventolin HFA 108 (90 Base) MCG/ACT Aerosol Solution 2 puffs as needed Inhalation every 4 hrs Not-Taking/PRN Cephalexin 500 MG Capsule 1 capsule Orally 2 times a day Not-Taking/PRN Vitamin B12 1000 mg Tablet 1 tablet Orally Once a day Not-Taking/PRN Sulfamethoxazole-Trimethoprim 800-160 MG Tablet 1 tablet Orally Twice a day Not-Taking/PRN Furosemide 20 MG Tablet 1 tablet Orally Once a day Not-Taking/PRN ProAir HFA 108 (90 Base) MCG/ACT Aerosol Solution 2 puffs as needed Inhalation every 4 hrs Not-Taking/PRN Symbicort 160-4.5 MCG/ACT Aerosol 2 puffs Inhalation Twice a day Medication List reviewed and reconciled with the patient * Allergies: N .K.D.A.yes[Allergies Verified] Objective: * Vitals: H t: 60.5, Wt: 215, BMI:41.29, BP:128/78, Wt-k.52. weight is down 7 pounds since 11-15-23. * P ast Orders: L ab:Glucose Fasting (Order Date - 05/08/2024) (Collection Date & Time - 05/08/2024 07:30 AM) Value Reference Range Glucose Fasting 99 60-99 - mg/dL L ab:Lipid Panel with Reflex (Order Date - 05/08/2024) (Collection Date & Time - 05/08/2024 07:30 AM) Value Reference Range Triglycerides 138 <150 - mg/dL Cholesterol 146 <200 - mg/dL LDL Cholesterol Calculated 63 <100 - mg/dL HDL Cholesterol 56 >40 - mg/dL L ab:Hemoglobin A1c (Order Date - 05/08/2024) (Collection Date & Time - 05/08/2024 07:30 AM) Value Reference Range Hemoglobin A1c % 5.8 <6.0 - % Estimated Average Glucose 120 - mg/dL L ab:Liver Panel (Order Date - 05/08/2024) (Collection Date & Time - 05/08/2024 07:30 AM) Value Reference Range Bilirubin Total 0.5 0.0-1.0 - mg/dL Bilirubin Direct 0.2 0.0-0.5 - mg/dL Aspartate Amino Transferase 41 H 5-31 - U/L Alanine Aminotransferase 29 0-31 - U/L Total Protein 7.4 6.5-8.0 - g/dL Albumin Level 3.9 3.5-5.0 - g/dL Alkaline Phosphatase 89 39-117 - U/L * Examination: G eneral Examination: GENERAL APPEARANCE: a lert, well hydrated, in no distress, female. HEAD: n ormocephalic. SKIN: g ood turgor. HEART: n o murmurs, rubs, gallops, regular rate and rhythm.? LUNGS: n o wheezes, rales, rhonchi, good air movement, clear to auscultation bilaterally. Assessment: * Assessment: 1. E ssential hypertension - I10 (Primary) 2 . S ciatica, unspecified laterality - M54.30 3 . T ype 2 diabetes mellitus without complication - E11.9 ? Plan: * Treatment: 2. S ciatica, unspecified laterality Notes: referral to physical therapy. [facility] ? Referral To:[facility] Physical Therapist Reason:Sciatica please eval and treat for physical therapy 3. T ype 2 diabetes mellitus without complication Notes: doing well 4. O thers Refill Simvastatin Tablet, 40 mg, TAKE 1 TABLET DAILY, orally, daily, 90 days, 90, Refills 3; R efill Metoprolol Succinate ER Tablet Extended Release 24 Hour, 50 mg, TAKE 1 TABLET DAILY, y mouth, daily, 90 days, 90, Refills 3. * Procedure Codes: G 2211 Complex e/m visit add on * * Sign off status: Completed true * Provider: Suri Orona MD Date: 0 05/15/2024 Generated for Printi ng/Fadiog/eTransmitting on: 1 02:15 PM EDT History and Physical Notes * HPI (History of Present Illness) Category Sub-Category Detail Notes Category Not es Symptom(s) patient is a 84 yo female here for 6 month follow up visit./ doing well except for sciatica. / doesn't want any injection. using ice and heat. and using advil cream Examination Category Sub-Category Detail Notes Category Not es General Examination GENERAL APPEARANCE: alert, w ell hydrated, in no distress, female HEAD: normocephalic HEART: no murmurs, rubs, ga llops, regular rate and rhythm LUNGS: no wheezes, rales, r honchi, good air movement, clear to auscultation bilaterally SKIN: good turgor Consultation Request Notes Referral Date Referring Provider Referred Provider Not es 05/15/2024 Albaro Orona [facility], [facility] Sciatica please eval and treat for physical therapy
--- OUTSIDE RECORDS SUMMARY | 2024-06-28 04:33 | XMS_ITS ---
Author Organization Albaro Orona MD Address [address] [place] [phone] Care Team Providers Care Lawn Mower Operator Name Role Phone UrvashiAlbaro mederos Primary Care Provider REASON FOR VISIT ER Visit rec'd Encounters Encounter Location Date Provider Diagnosis Albaro Orona MD [address] [facility] [address] [place] [phone] 06/28/2024 Albaro Orona Plan Of Treatment Next Appt Details Provider Name:Albaro cedeño, 01/22/2025 01:30:00 PM, [address] [place] [address], [address] [place] [address], [phone], Provider Name:Albaro cedeño, 05/23/2025 07:30:00 AM, [address] [place] [address], [address], [phone], Provider Name:Albaro cedeño, 05/30/2025 01:30:00 PM, [address] [place] [address], [address], [phone], Provider Name:Albaro Martin ier, 11/14/2025 06:45:00 AM, [address], [address], [place], [place], [phone], Provider Name:Albaro Martin ier, 11/21/2025 01:00:00 PM, [address], [address], [place], [place], [phone], Progress Notes * Rekha SHARMA PDOB:1940 (84 yo F)Acc No.[id number]:06/28/2024 Patient: Rekha MEAD :1940 A ge:84 Y S ex:Female Address:[place] [address] * true * Date: Generated for Adelina shane/Rylie/Galileosmitting on: 02:14 PM EDT
--- OUTSIDE RECORDS SUMMARY | 2024-08-06 05:14 | XMS_ITS ---
Author Organization Albaro Orona MD Address [address] [place] [phone] Care Team Providers Care Pipeline Technician Name Role Phone Yeyo Albaro Primary Care Provider [phone] REASON FOR VISIT HZT 320-25MG Medications Medication SIG (Take, Route, Frequency, Duration) Notes Start Date End Date Status hydroCHLOROthiazide 25 MG 1 tablet in th e morning Orally Once a day for 90 days 08/06/2024 Active Valsartan 320 MG 1 tablet Orally Once a day for 90 days 08/06/2024 Active Encounters Encounter Location Date Provider Diagnosis Albaro Orona MD [address] [place] [phone] 08/06/2024 Albaro Orona Plan Of Treatment Medication Medication Name Sig Start Date Stop Date Notes hydroCHLOROthiazide 25 MG 1 tablet in th e morning Orally Once a day for 90 days 08/06/2024 Valsartan 320 MG 1 tablet Orally Once a day for 90 days 08/06/2024 Next Appt Details Provider Name:Albaro cedeño, 01/22/2025 01:30:00 PM, [address] [place] [address], [address], [place], [phone], Provider Name:Albaromerritt keatingr, 05/23/2025 07:30:00 AM, [address] [place] [address], [address], [place], [phone], Provider Name:Albaro Dino keatingr, 05/30/2025 01:30:00 PM, [address] [place] [address], Suite [facility], [place], [phone], Provider Name:Albaro keatingr, 11/14/2025 06:45:00 AM, [address] [place] [address], Suite [facility], [place], [phone], Provider Name:Albaro Dino keatingr, 11/21/2025 01:00:00 PM, [address] [place] [address], Suite [facility], [place], [phone], Progress Notes * Rekha SHARMA PDOB:1940 (84 yo F)Acc No.[id number]:08/06/2024 Patient: Rekha MEAD :1940 A ge:84 Y S ex:Female Address:[place] [address] * Refills Start Valsartan Tablet, 320 MG, Orally, 90 Tablet, 1 tablet, Once a day, 90 days, Refills=5 Start hydroCHLOROthiazide Tablet, 25 MG, Orally, 90 Tablet, 1 tablet in the morning, Once a day, 90 days, Refills=5 * true * Date: Generated for Adelina shane/Rylie/eTиванsmitting on: 1 02:15 PM EDT
--- OUTSIDE RECORDS SUMMARY | 2024-09-11 07:30 | XMS_ITS ---
Author Organization Albaro Orona MD Address [address] [place] [phone] Care Team Providers Care Carbide Die Maker Name Role Phone Albaro Orona Primary Care Provider [phone] Allergies No Known Allergies REASON FOR VISIT pre-op Dr Welch 09-18-24 right eye EKG needed Medications Medication SIG (Take, Route, Frequency, Duration) Notes Start Date End Date Status Alpha 3 1000 MG 1 capsule Orally Onc e a day Active Aspirin Adult Low Strength 81 MG 1 tablet Orally Once a day for 30 day(s) Active Metoprolol Succinate ER 50 mg TAKE 1 TABLET DAILY y mouth daily Active Vitamin C 500 MG as directed Orally Active Valsartan-hydroCHLOROthiaz cl 320-25 MG 1 tablet Orally Once a [...] kg/m2 09/11/2024 weight is down 12 pounds [facility] 05-15-24 Encounters Encounter Location Date Provider Diagnosis Albaro Orona MD [address] [place] [address] [place] [phone] 09/11/2024 Albaro Orona Type 2 diabetes mellitus [...] cataract surgery Next Appt Details Provider Name:Albaro Dino Martin ier, 01/22/2025 01:30:00 PM, [address] [place] [address], [address], [place], [place], [phone], Provider Name:Albaro Martin ier, 05/23/2025 07:30:00 AM, [address] [place] [address], Suite [facility], [place], [place], [phone], Provider Name:Albaro Martin ier, 05/30/2025 01:30:00 PM, [address] [place] [address], Suite [facility], [place], [place], [phone], Provider Name:Albaromerritt Martin ier, 11/14/2025 06:45:00 AM, [address] [place] [address], Suite [facility], [place], [place], [phone], Provider Name:Albaro Sun Mario ier, 11/21/2025 01:00:00 PM, [address] [place] [address], Suite [facility], [place], [place], [phone], Progress Notes * Rkeha SHARMA PDOB:1940 (84 yo F)Acc No.[id number]:09/11/2024 Patient: Rekha MEAD Provider: Suri Orona MD :1940 A ge:84 Y S ex:Female Date:09/11/2024 Address: [id number] Subjective: * Chief Complaints: * p re-op Dr Welch 09-18-24 right eye EKG needed * HPI: S ymptom(s): patient is 84 yo female here for pre op clearance visit for upcoming cataract surgery scheduled 09/18/24 with Yuri/ schuyler for preop. * ROS: G eneral/Constitutional: Denies C hills. D enies F atraymone. D enies F ever. D enies H [...] Release 1 tablet Orally Once a day Alpha 3 1000 MG Capsule 1 capsule Orally [...] 1 tablet Orally Once a day Taking Alpha 3 1000 MG Capsule 1 capsule Orally [...] 0 09/11/2024 Generated for Adelina shane/Rylie/Olamideitting on: 1 02:14 PM EDT History and Physical Notes * [...]
--- OUTSIDE RECORDS SUMMARY | 2024-10-01 04:06 | XMS_ITS ---
Author Organization Albaro Orona MD Address [address] [place] [phone] Care Team Providers Care Power Ballast Machine Operator Name Role Phone UrvashiVandana mederosn Primary Care Provider REASON FOR VISIT ER visit rec'd Encounters Encounter Location Date Provider Diagnosis Albaro Orona MD [address] [facility] [address] [place] [phone] 10/01/2024 Albaro Orona Plan Of Treatment Next Appt Details Provider Name:Albaro cedeño, 01/22/2025 01:30:00 PM, [address] [place] [address], [address] [place] [address], [phone], Provider Name:Albaro cedeño, 05/23/2025 07:30:00 AM, [address] [place] [address], [address], [phone], Provider Name:Albaro cedeño, 05/30/2025 01:30:00 PM, [address] [place] [address], [address], [phone], Provider Name:Albaro Martin ier, 11/14/2025 06:45:00 AM, [address], [address], [place], [place], [phone], Provider Name:Albaro Martin ier, 11/21/2025 01:00:00 PM, [address], [address], [place], [place], [phone], Progress Notes * Rekha SHARMA PDOB:1940 (84 yo F)Acc No.[id number]:10/01/2024 Patient: Rekha MEAD :1940 A ge:84 Y S ex:Female Address:[place] [address] * true * Date: Generated for Adelina shane/Rylie/Galileosmitting on: 02:14 PM EDT
--- OUTSIDE RECORDS SUMMARY | 2024-10-04 05:30 | XMS_ITS ---
Author Organization Albaro Orona MD Address [address] [place] [phone] Care Team Providers Care Director Global Development Name Role Phone UrvashiVandana mederosn Primary Care Provider [phone] REASON FOR VISIT ER Visit from [facility] rec'd Encounters Encounter Location Date Provider Diagnosis Albaro Orona MD 10 [facility] [address] [place] [phone] 10/04/2024 Albaro Orona Plan Of Treatment Next Appt Details Provider Name:Albaro cedeño, 01/22/2025 01:30:00 PM, [address] [place] [address], [address] [place] [address], [phone], Provider Name:Albaro cedeño, 05/23/2025 07:30:00 AM, [address] [place] [address], [address] [place] [address], [phone], Provider Name:Albaro cedeño, 05/30/2025 01:30:00 PM, [address] [place] [address], [address], [phone], Provider Name:Albaro Martin ier, 11/14/2025 06:45:00 AM, [address], [address], [place], [phone], Provider Name:Albaro Martin ier, 11/21/2025 01:00:00 PM, [address], [address], [place], [phone], Progress Notes * Rekha SHARMA PDOB:1940 (84 yo F)Acc No.[id number]:10/04/2024 Patient: Rekha MEAD Dino :1940 A ge:84 Y S ex:Female Address:[address] [place] [address] * true * Date: Generated for Adelina shane/Rylie/Galileosmitting on: 02:14 PM EDT
--- OUTSIDE RECORDS SUMMARY | 2024-10-18 04:30 | XMS_ITS ---
Author Organization Albaro Orona MD Address [address] [place] [phone] Care Team Providers Care Time Cycle Operator Name Role Phone Albaro Orona Primary Care Provider REASON FOR VISIT after Care u/a Medications [...] Once a day for 30 day(s) Active [place] 3 1000 MG 1 capsule Orally Onc e a day Active Vitamin C 500 MG as directed Orally Active Nitrofurantoin Monohyd Macro 100 MG 1 capsule with food Orally every 12 hrs for 5 day(s) Not-Taking Encounters Encounter Location Date Provider Diagnosis Albaro Orona MD [address] [place] [phone] 10/18/2024 Albaro Orona UTI (urinary tract infection) N39.0 Assessments Encounter Date Diagnosis (ICD Code) Assessment Notes Treatment Notes Treatment Clinical Notes Section Notes 10/18/2024 UTI (urinary tract infection) (ICD-10 - N39.0) Plan Of Treatment Pending Test Test Name Order Date UA ClnCatch+Micro w/rflx Cult 10/18/2024 Next Appt Details Provider Name:Albaro cedeño, 01/22/2025 01:30:00 PM, [address] [place] [address], [phone], Provider Name:Albaro cedeño, 05/23/2025 07:30:00 AM, [address] [place] [address], [phone], Provider Name:Albaro cedeño, 05/30/2025 01:30:00 PM, [address] [place] [address], [phone], Provider Name:Albaro cedeño, 11/14/2025 06:45:00 AM, [address] [place] [address], [phone], Provider Name:Albaro cedeño, 11/21/2025 01:00:00 PM, [address] [place] [address], [phone], Progress Notes * Rekha SHARMA PDOB:1940 (84 yo F)Acc No.[id number]:10/18/2024 Progress Note Patient: Rekha MEAD Provider: Suri Orona MD :1940 A ge:84 Y S ex:Female Date:10/18/2024 Address: [place] , [id number] Subjective: * Chief Complaints: * 1 . after Care u/a. * Medical History: * Medications: T aking Vitamin C 500 MG Capsule as directed Orally , Taking Aspirin Adult Low Strength 81 MG Tablet Delayed Release 1 tablet Orally Once a day , Taking [place] 3 1000 MG Capsule 1 capsule Orally [...] 0 10/18/2024 Generated for Printi ng/Rylie/Olamideitting on: 1 02:14 PM EDT
--- OUTSIDE RECORDS SUMMARY | 2024-11-08 03:30 | XMS_ITS ---
Author Organization Albaro Orona MD Address [address] [place], [place] [phone] Care Team Providers Care Family Development Specialist Name Role Phone TomiAlbaro alexandre Primary Care Provider Results Component Value Reference Range Notes Complete Blood Count Auto Di ff Reviewed date:11/22/2024 09:25:13 AM Interpretation:11-20-2024 Performing Lab:[facility], [address] [place] [phone] Notes/Report: White Blood Count 6.3 4.8-10.8 X10*3/uL Red Blood Count 2.48 4.20-5.50 X10*6/uL Hemoglobin 7.8 12.0-16.0 g/dl Hematocrit 25.5 37.0-47.0 % Mean Corpuscular Volume 102.8 80.0-98.0 fL Mean Corpuscular Hemoglobin 31.5 27.0-33.0 pg Mean Corpuscular HGB Conc 30.6 31.0-35.0 g/dl Red Cell Distribution Width 14.2 11.0-16.0 % Platelet Count 254 160-400 X10*3/uL Mean Platelet Volume 11.0 9.4-12.3 fL Neutrophils Percent Auto 47.1 45-73 % Imm Gran Pct Auto 0.2 0.0-0.4 % Lymphocytes Percent Auto 42.5 20-40 % Monocytes Percent Auto 7.0 2-11 % Eosinophils Percent Auto 2.6 0-4 % Basophils Percent Auto 0.6 0-2 % NRBC Pct Auto 0.0 0.0-0.2 /100WBC Neutrophils Absolute Auto 3.0 2.0-8.3 x10*3/u L Imm Gran Abs Auto 0.01 0.00-0.03 X10*3/uL Lymphocytes Absolute Auto 2.7 1.2-4.9 X10*3/u L Monocytes Absolute Auto 0.4 0.1-1.2 X10*3/uL Eosinophils Absolute Auto 0.2 0.0-0.4 X10*3/u L Basophils Absolute Auto 0.0 0.0-0.2 X10*3/uL NRBC Abs Auto 0.000 0.0-0.012 X10*3/uL Comprehensive [place]. Panel Fa st Reviewed date:11/08/2024 04:43:19 PM Interpretation: Performing Lab:[facility], [address] [place] [phone] Notes/Report: Sodium 145 135-145 mmol/L Potassium 4.0 3.3-5.1 mmol/L Chloride 110 96-108 mmol/L Carbon Dioxide 27 22-29 mmol/L Anion Gap 12 12-20 Blood Urea Nitrogen 33 9-16 mg/dL Creatinine 1.38 0.5-1.4 mg/dL Estimated Glomerular Filt Rate 37 Chronic Kidney Disease: Estimated GFR < 60 mL/min/1.73m2 Severe Kidney Disease: Estimated GFR < 15 mL/min/1.73m2 Glucose Fasting 104 60-99 mg/dL A fasting glucose from 100-125 mg/dl is considered impaired (pre-diabetes). Calcium 9.1 8.4-10.2 mg/dL Bilirubin Total 0.3 0.0-1.0 mg/dL Aspartate Amino Transferase 34 5-31 U/L Alanine Aminotransferase 20 0-31 U/L Total Protein 6.7 6.5-8.0 g/dL Albumin Level 3.9 3.5-5.0 g/dL Alkaline Phosphatase 83 39-117 U/L Lipid Panel Reviewed date:11/08/2024 04:35:56 PM Interpretation: Performing Lab:[facility], [address] [place] [phone] Notes/Report: Triglycerides 91 <150 mg/dL Desirable Triglyceride: less than 150 mg/dL Borderline High Triglyceride 150-199 mg/dL High Triglyceride: 200-499 mg/dL Very High Triglyceride: greater than or equal to 5OO mg/dL Cholesterol 135 <200 mg/dL Desirable Cholesterol: less than 200 mg/dL Borderline High Cholesterol: 200-239 mg/dL High Cholesterol: greater than 239 mg/dL LDL Cholesterol Calculated 59 <100 mg/dL Desirable LDL: less than 100 mg/dL Near Optimal/Above Optimal LDL: 110-129 mg/dL Borderline High LDL: 130-159 mg/dL High LDL: 160-189 mg/dL Very High LDL: greater than or equal to 190 mg/dL HDL Cholesterol 58 >40 mg/dL Desirable HDL: greater than 40 mg/dL Note: This HDL assay may give artificially low results in patients with liver disease. Hemoglobin A1c Reviewed date:11/08/2024 04:35:48 PM Interpretation: Performing Lab:[facility], [address] [place] [phone] Notes/Report: Hemoglobin A1c % 5.0 <6.0 % Hemoglobin A1C Reference Range Adults: 4.8 - 6.0 % Non diabetic: < 6.0 % Goal: < 7.0 % Additional Action Suggested: > 8.0 % Note: Hemoglobin A1c results are invalid for patients with abnormal amounts of HbF. Blood transfusions may impact the HbA1c concentration in the patient sample. Estimated Average Glucose 97 eAG = Estimated average glucose which is %A1C expressed as average glucose, using the formula of the V1K-Ilekttd Average Glucose study (ADAG), Diabetes Care, Vol.31,#8, Sep. 2007 REASON FOR VISIT yearly fasting labs, Getting flu vac at work Encounters Encounter Location Date Provider Diagnosis Albaro Orona MD [address] [place] [address] Drive [address] [place], [place] [phone] 11/08/2024 Albaro Orona Blood tests for rout ine general physical examination Z00.00 ; Type 2 diabetes mellitus without complication E11.9 ; Essential hypertension I10 ; Pure hypercholesterolemia E78.00 and Lymphocytosis D72.820 Assessments Encounter Date Diagnosis (ICD Code) Assessment Notes Treatment Notes Treatment Clinical Notes Section Notes 11/08/2024 Blood tests for rout ine general physical examination (ICD-10 - Z00.00) 11/08/2024 Type 2 diabetes azra itus without complication (ICD-10 - E11.9) 11/08/2024 Essential hypertensi on (ICD-10 - I10) 11/08/2024 Pure hypercholesterolemia (ICD-10 - E78.00) 11/08/2024 Lymphocytosis (ICD-1 0 - D72.820) Plan Of Treatment Pending Test Test Name Order Date Microalbumin, Random 11/08/2024 UA ClnCatch+Micro w/rflx Cult 11/08/2024 Next Appt Details Provider Name:Albaro cedeño, 01/22/2025 01:30:00 PM, [address] [place] [address], [address], [phone], Provider Name:Albaro cedeño, 05/23/2025 07:30:00 AM, [address] [place] [address], [address], [phone], Provider Name:Albaro cedeño, 05/30/2025 01:30:00 PM, [address] [place] [address], [address], [phone], Provider Name:Albaro cedeño, 11/14/2025 06:45:00 AM, [address] [place] [address], [address], [phone], Provider Name:Albaro cedeño, 11/21/2025 01:00:00 PM, [address] [place] [address], [phone], Progress Notes * SAVANNARekha PDOB:1940 (84 yo F)Acc No.[id number]:11/08/2024 Progress Note Patient: Rekha MEAD Provider: Suri Orona MD :1940 A ge:84 Y S ex:Female Date:11/08/2024 Address:[id number] Subjective: * Chief Complaints: * 1 . Yearly fasting labs. 2. Getting flu vac at work. * Medical History: Objective: * Vitals: Assessment: * Assessment: 1. B lood tests for routine general physical examination - Z00.00 (Primary) 2 .?Type 2 diabetes mellitus without complication - E11.9 3 . E ssential hypertension - I10 4 . P ure hypercholesterolemia - E78.00 5 . L ymphocytosis - D72.820 Plan: * Treatment: 2. T ype 2 diabetes mellitus without complication L AB: Microalbumin, Random L AB: UA ClnCatch+Micro w/rflx Cult L AB: Complete Blood Count Auto Diff (Collection Date & Time - 11/08/2024 07:30 AM) L AB: Comprehensive [place]. Panel Fast (Collection Date & Time - 11/08/2024 07:30 AM) L AB: Lipid Panel (Collection Date & Time - 11/08/2024 07:30 AM) L AB: Hemoglobin A1c (Collection Date & Time - 11/08/2024 07:30 AM) 3. E ssential hypertension L AB: Microalbumin, Random L AB: UA ClnCatch+Micro w/rflx Cult L AB: Complete Blood Count Auto Diff (Collection Date & Time - 11/08/2024 07:30 AM) L AB: Comprehensive [place]. Panel Fast (Collection Date & Time - 11/08/2024 07:30 AM) L AB: Lipid Panel (Collection Date & Time - 11/08/2024 07:30 AM) L AB: Hemoglobin A1c (Collection Date & Time - 11/08/2024 07:30 AM) 4. P ure hypercholesterolemia L AB: Microalbumin, Random L AB: UA ClnCatch+Micro w/rflx Cult L AB: Complete Blood Count Auto Diff (Collection Date & Time - 11/08/2024 07:30 AM) L AB: Comprehensive [place]. Panel Fast (Collection Date & Time - 11/08/2024 07:30 AM) L AB: Lipid Panel (Collection Date & Time - 11/08/2024 07:30 AM) L AB: Hemoglobin A1c (Collection Date & Time - 11/08/2024 07:30 AM) 5. L ymphocytosis L AB: Microalbumin, Random L AB: UA ClnCatch+Micro w/rflx Cult L AB: Complete Blood Count Auto Diff (Collection Date & Time - 11/08/2024 07:30 AM) L AB: Comprehensive [place]. Panel Fast (Collection Date & Time - 11/08/2024 07:30 AM) L AB: Lipid Panel (Collection Date & Time - 11/08/2024 07:30 AM) L AB: Hemoglobin A1c (Collection Date & Time - 11/08/2024 07:30 AM) * Procedure Codes: 3 6415 VENIPUNCT, ROUTINE* * * The named appointment provid er may or may not be the originator of this progress note, and it is not deemed complete until electronically signed by the appointment provider. Sign off status: Pending * Provider: Suri Orona MD Date: 0 11/08/2024 Generated for Adelina shane/Rylie/Olamideitting on: 1 02:14 PM EDT
--- OUTSIDE RECORDS SUMMARY | 2024-11-20 09:00 | XMS_ITS ---
Author Organization Albaro Orona MD Address [address] [place] [phone] Care Team Providers Care Case Packer Name Role Phone Albaro Orona Primary Care Provider Allergies Allergen (clinical drug ingredient) Drug/Non Drug Allergy documented on EMR Reaction Allergy Type Onset Date Status Keflex rash Drug Allergy Active REASON FOR VISIT annual visit / must see CBC, Flu vaccine was given at work Medications Medication SIG (Take, Route, Frequency, Duration) Notes Start Date End Date Status Vitamin B12 1000 mg 1 tablet Orally Once a day Not-Taking ProAir HFA 108 (90 Base) MCG/ACT 2 puffs as needed Inhalation every 4 hrs for 30 days 12/22/2012 Not-Taking Symbicort 160-4.5 MCG/ACT 2 puffs Inhala tion Twice a day 07/04/2018 Not-Taking Sulfamethoxazole-Trimethop rim 800-160 MG 1 tablet Orally Twice a day for 7 days 08/27/2021 Not-Taking Furosemide 20 MG 1 tablet Orally Once a day for 10 days 01/29/2021 Not-Taking Cephalexin 500 MG 1 capsule Orally 2 times a day for 5 days 02/19/2022 Not-Takin g Nitrofurantoin Monohyd Macro 100 MG 1 capsule with food Orally every 12 hrs for 5 day(s) Not-Taking Ventolin HFA 108 (90 Base) MCG/ACT 2 puffs as needed Inhalation every 4 hrs for 30 days 04/18/2018 Not-Taking Vitamin C 500 MG as directed Orally Not-Taking Aspirin Adult Low Strength 81 MG 1 tablet Orally Once a day for 30 day(s) Active Simvastatin 40 mg TAKE 1 TABLET DAILY orally daily Active Valsartan-hydroCHLOROthiaz lc 320-25 MG 1 tablet Orally Once a day 04/22/2020 Active Metoprolol Succinate ER 50 mg TAKE 1 TABLET DAILY y mouth daily Active Social History Tobacco Use: Social History [...] Interpretation Negative Vital Signs Blood pressure systolic 132 mm Hg 11/21/19 25 Blood pressure diastolic 60 mm Hg 025 Height 60.5 in 11/20/2024 Weight 205 lbs 11/20/2024 BMI 39.37 kg/m2 11/20/2024 weight is up 2 pounds since 09-11-24 Encounters Encounter Location Date Provider Diagnosis Albaro Orona MD [address] [place] [address] Drive [address] [place], [place] [phone] 11/20/2024 Albaro Orona Annual physical exam Z00.00 ; 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 ; Anemia D64.9 ; Murmur, cardiac R01.1 ; Type 2 diabetes mellitus without complication E11.9 ; Essential hypertension I10 ; Pure hypercholesterolemia E78.00 and Depression screening Z13.31 Assessments Encounter Date Diagnosis (ICD Code) Assessment Notes Treatment Notes Treatment Clinical Notes Section Notes 11/20/2024 Annual physical exam (ICD-10 - Z00.00) labs reviewed and discussed with patient 11/20/2024 Bladder tumor (ICD-1 0 - D49.4) waiting for her surgery 11/20/2024 Anemia (ICD-10 - D64.9) may need a transfusion before her surgery/ as soon as she finds out of the date of the surgery will do a cbc before 11/20/2024 Murmur, cardiac (ICD -10 - R01.1) had a recent echo and no significant valvular disease 11/20/2024 Type 2 diabetes mellitus without complication (ICD-10 - E11.9) stable, will continue current regiment 11/20/2024 Essential hypertensi on (ICD-10 - I10) stable, will continue current regiment 11/20/2024 Pure hypercholesterolemia (ICD-10 - E78.00) doing well, will continue current regiment 11/20/2024 Depression screening (ICD-10 - Z13.31) negative screen Plan Of Treatment Medication Medication Name Sig Start Date Stop Date Notes Simvastatin 40 mg TAKE 1 TABLET DAILY orally daily Valsartan-hydroCHLOROthiazid e 320-25 MG 1 tablet Orally Once a day 04/22/2020 Metoprolol Succinate ER 50 mg TAKE 1 TAB LET DAILY y mouth daily Treatment Notes Assessment Notes Annual physical exam labs reviewed and d iscussed with patient Bladder tumor waiting for her surg breezy Anemia may need a transfusi on before her surgery/ as soon as she finds out of the date of the surgery will do a cbc before Murmur, cardiac had a recent echo an d no significant valvular disease Type 2 diabetes mellitus without complic ation stable, will continue current regiment Essential hypertension stable, will cont inue current regiment Pure hypercholesterolemia doing well, wi ll continue current regiment Depression screening negative screen Next Appt Details Follow Up: 2 Months, Reason: Provider Name:Albaro cedeño, 01/22/2025 01:30:00 PM, [address] [place] [address], [address], [place], [place], [phone], Provider Name:Albaro cedeño, 05/23/2025 07:30:00 AM, [address] [place] [address], [address], [place], [place], [phone], Provider Name:Albaro Martin ier, 05/30/2025 01:30:00 PM, [address], [address], [place], [place], [phone], Provider Name:Albaro Martin ier, 11/14/2025 06:45:00 AM, [address], [address], [place], [phone], Provider Name:Albaro Martin ier, 11/21/2025 01:00:00 PM, [address], [address], [place], [phone], Progress Notes * Rekha SHARMA PDOB:1940 (84 yo F)Acc No.[id number]:11/20/2024 Progress Notes Patient: Rekha MEAD Provider: Suri Orona MD :1940 A ge:84 Y S ex:Female Date:11/20/2024 Address: [address] [place], [id number] Subjective: * Chief Complaints: * 1 . annual visit / must see CBC. 2. Flu vaccine was given at work. * HPI: D epression Screening: PHQ-9 L ittle interest or pleasure in doing things N ot at all, F eeling down, depressed, or hopeless N ot at all, T rouble falling or staying asleep, or sleeping too much N ot at all, F eeling tired or having little energy N ot at all, P oor appetite or overeating N ot at all, F eeling bad about yourself or that you are a failure, or have let yourself or your family down N ot at all, T rouble concentrating on things, such as reading the newspaper or watching television N ot at all, M oving or speaking so slowly that other people could have noticed; or the opposite, being so fidgety or restless that you have been moving around a lot more than usual N ot at all, T houghts that you would be better off or of hurting yourself in some way N ot at all, T otal Score 0 . C ommunication Needs: Communication Needs D oes the patient have a hearing impairment N o, D oes the patient have a vision impairment? Y es, I f yes, what is the vision impairment? G lasses, D oes the patient have a cognition impairment? N o. F all Risk: History H ave you had any falls with injury in the past year? N o. S LANDRY Questions: SDOH Questions I n the past year have you been worried about losing housing? N o, I n the past year have you or any family members you live with been unable to get any of the following when it was really needed? Check all that apply: N one. S ymptom(s): patient is a 84 yo female here for annual visit with review of recent labs and follow up of chronic issues. * ROS: G eneral/Constitutional: Change in appetite d enies. C hills d enies. F ever d enies. O phthalmologic: Blurred vision d enies. D ischarge d enies. P ain d enies. E NT: Decreased hearing d enies. S ore throat d enies.?Swollen glands d enies. E ndocrine: Cold intolerance d enies. E xcessive thirst d enies. H eat intolerance d enies. W eight loss d enies. R espiratory: Cough d enies. S hortness of breath at rest d enies. S hortness of breath with exertion d enies. W heezing d enies. C ardiovascular: Chest pain at rest d enies. C hest pain with exertion?denies. I rregular heartbeat d enies. S hortness of breath d enies. ? G astrointestinal: Abdominal pain d enies. C hange in bowel habits d enies. D iarrhea d enies. N ausea d enies. R ectal bleeding d enies. V omiting d enies . G enitourinary: Blood in urine d enies. D ifficulty urinating d enies. F requent urination d enies. U rinary incontinence D enies. M usculoskeletal: Painful joints d enies. W eakness d enies. ? S kin: Dry skin d enies. I tching d enies. D enies?Mole(s), changes in moles, new moles or any lesions of concern. D enies P hotosensitivity. R brisa d enies. N eurologic: Dizziness d enies. F ainting d enies. H eadache?denies. * Medical History: h as not had colonoscopy - 2011 discussed again 2012; refused 2013; colonoscopy - done 11/13/14 w/Dr. 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 Gary Moreno, 2012. * Family History: F ather: 51 yrs, diagnosed with Cancer. M other: 68 yrs. 1 son(s) , 2 daughter(s) - healthy. . Mother-[place] 2 brothers - Katia had stroke and Victor M had lung cancer, Denies mental health/substance abuse family history, Denies mental health/substance abuse family history, Denies mental health/substance abuse family history, No pertinent family medical history. * Social History: T obacco Use: T obacco Use/Smoking P atient is a f ormer smoker, H ow long has it been since you last smoked? > 10 years, A dditional Findings: Tobacco Non-User F ormer smoker, currently using no form of tobacco. D rugs/Alcohol: A lcohol Screen D id you have a drink containing alcohol in the past year? Y es, H ow often did you have a drink containing alcohol in the past year? M onthly or less (1 point), H ow many drinks did you have on a typical day when you were drinking in the past year? 1 or 2 drinks (0 point), H ow often did you have 6 or more drinks on one occasion in the past year? N ever (0 point), P oints 1 , I nterpretation N egative. M iscellaneous: C affeine: no. Children: yes. 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 Exercise: yes, rides at home 15 minutes. Home smoke detector use: no. Housing: owning. Legal problems: none. Living with: grandson lives with patient but travels a lot and is in school. Marital status: . Occupation: works part-time. Pets: one dog. * Medications: T aking Aspirin Adult Low Strength 81 MG Tablet Delayed Release 1 tablet Orally Once a day , Taking Simvastatin 40 mg Tablet TAKE 1 TABLET DAILY orally daily , Taking Valsartan-hydroCHLOROthiazide 320-25 MG Tablet 1 tablet Orally Once a day , Taking Metoprolol Succinate ER 50 mg Tablet Extended Release 24 Hour TAKE 1 TABLET DAILY y mouth daily , Not-Taking/PRN Vitamin C 500 MG Capsule as directed Orally , Not-Taking/PRN Nitrofurantoin Monohyd Macro 100 MG Capsule 1 capsule with food Orally every 12 hrs , Not-Taking/PRN Ventolin HFA 108 (90 Base) MCG/ACT Aerosol Solution 2 puffs as needed Inhalation every 4 hrs , Not-Taking/PRN Cephalexin 500 MG Capsule 1 capsule Orally 2 times a day , Not-Taking/PRN Vitamin B12 1000 mg Tablet 1 tablet Orally Once a day , Not-Taking/PRN Sulfamethoxazole-Trimethoprim 800-160 MG Tablet 1 tablet Orally Twice a day , Not-Taking/PRN Furosemide 20 MG Tablet 1 tablet Orally Once a day , Not-Taking/PRN ProAir HFA 108 (90 Base) MCG/ACT Aerosol Solution 2 puffs as needed Inhalation every 4 hrs , Not-Taking/PRN Symbicort 160-4.5 MCG/ACT Aerosol 2 puffs Inhalation Twice a day , Medication List reviewed and reconciled with the patient * Allergies: K eflex: rash. Objective: * Vitals: H t: 60.5, Wt: 205, BMI:39.37, BP:132/60, Wt-k.99. weight is up 2 pounds since 09-11-24. * P ast Orders: L ab:Comprehensive [place]. Panel Fast (Order Date - 11/08/2024) (Collection Date & Time - 11/08/2024 07:30 AM) Value Reference Range Sodium 145 135-145 - mmol/L Bilirubin Total 0.3 0.0-1.0 - mg/dL Aspartate Amino Transferase 34 H 5-31 - U/L Alanine Aminotransferase 20 0-31 - U/L Total Protein 6.7 6.5-8.0 - g/dL Albumin Level 3.9 3.5-5.0 - g/dL Alkaline Phosphatase 83 39-117 - U/L Potassium 4.0 3.3-5.1 - mmol/L Chloride 110 H 96-108 - mmol/L Carbon Dioxide 27 22-29 - mmol/L Anion Gap 12 12-20 - Blood Urea Nitrogen 33 H 9-16 - mg/dL Creatinine 1.38 0.5-1.4 - mg/dL Estimated Glomerular Filt Rate 37 - Glucose Fasting 104 H 60-99 - mg/dL Calcium 9.1 8.4-10.2 - mg/dL L ab:Lipid Panel (Order Date - 11/08/2024) (Collection Date & Time - 11/08/2024 07:30 AM) Value Reference Range Triglycerides 91 <150 - mg/dL Cholesterol 135 <200 - mg/dL LDL Cholesterol Calculated 59 <100 - mg/dL HDL Cholesterol 58 >40 - mg/dL L ab:Hemoglobin A1c (Order Date - 11/08/2024) (Collection Date & Time - 11/08/2024 07:30 AM) Value Reference Range Hemoglobin A1c % 5.0 <6.0 - % Estimated Average Glucose 97 - mg/dL * Examination: G eneral Examination: GENERAL APPEARANCE: w ell developed, well nourished, in no acute distress. HEAD: n ormocephalic, atraumatic. EYES: p upils equal, round, reactive to light and accommodation, sclera non-icteric. EARS: n ormal. ORAL CAVITY: m ucosa moist. THROAT: c lear. NECK/THYROID: n lia supple, full range of motion, no cervical lymphadenopathy, no bruits. SKIN: w arm and dry, no suspicious lesions. HEART: r egular rate and rhythm, S1, S2 normal, 2/6 vin at apex. LUNGS: c lear to auscultation bilaterally. BREASTS: d eclined. ABDOMEN: s oft, nontender, nondistended, bowel sounds present, normal, no organomegaly , no masses palpable. RECTAL EXAM: d one by board certified orthodontist. FEMALE GENITOURINARY: d one by board certified orthodontist. EXTREMITIES: n o clubbing, cyanosis, or edema. NEUROLOGIC: n onfocal, motor strength normal upper and lower extremities, sensory exam intact. Assessment: * Assessment: 1. A nnual physical exam - Z00.00 (Primary) 2 . 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 A nemia - D64.9 4 . M urmur, cardiac - R01.1 ?5. T ype 2 diabetes mellitus without complication - E11.9 6 . E ssential hypertension - I10 7 . P ure hypercholesterolemia - E78.00 8 .?Depression screening - Z13.31 Plan: * Treatment: 2. B ladder tumor Notes: waiting for her surgery 3. A blanca Notes: may need a transfusion before her surgery/ as soon as she finds out of the date of the surgery will do a cbc before 4. M urmur, cardiac Notes: had a recent echo and no significant valvular disease 5. T ype 2 diabetes mellitus without complication Notes: stable, will continue current regiment 6. E ssential hypertension Continue Valsartan-hydroCHLOROthiazide Tablet, 320-25 MG, 1 tablet, Orally, Once a day; C ontinue Metoprolol Succinate ER Tablet Extended Release 24 Hour, 50 mg, TAKE 1 TABLET DAILY, y mouth, daily. Notes: stable, will continue current regiment 7. P ure hypercholesterolemia Continue Simvastatin Tablet, 40 mg, TAKE 1 TABLET DAILY, orally, daily. Notes: doing well, will continue current regiment 8. D epression screening Notes: negative screen * Preventive Medicine: Diabetes Care Plan: P atient Lifestyle Goals N eeds to maintain diet control, Patient wants to be able to manage diabetes without much effort. T reatment Goals A 1C< 7, Blood sugars < 115, Diabetic Diet to support management. B arriers N o specific barriers, doing well. S elf-Managment Plan I ncrease light exercise to 3 times a week for 30 minutes, Take BS's twice daily and keep a log. Bring to appt. E xpected Outcome m aintaining stable blood sugar levels within a target range, preventing complications like heart disease, stroke, kidney damage, vision loss, and nerve damage by diligently managing blood glucose, blood pressure, cholesterol. * Follow Up: 2 Months * * The named appointment provid er may or may not be the originator of this progress note, and it is not deemed complete until electronically signed by the appointment provider. Sign off status: Pending * Provider: Suri Orona MD Date: 0 11/20/2024 Generated for Adelina shane/Rylie/Olamideitting on: 1 02:13 PM EDT History and Physical Notes * HPI (History of Present Illness) Category Sub-Category Detail Notes Category Not es Symptom(s) patient is a 84 yo female here for annual visit with review of recent labs and follow up of chronic issues Depression Screening PHQ-9 Little inte rest or pleasure in doing things: Not at [...] way: Not at all Total Score: 0 SDOH Questions SDOH Questions In the past year have you been worried about losing housing?: No In the past year have you or any family members you live with been unable to get any of the following when it was really needed? Check all that apply:: None Fall Risk History Have you had any falls with injury in the past year?: No Communication Needs Communication Needs Does the patient have a hearing impairment: No Does the patient have a vision impairmen t?: Yes If yes, what is the vision impairment?: Glasses Does the patient have a cognition impair ment?: No Examination Category Sub-Category Detail Notes Category Not es General Examination GENERAL APPEARANCE: well dev eloped, well nourished, in no acute distress HEAD: normocephalic, atrau matic EYES: pupils equal, round, reactive to light and accommodation, sclera non-icteric EARS: normal THROAT: clear NECK/THYROID: neck supple, full ra nge of motion, no cervical lymphadenopathy, no bruits HEART: regular rate and rhy thm, S1, S2 normal, 2/6 vin at apex LUNGS: clear to auscultatio n bilaterally ABDOMEN: soft, nontender, non distended, bowel sounds present, normal, no organomegaly , no masses palpable NEUROLOGIC: nonfocal, motor stre ngth normal upper and lower extremities, sensory exam intact SKIN: warm and dry, no hugh picious lesions EXTREMITIES: no clubbing, cyanosi s, or edema BREASTS: declined RECTAL EXAM: done by board certified orthodontist FEMALE GENITOURINARY: done by board certified orthodontist ORAL CAVITY: mucosa moist
--- OUTSIDE RECORDS SUMMARY | 2024-11-26 03:00 | XMS_ITS ---
Author Organization Albaro Orona MD Address [address] [place], [place] [phone] Care Team Providers Care Sock Lining Examiner Name Role Phone Albaro Orona Primary Care Provider Results Component Value Reference Range Notes Complete Blood Count Auto Di ff Reviewed date:11/26/2024 12:43:45 PM Interpretation: Performing Lab:[facility], [address] [place] [phone] Notes/Report: White Blood Count 7.1 4.8-10.8 X10*3/uL [...] Location Date Provider Diagnosis Albaro Orona MD [address] [place] [address] [place] [phone] 11/26/2024 Albaro Orona Lymphocytosis D72.82 0 Assessments Encounter Date Diagnosis (ICD Code) Assessment Notes Treatment Notes Treatment Clinical Notes Section Notes 11/26/2024 Lymphocytosis (ICD-10 - D72.820) Plan Of Treatment Next Appt Details Provider Name:Albaro cedeño, 01/22/2025 01:30:00 PM, [address] [place] [address], [address], [phone], Provider Name:Albaro cedeño, 05/23/2025 07:30:00 AM, [address] [place] [address], [address], [phone], Provider Name:Albaro cedeño, 05/30/2025 01:30:00 PM, [address] [place] [address], [address], [phone], Provider Name:Albaro cedeño, 11/14/2025 06:45:00 AM, [address], [address], [place], [place], [phone], Provider Name:Albaro Martin ier, 11/21/2025 01:00:00 PM, [address] [facility], [address], [place], [place], [phone], Progress Notes * Rekha SHARMA PDOB:1940 (84 yo F)Acc No.[id number]:11/26/2024 Progress Note Patient: Rekha MEAD Provider: Suri Orona MD :1940 A ge:84 Y S ex:Female Date:11/26/2024 Address:[address] [place], [id number] Subjective: * Chief Complaints: * 1 . [...] 0 11/26/2024 Generated for Adelina shane/Rylie/eTиванsmitting on: 02:15 PM EDT
--- NOTE | 2024-12-28 13:09 | A.OFFVIS_ITS ---
Intake Visit Reasons: TURBT follow up Intake Note: Patient presents today for PostOp TURBT Meds: Estrace Cream, Tamsulosin Allergies to Antibiotic: No Known Allergies Blood Thinner: Aspirin PVR:0 mls Tool Machinist Required: No Accompanied by: Self / Same As Patient Allergies No Known Allergies (No Known Allergies*) Allergy (Verified 11/29/24 15:14) HPI Comments Details: Rekha is a pleasant female. She is a patient of Dr. Orona. 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 We will place on low-dose trimethoprim for three-month Continue with Estrace Has been followed for a number of years for recurrent UTI Recently reported gross hematuria Flat lesions seen on cystoscopy Recurrent urinary tract infection Multiple prior infections Placed on Estrace cream Cytology - 12/21 [facility] Medical History (Updated 12/28/24 @ 13:37 by Alberto Silva MD) Bladder cancer Severe obesity Impaired glucose tolerance Chest pain Peripheral edema Bilateral carotid bruits Heart failure with improved ejection fraction (HFimpEF) LBBB (left bundle branch block) Ischemic cardiomyopathy HTN (hypertension) HLD (hyperlipidemia) CAD (coronary artery disease) Surgical History (Updated 12/13/24 @ 12:39 by Maegan Clark RN) Hx of appendectomy Hx of tonsillectomy Hx of colonoscopy History of heart bypass surgery (2016) Social History (Updated 12/13/24 @ 12:43 by Maegan Clark RN) Household Members: Other Household Members Other:: grandson Housing: House Are you a primary director of managed care to a significant other at home: No Do you presently have visiting nurse or other home services: No Alcohol intake: current Alcohol intake frequency: does not drink Patient Tobacco Use Status: Former Tobacco user Tobacco use type: Cigarette Second Hand Smoke Exposure: No Review of Systems Const Denies chills and Denies fever(s) Card Reports no additional complaints and Denies syncope Resp Denies cough GI Denies abdominal pain and Denies heartburn Reports as per HPI and Denies change in libido Neuro Denies syncope Psych Denies change in libido Endo Denies change in libido Physical Exam Const General: cooperative, healthy appearing, comfortable and no acute distress Orientation/consciousness: patient oriented x3 HEENT Face and sinus: Yes normal facial exam Mouth: moist mucous membranes Neck Neck: Yes normal visual inspection, Yes full ROM and Yes trachea midline Chest Chest palpation & inspection: normal inspection of the chest Resp Effort & Inspection: normal respiratory effort, able to speak in complete sentences and no respiratory distress GI Inspection: Yes normal to inspection Back/Spine/Pelvis Cervical Spine: normal cervical lordosis Thoracic/Lumbar Spine: thoracic and lumbar spine normal to inspection Skin General skin exam: no rashes or lesions noted Neuro General: patient oriented x3, gait normal, tone normal and moves all extremities Extrem General: Yes normal to inspection and Yes capillary refill normal Office Procedures Post Void Residual Post Residual Void Post Void Residual (PVR): 0 [id number] Void Residual by ultrasound Results AMB Urinalysis, Automated UA Leukoctes 125 Martell/uL Last Edit by Meenakshi Cruz [facility] on 12/28/24 13:23 UA Nitrite Negative Last Edit by Meenakshi Cruz [facility] on 12/28/24 13:23 UA Urobilinogen 0.2 mg/dL Last Edit by Meenakshi Cruz [facility] on 12/28/24 13:23 UA Protein 15 mg/dL Last Edit by Meenakshi Cruz [facility] on 12/28/24 13:23 UA pH 6.0 Last Edit by Meenakshi Cruz [facility] on 12/28/24 13:23 UA Blood 200 Massimo/uL Last Edit by Meenakshi Cruz [facility] on 12/28/24 13:23 UA Specific Taylor 1.015 Last Edit by Meenakshi Cruz [facility] on 12/28/24 13:2 3 UA Ketone Negative Last Edit by Meenakshi Cruz [facility] on 12/28/24 13:23 UA Bilirubin 0 mg/dL Last Edit by Meenakshi Cruz [facility] on 12/28/24 13:23 UA Glucose 0 mg/dL Last Edit by Meenakshi Cruz [facility] on 12/28/24 13:23 Results Reviewed Results Reviewed: Laboratory Last Values Urine pH (Auto) 6.0 12/28/24 13:22 Specific Taylor (Auto) 1.015 12/28/24 13:22 Urine Protein (Auto) 15 mg/dL 12/28/24 13:22 Glucose (UA)(Auto) 0 mg/dL 12/28/24 13:22 Urine Ketones (Auto) Negative 12/28/24 13:22 Urine Blood (Auto) 200 Massimo/uL 12/28/24 13:22 Urine Nitrite (Auto) Negative 12/28/24 13:22 Urine Bilirubin (Auto) 0 mg/dL 12/28/24 13:22 Urine Urobilinogen (Auto) 0.2 mg/dL 12/28/24 13:22 Leukocyte Esterase (Auto) 125 Martell/uL 12/28/24 13:22 Assessment & Plan Assessment & Plan (1) Cystitis cystica: Comment: 12/22 bladder biopsy with fulguration Code(s): N30.80 - Other cystitis without hematuria Category: Medical Plan Trimethoprim for 3 to six-month Medications: New trimethoprim 100 mg PO DAILY 90 tabs 1RF 90 days N30.80 - Other cystitis without hematuria, R33.9 - Retention of urine, unspecified Patient Instructions: This note is constructed using voice recognition software. While every effort has been made to ensure accuracy automatic log cut off sawyer errors may have been included. Imaging studies, laboratory and physical exam results were discussed and reviewed in detail. No major barriers to patient understanding were identified. An opportunity to ask questions regarding the treatment plan was provided. All questions were answered. The patient expressed understanding and agreement with the above treatment plan. The patient is aware they should contact our office by phone for worsening of their current condition or the appearance of new urologic symptoms. Compliance is encouraged with any medications and followup testing that is ordered. It is a privilege to participate in the urologic care of your patient. If you have any questions or concerns regarding treatment for the above conditions, or other urologic issues, please do not hesitate to contact me. The office telephone contact is [phone]. Sincerely, Dr Alberto Silva MD, [facility] - Urology Compassionate Specialist Care for the Genitourinary System Coding Level of Care Code Est Pt Level 4 (54378) Complex EM visit Add On G2211 Diagnoses Cystitis cystica N30.80 CPT Codes Post Residual Void - PVR CPT Code: 50193-Rexr Void Residual by ultrasound ([id number])
--- OUTSIDE RECORDS SUMMARY | 2024-12-28 14:14 | XMS_ITS | Patient Health Record ---
Author Organization [facility] Address [address] [place] [address] Care Team Providers Care Publishing Director Name Role Phone Albaro Orona MD Primary Care Provider Sloan Yarbrough Unavailable [phone] Reason For Referral No Information Medications Medication SIG (Take, Route, Frequency, Duration) Notes Start Date End Date Status Simvastatin 40 MG 1 tablet in the even ing Orally Once a day Active Colyte w Flavor Packs 240 GM as directed Orally as directed; Duration: 1 day(s) 08/07/2014 Active Irbesartan 150 MG 1 tablet Orally Once a day Active Aspir-81 81 MG 1 tablet Orally Once a day Active Multi Vitamin/Minerals 1 1 Orally QD Active Problems Problem Type SNOMED Code ICD Code Onset Dates Problem Status W/U Status Risk Notes Problem Colon cancer screening (642947796) Colon cancer screening (V76.51) Active confirmed Problem Long-term use of aspirin therapy (V58.66) Active confirmed Plan Of Treatment Future Test Test Name Order Date COLONOSCOPY 08/06/2014 Insurance Providers Payer Name Payer Address Payer Phone Subscriber Number Group Number Insured Name Patient Relationship to Insured Coverage Start Date Coverage End Date MEDICARE OF [place] [address] [place] [address] [id number] ANJEL CORRALES Self - patient is the insured [facility] [address] [place], [place] [id number] [phone] [id number] ANJEL CORRALES Self - patient is the insured Medical (General) History Medical History History ICD Code HTN Denies HI,CVA,Lung disease,renal disease Hyperlipidemia Surgical History Surgery Date(Month/Year) appendectomy tonsillectomy
--- OUTSIDE RECORDS SUMMARY | 2024-12-28 14:15 | XMS_ITS | Clinical Summary ---
Author Organization [facility] Address [address] [place] [address] Phone Care Team Providers Care Manager Ship Name Role Phone Carol Cano MD Primary [...] Date Impaired glucose tolerance 07/12/2024 Severe obesity (CMS/[facility] V24, CMS/[facility] V28) 2024 Assessment & Plan [...] Heart failure with improved ejection fraction (HFimpEF) ([facility] V24, CMS/[facility] V28) 03/22/2024 Assessment & Plan [...] Type Department Care Team Description 11/13/2024 Telephone [facility] - [address] [place] [address] Julius Ag MD 11/09/2024 7:18 AM EDT - 11/09/2024 11:59 PM EDT Hospital Encounter [facility] CT Scan [address] [place] [address] Gross hematuria Discharge Disposition: Home or Self Care 10/05/2024 Telephone [facility] - [address] [place] [phone] Julius Ag MD 09/28/2024 12:17 PM EDT - 09/28/2024 1:48 PM EDT Emergency [facility] Emergency [address] [place] [phone] Tae Arreola MD Complicated UTI (urinary tract infection) (Primary Dx) Discharge Disposition: Home or Self Care from [...] For Mammography at [facility] [address] [place] [phone] 02/07/2025 8:15 AM EST Office Visit Bariatric Surgery - [place] [address] [facility] [address] [place] [address] Lore Pascal PA [address] [place] [phone] 04/04/2025 7:40 AM EST Office Visit [facility] - [facility] [address] [facility] [address] [place] [phone] Aiyana Church NP [address] [place] [address] [place] [address] Health Maintenance Due Date Last Done Comments [...] AND DIFFERENTIAL STAT 09/28/2024 12:14 PM EDT PRINCESS DEXA AXIAL SKELETON Routine 01/01/2019 4:52 [...] Signed Date: 11/15/2024 16:00 ET Workstation ID: [id number] Transcribed By: Self Edit Transcribed Date: 11/15/2024 [...] Signed Date: 11/15/2024 16:00 ET Workstation ID: [id number] Transcribed By: Self Edit Transcribed Date: 11/15/2024 15:42 ET Gloria ORDONEZP IMG CT PROCEDURES Final Res ult * (ABNORMAL) Urinalysis with reflex microscopic and culture (09/28/2024 12:34 PM EDT) Specific [place] Urine [facility]:Unable to interpret due to color interference. pH, Urine 09/28/2024 1:17 PM T [facility] Comment:Unable to interpret due to color interference. Leukocytes, Urine 09/28/2024 1:17 PM [facility] Comment:Unable to interpret due to color interference. Nitrite, Urine 09/28/2024 1:17 PM [facility] Comment:Unable to interpret due to color interference. Protein, Urine 09/28/2024 1:17 PM [facility] Comment:Unable to interpret due to color interference. Glucose, Urine 09/28/2024 1:17 PM [facility] Comment:Unable to interpret due to color interference. Ketones, Urine 09/28/2024 1:17 PM [facility] Comment:Unable to interpret due to color interference. Urobilinogen , Urine 09/28/2024 1:17 PM [facility] Comment:Unable to interpret due to color interference. Bilirubin, Urine 09/28/2024 1:17 PM [facility] Comment:Unable to interpret due to color interference. Blood, Urine 09/28/2024 1:17 PM [facility] Comment:Unable to interpret due to color interference. RBC, Urine >4,000(H) 0 - 4 /HPF LAB URINALYSIS - AUTOMATED METHOD 09/28/2024 1:17 PM [facility] WBC, Urine 23.2(H) 0 - 4 /HPF LAB URINALYSIS - AUTOMATED METHOD 09/28/2024 1:17 PM [facility] Squamous Epithelial, Urine 30 0 - 60 /LPF LAB URINALYSIS - AUTOMATED METHOD 09/28/2024 1:17 PM [facility] Bacteria, Urine Negative Negative /HPF LAB URINALYSIS - AUTOMATED METHOD 09/28/2024 1:17 PM EDT [facility] Hyaline Casts, Urine 0.0 0 - 3 /LPF LAB URINALYSIS - AUTOMATED METHOD 09/28/2024 1:17 PM EDT [facility] Urine Urine specimen obtained by clean catch procedure / Unknown Non-blood Collection / Unknown 09/28/2024 12:34 PM EDT 09/28/2024 12:42 PM EDT us Tae Arreola MD LAB URINE ORDERABLES Final Resul t Performing Organization Address [facility] Co de Phone Number [facility] [address] [place] [address], [place] [phone] * Sanchez urine culture tube (09/28/2024 12:34 PM EDT) Extra Tube Hold for add-ons. 09/28/2024 2:01 PM EDT [facility] Comment:Auto resulted. Urine Urine specimen obtained by clean catch procedure / Unknown Non-blood Collection / Unknown 09/28/2024 12:34 PM EDT 09/28/2024 12:42 PM EDT us Tae Arreola MD LAB URINE ORDERABLES Final Resul t Performing Organization Address [facility] Co de Phone Number [facility] [address] [place] [address], [place] [phone] * Culture urine (09/28/2024 12:34 PM EDT) Culture, Urine <10,000 CFU/mL gram positive cocci, insignificant count, no further workup 09/29/2024 9:47 AM EDT [facility] Urine Urine specimen obtained by clean catch procedure / Unknown Non-blood Collection / Unknown 09/28/2024 12:34 PM EDT 09/28/2024 1:17 PM EDT us Tae Arreola MD LAB MICROBIOLOGY - GENERAL ORDER JUVENTINO Final Result [facility] [address] [place] [address], * (ABNORMAL) CBC auto differential (09/28/2024 12:14 PM EDT) WBC 7.5 4.8 - 10.8 K/mcL LAB HEMETOLOGY METHOD 09/28/2024 12:46 PM EDT [facility] RBC 2.80(L) 3.80 - 4.80 M/mcL LAB HEMETOLOGY METHOD 09/28/2024 12:46 PM EDT [facility] Hemoglobin 8.6(L) 11.5 - 16.0 g/dL LAB HEMETOLOGY METHOD 09/28/2024 12:46 PM EDT [facility] Hematocrit 27.7(L) 35.0 - 47.0 % LAB HEMETOLOGY METHOD 09/28/2024 12:46 PM EDT [facility] MCV 99.3(H) 79.0 - 98.0 FL LAB HEMETOLOGY METHOD 09/28/2024 12:46 PM EDT [facility] MCH 30.8 27.0 - 32.0 pcg LAB HEMETOLOGY METHOD 09/28/2024 12:46 PM EDT [facility] MCHC 31.0(L) 32.0 - 37.0 g/dL LAB HEMETOLOGY METHOD 09/28/2024 12:46 PM EDT [facility] RDW 13.7 11.0 - 15.0 % LAB HEMETOLOGY METHOD 09/28/2024 12:46 PM EDT [facility] Platelets 299 130 - 400 K/mcL LAB HEMETOLOGY METHOD 09/28/2024 12:46 PM EDT [facility] MPV 9.9 7.0 - 11.0 FL LAB HEMETOLOGY METHOD 09/28/2024 12:46 PM [facility] NRBC 0.0 <1.0 % LAB HEMETOLOGY METHOD 09/28/2024 12:46 PM [facility] NRBC Absolute 0.00 <0.10 K/mcL LAB HEMETOLOGY METHOD 09/28/2024 12:46 PM [facility] Neutrophils Relative 63.5 % LAB HEMETOLOGY METHOD 09/28/2024 12:46 PM [facility] Lymphocytes Relative 25.6 % LAB HEMETOLOGY METHOD 09/28/2024 12:46 PM [facility] Monocytes Relative 7.7 % LAB HEMETOLOGY METHOD 09/28/2024 12:46 PM [facility] Eosinophils Relative 2.3 % LAB HEMETOLOGY METHOD 09/28/2024 12:46 PM [facility] Basophils Relative 0.5 % LAB HEMETOLOGY METHOD 09/28/2024 12:46 PM [facility] Immature Granulocytes Relative 0.4 % LAB HEMETOLOGY METHOD 09/28/2024 12:46 PM [facility] Neutrophils Absolute 4.79 1.50 - 7.00 K/mcL LAB HEMETOLOGY METHOD 09/28/2024 12:46 PM [facility] Lymphocytes Absolute 1.93 1.00 - 5.00 K/mcL LAB HEMETOLOGY METHOD 09/28/2024 12:46 PM [facility] Monocytes Absolute 0.58 0.20 - 1.00 K/mcL LAB HEMETOLOGY METHOD 09/28/2024 12:46 PM [facility] Eosinophils Absolute 0.17 0.00 - 0.50 K/mcL LAB HEMETOLOGY METHOD 09/28/2024 12:46 PM [facility] Basophils Absolute 0.04 0.00 - 0.20 K/mcL LAB HEMETOLOGY METHOD 09/28/2024 12:46 PM EDT [facility] Immature Granulocytes Absolute 0.03 0.00 - 0.03 K/mcL LAB HEMETOLOGY METHOD 09/28/2024 12:46 PM EDT [facility] Blood Venous blood specimen / Unknown Venipuncture / Unknown 09/28/2024 12:14 PM EDT 09/28/2024 12:36 PM EDT us Tae Arreola MD LAB BLOOD ORDERABLES Final Resul t [facility] [address] [place] [address], [place] [phone] * (ABNORMAL) Basic metabolic panel (09/28/2024 12:14 PM EDT) Sodium 142 133 - 145 mmol/L LAB CHEMISTRY METHOD 09/28/2024 1:05 PM [facility] Potassium 4.8 3.5 - 5.5 mmol/L LAB CHEMISTRY METHOD 09/28/2024 1:05 PM [facility] Chloride 111(H) 96 - 110 mmol/L LAB CHEMISTRY METHOD 09/28/2024 1:05 PM [facility] CO2 27 21 - 32 mmol/L LAB CHEMISTRY METHOD 09/28/2024 1:05 PM [facility] Anion Gap 4 3 - 11 LAB CHEMISTRY METHOD 09/28/2024 1:05 PM [facility] Glucose 98 70 - 100 mg/dL LAB CHEMISTRY METHOD 09/28/2024 1:05 PM [facility] BUN 33(H) 5 - 25 mg/dL LAB CHEMISTRY METHOD 09/28/2024 1:05 PM [facility] Creatinine 1.57(H) 0.50 - 1.10 mg/dL LAB CHEMISTRY METHOD 09/28/2024 1:05 PM EDT [facility] eGFR 33(L) >=60 mL/min/1. 73m2 LAB CHEMISTRY METHOD 09/28/2024 1:05 PM EDT [facility] Comment:Calculation based on the Chronic Kidney Disease Epidemiology Collaboration (CKD-EPI) equation refit without adjustment for race. BUN/Creatinine Ratio 21.0 LAB CHEMISTRY METHOD 09/28/2024 1:05 PM EDT [facility] Calcium 9.4 8.5 - 10.5 mg/dL LAB CHEMISTRY METHOD 09/28/2024 1:05 PM EDT [facility] Blood Venous blood specimen / Unknown Venipuncture / Unknown 09/28/2024 12:14 PM EDT 09/28/2024 12:36 PM EDT us Tae Arreola MD LAB BLOOD ORDERABLES Final Resul t [facility] [address] [place] [address], * PRINCESS DEXA AXIAL SKELETON (01/01/2019 4:52 PM EST) Anatomical Region Laterality Modality Mammography 01/01/2019 7:10 AM EST Narrative 01/01/2019 4:52 PM EST [facility] Diagnostic Imaging Department [address] [place] [address] Patient: REKHA SHARMA D.O.B./Age/Sex: 1940 - 78 - F Unit#: [id number] Location/Status: SPDIMAM/REG CLI Mnemonic/Ordering Site: MAMDEXAAX/SPMAM Ordering Physician: CAROL CANO MD Princess Dexa Axial Skeleton - 01/01/19 - 0754 History: Low estrogen state due to menopause. Comparison: 01/01/13 Findings: Bone densitometry is performed utilizing dual energy x-ray absorptiometry (DXA) in the [employer] unit. The lumbar spine and proximal femora [...] Major Osteoporotic 9.6% Hip 1.7%. IMPRESSION: Osteopenia. [id number] Dictating Physician: NELLIE TRIANA MD Electronically Signed by: NELLIE TRIANA MD Dic Date/Time: 01/01/191649 Sign date/Time: 01/01/191651 Procedure Note Nellie Triana - 02/16/2022 [facility] Diagnostic Imaging Department [address] [place], [place] [id number] Patient: REKHA SHARMA D.O.B./Age/Sex: 1940 - 78 - F Unit#: [id number] Location/Status: [facility] CLI [facility] Ordering Physician: CAROL CANO MD Princess Dexa Axial Skeleton - 01/01/19 - 0754 History: Low estrogen state due to menopause. Comparison: 01/01/13 Findings: Bone densitometry is performed utilizing dual energy x-ray absorptiometry(DXA) in the [employer] unit. The lumbar spine and proximal femora [...] Fracture: Major Osteoporotic 9.6%Hip 1.7%. IMPRESSION: Osteopenia. [id number] Dictating Physician: NELLIE TRIANA MD Electronically Signed by: NELLIE TRIANA MD Dic Date/Time: 01/01/19 1650 Sign date/Time: 01/01/191651 us Carol Cano MD IMG BI PROCEDURES Final Res ult from Last 3 Months or Most Recently Relevant to Health Maintenance Insurance [facility] MEDICARE Care Teams Manager Ship Relationship Specialty Start Date End Date Carol Cano MD [address] [place] [address] Drive [address] [place] [address] PCP - General Internal Medicine 06/27/24
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
== END 2024-12-28 13:42 | disposition home or self-care (01) ==
LOC: HO.HUSH 13:08
PROVIDERS: PCP Internal Medicine; Visit Provider Urology
DX: N30.80 Other cystitis without hematuria (principal)
CPT/HCPCS: 99213

== ENCOUNTER → 2024-12-28 13:07 | Outpatient (BNVA) | payer MEDICARE, SELFPAY | PROVIDERS: PCP Internal Medicine; Visit Provider Urology | DX: N30.80 Other cystitis without hematuria (principal); R33.9 Retention of urine, unspecified | CPT/HCPCS: 51798; 99212 ==